=== PATIENT | female | born 1960 | race Caucasian/White ===

== ENCOUNTER 2017-01-31 23:20 | Emergency (ER) | payer MEDICAID ==
[~2017-01-31] VITALS: Ht 154.9 cm; Wt 84.0 kg
[~2017-01-31 23:20] MED LIST: ACYC800T57 PO; GLIM4TAB PO; HYDR-902 PO; LISI20TA11 PO
[2017-01-31 23:25] VITALS: Ht 154.9 cm; Wt 84.0 kg
[2017-01-31] MEDS ORDERED: ONDANSETRON (ODT) 4 MG TAB ODT STA (23:26)
[2017-02-01] MEDS ORDERED: morphine 4 MG/ML VIAL IV STA (00:10)
[2017-02-01] MEDS ORDERED: OMEG-135 PO (00:21)
[2017-02-01] MEDS ORDERED: CALC600T11 PO (00:21)
--- NOTE | 2017-02-01 00:23 | ERD ---
ER Documentation Chief Complaint Date/Time DATE: 02/01/17 TIME: 00:21 Chief Complaint PATIENT C/O TINGLING IN ARMS, NAUSEA/VOMITING AND WEAKNESS HPI This is a 56-year-old female who had a sudden tragic standing also had sudden onset of tingling in her arms and a headache. Denies any fevers or chills. Denies any chest pain. Denies any other current issues. Patient was a code green ROS All systems reviewed and are negative except as per history of present illness. Medications Home Meds Active Scripts Hydrocodone/Acetaminophen ([place] 10-325 Tablet) 1 Each Tablet, 1 TAB PO Q6H Y for PAIN, #12 TAB Prov:KANDY BENTLEY MD 06/24/16 Acyclovir* (Zovirax*) 800 Mg Tablet, 800 MG PO 5 TIMES DAILY for 10 Days, TAB Prov:KANDY BENTLEY MD 06/24/16 Reported Medications Lisinopril* (Lisinopril*) 20 Mg Tablet, 20 MG PO DAILY, #30 TAB 06/24/16 Glimepiride* (Glimepiride*) 4 Mg Tablet, 4 MG PO WITH BREAKFAST DINNE, TAB 06/24/16 Allergies Allergies: Coded Allergies: Penicillins (Unverified Allergy, Unknown, 02/01/17) PMhx/Soc History of Surgery: Yes (C SECTION ) Anesthesia Reaction: No Hx Neurological Disorder: No Hx Respiratory Disorders: No Hx Cardiac Disorders: Yes (HTN) Hx Psychiatric Problems: No Hx Miscellaneous Medical Probl: Yes (DIABETES ) Hx Alcohol Use: No Hx Substance Use: No Hx Tobacco Use: No Smoking Status: Never smoker Physical Exam Vitals Vital Signs Date Time Temp Pulse Resp B/P Pulse Ox O2 Delivery O2 Flow Rate FiO2 01/31/17 23:25 98.2 82 20 184/87 100 Physical Exam Const: [] Head: Atraumatic Eyes: Normal Conjunctiva ENT: Normal External Ears, Nose and Mouth. Neck: Full range of motion..~ No meningismus. Resp: Clear to auscultation bilaterally Cardio: Regular rate and rhythm, no murmurs Abd: Soft, non tender, non distended. Normal bowel sounds Skin: No petechiae or rashes Back: No midline or flank tenderness Ext: No cyanosis, or edema Neur: Awake and alert Psych: Normal Mood and Affect Results 24 hrs Laboratory Tests Test 6/27/17 23:23 Bedside Glucose 166mg/dL Current Medications Medications (Trade) Dose Ordered Sig/Idris Route PRN Reason Start Time Stop Time Status Last Admin Dose Admin Ondansetron HCl (Zofran Odt) 4 mg ONCE STAT ODT 01/31/17 23:26 01/31/17 23:27 DC 01/31/17 23:38 Clonidine (Catapres) 0.2 mg ONCE ONCE PO 01/31/17 23:30 01/31/17 23:31 DC 01/31/17 23:38 Morphine Sulfate (morphine) 4 mg ONCE STAT IV 02/01/17 00:10 02/01/17 00:11 DC Procedures/MDM EKG: Rate/Rhythm: [Normal Sinus Rhythm] QRS, ST, T-waves: [No changes consistent w/ acute ischemia] Impression: [No evidence of ischemia or arrhythmia] Medical decision-making: Patient with elevated blood pressure likely secondary to anxiety. At this point is clinically sober patient be discharged home. Patient's blood pressure was elevated (>120/80) but appears stable without evidence of hypertension emergency or urgency. The patient was counseled about the risks of hypertension and urged to pursue outpatient monitoring and therapy within a week with their primary care physician. Departure Diagnosis: Primary Impression: Anxiety Condition: Stable SHALOM KHAN Feb 01, 2017 00:23
[2017-02-01 00:52] VITALS: BP 159/78; PULSE 79; RESP 18
== END 2017-02-01 00:52 | disposition home or self-care (01) ==
LOC: E/R 23:20
DX: F41.9 Anxiety disorder, unspecified (principal); I10 Essential (primary) hypertension; E11.9 Type 2 diabetes mellitus without complications; Z79.84 Long term (current) use of oral hypoglycemic drugs
CPT/HCPCS: 82962; 93005; Z7502; Z7610

== ENCOUNTER 2017-05-16 06:01 | Inpatient (IN) | payer MEDICAID ==
[~2017-05-16] VITALS: Ht 160 cm; Wt 75.0 kg
[2017-05-16] VITALS (21 sets, daily range): BP systolic 106–124; BP diastolic 63–79; PULSE 60–75; RESP 13–28; TEMP 98.5; Ht 160 cm; Wt 75.0 kg
[~2017-05-16 06:01] MED LIST changes: -ACYC800T57 PO; +CALC600T24 PO; -HYDR-902 PO; +OMEG-135 PO
[2017-05-16] MEDS ORDERED: HYDROmorphONE 1 MG/ML SYG IV STA (07:00)
[2017-05-16] MEDS ORDERED: KETOROLAC 30 MG INJ IV STA (07:00)
[2017-05-16] MEDS ORDERED: ONDANSETRON 4 MG INJ IV STA ×3 (07:00→17:28)
--- NOTE | 2017-05-16 07:41 | RADRPT ---
PROCEDURE: XR Chest. CLINICAL INDICATION: chest pain TECHNIQUE: Single frontal view of the chest was obtained COMPARISON: None FINDINGS: The heart and mediastinum are within normal limits. The lungs are clear. There is no pleural effusion or pneumothorax. RPTAT: AA IMPRESSION: No acute disease. .Ryan Galvan MD, Date Time Electronically viewed and signed by .Ryan Galvan MD, on 05/16/2017 07:40 .S/
[2017-05-16] MEDS ORDERED: ENOXAPARIN 80 MG/0.8 ML SYG SC STA (09:15)
[2017-05-16] MEDS ORDERED: NITROGLYCERIN 2% 1 GM OINT PKT TD STA (09:15)
[2017-05-16] MEDS ORDERED: ASPIRIN 325 MG TAB PO STA (09:15)
[2017-05-16] MEDS ORDERED: CALC500T91 PO (10:02)
[2017-05-16 10:39] LABS: BASOPHILS % 0.2 % (0.0-2.0); EOSINOPHILS # 0.1 10^3/ul (0.0-0.5); EOSINOPHILS % 0.9 % (0.0-7.0); HEMATOCRIT 33.3 % (37.0-47.0); HEMOGLOBIN 10.7 g/dl (12.0-16.0); LYMPHOCYTES # 1.7 10^3/ul (0.8-2.9); LYMPHOCYTES % 13.5 % (15.0-51.0); MEAN CORPUSCULAR HEMOGLOBIN 29.1 pg (29.0-33.0); MEAN CORPUSCULAR HGB CONC 32.1 g/dl (32.0-37.0); MEAN CORPUSCULAR VOLUME 90.5 fl (82.0-101.0); MEAN PLATELET VOLUME 12.5 fl (7.4-10.4); MONOCYTE # 0.4 10^3/ul (0.3-0.9); MONOCYTES % 3.5 % (0.0-11.0); NEUTROPHIL # 10.4 10^3/ul (1.6-7.5); NEUTROPHILS % 81.6 % (39.0-77.0); PLATELET COUNT 191 10^3/UL (140-415); RED BLOOD COUNT 3.68 10^6/ul (4.20-5.40); RED CELL DISTRIBUTION WIDTH 13.6 % (11.5-14.5); WHITE BLOOD COUNT 12.7 10^3/ul (4.8-10.8)
[2017-05-16 10:43] LABS: INR 1.02; PROTIME 13.4 Sec (12.2-14.2)
[2017-05-16 10:44] LABS: PARTIAL THROMBOPLASTIN TIME 27.5 Sec (25.0-35.0)
[2017-05-16 10:46] LABS: ALBUMIN 3.7 g/dl (3.3-4.9); ALBUMIN/GLOBULIN RATIO 0.94; BILIRUBIN,INDIRECT 0.2 mg/dl (0-1.1); BILIRUBIN,TOTAL 0.2 mg/dl (0.2-1.3); CALCIUM 9.2 mg/dl (8.4-10.2); CREATININE 1.14 mg/dl (0.44-1.00); POTASSIUM 4.8 mmol/L (3.5-5.1); TOTAL PROTEIN 7.6 g/dl (6.1-8.1)
--- NOTE | 2017-05-16 12:31 | ERA ---
ER Documentation Chief Complaint Date/Time DATE: 05/16/17 TIME: 12:27 Chief Complaint upper back pain with vomiting started this 3am; denies injury/fall HPI This is a 57-year-old female who states that 3 AM this morning she developed some pain located in her right upper back area located around her right scapula and right upper chest underneath the clavicle. She said she vomited 6 or 7 times it is nonbilious and nonbloody. She said that she always vomits when she has pain. She says this is not unusual to vomit when she has any type of pain. She says the pain is worse when she moves her trunk or arms. She has no shortness of breath no pain in the right upper quadrant no known history of gallstones, no recent cough. Denies any pressure she describes the pain as a sharp sensation, no radiation of pain the pain is mild to moderate now ROS All systems reviewed and are negative except as per history of present illness. Medications Home Meds Reported Medications Calcium Carbonate ([id number]) 500 Mg Tablet, 500 MG PO BID, TAB 05/16/17 [place]-3 Fatty Acids/Fish Oil (Fish Oil 1,000 mg Capsule) 1 Each Capsule, 1 EACH PO DAILY, CAP 02/01/17 Lisinopril* (Lisinopril*) 20 Mg Tablet, 20 MG PO DAILY, #30 TAB 06/24/16 Glimepiride* (Glimepiride*) 4 Mg Tablet, 4 MG PO WITH BREAKFAST DINNE, TAB 06/24/16 Discontinued Reported Medications Calcium Carbonate* (Calcium Carbonate*) 600 MG Ca Tab, 600 MG PO, TAB 02/01/17 Allergies Allergies: Coded Allergies: Penicillins (Unverified Allergy, Unknown, 05/16/17) PMhx/Soc History of Surgery: Yes (C SECTION ) Anesthesia Reaction: No Hx Neurological Disorder: No Hx Respiratory Disorders: No Hx Cardiac Disorders: Yes (HTN, elevated cholesterol) Hx Psychiatric Problems: No Hx Miscellaneous Medical Probl: Yes (DIABETES ) Hx Alcohol Use: No Hx Substance Use: No Hx Tobacco Use: No Smoking Status: Never smoker FmHx Family History: No coronary disease Physical Exam Vitals Vital Signs Date Time Temp Pulse Resp B/P Pulse Ox O2 Delivery O2 Flow Rate FiO2 05/16/17 09:30 97.1 69 18 134/99 95 Room Air 05/16/17 06:05 96.6 60 20 142/76 98 Physical Exam Const: Well-developed, well-nourished Head: Atraumatic, normocephalic Eyes: Normal Conjunctiva, PERRLA, EOMI, normal sclera, no nystagmus ENT: Normal External Ears, Nose and Mouth, moist mucus membranes. Neck: Full range of motion. No meningismus, no lymphadenopathy. Resp: [Clear to auscultation bilaterally, no wheezing, rhonchi, rales, there is reproducible tenderness at the right upper chest wall, right trapezius right upper back. Pushing on the areas cause reproducible pain, pain is also reproducible with twisting of the trunk Cardio: Regular rate and rhythm, no murmurs, S1 S2 present Abd: Soft, non tender x 4, non distended. Normal bowel sounds, no guarding or rebound, no pulsitile abdominal masses or bruits Skin: No petechiae or rashes, no ecchymosis , no maculopapular rash Back: No midline or flank tenderness Ext: No cyanosis, or edema, FROM x 4, normal inspection, neurovascularly intact x 4 Neur: Awake and alert, STR 5/5 x 4, sensation intact x 4, no focal findings, cerebellum intact Psych: Normal Mood and Affect Result Diagram: 05/16/1771405/16/1715 Results 24 hrs Laboratory Tests Test 05/16/17 07:15 White Blood Count 12.710^3/ul Red Blood Count 3.6810^6/ul Hemoglobin 10.7g/dl Hematocrit 33.3% Mean Corpuscular Volume 90.5fl Mean Corpuscular Hemoglobin 29.1pg Mean Corpuscular Hemoglobin Concent 32.1g/dl Red Cell Distribution Width 13.6% Platelet Count 89578^3/UL Mean Platelet Volume 12.5fl Neutrophils % 81.6% Lymphocytes % 13.5% Monocytes % 3.5% Eosinophils % 0.9% Basophils % 0.2% Nucleated Red Blood Cells % 0.0/100WBC Neutrophils # 10.410^3/ul Lymphocytes # 1.710^3/ul Monocytes # 0.410^3/ul Eosinophils # 0.110^3/ul Basophils # 0.010^3/ul Nucleated Red Blood Cells # 0.010^3/ul Prothrombin Time 13.4Sec Prothrombin Time Ratio 1.0 INR International Normalized Ratio 1.02 Activated Partial Thromboplast Time 27.5Sec Sodium Level 141mmol/L Potassium Level 4.8mmol/L Chloride Level 109mmol/L Carbon Dioxide Level 25mmol/L Anion Gap 12 Blood Urea Nitrogen 33mg/dl Creatinine 1.14mg/dl Glucose Level 289mg/dl Calcium Level 9.2mg/dl Total Bilirubin 0.2mg/dl Direct Bilirubin 0.00mg/dl Indirect Bilirubin 0.2mg/dl Aspartate Amino Transf (AST/SGOT) 31IU/L Alanine Aminotransferase (ALT/SGPT) 27IU/L Alkaline Phosphatase 114IU/L Troponin I 0.128ng/ml Total Protein 7.6g/dl Albumin 3.7g/dl Globulin 3.90g/dl Albumin/Globulin Ratio 0.94 Current Medications Medications (Trade) Dose Ordered Sig/Idris Route PRN Reason Start Time Stop Time Status Last Admin Dose Admin Hydromorphone HCl (Dilaudid) 1 mg ONCE STAT IV 05/16/17 07:00 05/16/17 07:02 DC 05/16/17 07:11 Ondansetron HCl (Zofran Inj) 4 mg ONCE STAT IV 05/16/17 07:00 05/16/17 07:02 DC 05/16/17 07:12 Ketorolac Tromethamine (Toradol) 30 mg ONCE STAT IV 05/16/17 07:00 05/16/17 07:02 DC 05/16/17 07:11 Aspirin (Aspirin) 325 mg ONCE STAT PO 05/16/17 09:15 05/16/17 09:18 DC 05/16/17 09:26 Nitroglycerin (Nitroglycerin 2% Oint) 1 inch ONCE STAT TD 05/16/17 09:15 05/16/17 09:18 DC 05/16/17 09:28 Enoxaparin Sodium (Lovenox) 80 mg ONCE STAT SC 05/16/17 09:15 05/16/17 09:18 DC 05/16/17 09:27 Procedures/MDM PROCEDURE: XR Chest. CLINICAL INDICATION: chest pain TECHNIQUE: Single frontal view of the chest was obtained COMPARISON: None FINDINGS: The heart and mediastinum are within normal limits. The lungs are clear. There is no pleural effusion or pneumothorax. RPTAT: AA IMPRESSION: No acute disease. .Ryan Galvan MD, MD Date Time Electronically viewed and signed by .Ryan Galvan MD, on 05/16/2017 07: 40 .S/ CC: FEDE MOSS DO EKG: Rate/Rhythm: Normal Sinus Rhythm,NL intervals QRS, ST, QT: NORMAL IL, QRS, QT] Impression: NORMAL EKG Patient has an elevated troponin. She received an aspirin and Lovenox subcu. We will admit the patient to the hospital for cardiac workup. I page Dr. Dominguez of cardiology and waiting for callback. Patient is pain-free at this time does not show any evidence of EKG changes for acute coronary syndrome at this time. Critical Care Time: 30 minutes Treatments/Evaluations: Close monitoring and treatment of unstable vital signs, cardiorespiratory, and neurologic status, while maintaining tight balance of fluid, respiratory, and cardiac interventions. This time includes discussing the case with the patient and the patient's family. This time does not include all procedures stated elsewhere in this record. This time also includes reviewing old records, labs and radiological studies. This time includes examining and re-examining the patient. Additionally, this time also includes arranging care with admitting and consulting physicians. Departure Diagnosis: Primary Impression: Non-STEMI (non-ST elevated myocardial infarction) Condition: Stable FEDE MOSS DO May 16, 2017 12:31
[2017-05-16] MEDS ORDERED: SOD CHLORIDE 0.9% 1,000 ML IV SCH ×3 (12:38→16:30)
[2017-05-16] MEDS ORDERED: ONDANSETRON 4 MG INJ IV PRN ×2 (13:00→15:00)
[2017-05-16] MEDS ORDERED: ACETAMINOPHEN 325 MG TAB PO PRN ×2 (13:00→15:00)
[2017-05-16] MEDS ORDERED: NITROGLYCERIN (SL) 0.4 MG TAB SL PRN (15:00)
[2017-05-16] MEDS ORDERED: HEPARIN 25000 UNITS/250 ML 250 ML IV SCH ×2 (15:00→17:30)
[2017-05-16] MEDS ORDERED: HEPARIN 1000 UNITS/ML 10 ML INJ IV PRN ×3 (15:00→17:30)
[2017-05-16] MEDS ORDERED: DEXTROSE 50% 50 ML SYRINGE IV PRN ×2 (15:00)
[2017-05-16] MEDS ORDERED: DOCUSATE SODIUM 100 MG CAP PO PRN (15:00)
[2017-05-16] MEDS: FISH OIL 1,000 MG CAP PO SCH (15:00)
[2017-05-16] MEDS ORDERED: LORAZEPAM 2 MG INJ IV PRN (15:00)
[2017-05-16] MEDS ORDERED: GLUCOSE GEL 15 GRAM TUBE BUCCAL PRN (15:00)
[2017-05-16] MEDS ORDERED: HEPARIN 1000 UNITS/ML 10 ML INJ IV ONE ×2 (15:00→17:30)
[2017-05-16] MEDS ORDERED: ALBUTEROL/IPRATROPIUM (NEB) 3 ML AMP HHN PRN (15:00)
[2017-05-16] MEDS ORDERED: NACL 0.9% 3 ML SYG IV SCH (15:00)
[2017-05-16] MEDS ORDERED: GLUCAGON 1 MG INJ IM PRN (15:00)
[2017-05-16] MEDS ORDERED: HYDROCODONE/APAP (5/325) TAB PO PRN (15:00)
[2017-05-16] MEDS ORDERED: GLUCOSE GEL 15 GRAM TUBE PO PRN ×2 (15:00)
[2017-05-16] MEDS ORDERED: NA PHOSPHATE/BIPHOS 133 ML ENEMA PR PRN (15:00)
[2017-05-16] MEDS ORDERED: hydrALAzine 20 MG INJ IV PRN (15:00)
[2017-05-16] MEDS ORDERED: MAGNESIUM HYDROXIDE 30ML CUP PO PRN (15:00)
[2017-05-16 15:23] LABS: BASOPHILS % 0.3 % (0.0-2.0); EOSINOPHILS % 0.1 % (0.0-7.0); HEMATOCRIT 34.3 % (37.0-47.0); LYMPHOCYTES # 1.7 10^3/ul (0.8-2.9); LYMPHOCYTES % 15.6 % (15.0-51.0); MEAN CORPUSCULAR HEMOGLOBIN 28.6 pg (29.0-33.0); MEAN CORPUSCULAR HGB CONC 32.1 g/dl (32.0-37.0); MEAN CORPUSCULAR VOLUME 89.3 fl (82.0-101.0); MEAN PLATELET VOLUME 11.7 fl (7.4-10.4); MONOCYTE # 0.4 10^3/ul (0.3-0.9); MONOCYTES % 3.3 % (0.0-11.0); NEUTROPHIL # 8.8 10^3/ul (1.6-7.5); NEUTROPHILS % 80.3 % (39.0-77.0); PLATELET COUNT 193 10^3/UL (140-415); RED BLOOD COUNT 3.84 10^6/ul (4.20-5.40); RED CELL DISTRIBUTION WIDTH 13.7 % (11.5-14.5); WHITE BLOOD COUNT 10.9 10^3/ul (4.8-10.8)
[2017-05-16 15:36] LABS: CK-MB 49.7 ng/ml (0.0-2.4)
[2017-05-16 15:43] LABS: TROPONIN-I 11.8 ng/ml (0.00-0.12)
[2017-05-16 15:51] LABS: INR 1.07; PROTIME 13.9 Sec (12.2-14.2); PT RATIO 1.1
[2017-05-16 15:52] LABS: PARTIAL THROMBOPLASTIN TIME 37.3 Sec (25.0-35.0)
--- NOTE | 2017-05-16 16:11 | HP ---
DATE OF ADMISSION: 05/16/2017 CHIEF COMPLAINT: This is a 57-year-old female with chief complaint of shoulder, chest pain, and vomiting. HISTORY OF PRESENT ILLNESS: This is a 57-year-old female with past medical history of essential hypertension, type 2 diabetes, high cholesterol, who woke up around 3 a.m. this morning complaining of right upper back pain and some mild chest pain. She also had some nonbilious, nonbloody vomiting symptoms and vomited about six or seven times. Also, nausea symptoms as well. She has had vomiting before, but not with this kind of chest pain in the past. She denied any shortness of breath, dizziness or loss of consciousness. No diarrhea or constipation. No fevers or chills. She had some mild headache symptoms, however but no vision changes. When she came into the ER today, she had some blood tests performed and her white count was slightly elevated at 12.7, but more importantly, her first troponin was elevated at 0.128, signs of non ST elevation SC. Cardiology team was attempted to be consulted by the ER staff for this. Apparently no prior history of any strokes or heart attacks, per the patient. PAST MEDICAL HISTORY: As above. ALLERGIES: PENICILLIN. MEDICATIONS: Home medicines include: 1. Lisinopril 20 mg daily. 2. [place]-3 fatty acids. Fish oil 1000 mg daily. 3. Calcium carbonate 500 mg b.i.d. 4. Glimepiride 4 mg b.i.d. PAST SURGICAL HISTORY: She has had in the past. SOCIAL HISTORY: Negative for smoking, drinking, IV drug abuse. FAMILY HISTORY: Mother had hypertension. PHYSICAL EXAMINATION: VITAL SIGNS: Today vital signs: T-max 97.1, pulse 60-69, respirations 18-20, blood pressure 134/99, satting at 95-98 percent room air. GENERAL: The patient lying in bed, answers question appropriately. No acute distress. HEENT: Pupils equal, round, react to light. Extraocular muscles intact. NECK: Supple. No thyromegaly. LUNGS: Clear to auscultation bilaterally. No wheezes. CARDIAC: S1, S2 heard. No rubs, gallops. ABDOMEN: Soft, nontender, nondistended. Normal bowel sounds. No rebound or guarding. MUSCULOSKELETAL: No lower extremity edema bilaterally. NEUROLOGIC: No focal deficits. LABS: WBC 12.7, hemoglobin 10.7, hematocrit 33.3, platelets 191. Sodium 141, potassium 4.8, chloride 109, CO2 25, BUN 33, creatinine 1.14, glucose 289. Again first troponin is elevated at 0.128. Creatine kinase is 1,278. The patient had a chest x- ray that shows no acute disease. ASSESSMENT AND PLAN: 1. This is a 57-year-old female coming in with vomiting symptoms, right shoulder pain and chest pain, with signs of non- ST elevation myocardial infarction. 2. Chest pain and shoulder pain. Again, likely secondary to non-ST elevation myocardial infarction. Admit the patient to telemetry floor. Trend her troponins q.6 hours. Get a cardiology consult. Get 2D echocardiogram. Patient may benefit from left heart catheterization. We will discuss with the cardiology team. In any event, put her morphine, oxygen, nitrates as well. I will put her on high-dose Lipitor as well. Consider low-dose beta aury. Check TSH, A1c, lipid panel. Upon discussion with CV team, will also get CTA to r/o possible aortic dissection. If negative for this, will start heparin IV and ASA high dose. 3. Diabetes. Again, check A1c. Put on sliding scale insulin. 4. History of high cholesterol. Again, check lipid panel. She is on high-dose statins. 5. Gastrointestinal prophylaxis with H2 aury. 6. Deep vein thrombosis prophylaxis. She is on heparin drip for non ST elevation myocardial infarction. Dictated By: Elias Modi MD /jorge/rafa /Document#: [id number] JOAQUÍN
[2017-05-16] MEDS ORDERED: IOHEXOL 100 ML ONE (16:40)
[2017-05-16] MEDS ORDERED: SOD CHLORIDE 0.9% 100 ML ONE (16:40)
[2017-05-16] MEDS ORDERED: IOHEXOL 350MG/ML 50 ML BTL ONE (16:40)
--- NOTE | 2017-05-16 17:13 | RADRPT ---
PROCEDURE: CTA Chest with contrast and with 3-D reconstructions CLINICAL INDICATION: Aortic dissection TECHNIQUE: The study was performed utilizing multidetector CT scanner. Direct spiral axial section s were obtained from the thoracic inlet to the upper abdomen with the use of intravenous contrast ma terial (115 cc of Omnipaque-300). Sagittal, coronal and 3-D reformations were obtained. The images w ere reviewed on a PACS workstation. DLP 598.42 mGycm CTDIvol 30.98, 14.54 mGy One or more of the following dose reduction techniques were used: - Automated exposure control. - Adjustment of the mA and/or kV according to patient size. - Use of iterative reconstruction technique. COMPARISON: No prior studies are available for comparison. FINDINGS: There are no pulmonary emboli. There is no acute dissection or aneurysm of the thoracic aorta. The aortic root measures 2.3 cm in diameter. The ascending aorta measures 2.8 cm in diameter at the level of the right pulmonary artery. The mid aortic arch measures 2.1 cm in diameter. Great vessel origins off the aortic arch are widely patent. The descending thoracic aorta measures 2.0 cm in diameter proximally at the level of the left pulmon ligia artery and 1.9 cm in diameter distally just above the diaphragmatic hiatus. There is prominent interlobular septal thickening bilaterally, particularly in the upper lobes as we ll as numerous patchy and confluent ground-glass opacities bilaterally. There is a trace right pleu ral effusion. There is no pneumothorax. Heart size is within normal limits. There is no pericardial fluid. There are no enlarged axillary or mediastinal lymph nodes. The visualized portions of the upper abdomen are unremarkable. Osseous and soft tissue structures are within normal limits. IMPRESSION: No acute dissection or aneurysm of the thoracic aorta. No pulmonary emboli. Trace right pleural effusion and prominent interlobular septal thickening as well as patchy and conf luent ground-glass opacities bilaterally, as above. Findings suggest congestive changes although pne umonia and lymphangitic carcinomatosis are not entirely excluded. Clinical correlation is recommende d as well as follow-up to resolution. RPTAT: EE Ron Leon Physician Date Time Electronically viewed and signed by Physician Cece on 05/16/2017 17:13 RA/
[2017-05-16] MEDS ORDERED: NITROGLYCERIN 50 MG/D5W (PMX) 250 ML IV STA (17:20)
[2017-05-16] MEDS ORDERED: NITROGLYCERIN 50 MG/D5W (PMX) 250 ML ONE (17:21)
[2017-05-16] MEDS ORDERED: FUROSEMIDE 40 MG INJ ONE (17:21)
[2017-05-16] MEDS ORDERED: LORAZEPAM 2 MG INJ IV ONE (17:30)
[2017-05-16] MEDS ORDERED: FUROSEMIDE 40 MG INJ IV ONE (17:30)
[2017-05-16] MEDS ORDERED: morphine 4 MG/ML VIAL IV STA (17:36)
[2017-05-16] MEDS: morphine 2 MG INJ IV PRN (17:38)
[2017-05-16] MEDS ORDERED: LEVOFLOXACIN 750MG/D5W (PMX) 150 ML IVPB SCH (18:00)
[2017-05-16 18:02] LABS: AADO2 Arterial 214.1 mmHg (7.0-24.0); Allen Test ACCEPTAB; Arterial Base Excess -5.8 mmol/L (-3.0-3); Arterial COHb 0.3 % (0.0-3.0); Arterial HCO3 20.3 mmol/L (22.0-26.0); Arterial MetHb 0.2 % (0.0-1.5); Arterial Total Hemglobin 12.4 g/dl (12.0-18.0); Blood Gas IEPAP 15/5; Blood Gas PS 10; MODE MASK - BIPAP
--- NOTE | 2017-05-16 18:03 | RADRPT ---
PROCEDURE: Chest x-ray CLINICAL INDICATION: Chest pain TECHNIQUE: Chest single view COMPARISON: None FINDINGS: The heart is normal in size. There are new diffuse bilateral ground-glass parenchymal densities rig ht greater than left. This may represent pneumonia or asymmetrical edema. The costophrenic angles ar e sharp. Bony thorax is unremarkable. IMPRESSION: New bilateral ground-glass parenchymal densities right greater than left. This may represent pneumon ia or asymmetrical edema RPTAT: HH .Richie De Los Santos MD, MD Date Time Electronically viewed and signed by .Richie De Los Santos MD, on 05/16/2017 18:03 .W/
[2017-05-16] MEDS: INSULIN ASPART [NOVOLOG] 3 ML PEN SC SCH ×2 (18:18→21:09)
[2017-05-16 20:26] LABS: BASOPHILS % 0.2 % (0.0-2.0); EOSINOPHILS % 0.2 % (0.0-7.0); HEMATOCRIT 35.9 % (37.0-47.0); HEMOGLOBIN 11.3 g/dl (12.0-16.0); LYMPHOCYTES % 15.1 % (15.0-51.0); MEAN CORPUSCULAR HGB CONC 31.5 g/dl (32.0-37.0); MEAN CORPUSCULAR VOLUME 88.9 fl (82.0-101.0); MEAN PLATELET VOLUME 12.3 fl (7.4-10.4); MONOCYTE # 0.7 10^3/ul (0.3-0.9); MONOCYTES % 5.2 % (0.0-11.0); NEUTROPHIL # 10.4 10^3/ul (1.6-7.5); NEUTROPHILS % 78.9 % (39.0-77.0); PLATELET COUNT 215 10^3/UL (140-415); RED BLOOD COUNT 4.04 10^6/ul (4.20-5.40); WHITE BLOOD COUNT 13.2 10^3/ul (4.8-10.8)
[2017-05-16 20:48] LABS: INR 1.14; PROTIME 14.6 Sec (12.2-14.2); PT RATIO 1.1
[2017-05-16] MEDS: FAMOTIDINE 20 MG TAB PO SCH (20:55)
[2017-05-16] MEDS: ATORVASTATIN 80 MG TAB PO SCH (20:56)
[2017-05-16 21:16] LABS: TROPONIN-I 55.9 ng/ml (0.00-0.12)
[2017-05-16 21:41] LABS: PARTIAL THROMBOPLASTIN TIME > 180.0 Sec (25.0-35.0)
[2017-05-17] VITALS (75 sets, daily range): BP systolic 81–143; BP diastolic 31–96; PULSE 53–102; RESP 13–34
[2017-05-17] MEDS: INSULIN ASPART [NOVOLOG] 3 ML PEN SC SCH ×6 (00:32→21:15)
[2017-05-17] MEDS: ACCU-CHEK XX SCH (02:00)
--- NOTE | 2017-05-17 04:12 | CONS ---
DATE OF ADMISSION: 05/16/2017 DATE OF CONSULTATION: CARDIOLOGY CONSULTATION REFERRING PHYSICIAN: Dr. Gabriel REASON FOR EVALUATION: Elevated troponins. HISTORY OF PRESENT ILLNESS: Ms. Dial is a 57-year-old woman with history of hypertension, dyslipi demia, history of coronary artery disease, who comes to the hospital now for evaluation of chest dis comfort. The patient was seen in the emergency room and she was noted to be with reports of back pa in, back discomfort, as well as some nonspecific EKG changes. I reviewed her EKG on admission. She had some subendocardial ischemia in precordial lead, which appeared to be hemodynamically stable. Her further hospital course was complicated by episodes of nausea and vomiting, and then the patient had some chest discomfort. Her troponin came elevated at 11.8, and patient's presentation is consi stent with high-risk features of non-ST elevation myocardial infarction. The patient had a CT of th e chest which was reportedly negative to rule out dissection of the aorta or pulmonary embolism; how ever, the patient does have right pleural effusion, and she went into flash pulmonary edema after th e test requiring BiPAP. The patient is in intensive care unit now, she is hemodynamically stable. Her troponin is now at 11. Patient has been initiated on heparin drip and appears to be hemodynamic ally stable. I think the plan is for patient to have optimization now. She already received some c ontrast with a chest CT. I think for now, conservative therapy is expected and patient likely to re quire left heart catheterization. We will keep her n.p.o. after midnight and follow expectantly. PAST MEDICAL HISTORY: 1. Hypertension. 2. Dyslipidemia. 3. History of coronary artery disease. 4. History of chest pains. 5. History of diabetes. HOME MEDICATIONS: 1. Lisinopril 20 mg. 2. [place] fatty acids. 3. Fish oil. 4. Calcium carbonate. 5. Glimepiride 20 mg p.o. b.i.d. ALLERGIES: PENICILLIN. SOCIAL HISTORY: Patient does not smoke, does not drink, does not use any drugs. FAMILY HISTORY: Negative for sudden cardiac or premature coronary artery disease. REVIEW OF SYSTEMS: CONSTITUTIONAL: No fevers, no chills, no recent weight change. HEENT: No changes in vision or hearing. CARDIAC: No chest pain reported now. RESPIRATORY: No shortness of breath. GASTROINTESTINAL: No nausea, vomiting, diarrhea, constipation. GENITOURINARY: No dysuria, hematuria. NEUROLOGIC: No focal neurological deficits. HEMATOLOGIC: . PSYCHIATRIC: No known history of psychiatric illness. PHYSICAL EXAMINATION: VITAL SIGNS: Temperature is 97.1, heart rate 94, blood pressure 172/77. GENERAL: She is a well-nourished woman in no acute distress, alert and oriented x3, aware of her co ndition. HEAD: Normocephalic, atraumatic. Eyes anicteric. NECK: Supple. JVD is 6-7 cm. There is no lymphadenopathy, no thyromegaly. HEART: Regular with soft holosystolic murmur at the apex. PMI is minimally displaced. LUNGS: Coarse at bases. ABDOMEN: Distended, bowel sounds are present. There is no hepatosplenomegaly. GENITOURINARY: Grossly intact. EXTREMITIES: Show no clubbing, cyanosis or edema. IMAGING: ECG read by me shows sinus rhythm with a rate of 113. She has some subendocardial ischemi a in precordial leads, but no ST elevations. LABORATORY DATA: Sodium 141, potassium 4.4, BUN of 32, creatinine 1.14. Troponin is from 0.12 to 1 1.8. Creatinine is 1.14 ASSESSMENT AND PLAN: 1. Non-ST elevation myocardial infarction. The patient has high-risk features of non-ST elevation myocardial infarction. The plan is for her to be treated with heparin therapy now. We will continu e to treat the patient with heparin and optimize fluid status. We will continue to follow expectant ly. 2. Hypertension. Blood pressure modestly well controlled now. We will continue to follow. We danish l hold off on AMANDA inhibitor in the setting of acute renal failure. Creatinine is 1.14. Continue to avoid nephrotoxic medications. We will follow expectantly. 3. Diabetes. Continue diabetic optimization and care. Insulin per primary team. 4. Respiratory failure, status post contrast administration, mild reaction to contrast administrati on, now on BiPAP. We will continue to follow. I would like to thank Dr. Gabriel for referring this patient for my evaluation. Dictated By: VERIOT TODD MD ML/NTS Conf#: [id number] DID#: [id number] CC: CHINEDU GABRIEL; RUPERT CARMONA MD;*[facility]*
[2017-05-17 05:57] LABS: BASOPHILS % 0.2 % (0.0-2.0); EOSINOPHILS # 0.1 10^3/ul (0.0-0.5); EOSINOPHILS % 0.4 % (0.0-7.0); HEMATOCRIT 32.3 % (37.0-47.0); HEMOGLOBIN 10.1 g/dl (12.0-16.0); LYMPHOCYTES # 2.1 10^3/ul (0.8-2.9); LYMPHOCYTES % 18.6 % (15.0-51.0); MEAN CORPUSCULAR HEMOGLOBIN 28.1 pg (29.0-33.0); MEAN CORPUSCULAR HGB CONC 31.3 g/dl (32.0-37.0); MEAN PLATELET VOLUME 12.3 fl (7.4-10.4); MONOCYTE # 0.6 10^3/ul (0.3-0.9); MONOCYTES % 4.9 % (0.0-11.0); NEUTROPHIL # 8.5 10^3/ul (1.6-7.5); NEUTROPHILS % 75.5 % (39.0-77.0); PLATELET COUNT 185 10^3/UL (140-415); RED BLOOD COUNT 3.59 10^6/ul (4.20-5.40); RED CELL DISTRIBUTION WIDTH 14.3 % (11.5-14.5); WHITE BLOOD COUNT 11.2 10^3/ul (4.8-10.8)
[2017-05-17 06:37] LABS: CALCIUM 8.6 mg/dl (8.4-10.2); CREATININE 1.66 mg/dl (0.44-1.00); PHOSPHORUS 5.4 mg/dl (2.5-4.9); POTASSIUM 4.6 mmol/L (3.5-5.1)
[2017-05-17 06:54] LABS: THYROID STIMULATING HORMONE 0.97 MIU/L (0.465-4.680)
[2017-05-17] MEDS: FAMOTIDINE 20 MG TAB PO SCH ×2 (08:29→21:09)
[2017-05-17] MEDS: FISH OIL 1,000 MG CAP PO SCH (08:29)
[2017-05-17] MEDS ORDERED: ASPIRIN (EC) 325 MG TAB PO SCH (09:00)
[2017-05-17] MEDS ORDERED: VERAPAMIL 5 MG INJ ONE (09:13)
[2017-05-17] MEDS ORDERED: HEPARIN 1000 UNITS/ML 10 ML INJ ONE (09:13)
[2017-05-17] MEDS ORDERED: HEPARIN 1000 UNITS/NS (A-LINE) 1,000 ML ONE (09:13)
[2017-05-17] MEDS ORDERED: FENTAnyl 50 MCG/ML VIAL ONE (09:13)
[2017-05-17] MEDS ORDERED: IODIXANOL LOCM 100 ML BTL ONE (09:13)
[2017-05-17] MEDS ORDERED: NITROGLYCERIN (IC) 100 MCG/ML INJ ONE (09:13)
[2017-05-17] MEDS ORDERED: LIDOCAINE 1% (MDV) 20 ML INJ ONE (09:13)
[2017-05-17] MEDS ORDERED: MIDAZOLAM 1 MG/ML 2 ML INJ ONE (09:13)
--- NOTE | 2017-05-17 09:43 | PN ---
Date/Time of Note Date/Time of Note DATE: 05/17/17 TIME: 09:36 Assessment/Plan VTE Prophylaxis VTE Prophylaxis Intervention: heparin Lines/Catheters IV C[facility]ter Type (from [facility]): [facility] Urinary Cath still in place: No Assessment/Plan Chief Complaint/Hosp Course ASSESSMENT AND PLAN: 57-year-old female coming in with vomiting symptoms, right shoulder pain and chest pain, with signs of non- ST elevation myocardial infarction. 1. Chest pain and shoulder pain. Again, likely secondary to non-ST elevation myocardial infarction. -Follow-up cardiology consult recommendations and results of cardiac cath. - f/u 2D echocardiogram. -Continue Coreg, Lipitor, aspirin 2. Res distress: Again patient required BiPAP yesterday, chest x-ray shows: New bilateral ground-glass parenchymal densities right greater than left. This may represent pneumonia or asymmetrical edema. CTA chest was negative for dissection or PE. -Follow-up pulmonary rec's, , continue broad-spectrum antibiotics 3. Diabetes - A1c = 8.2 - continue sliding scale insulin. 4. History of high cholesterol - f/u lipid panel. She is on high-dose statin. 5. Gastrointestinal prophylaxis with H2 aury. 6. Deep vein thrombosis prophylaxis. She is on heparin drip for non ST elevation myocardial infarction. Critical care time spent on patient care today equals 40 minutes. Problems: Subjective 24 Hr Interval Summary Free Text/Dictation Patient seen by cardiology team. Had significant shortness of breath yesterday and required BiPAP briefly. Sent to ICU from the ER. Presently in cardiac label pinker. No acute events overnight. Exam/Review of Systems Vital Signs Vitals Vital Signs Date Time Temp Pulse Resp B/P Pulse Ox O2 Delivery O2 Flow Rate FiO2 05/17/17 08:00 60 05/17/17 05:54 3.0 05/17/17 03:30 15 101/59 99 05/17/17 00:00 98.6 Nasal Cannula 05/16/17 19:43 50 Intake and Output 05/16/17 05/16/17 05/17/17 14:59 22:59 06:59 Intake Total 80 ml Output Total 250 ml 300 ml Balance -250 ml -220 ml Exam PE: -Unable to be performed presently as the patient is off the floor at procedure Results Result Diagram: 05/17/17 0522 05/17/17 0522 Results 24 hrs Laboratory Tests Test 05/16/17 14:30 05/16/17 15:10 05/16/17 17:40 05/16/17 18:13 Creatine Kinase 1278 H Creatine Kinase Index 3.9 Creatinine Kinase MB (Mass) 49.70 H Troponin I 11.800 *H White Blood Count 10.9 H Red Blood Count 3.84 L Hemoglobin 11.0 L Hematocrit 34.3 L Mean Corpuscular Volume 89.3 Mean Corpuscular Hemoglobin 28.6 L Mean Corpuscular Hemoglobin Concent 32.1 Red Cell Distribution Width 13.7 Platelet Count 193 Mean Platelet Volume 11.7 H Neutrophils % 80.3 H Lymphocytes % 15.6 Monocytes % 3.3 Eosinophils % 0.1 Basophils % 0.3 Nucleated Red Blood Cells % 0.0 Neutrophils # 8.8 H Lymphocytes # 1.7 Monocytes # 0.4 Eosinophils # 0.0 Basophils # 0.0 Nucleated Red Blood Cells # 0.0 Prothrombin Time 13.9 Prothrombin Time Ratio 1.1 INR International Normalized Ratio 1.07 Activated Partial Thromboplast Time 37.3 H Free Thyroxine 1.29 Blood Gas Specimen Source Blood arterial Arterial Blood Date Drawn 05/16/2017 5:56:20 PM Arterial Blood pH (Temp corrected) 7.302 L Arterial Blood pCO2 (Temp correct) 42.0 Arterial Blood pO2 (Temp corrected) 95.2 Arterial Blood HCO3 20.3 L Arterial Blood Base Excess -5.8 L Arterial Blood Oxygen Saturation 96.5 Davin Test ACCEPTAB Arterial Blood Gas Puncture Site Right Radial Arterial Blood Carboxyhemoglobin 0.3 Arterial Blood Methemoglobin 0.2 Blood Gas A-a O2 Differential 214.1 H Oxyhemoglobin Percent 96.0 Total Hemoglobin 12.4 Blood Gas Temperature 37.0 Blood Gas Respiration Rate 14.0 Blood Gas Actual Respiration Rate 24 Blood Gas Modality MASK - BIPAP FiO2 50.0 Blood Gas Pressure Support 10 Blood Gas IPAP/EPAP Ratio 15/5 Blood Gas Notified Whom MDA Blood Gas Notified Time 05/16/2017 6:02:01 PM Bedside Glucose 182 Test 05/16/17 19:48 05/16/17 21:00 05/16/17 23:44 05/17/17 00:30 White Blood Count 13.2 #H Red Blood Count 4.04 L Hemoglobin 11.3 L Hematocrit 35.9 L Mean Corpuscular Volume 88.9 Mean Corpuscular Hemoglobin 28.0 L Mean Corpuscular Hemoglobin Concent 31.5 L Red Cell Distribution Width 14.0 Platelet Count 215 Mean Platelet Volume 12.3 H Neutrophils % 78.9 H Lymphocytes % 15.1 Monocytes % 5.2 Eosinophils % 0.2 Basophils % 0.2 Nucleated Red Blood Cells % 0.0 Neutrophils # 10.4 H Lymphocytes # 2.0 Monocytes # 0.7 Eosinophils # 0.0 Basophils # 0.0 Nucleated Red Blood Cells # 0.0 Prothrombin Time 14.6 H Prothrombin Time Ratio 1.1 INR International Normalized Ratio 1.14 Activated Partial Thromboplast Time > 180.0 *H 97.5 *H Creatine Kinase 5396 #H Creatine Kinase Index 2.5 Creatinine Kinase MB (Mass) 136.00 H Troponin I 55.900 *H B-Type Natriuretic Peptide 5770 H HIV (1&2) Antibody NEGATIVE Bedside Glucose 162 136 Test 05/17/17 02:00 05/17/17 05:22 Activated Partial Thromboplast Time 46.0 H White Blood Count 11.2 H Red Blood Count 3.59 L Hemoglobin 10.1 L Hematocrit 32.3 L Mean Corpuscular Volume 90.0 Mean Corpuscular Hemoglobin 28.1 L Mean Corpuscular Hemoglobin Concent 31.3 L Red Cell Distribution Width 14.3 Platelet Count 185 Mean Platelet Volume 12.3 H Neutrophils % 75.5 Lymphocytes % 18.6 Monocytes % 4.9 Eosinophils % 0.4 Basophils % 0.2 Nucleated Red Blood Cells % 0.0 Neutrophils # 8.5 H Lymphocytes # 2.1 Monocytes # 0.6 Eosinophils # 0.1 Basophils # 0.0 Nucleated Red Blood Cells # 0.0 Sodium Level 141 Potassium Level 4.6 Chloride Level 111 H Carbon Dioxide Level 27 Anion Gap 8 Blood Urea Nitrogen 39 H Creatinine 1.66 H Glucose Level 164 # Hemoglobin A1c 8.2 H Calcium Level 8.6 Phosphorus Level 5.4 H Magnesium Level 2.0 Troponin I 106.000 *H Triglycerides Level 153 H Cholesterol Level 195 LDL Cholesterol, Calculated 125 HDL Cholesterol 39 Cholesterol/HDL Ratio 5.0 Thyroid Stimulating Hormone (TSH) 0.970 Medications Medications Current Medications Ondansetron HCl (Zofran Inj) 4 mg Q6H PRN IV NAUSEA AND/OR VOMITING Last administered on 05/16/17t 17:24; Admin Dose 4 MG; Start 05/16/17 at 15:00 Acetaminophen (Tylenol Tab) 650 mg Q6H PRN PO PAIN LEVEL 1-3 OR FEVER; Start 05/16/17 at 15:00 Acetaminophen/ Hydrocodone Bitart ([place] (5/325)) 1 tab Q6H PRN PO MODERATE PAIN LEVEL 4-6; Start 05/16/17 at 15:00 Morphine Sulfate (morphine) 2 mg Q4H PRN IV SEVERE PAIN LEVEL 7-10 Last administered on 05/16/17 17:38; Admin Dose 2 MG; Start 05/16/17 at 15:00 Docusate Sodium (Colace) 100 mg Q12H PRN PO CONSTIPATION; Start 05/16/17 at 15 :00 Magnesium Hydroxide (Milk Of Mag) 30 ml DAILY PRN PO CONSTIPATION; Start 05/16 at 15:00 Sodium Biphosphate/ Sodium Phosphate (Fleet Enema) 133 ml DAILY PRN [place] CONSTIPATION; Start 05/16/17 at 15:00 Famotidine (Pepcid) 20 mg Q12 PO Last administered on 05/17/17 08:29; Admin Dose 20 MG; Start 05/16/17 at 21:00 Lorazepam (Ativan) 0.5 mg Q6H PRN IV ANXIETY; Start 05/16/17 at 15:00 Hydralazine HCl (Apresoline) 10 mg Q6H PRN IV ELEVATED BLOOD PRESSURE; Start 05/16/17 at 15:00 Clonidine (Catapres) 0.1 mg Q6H PRN PO ELEVATED BLOOD PRESSURE; Start at 15:00 Nitroglycerin (Nitroglycerin (Sl Tab) 0.4 Mg) 1 tab Q5M PRN SL ANGINA; Start 05/16/17 at 15:00 Aspirin (Ecotrin) 325 mg DAILY PO Last administered on 05/17/17 08:29; Admin Dose 325 MG; Start 05/17/17 at 09:00; Status Future Hold Fish Oil (Fish Oil) 1,000 mg DAILY PO Last administered on 05/17/17 08:29; Admin Dose 1,000 MG; Start 05/16/17 at 15:00 Atorvastatin Calcium (Lipitor) 80 mg HS PO Last administered on 05/16/17 20: 56; Admin Dose 80 MG; Start 05/16/17 at 21:00 Diagnostic Test (Pha) (Accu-Chek) 1 ea 02 XX ; Start 05/17/17 at 02:00 Insulin Aspart (Novolog Insulin Pen) NOVOLOG *MILD* ALGORI... Q4 SC Last administered on 05/17/17 08:33; Admin Dose 1 UNIT; Start 05/16/17 at 17:00 Miscellaneous Information 1 ea NOTE XX ; Start 05/16/17 at 15:00 Glucose (Glutose) 15 gm Q15M PRN PO DECREASED GLUCOSE; Start 05/16/17 at 15:00 Glucose (Glutose) 22.5 gm Q15M PRN PO DECREASED GLUCOSE; Start 05/16/17 at 15: 00 Dextrose (D50w Syringe) 25 ml Q15M PRN IV DECREASED GLUCOSE; Start 05/16/17 at 15:00 Dextrose (D50w Syringe) 50 ml Q15M PRN IV DECREASED GLUCOSE; Start 05/16/17 at 15:00 Glucagon (Glucagen) 1 mg Q15M PRN IM DECREASED GLUCOSE; Start 05/16/17 at 15: 00 Glucose 15 gm 15 gm Q15M PRN BUCCAL DECREASED GLUCOSE; Start 05/16/17 at 15:00 Levofloxacin/ Dextrose (Levaquin 750 Mg/ D5W 150 ml (Pmx)) 150 ml @ 100 mls/hr Q24H IVPB ; Start 05/16/17 at 18:00 Carvedilol (Coreg) 6.25 mg BID PO Last administered on 05/16/17 20:56; Admin Dose 6.25 MG; Start 05/16/17 at 21:00 CHINEDU GABRIEL May 17, 2017 09:43
[2017-05-17] MEDS ORDERED: niCARdipine 25 MG INJ ONE (10:27)
--- NOTE | 2017-05-17 10:40 | CONS ---
Date/Time of Note Date/Time of Note DATE: 05/17/17 TIME: 10:36 Assessment/Plan Assessment/Plan Additional Assessment/Plan Chest x-ray was reviewed from yesterday which is showing mild pulmonary edema. Assessment and recommendations; 1. Patient admitted with acute SD scheduled for coronary angiographically. 2. Mild increase in serum creatinine from baseline. 3. History of diabetes and hypertension. 4. Difficult to rule out some element of pneumonia. Next Change Levaquin dosing to 250 mg IV daily. Further recommendations per [facility] once the patient undergoes coronary angiography. Consultation Date/Type/Reason Admit Date/Time May 16, 2017 at 12:38 Date of Consultation: May 17, 2017 Type of Consultation: Pulmonary/critical care Reason for Consultation Pulmonary consultation requested for evaluation of shortness of breath. History of presenting illness; patient is a pleasant 57-year-old lady who came into the emergency room with shortness of breath with on for the last few hours prior to presentation to the ER. Patient also had several episodes of emesis. Upon further evaluation patient has been diagnosed with acute SD. Chest x-ray was done which is showing mild pulmonary edema. Patient has been started on IV heparin via protocol and is scheduled for coronary angiography shortly. Patient is feeling much better since admission. Denies any fever or chills. Denies any further chest pain. Also denies any further nausea or vomiting. Past medical history; 1. Patient with a history of diabetes. 2. Hyperlipidemia and hypertension. 3. No known coronary artery disease. 4. History of . Medications; reviewed. Allergies; penicillin. Social history; no show any smoking alcohol or drug abuse. Family history; patient's mother has hypertension. 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 Review systems; denies any headache, visual changes. Any sinus symptoms. Denies any further chest pain. Shortness of breath has improved. Denies any cough, sputum production. Denies any abdominal pain, any further nausea or vomiting. Denies any diarrhea, melena, complains of mild orthopnea. Denies any weight change. Any skin changes. Also denies any urinary symptoms. General exam; middle-aged woman, awake and alert. Currently in no distress. Social History Smoking Status: Never smoker Exam/Review of Systems Vital Signs Vitals Vital Signs Date Time Temp Pulse Resp B/P Pulse Ox O2 Delivery O2 Flow Rate FiO2 05/17/17 08:00 60 05/17/17 05:54 3.0 05/17/17 03:30 15 101/59 99 05/17/17 00:00 98.6 Nasal Cannula 05/16/17 19:43 50 Intake and Output 05/16/17 05/16/17 05/17/17 15:00 23:00 07:00 Intake Total 80 ml Output Total 250 ml 300 ml Balance -250 ml -220 ml Exam HEENT exam; supple neck, no JVD. No lymphadenopathy. Midline trachea. No thyromegaly. Pharynx is clear. Patient has good dentition. Pupils are midsize and reactive to light. Chest exam; clear to auscultation. S1-S2 audible, no murmurs. Regular rhythm. Abdomen exam; soft, nontender. No organomegaly. Bowel sounds audible. Extremity exam; no edema. Pulses 1+ bilaterally. ACETYLENE BURNER exam; no focal deficit. Results Result Diagram: 05/17/17 0522 05/17/17521 Results 24 hrs Laboratory Tests Test 05/16/17 14:30 05/16/17 15:10 05/16/17 17:40 05/16/17 18:13 Creatine Kinase 1278 H Creatine Kinase Index 3.9 Creatinine Kinase MB (Mass) 49.70 H Troponin I 11.800 *H White Blood Count 10.9 H Red Blood Count 3.84 L Hemoglobin 11.0 L Hematocrit 34.3 L Mean Corpuscular Volume 89.3 Mean Corpuscular Hemoglobin 28.6 L Mean Corpuscular Hemoglobin Concent 32.1 Red Cell Distribution Width 13.7 Platelet Count 193 Mean Platelet Volume 11.7 H Neutrophils % 80.3 H Lymphocytes % 15.6 Monocytes % 3.3 Eosinophils % 0.1 Basophils % 0.3 Nucleated Red Blood Cells % 0.0 Neutrophils # 8.8 H Lymphocytes # 1.7 Monocytes # 0.4 Eosinophils # 0.0 Basophils # 0.0 Nucleated Red Blood Cells # 0.0 Prothrombin Time 13.9 Prothrombin Time Ratio 1.1 INR International Normalized Ratio 1.07 Activated Partial Thromboplast Time 37.3 H Free Thyroxine 1.29 Blood Gas Specimen Source Blood arterial Arterial Blood Date Drawn 05/16/2017 5:56:20 PM Arterial Blood pH (Temp corrected) 7.302 L Arterial Blood pCO2 (Temp correct) 42.0 Arterial Blood pO2 (Temp corrected) 95.2 Arterial Blood HCO3 20.3 L Arterial Blood Base Excess -5.8 L Arterial Blood Oxygen Saturation 96.5 Davin Test ACCEPTAB Arterial Blood Gas Puncture Site Right Radial Arterial Blood Carboxyhemoglobin 0.3 Arterial Blood Methemoglobin 0.2 Blood Gas A-a O2 Differential 214.1 H Oxyhemoglobin Percent 96.0 Total Hemoglobin 12.4 Blood Gas Temperature 37.0 Blood Gas Respiration Rate 14.0 Blood Gas Actual Respiration Rate 24 Blood Gas Modality MASK - BIPAP FiO2 50.0 Blood Gas Pressure Support 10 Blood Gas IPAP/EPAP Ratio 15/5 Blood Gas Notified Whom MDA Blood Gas Notified Time 05/16/2017 6:02:01 PM Bedside Glucose 182 Test 05/16/17 19:48 05/16/17 21:00 05/16/17 23:44 05/17/17 00:30 White Blood Count 13.2 #H Red Blood Count 4.04 L Hemoglobin 11.3 L Hematocrit 35.9 L Mean Corpuscular Volume 88.9 Mean Corpuscular Hemoglobin 28.0 L Mean Corpuscular Hemoglobin Concent 31.5 L Red Cell Distribution Width 14.0 Platelet Count 215 Mean Platelet Volume 12.3 H Neutrophils % 78.9 H Lymphocytes % 15.1 Monocytes % 5.2 Eosinophils % 0.2 Basophils % 0.2 Nucleated Red Blood Cells % 0.0 Neutrophils # 10.4 H Lymphocytes # 2.0 Monocytes # 0.7 Eosinophils # 0.0 Basophils # 0.0 Nucleated Red Blood Cells # 0.0 Prothrombin Time 14.6 H Prothrombin Time Ratio 1.1 INR International Normalized Ratio 1.14 Activated Partial Thromboplast Time > 180.0 *H 97.5 *H Creatine Kinase 5396 #H Creatine Kinase Index 2.5 Creatinine Kinase MB (Mass) 136.00 H Troponin I 55.900 *H B-Type Natriuretic Peptide 5770 H HIV (1&2) Antibody NEGATIVE Bedside Glucose 162 136 Test 05/17/17 02:00 05/17/17 05:22 Activated Partial Thromboplast Time 46.0 H White Blood Count 11.2 H Red Blood Count 3.59 L Hemoglobin 10.1 L Hematocrit 32.3 L Mean Corpuscular Volume 90.0 Mean Corpuscular Hemoglobin 28.1 L Mean Corpuscular Hemoglobin Concent 31.3 L Red Cell Distribution Width 14.3 Platelet Count 185 Mean Platelet Volume 12.3 H Neutrophils % 75.5 Lymphocytes % 18.6 Monocytes % 4.9 Eosinophils % 0.4 Basophils % 0.2 Nucleated Red Blood Cells % 0.0 Neutrophils # 8.5 H Lymphocytes # 2.1 Monocytes # 0.6 Eosinophils # 0.1 Basophils # 0.0 Nucleated Red Blood Cells # 0.0 Sodium Level 141 Potassium Level 4.6 Chloride Level 111 H Carbon Dioxide Level 27 Anion Gap 8 Blood Urea Nitrogen 39 H Creatinine 1.66 H Glucose Level 164 # Hemoglobin A1c 8.2 H Calcium Level 8.6 Phosphorus Level 5.4 H Magnesium Level 2.0 Troponin I 106.000 *H Triglycerides Level 153 H Cholesterol Level 195 LDL Cholesterol, Calculated 125 HDL Cholesterol 39 Cholesterol/HDL Ratio 5.0 Thyroid Stimulating Hormone (TSH) 0.970 Medications Medications Current Medications Ondansetron HCl (Zofran Inj) 4 mg Q6H PRN IV NAUSEA AND/OR VOMITING Last administered on 05/16/17 17:24; Admin Dose 4 MG; Start 05/16/17 at 15:00 Acetaminophen (Tylenol Tab) 650 mg Q6H PRN PO PAIN LEVEL 1-3 OR FEVER; Start 05/16/17 at 15:00 Acetaminophen/ Hydrocodone Bitart ([place] (5/325)) 1 tab Q6H PRN PO MODERATE PAIN LEVEL 4-6; Start 05/16/17 at 15:00 Morphine Sulfate (morphine) 2 mg Q4H PRN IV SEVERE PAIN LEVEL 7-10 Last administered on 05/16/17 17:38; Admin Dose 2 MG; Start 05/16/17 at 15:00 Docusate Sodium (Colace) 100 mg Q12H PRN PO CONSTIPATION; Start 05/16/17 at 15 :00 Magnesium Hydroxide (Milk Of Mag) 30 ml DAILY PRN PO CONSTIPATION; Start 05/16 at 15:00 Sodium Biphosphate/ Sodium Phosphate (Fleet Enema) 133 ml DAILY PRN [place] CONSTIPATION; Start 05/16/17 at 15:00 Famotidine (Pepcid) 20 mg Q12 PO Last administered on 05/17/17 08:29; Admin Dose 20 MG; Start 05/16/17 at 21:00 Lorazepam (Ativan) 0.5 mg Q6H PRN IV ANXIETY; Start 05/16/17 at 15:00 Hydralazine HCl (Apresoline) 10 mg Q6H PRN IV ELEVATED BLOOD PRESSURE; Start 05/16/17 at 15:00 Clonidine (Catapres) 0.1 mg Q6H PRN PO ELEVATED BLOOD PRESSURE; Start at 15:00 Nitroglycerin (Nitroglycerin (Sl Tab) 0.4 Mg) 1 tab Q5M PRN SL ANGINA; Start 05/16/17 at 15:00 Aspirin (Ecotrin) 325 mg DAILY PO Last administered on 05/17/17 08:29; Admin Dose 325 MG; Start 05/17/17 at 09:00; Status Future Hold Fish Oil (Fish Oil) 1,000 mg DAILY PO Last administered on 05/17/17 08:29; Admin Dose 1,000 MG; Start 05/16/17 at 15:00 Atorvastatin Calcium (Lipitor) 80 mg HS PO Last administered on 05/16/17 20: 56; Admin Dose 80 MG; Start 05/16/17 at 21:00 Diagnostic Test (Pha) (Accu-Chek) 1 ea 02 XX ; Start 05/17/17 at 02:00 Insulin Aspart (Novolog Insulin Pen) NOVOLOG *MILD* ALGORI... Q4 SC Last administered on 05/17/17 08:33; Admin Dose 1 UNIT; Start 05/16/17 at 17:00 Miscellaneous Information 1 ea NOTE XX ; Start 05/16/17 at 15:00 Glucose (Glutose) 15 gm Q15M PRN PO DECREASED GLUCOSE; Start 05/16/17 at 15:00 Glucose (Glutose) 22.5 gm Q15M PRN PO DECREASED GLUCOSE; Start 05/16/17 at 15: 00 Dextrose (D50w Syringe) 25 ml Q15M PRN IV DECREASED GLUCOSE; Start 05/16/17 at 15:00 Dextrose (D50w Syringe) 50 ml Q15M PRN IV DECREASED GLUCOSE; Start 05/16/17 at 15:00 Glucagon (Glucagen) 1 mg Q15M PRN IM DECREASED GLUCOSE; Start 05/16/17 at 15: 00 Glucose (Glutose) 15 gm Q15M PRN BUCCAL DECREASED GLUCOSE; Start 05/16/17 at 15:00 Carvedilol (Coreg) 6.25 mg BID PO Last administered on 05/16/17 20:56; Admin Dose 6.25 MG; Start 05/16/17 at 21:00 CHANDRIKA ZHANG May 17, 2017 10:40
[2017-05-17] MEDS ORDERED: DOPamine-D5W 1.6 MG/ML 250 ML ONE (11:07)
[2017-05-17] MEDS ORDERED: ONDANSETRON 4 MG INJ ONE (11:11)
[2017-05-17] MEDS ORDERED: CLOPIDOGREL 300 MG TAB ONE (11:31)
[2017-05-17] MEDS ORDERED: ASPIRIN 325 MG TAB ONE (11:31)
[2017-05-17] MEDS ORDERED: IOHEXOL 350MG/ML 50 ML BTL ONE (11:31)
--- NOTE | 2017-05-17 11:48 | CONS ---
Date/Time of Note Date/Time of Note DATE: 05/17/17 TIME: 11:38 Assessment/Plan Assessment/Plan Chief Complaint/Hosp Course IMP: 1.Acute DC-trop>100 now POD#0 s/p ptca/stent x 2 to 100% occluded LCX and x 2 to high grade LAD stenosis and placement of IABP 2.CHF-likely systolic acute 3.Renal failure 4.DM 5.Chest pain secondary to number 1 6. Anemia 7.Dyslipidemia Recc: -Tele -serial ecg's -Continue asa 325 and plavix 75 mg daily -IABP@1:1 -Wean dopamine as tolerated -Follow volume status closely -statin therapy -Continue abx's and f/u cx data -Echo Problems: Consultation Date/Type/Reason Admit Date/Time May 16, 2017 at 12:38 Initial Consult Date 05/17/17 Type of Consultation: cardiology Reason for Consultation Acute DC Referring Provider: RUPERT CARMONA Exam/Review of Systems Vital Signs Vitals Vital Signs Date Time Temp Pulse Resp B/P Pulse Ox O2 Delivery O2 Flow Rate FiO2 05/17/17 08:00 Nasal Cannula 3.0 05/17/17 08:00 60 05/17/17 03:30 15 101/59 99 05/17/17 00:00 98.6 05/16/17 19:43 50 Intake and Output 05/16/17 05/16/17 05/17/17 15:00 23:00 07:00 Intake Total 80 ml Output Total 250 ml 300 ml Balance -250 ml -220 ml Exam Review of Systems: CONSTITUTIONAL: No fevers, chills. PULMONARY: ongoing sob CARDIOVASCULAR: ongoing chest pain GASTROINTESTINAL: No nausea/vomiting. GENITOURINARY: No hematuria/dysuria. MUSCULOSKELETAL: No myagias/arthalgias. PSYCHIATRIC: The patient denies depression. NEUROLOGIC: No weakness Constitutional: alert Psych: no complaints Head: normocephalic ENMT: mucosa pink and moist Neck: jvd (10 cm water), supple Respiratory: diminished breath sounds Cardiovascular: regular rate and rhythm Gastrointestinal: non-tender, soft Musculoskeletal: muscle tone Extremities: normal pulses Neurological: lethargic Results Result Diagram: 05/17/17 0522 05/17/17 0522 Results 24 hrs Laboratory Tests Test 05/16/17 14:30 05/16/17 15:10 05/16/17 17:40 05/16/17 18:13 Creatine Kinase 1278 H Creatine Kinase Index 3.9 Creatinine Kinase MB (Mass) 49.70 H Troponin I 11.800 *H White Blood Count 10.9 H Red Blood Count 3.84 L Hemoglobin 11.0 L Hematocrit 34.3 L Mean Corpuscular Volume 89.3 Mean Corpuscular Hemoglobin 28.6 L Mean Corpuscular Hemoglobin Concent 32.1 Red Cell Distribution Width 13.7 Platelet Count 193 Mean Platelet Volume 11.7 H Neutrophils % 80.3 H Lymphocytes % 15.6 Monocytes % 3.3 Eosinophils % 0.1 Basophils % 0.3 Nucleated Red Blood Cells % 0.0 Neutrophils # 8.8 H Lymphocytes # 1.7 Monocytes # 0.4 Eosinophils # 0.0 Basophils # 0.0 Nucleated Red Blood Cells # 0.0 Prothrombin Time 13.9 Prothrombin Time Ratio 1.1 INR International Normalized Ratio 1.07 Activated Partial Thromboplast Time 37.3 H Free Thyroxine 1.29 Blood Gas Specimen Source Blood arterial Arterial Blood Date Drawn 05/16/2017 5:56:20 PM Arterial Blood pH (Temp corrected) 7.302 L Arterial Blood pCO2 (Temp correct) 42.0 Arterial Blood pO2 (Temp corrected) 95.2 Arterial Blood HCO3 20.3 L Arterial Blood Base Excess -5.8 L Arterial Blood Oxygen Saturation 96.5 Davin Test ACCEPTAB Arterial Blood Gas Puncture Site Right Radial Arterial Blood Carboxyhemoglobin 0.3 Arterial Blood Methemoglobin 0.2 Blood Gas A-a O2 Differential 214.1 H Oxyhemoglobin Percent 96.0 Total Hemoglobin 12.4 Blood Gas Temperature 37.0 Blood Gas Respiration Rate 14.0 Blood Gas Actual Respiration Rate 24 Blood Gas Modality MASK - BIPAP FiO2 50.0 Blood Gas Pressure Support 10 Blood Gas IPAP/EPAP Ratio 15/ Blood Gas Notified Whom MDA Blood Gas Notified Time 05/16/2017 6:02:01 PM Bedside Glucose 182 Test 05/16/17 19:48 05/16/17 21:00 05/16/17 23:44 05/17/17 00:30 White Blood Count 13.2 #H Red Blood Count 4.04 L Hemoglobin 11.3 L Hematocrit 35.9 L Mean Corpuscular Volume 88.9 Mean Corpuscular Hemoglobin 28.0 L Mean Corpuscular Hemoglobin Concent 31.5 L Red Cell Distribution Width 14.0 Platelet Count 215 Mean Platelet Volume 12.3 H Neutrophils % 78.9 H Lymphocytes % 15.1 Monocytes % 5.2 Eosinophils % 0.2 Basophils % 0.2 Nucleated Red Blood Cells % 0.0 Neutrophils # 10.4 H Lymphocytes # 2.0 Monocytes # 0.7 Eosinophils # 0.0 Basophils # 0.0 Nucleated Red Blood Cells # 0.0 Prothrombin Time 14.6 H Prothrombin Time Ratio 1.1 INR International Normalized Ratio 1.14 Activated Partial Thromboplast Time > 180.0 *H 97.5 *H Creatine Kinase 5396 #H Creatine Kinase Index 2.5 Creatinine Kinase MB (Mass) 136.00 H Troponin I 55.900 *H B-Type Natriuretic Peptide 5770 H HIV (1&2) Antibody NEGATIVE Bedside Glucose 162 136 Test 05/17/17 02:00 05/17/17 05:22 Activated Partial Thromboplast Time 46.0 H White Blood Count 11.2 H Red Blood Count 3.59 L Hemoglobin 10.1 L Hematocrit 32.3 L Mean Corpuscular Volume 90.0 Mean Corpuscular Hemoglobin 28.1 L Mean Corpuscular Hemoglobin Concent 31.3 L Red Cell Distribution Width 14.3 Platelet Count 185 Mean Platelet Volume 12.3 H Neutrophils % 75.5 Lymphocytes % 18.6 Monocytes % 4.9 Eosinophils % 0.4 Basophils % 0.2 Nucleated Red Blood Cells % 0.0 Neutrophils # 8.5 H Lymphocytes # 2.1 Monocytes # 0.6 Eosinophils # 0.1 Basophils # 0.0 Nucleated Red Blood Cells # 0.0 Sodium Level 141 Potassium Level 4.6 Chloride Level 111 H Carbon Dioxide Level 27 Anion Gap 8 Blood Urea Nitrogen 39 H Creatinine 1.66 H Glucose Level 164 # Hemoglobin A1c 8.2 H Calcium Level 8.6 Phosphorus Level 5.4 H Magnesium Level 2.0 Troponin I 106.000 *H Triglycerides Level 153 H Cholesterol Level 195 LDL Cholesterol, Calculated 125 HDL Cholesterol 39 Cholesterol/HDL Ratio 5.0 Thyroid Stimulating Hormone (TSH) 0.970 Medications Medications Current Medications Ondansetron HCl (Zofran Inj) 4 mg Q6H PRN IV NAUSEA AND/OR VOMITING Last administered on 05/16/17t 17:24; Admin Dose 4 MG; Start 05/16/17 at 15:00 Acetaminophen (Tylenol Tab) 650 mg Q6H PRN PO PAIN LEVEL 1-3 OR FEVER; Start 05/16/17 at 15:00 Acetaminophen/ Hydrocodone Bitart ([place] (5/325)) 1 tab Q6H PRN PO MODERATE PAIN LEVEL 4-6; Start 05/16/17 at 15:00 Morphine Sulfate (morphine) 2 mg Q4H PRN IV SEVERE PAIN LEVEL 7-10 Last administered on 05/16/17 17:38; Admin Dose 2 MG; Start 05/16/17 at 15:00 Docusate Sodium (Colace) 100 mg Q12H PRN PO CONSTIPATION; Start 05/16/17 at 15 :00 Magnesium Hydroxide (Milk Of Mag) 30 ml DAILY PRN PO CONSTIPATION; Start 05/16 at 15:00 Sodium Biphosphate/ Sodium Phosphate (Fleet Enema) 133 ml DAILY PRN [place] CONSTIPATION; Start 05/16/17 at 15:00 Famotidine (Pepcid) 20 mg Q12 PO Last administered on 05/17/17 08:29; Admin Dose 20 MG; Start 05/16/17 at 21:00 Lorazepam (Ativan) 0.5 mg Q6H PRN IV ANXIETY; Start 05/16/17 at 15:00 Hydralazine HCl (Apresoline) 10 mg Q6H PRN IV ELEVATED BLOOD PRESSURE; Start 05/16/17 at 15:00 Clonidine (Catapres) 0.1 mg Q6H PRN PO ELEVATED BLOOD PRESSURE; Start at 15:00 Nitroglycerin (Nitroglycerin (Sl Tab) 0.4 Mg) 1 tab Q5M PRN SL ANGINA; Start 05/16/17 at 15:00 Aspirin (Ecotrin) 325 mg DAILY PO Last administered on 05/17/17 08:29; Admin Dose 325 MG; Start 05/17/17 at 09:00; Status Future Hold Fish Oil (Fish Oil) 1,000 mg DAILY PO Last administered on 05/17/17 08:29; Admin Dose 1,000 MG; Start 05/16/17 at 15:00 Atorvastatin Calcium (Lipitor) 80 mg HS PO Last administered on 05/16/17 20: 56; Admin Dose 80 MG; Start 05/16/17 at 21:00 Diagnostic Test (Pha) (Accu-Chek) 1 ea 02 XX ; Start 05/17/17 at 02:00 Insulin Aspart (Novolog Insulin Pen) NOVOLOG *MILD* ALGORI... Q4 SC Last administered on 05/17/17 08:33; Admin Dose 1 UNIT; Start 05/16/17 at 17:00 Miscellaneous Information 1 ea NOTE XX ; Start 05/16/17 at 15:00 Glucose (Glutose) 15 gm Q15M PRN PO DECREASED GLUCOSE; Start 05/16/17 at 15:00 Glucose (Glutose) 22.5 gm Q15M PRN PO DECREASED GLUCOSE; Start 05/16/17 at 15: 00 Dextrose (D50w Syringe) 25 ml Q15M PRN IV DECREASED GLUCOSE; Start 05/16/17 at 15:00 Dextrose (D50w Syringe) 50 ml Q15M PRN IV DECREASED GLUCOSE; Start 05/16/17 at 15:00 Glucagon (Glucagen) 1 mg Q15M PRN IM DECREASED GLUCOSE; Start 05/16/17 at 15: 00 Glucose (Glutose) 15 gm Q15M PRN BUCCAL DECREASED GLUCOSE; Start 05/16/17 at 15:00 Carvedilol 6.25 mg 6.25 mg BID PO Last administered on 05/16/17 20:56; Admin Dose 6.25 MG; Start 05/16/17 at 21:00 Levofloxacin/ Dextrose (Levaquin 250 Mg/ D5W 50 ml (Pmx)) 50 ml @ 50 mls/hr Q24H IVPB ; Start 05/17/17 at 11:00 RANDEE GAMBLE May 17, 2017 11:48
[2017-05-17] MEDS ORDERED: CANGRELOR TETRASODIUM/ NS 250 50 MG IV ONE (11:50)
--- NOTE | 2017-05-17 11:54 | SIPON ---
Date/Time of Note Date/Time of Note DATE: 05/17/17 TIME: 11:52 Operative Report Preoperative Diagnosis 1.Acute MS 2.CHF 3.CP Postoperative Diagnosis 1.Obstructive cad s/p ptca/stent with UMU x 2 to LCX 2.Obstructive cad s/p PTCA/stent x 2 to LAD 3.IABP placement Operation/Procedure Performed 1.Obstructive cad s/p ptca/stent with UMU x 2 to LCX 2.Obstructive cad s/p PTCA/stent x 2 to LAD 3.IABP placement Surgeon see signature line electrician's assistant Angine Anesthesia: moderate sedation Estimated blood loss: 0 - 10 ml's Transfusion Required none Specimen NA Grafts/Implants none Complications none RANDEE GAMBLE May 17, 2017 11:54
[2017-05-17] MEDS ORDERED: ACETAMINOPHEN 325 MG TAB PO PRN (12:00)
[2017-05-17] MEDS ORDERED: SOD CHLORIDE 0.9% 1,000 ML IV SCH (12:00)
[2017-05-17] MEDS ORDERED: AL HYDROX/MG HYDROX/SIMETH 30 ML CUP PO PRN (12:00)
[2017-05-17] MEDS ORDERED: OXYCODONE/ACETAMINOPHEN (5/325) TAB PO PRN (12:00)
[2017-05-17] MEDS ORDERED: FUROSEMIDE 20 MG INJ ONE (12:07)
[2017-05-17 12:25] LABS: AADO2 Arterial 453.4 mmHg (7.0-24.0); Arterial Base Excess -5.6 mmol/L (-3.0-3); Arterial COHb 0.3 % (0.0-3.0); Arterial Fraction of Oxyhgb 98.5 % (93.0-99.0); Arterial HCO3 20.6 mmol/L (22.0-26.0); Arterial MetHb 0.2 % (0.0-1.5); Arterial Total Hemglobin 11.5 g/dl (12.0-18.0); Blood Gas IEPAP 15/5; MODE MASK - BIPAP
[2017-05-17] MEDS ORDERED: FUROSEMIDE 20 MG INJ IV ONE (12:30)
[2017-05-17] MEDS: LEVOFLOXACIN 250MG/D5W (PMX) 50 ML IVPB SCH (12:55)
--- NOTE | 2017-05-17 13:23 | RADRPT ---
PROCEDURE: XR Chest. CLINICAL INDICATION: Short of breath TECHNIQUE: Single portable view of the chest was obtained COMPARISON: May 16, 2017 FINDINGS: The trachea is midline. The cardiac silhouette and bone vascularity are prominent. There are bilater al perihilar and interstitial infiltrates/edema. The costophrenic angles are sharp. IMPRESSION: 1. Cardiomegaly and pulmonary vascular congestion. Bilateral perihilar and interstitial infiltrates/ edema, worsened since prior exam. RPTAT: AAPP Shantelle Santos Physician Date Time Electronically viewed and signed by Shantelle Santos Physician on 05/17/2017 13:23 BRAD/
[2017-05-17] MEDS ORDERED: CANGRELOR TETRASODIUM/ NS 250 50 MG IVPB PRN (14:00)
[2017-05-17] MEDS ORDERED: ASPIRIN 325 MG TAB PO PRN (14:00)
[2017-05-17] MEDS ORDERED: CLOPIDOGREL 300 MG TAB PO PRN (14:00)
[2017-05-17] MEDS ORDERED: ASPIRIN (EC) 325 MG TAB PO ONE (14:11)
[2017-05-17 14:14] LABS: ADD UMIC YES; UR ASCORBIC ACID NEGATIVE (NEGATIVE); UR BACTERIA FEW /HPF (NONE SEEN); UR BILIRUBIN (Dip) NEGATIVE (NEGATIVE); UR BLOOD (Dip) 1+ mg/dL (NEGATIVE); UR CLARITY CLEAR (CLEAR); UR COLOR YELLOW (YELLOW); UR GLUCOSE (Dip) 1+ mg/dL (NEGATIVE); UR KETONES (Dip) NEGATIVE (NEGATIVE); UR LEUKOCYTE ESTERASE (Dip) NEGATIVE Leu/ul (NEGATIVE); UR MUCUS FEW /HPF (NONE SEEN); UR NITRITE (Dip) NEGATIVE (NEGATIVE); UR RBC 7 /HPF (0-5); UR SPECIFIC GRAVITY (Dip) > 1.060 (1.003-1.030); UR TOTAL PROTEIN (Dip) 2+ mg/dl (NEGATIVE); UR UROBILINOGEN (Dip) NEGATIVE (NEGATIVE)
[2017-05-17 15:46] LABS: PROTEIN/CREAT RATIO 0.77 RATIO
[2017-05-17] MEDS ORDERED: HEPARIN 1000 UNITS/ML 10 ML INJ IV PRN (18:30)
[2017-05-17] MEDS: HEPARIN 25000 UNITS/250 ML 250 ML IV SCH (19:03)
--- NOTE | 2017-05-17 19:48 | CARRPT ---
DATE OF PROCEDURE: TYPE OF PROCEDURE: 1. Left heart catheterization. 2. Coronary angiography. 3. Measurement of left ventricular end diastolic pressure. 4. Percutaneous transluminal coronary angioplasty with placement of Synergy 2.5 x 20 mm drug-elutin g stent and a 2.5 x 12 into the mid and proximal circ for 100% occlusion. 5. Percutaneous transluminal coronary angioplasty with placement of Resolute drug-eluting stents x2 to mid and distal LAD, 2.5 x 18 mm and 2.5 x 22 mm respectively. 6. Placement of intra-aortic balloon pump. 7. Moderate conscious sedation. ATTENDING PHYSICIAN: Randee Guardado MD. REFERRING PHYSICIAN: Dr. Rupert Leyva. INDICATION: Acute myocardial infarction with rising troponins, hemodynamic instability. TYPE OF ANESTHESIA: Local. BRIEF HISTORY: Ms. Dial is a 57-year-old female with history of hypertension, dyslipidemia, and d iabetes mellitus who initially presented with complaints of substernal chest pain. The patient subs equently suffered respiratory distress with flash pulmonary edema and then had a positive troponin, which was placed on medical therapy including heparin. Overnight the patient's troponin has increas ed to 100, patient with ongoing chest pain, shortness of breath, and has now been brought to the [facility] laborer adjustable steel joist in order to assess for the possibility of significant obstructive coronary artery dise ase lending to his symptoms of chest pain and acute myocardial infarction and flash pulmonary edema. PROCEDURE: After informed consent was obtained, the patient brought to [facility] cardiac laborer adjustable steel joist where her right radial area was prepped and draped in usual sterile fashion. [place] 2% for right radial area in order to achieve adequate anesthesia. With modified Seldinger zoe hnique, the radial artery was cannulated and a 6-Colombian arterial sheath was placed. A 6-Colombian JL3. 5 catheter was used to cannulate the left main coronary ostium. With contrast injection, multiple v iews of the left coronary system were obtained. JL3.5 was removed over a guidewire and a JR4 was us ed to cannulate the right coronary arterial ostium. With contrast injection, multiple views of the right coronary arterial system were obtained. JR4 was removed over a guidewire and after this had b een used to measure left ventricular end diastolic pressure and pull back across the aortic valve to assess for significant gradient, which there was not. Subsequently, at this time, given the findin gs of 100% occlusion in the patient's circumflex and high-grade stenosis in the LAD, we moved direct ly into an interventional procedure. The patient received Angiomax bolus continuous infusion, had a lready received a radial cocktail including 2.5 verapamil and 200 of nitroglycerin and subsequently at this time, a CLS guide was used to cannulate the left main coronary ostium. A 0.014 balanced alverto ght guidewire was passed distal to the 100% obstruction in the circumflex. Using a 2.0 x 12 balloon several inflations were made throughout the length of the circumflex restoring blood flow. Subsequ ently, balloon was removed and the lesions were stented initially with a 2.5 x 20 mm drug-eluting st ent deployed at 14 atmospheres, post-dilated with the stent up to 16 atmospheres. Stent delivery sy stem was removed and a second stent was added proximally 2.5 x 12 mm deployed at 14 atmospheres, pos t-dilated with a stent to 16 atmospheres. Stent delivery system was then pulled to overlap area and inflation was made at 18 atmospheres and subsequently removed. Subsequently, at this time, t he patient was given and up to approximately 800 mcg in order to restore IVANA 3 flow to this v essel to see probable distal embolization of thrombus. It is noted that there was obtuse marginal t hat suffered embolization and had a cut off that had come completely back after stenting midway thro ugh the stent. Subsequently at this time a noncompliant balloon was used to further post-dilate the midportion of the stent to 2.75 up to 16 atmospheres x2 and subsequently removed. Subsequently, at this time, the wire was pulled back and redirected to the LAD and passed distal into the LAD. Subs equently, at this time a 2.0 x 12 mm balloon was used to make pre-inflations in the distal portion o f the LAD and the LAD up to 14 to 16 atmospheres, restoring excellent blood flow to this vessel whic h had been IVANA 2 with high-grade stenosis of 95%. Between the inflations, patient became very hypo tensive requiring initiation of dopamine and with improvement of pressure. Additionally with time a fter each inflation, the patient's blood pressure improved. Subsequently, at this time, after the b alloon was removed, the initial distal portion of the vessel was stented with a 2.5 x 18 mm drug-elu ting stent deployed at 14 atmospheres x2. Stent system was removed and after allowing the patient t o once again have improved blood flow and increased blood pressure, a second stent was crossed in th e proximal and mid portion and then deployed a 2.5 x 22 mm at 14 atmospheres, post-dilated with sten t delivery system up to 16 atmospheres. Followup stent was removed. Followup angiogram was o btained revealing excellent result with deployment of both stents, IVANA 3 flow throughout, initially IVANA. 2 The patient was given a total of mcg of nicardipine and restored IVANA 2 flow to this vessel. Subsequently, at this time as patient's pressures had fallen and were taking a long time t o return, we then turned our attention to gaining femoral access and using the modified Seldinger te chnique, the right coronary was cannulated and a 6-Colombian arterial sheath was placed. Through this a 30 mL intraaortic balloon pump was placed into the aorta placed just 2 cm above the bifurcation of the bronchus and placed at 1:1 augmentation and subsequently sutured in place and at this time we w ent back and did a followup angiograms of the patient's stent, which revealed excellent result. All stents, IVANA 3 flow throughout the vessel, no signs of complication including perforation or dissec tion and subsequently the patient developed tachycardia on dopamine and subsequently dopamine dose h as been reduced with decreased tachycardia and improved blood pressure for stability of patient. Th is completed the procedure. There were no noted complications. FINDINGS: Coronary angiography: Left main 4 mm, no significant stenoses. Circumflex proximally is a 3 mm ves charito and becomes 100% occluded in its mid portion. The LAD proximally is a 3 mm vessel and its mid p ortion just after the bifurcation of the first septal branch, there is a focal 90% stenosis and then in the mid distal portion, there is a focal 95% stenosis. There are 3 branching diagonals, all sub 2 mm vessels with no significant focal stenoses. LAD goes around the apex. The right coronary art janell proximally is a 2.5 mm vessel and in its midportion has a focal 30% stenosis. The remainder of the right coronary artery is free of significant focal stenoses, dominant vessel, gives off a 2 mm P DA and a 2 mm posterolateral branch each with no significant focal stenoses. PTCA and stent placement: Prior to PTCA and stent placement within the patient's circumflex she had 100% occlusion. Post-PTCA and stent placement, the patient had no residual stenosis, IVANA 3 flow t hroughout the vessel and no signs of complication including perforation or dissection. PTCA and stent placement in the LAD: Prior to PTCA and stent placement of LAD, the patient had a mi d-distal 95% stenosis and a proximal 90% stenosis. Post-PTCA and stent placement, the patient had n o residual stenosis, IVANA 3 flow throughout the vessel and no signs of complication including perfor ation or dissection. Flow was excellent, it was really fast. Placement of IABP: Placed at 1:1 augmentation 2 cm above the bronchial bifurcation of the renals. MEASUREMENTS: Left ventricular end diastolic pressure of 22. TOTAL FLUOROSCOPY TIME: 24 minutes. TOTAL CONTRAST: 210 mL. IMPRESSION: 1. Two-vessel obstructive coronary artery disease involving 100% occlusion of the patient's circumf deanne, the culprit vessel for this acute myocardial infarction, likely truly is cause of ST-elevation myocardial infarction and a high-grade stenosis throughout the mid to distal left anterior descendin g, status post successful percutaneous transluminal coronary angioplasty and stent placement x2 to 1 00% occluded circumflex with drug-eluting stents x2 and drug-eluting stents x2 to mid and mid-distal left anterior descending with drug-eluting stents x2. 2. Successful placement of intraaortic balloon pump at 1:1 augmentation. 3. Elevated left heart filling pressures. 4. No significant aortic stenosis by gradient. RECOMMENDATIONS: In light of procedure and findings at this time would: 1. Maintain the patient on aspirin 320 mg and Plavix 75 mg 1 tab p.o. daily for at least 1 year. A spirin indefinitely. 2. We will resume heparin without bolus after allowing for adequate time for radial site to have go od hemostasis. 3. Wean dopamine as possible. 4. Maintain the patient's balloon pump at 1:1 augmentation. 5. Obtain 2D echo to further assess the patient's ejection fraction. Dictated By: RANDEE SNYDER/ALYCE Conf#: [id number] DID#: [id number] CC: RUPERT LEYVA MD;*EndCC*
--- NOTE | 2017-05-17 19:49 | QN ---
Documentation Comment [id number] A/P JOSE ALBERTO S/P CATH AND PCI DM HTN ANEMIA ACUTE RES FAILURE PLAN PER ORDER OREN ARTHUR MD May 17, 2017 19:49
--- NOTE | 2017-05-17 20:10 | RADRPT ---
Echocardiogram Report Patient Name: PARVIN ROMANO Gender: Female Date: 1960 Study Date: 16-May-2017 Cafeteria Operator: ALISA Guidry.[facility] Location: ER 7 Ref. Physician: CHINEDU GABRIEL Quality: Technically Difficult Study Procedures: Transthoracic echocardiogram with complete 2D, M-Mode, and doppler examination. Indications: NSTEMI. 2D/M Mode Doppler Measurement Value Normal Ranges Measurement Value Normal Ranges LVIDd 2D 4.3 3.5 - 5.6 cm ARY Vmax 1.6 cm2 LVIDs 2D 2.6 2.1 - 4.1 cm AV Peak Zach 1.4 m/sec FS 2D 38.8 % AV Peak PG 8.0 mmHg LVPWd 2D 1.1 0.6 - 1.1 cm LVOT Peak Zach 0.9 m/sec IVSd 2D 1.0 0.6 - 1.1 cm LVOT Peak PG 3.0 mmHg IVS/LVPW 2D 1.0 MV E Peak Zach 0.9 m/sec AoR Diam 2D 2.1 2.0 - 3.7 cm MV A Peak Zach 0.6 m/sec LA/Ao 2D 2 0 - 1 MV E/A 1.4 EDV 2D 78.4 cm3 MV Decel Time 250 msec ESV 2D 18.0 cm3 MV E/A 1.4 LA Dimen 2D 3.2 2.3 - 4.0 cm TR Peak Zach 3.3 m/sec LVOT Diam 1.8 cm TR Peak PG 43.0 mmHg LVOT Area 2.5 cm2 RVSP 46.0 mmHg Findings Left Ventricle: Normal left ventricular cavity size. Left ventricular wall thickness upper limits of normal. Mild concentric left ventricular hypertrophy. Moderate left ventricular systolic dysfunction. Ejection fraction is visually estimated at 3035 %. Tissue Doppler/Mitral Doppler indices are consistent with impaired relaxation (Stage I diastolic dysfunction). These segments of the LV are hypokinetic apical lateral segment, anterolateral base, anterolateral mid segment, inferolateral mid segment and inferolateral base. Right Ventricle: Normal right ventricular size. Normal right ventricular systolic function. Left Atrium: The left atrium is normal in size. Right Atrium: The right atrium is normal in size. Mitral Valve: Mitral valve leaflets appear mildly thickened. Mild mitral annular calcification. Moderate to severe mitral valve regurgitation. Aortic Valve: Normal appearance of the aortic valve. No significant aortic stenosis or insufficiency. Tricuspid Valve: Tricuspid valve not well visualized. Estimated peak PA systolic pressure 46 mmHg. There is mild to moderate tricuspid regurgitation. Pulmonic Valve: Pulmonic valve not well visualized. Pericardium: Normal pericardium with no significant pericardial effusion. Aorta: Normal aortic root. IVC: Normal size and normal respiratory collapse consistent with normal right atrial pressure. Conclusions 1.Normal left ventricular cavity size. Left ventricular wall thickness upper limits of normal. Mild concentric left ventricular hypertrophy. Moderate left ventricular systolic dysfunction. Ejection fraction is visually estimated at 30-35 %. Tissue Doppler/Mitral Doppler indices are consistent with impaired relaxation (Stage I diastolic dysfunction). These segments of the LV are hypokinetic apical lateral segment. , anterolateral base. , anterolateral mid segment. , inferolateral mid segment. and inferolateral base. 2.Mitral valve leaflets appear mildly thickened. Mild mitral annular calcification. Moderate to severe mitral valve regurgitation. 3.Tricuspid valve not well visualized. Estimated peak PA systolic pressure 46 mmHg. There is mild to moderate tricuspid regurgitation. Electronically Signed By: Jason Guardado 17-May-2017 20:09:07 -0700 Patient Name: PARVIN ROMANO Study Date: 16-May-[id number]
[2017-05-17 20:29] LABS: OPIATES Positive (NEGATIVE)
[2017-05-17 20:52] LABS: BARBITURATES Negative (NEGATIVE); BENZODIAZEPINES Positive (NEGATIVE); CANNABINOIDS Negative (NEGATIVE); COCAINE Negative (NEGATIVE)
[2017-05-17] MEDS: morphine 2 MG INJ IV PRN (20:57)
[2017-05-17] MEDS: ATORVASTATIN 80 MG TAB PO SCH (21:09)
[2017-05-18] VITALS (96 sets, daily range): BP systolic 76–151; BP diastolic 28–108; PULSE 67–98; RESP 16–30
[2017-05-18] MEDS ORDERED: FUROSEMIDE 20 MG INJ IV ONE ×2 (01:00→09:00)
[2017-05-18] MEDS: INSULIN ASPART [NOVOLOG] 3 ML PEN SC SCH ×6 (01:24→21:00)
[2017-05-18] MEDS: ACCU-CHEK XX SCH (01:33)
[2017-05-18] MEDS: morphine 2 MG INJ IV PRN ×2 (04:53→11:51)
[2017-05-18 05:15] LABS: AADO2 Arterial 78.1 mmHg (7.0-24.0); Arterial Base Excess -6.6 mmol/L (-3.0-3); Arterial COHb 0.3 % (0.0-3.0); Arterial Fraction of Oxyhgb 97.4 % (93.0-99.0); Arterial HCO3 19.1 mmol/L (22.0-26.0); Arterial MetHb 0.2 % (0.0-1.5); Arterial Total Hemglobin 11.6 g/dl (12.0-18.0); MODE NASAL CANNULA
[2017-05-18 05:43] LABS: CALCIUM 7.6 mg/dl (8.4-10.2); CREATININE 2.8 mg/dl (0.44-1.00); POTASSIUM 4.6 mmol/L (3.5-5.1)
[2017-05-18] MEDS ORDERED: BUMETANIDE 6 MG in DEXTROSE 5% 36 ML IV ONE (07:00)
[2017-05-18] MEDS: CLOPIDOGREL 75 MG TAB PO SCH (08:29)
[2017-05-18] MEDS: FISH OIL 1,000 MG CAP PO SCH (08:29)
[2017-05-18] MEDS: ASPIRIN (EC) 325 MG TAB PO SCH (08:29)
[2017-05-18] MEDS: FAMOTIDINE 20 MG TAB PO SCH (08:29)
--- NOTE | 2017-05-18 08:39 | RADRPT ---
PROCEDURE: XR Chest. CLINICAL INDICATION: Shortness of breath. TECHNIQUE: Single frontal view. COMPARISON: 05/17/2017. FINDINGS: There is bilateral pulmonary airspace and interstitial disease consistent with pulmonary edema, slig htly improved. The lungs are otherwise clear. The heart is enlarged. There is an intra-aortic balloon pump. There is no pleural effusion. There is no pneumothorax. IMPRESSION: 1. Slightly improved pulmonary edema. 2. Cardiomegaly. 3. Intra-aortic balloon pump. RPTAT: QQ .Hilario Jacome MD, MD Date Time Electronically viewed and signed by .Hilario Jacome MD, MD on 05/18/2017 08:39 .R/
--- NOTE | 2017-05-18 10:15 | CONS ---
DATE OF ADMISSION: 05/16/2017 DATE OF CONSULTATION: TYPE OF CONSULTATION: Nephrology. HISTORY OF PRESENT ILLNESS: Thank you, Dr. Modi, for kindly asking me to see this patient in nephro logy consultation. The patient is a 57-year-old female with history of hypertension, diabetes mellit us, dyslipidemia, presented with acute coronary syndrome. The patient underwent coronary angiogram and is on intraaortic balloon pump per Dr. Guardado. Noted to have electrolyte imbalance and is bein g monitored for further management. The patient is currently on BiPAP, so unable to give detailed h istory. PAST MEDICAL HISTORY: Positive for hypertension, dyslipidemia, history of CAD, history of diabetes. ALLERGY HISTORY: PENICILLIN. SOCIAL HISTORY: Cannot be obtained. FAMILY HISTORY: Cannot be obtained. MEDICATION HISTORY: The patient is currently on heparin, levofloxacin. The patient is on nitroglyce rin. The patient is on Tylenol, aspirin. The patient is on Lipitor, Coreg, clonidine. The patient i s on Plavix. The patient is also on Pepcid, Lasix p.r.n., morphine, normal saline 50 ml/hr. PHYSICAL EXAMINATION: GENERAL: The patient is on BiPAP. VITAL SIGNS: Pulse 72, blood pressure 101/56. HEENT: Head is atraumatic, normocephalic. Pupils are equal, reactive. NECK: Supple. LUNGS: Clear anteriorly with a few rhonchi at bases. CARDIOVASCULAR: S1, S2 normal. ABDOMEN: Obese, bowel sounds present. No palpable mass. EXTREMITIES: No cyanosis, clubbing, or edema. CENTRAL NERVOUS SYSTEM: The patient is awake and alert, moving both upper and lower extremities wit h no deficit. LABORATORY DATA: pH 7.29, pCO2 of 43, pO2 of 216. WBC 11.2, hematocrit 32.2, platelet count of 185 . Sodium 141, potassium 4.6, BUN 39, creatinine 1.66. BUN 30, creatinine 1.14 on 05/16. Troponin 11.[address] angio done. The patient had a CT chest with contrast done and with 3D recon stitution shows no acute dissection or aneurysm of the thoracic aorta. Chest x-ray reported as no a cute disease. IMPRESSION: 1. Acute kidney injury due to acute myocardial infarction and hemodynamic instability. 2. Other diagnoses include the patient has anemia. 3. Other diagnoses include the patient is status post coronary angiogram with percutaneous coronary intervention and now on intraaortic balloon pump. 4. The patient has diabetes mellitus, hypertension. 5. Rule out underlying diabetic nephropathy. 6. Leukocytosis, anemia. PLAN: At this point is to obtain urine sodium and creatinine, UA. The patient will benefit from po st-angiogram gentle IV fluids. The patient is at risk of developing contrast nephropathy post coron ligia angiogram. Electrolytes will be monitored. Thank you, Dr. Modi, for kindly asking me to see this patient in nephrology consultation. Dictated By: OREN ARTHUR MD BS/NTS Conf#: [id number] DID#: [id number]
--- NOTE | 2017-05-18 10:17 | PN ---
Date/Time of Note Date/Time of Note DATE: 05/18/17 TIME: 10:12 Assessment/Plan VTE Prophylaxis VTE Prophylaxis Intervention: heparin Lines/Catheters IV Catheter Type (from [facility]): A-Line/Balloon pump Urinary Cath still in place: Yes Reason Cath still needed: urinary retention Assessment/Plan Chief Complaint/Hosp Course ASSESSMENT AND PLAN: 57-year-old female coming in with vomiting symptoms, right shoulder pain and chest pain, with signs of non- ST elevation myocardial infarction. 1. Chest pain and shoulder pain. Again, likely secondary to non-ST elevation myocardial infarction. Status post stent to LAD 2 as well as circumflex 2 -Follow-up cardiology consult recommendations, balloon pump, continue current meds -Continue Coreg, Lipitor, aspirin 2. Res distress: chest x-ray shows: New bilateral ground-glass parenchymal densities right greater than left. This may represent pneumonia or asymmetrical edema. CTA chest was negative for dissection or PE. -Follow-up pulmonary rec's, continue broad-spectrum antibiotics 3. Diabetes - A1c = 8.2 - continue sliding scale insulin. 4. History of high cholesterol -noted lipid panel. She is on high-dose statin. 5. Gastrointestinal prophylaxis with H2 aury. 6. Deep vein thrombosis prophylaxis. She is on heparin drip for non ST elevation myocardial infarction. Critical care time spent on patient care today equals 40 minutes. Problems: Subjective 24 Hr Interval Summary Free Text/Dictation Patient somewhat lethargic still on heparin drip, but otherwise no acute events overnight still on intra-aortic balloon pump. Exam/Review of Systems Vital Signs Vitals Vital Signs Date Time Temp Pulse Resp B/P Pulse Ox O2 Delivery O2 Flow Rate FiO2 05/18/17 09:45 79 21 103/65 100 05/18/17 09:00 Nasal Cannula 2.0 05/18/17 08:00 98.0 05/18/17 06:03 33 Intake and Output 05/17/17 05/17/17 05/18/17 15:00 23:00 07:00 Intake Total 230 ml 617.0 ml 580.0 ml Output Total 335 ml 117 ml 37 ml Balance -105 ml 500.0 ml 543.0 ml Exam GENERAL: The patient lying in bed, answers question appropriately. No acute distress. HEENT: Pupils equal, round, react to light. Extraocular muscles intact. NECK: Supple. No thyromegaly. LUNGS: Clear to auscultation bilaterally. No wheezes. CARDIAC: S1, S2 heard. No rubs, gallops. ABDOMEN: Soft, nontender, nondistended. Normal bowel sounds. No rebound or guarding. MUSCULOSKELETAL: No lower extremity edema bilaterally. NEUROLOGIC: No focal deficits. Results Result Diagram: 05/17/17 0522 05/18/17 0400 Results 24 hrs Laboratory Tests Test 05/17/17 11:57 05/17/17 12:00 05/17/17 12:51 05/17/17 16:37 Blood Gas Specimen Source Blood arterial Arterial Blood Date Drawn 05/17/2017 12:10:00 PM Arterial Blood pH (Temp corrected) 7.294 *L Arterial Blood pCO2 (Temp correct) 43.5 Arterial Blood pO2 (Temp corrected) 216.1 H Arterial Blood HCO3 20.6 L Arterial Blood Base Excess -5.6 L Arterial Blood Oxygen Saturation 99.0 H Davin Test N/A Arterial Blood Gas Puncture Site A-Line Arterial Blood Carboxyhemoglobin 0.3 Arterial Blood Methemoglobin 0.2 Blood Gas A-a O2 Differential 453.4 H Oxyhemoglobin Percent 98.5 Total Hemoglobin 11.5 L Blood Gas Temperature 37.0 Blood Gas Respiration Rate 14.0 Blood Gas Actual Respiration Rate 31 Blood Gas Modality MASK - BIPAP FiO2 100.0 Blood Gas IPAP/EPAP Ratio 15/5 Blood Gas Critical Value Read Back Y AMANDA RN Blood Gas Notified Whom JLD Blood Gas Notified Time 05/17/2017 12:24:00 PM Urine Color YELLOW Urine Clarity CLEAR Urine pH 5.0 Urine Specific [place] > 1.060 H Urine Ketones NEGATIVE Urine Nitrite NEGATIVE Urine Bilirubin NEGATIVE Urine Urobilinogen NEGATIVE Urine Leukocyte Esterase NEGATIVE Urine Microscopic RBC 7 H Urine Microscopic WBC 0 Urine Bacteria FEW A Urine Mucus FEW A Urine Hemoglobin 1+ H Urine Random Creatinine 98.89 Urine Random Sodium 18 L Urine Protein/Creatinine Ratio 0.77 Urine Glucose 1+ H Urine Total Protein 78.0 H Urine Opiates Screen Positive Urine Barbiturates Negative Urine Amphetamines Screen Negative Urine Benzodiazepines Screen Positive Urine Cocaine Screen Negative Urine Cannabinoids Negative Bedside Glucose 219 159 Test 05/17/17 18:20 05/17/17 21:00 05/17/17 21:12 05/17/17 23:24 Activated Partial Thromboplast Time 42.8 H 51.1 H 59.2 H Bedside Glucose 144 Test 05/18/17 01:21 05/18/17 04:00 05/18/17 04:50 05/18/17 05:00 Bedside Glucose 159 162 Activated Partial Thromboplast Time 62.3 H Sodium Level 136 Potassium Level 4.6 Chloride Level 110 Carbon Dioxide Level 21 Anion Gap 10 Blood Urea Nitrogen 46 H Creatinine 2.80 #H Glucose Level 137 Calcium Level 7.6 L Blood Gas Specimen Source Blood arterial Arterial Blood Date Drawn 05/18/2017 5:00:25 AM Arterial Blood pH (Temp corrected) 7.311 L Arterial Blood pCO2 (Temp correct) 38.7 Arterial Blood pO2 (Temp corrected) 112.0 H Arterial Blood HCO3 19.1 L Arterial Blood Base Excess -6.6 L Arterial Blood Oxygen Saturation 97.9 Davin Test N/A Arterial Blood Gas Puncture Site A-Line Arterial Blood Carboxyhemoglobin 0.3 Arterial Blood Methemoglobin 0.2 Blood Gas A-a O2 Differential 78.1 H Oxyhemoglobin Percent 97.4 Total Hemoglobin 11.6 L Blood Gas Temperature 37.0 Blood Gas Modality NASAL CANNULA FiO2 33.0 Blood Gas Notified Whom MA Blood Gas Notified Time 05/18/2017 5:15:06 AM Test 05/18/17 06:22 05/18/17 08:27 White Blood Count Pending Red Blood Count Pending Hemoglobin Pending Hematocrit Pending Mean Corpuscular Volume Pending Mean Corpuscular Hemoglobin Pending Mean Corpuscular Hemoglobin Concent Pending Red Cell Distribution Width Pending Platelet Count Pending Mean Platelet Volume Pending Bedside Glucose 148 Medications Medications Current Medications Ondansetron HCl (Zofran Inj) 4 mg Q6H PRN IV NAUSEA AND/OR VOMITING Last administered on 05/16/17 17:24; Admin Dose 4 MG; Start 05/16/17 at 15:00 Acetaminophen (Tylenol Tab) 650 mg Q6H PRN PO PAIN LEVEL 1-3 OR FEVER; Start 05/16/17 at 15:00 Acetaminophen/ Hydrocodone Bitart ([place] (5/325)) 1 tab Q6H PRN PO MODERATE PAIN LEVEL 4-6; Start 05/16/17 at 15:00 Morphine Sulfate (morphine) 2 mg Q4H PRN IV SEVERE PAIN LEVEL 7-10 Last administered on 05/17/17 20:57; Admin Dose 2 MG; Start 05/16/17 at 15:00 Docusate Sodium (Colace) 100 mg Q12H PRN PO CONSTIPATION; Start 05/16/17 at 15 :00 Magnesium Hydroxide (Milk Of Mag) 30 ml DAILY PRN PO CONSTIPATION; Start 05/16 at 15:00 Sodium Biphosphate/ Sodium Phosphate (Fleet Enema) 133 ml DAILY PRN [place] CONSTIPATION; Start 05/16/17 at 15:00 Famotidine (Pepcid) 20 mg Q12 PO Last administered on 05/18/17 08:29; Admin Dose 20 MG; Start 05/16/17 at 21:00 Lorazepam (Ativan) 0.5 mg Q6H PRN IV ANXIETY; Start 05/16/17 at 15:00 Hydralazine HCl (Apresoline) 10 mg Q6H PRN IV ELEVATED BLOOD PRESSURE; Start 05/16/17 at 15:00 Clonidine (Catapres) 0.1 mg Q6H PRN PO ELEVATED BLOOD PRESSURE; Start at 15:00 Nitroglycerin (Nitroglycerin (Sl Tab) 0.4 Mg) 1 tab Q5M PRN SL ANGINA; Start 05/16/17 at 15:00 Fish Oil (Fish Oil) 1,000 mg DAILY PO Last administered on 05/18/17 08:29; Admin Dose 1,000 MG; Start 05/16/17 at 15:00 Atorvastatin Calcium (Lipitor) 80 mg HS PO Last administered on 05/17/17 21: 09; Admin Dose 80 MG; Start 05/16/17 at 21:00 Diagnostic Test (Pha) (Accu-Chek) 1 ea 02 XX ; Start 05/17/17 at 02:00 Insulin Aspart (Novolog Insulin Pen) NOVOLOG *MILD* ALGORI... Q4 SC Last administered on 05/18/17 08:31; Admin Dose 1 UNIT; Start 05/16/17 at 17:00 Miscellaneous Information 1 ea NOTE XX ; Start 05/16/17 at 15:00 Glucose (Glutose) 15 gm Q15M PRN PO DECREASED GLUCOSE; Start 05/16/17 at 15:00 Glucose (Glutose) 22.5 gm Q15M PRN PO DECREASED GLUCOSE; Start 05/16/17 at 15: 00 Dextrose (D50w Syringe) 25 ml Q15M PRN IV DECREASED GLUCOSE; Start 05/16/17 at 15:00 Dextrose (D50w Syringe) 50 ml Q15M PRN IV DECREASED GLUCOSE; Start 05/16/17 at 15:00 Glucagon (Glucagen) 1 mg Q15M PRN IM DECREASED GLUCOSE; Start 05/16/17 at 15: 00 Glucose (Glutose) 15 gm Q15M PRN BUCCAL DECREASED GLUCOSE; Start 05/16/17 at 15:00 Carvedilol 6.25 mg 6.25 mg BID PO Last administered on 05/16/17 20:56; Admin Dose 6.25 MG; Start 05/16/17 at 21:00 Levofloxacin/ Dextrose (Levaquin 250 Mg/ D5W 50 ml (Pmx)) 50 ml @ 50 mls/hr Q24H IVPB Last administered on 05/17/17 12:55; Admin Dose 50 MLS/HR; Start 05/17/17 at 11:00 Aspirin (Ecotrin) 325 mg DAILY PO Last administered on 05/18/17 08:29; Admin Dose 325 MG; Start 05/18/17 at 09:00 Clopidogrel Bisulfate (plaVIX) 75 mg DAILY PO Last administered on 05/18/17 08:29; Admin Dose 75 MG; Start 05/18/17 at 09:00 Acetaminophen (Tylenol Tab) 650 mg Q4H PRN PO NON-CARDIAC PAIN LEVEL 1-3; Start 05/17/17 at 12:00 Oxycodone/ Acetaminophen (Percocet (5/ 325)) 1 tab Q4H PRN PO REPORTED NON- CARDIAC PAIN 4-7; Start 05/17/17 at 12:00 Morphine Sulfate (morphine) 1 mg Q1H PRN IV PAIN NOT RELIEVED BY OTHERS Last administered on 05/18/17 04:53; Admin Dose 1 MG; Start 05/17/17 at 12:00 Al Hydrox/Mg Hydrox/Simethicone (Mag-Al Plus) 30 ml Q4H PRN PO GASTROINTESTINAL UPSET; Start 05/17/17 at 12:00 Ondansetron HCl 4 mg 4 mg Q4H PRN IV NAUSEA AND/OR VOMITING; Start 05/17/17 at 12:00 Bumetanide/ Dextrose (Bumex/D5W) 60 ml @ 10 mls/hr Q6H ONCE IV Last administered on 05/18/17t 08:12; Admin Dose 10 MLS/HR; Start 05/18/17 at 07:00 ; Stop 05/18/17 at 12:59 CHINEDU GABRIEL May 18, 2017 10:17
[2017-05-18 10:26] LABS: BASOPHILS % 0.2 % (0.0-2.0); EOSINOPHILS % 0.1 % (0.0-7.0); HEMATOCRIT 28.5 % (37.0-47.0); HEMOGLOBIN 8.8 g/dl (12.0-16.0); LYMPHOCYTES # 1.8 10^3/ul (0.8-2.9); LYMPHOCYTES % 13.6 % (15.0-51.0); MEAN CORPUSCULAR HEMOGLOBIN 28.9 pg (29.0-33.0); MEAN CORPUSCULAR HGB CONC 30.9 g/dl (32.0-37.0); MEAN CORPUSCULAR VOLUME 93.4 fl (82.0-101.0); MEAN PLATELET VOLUME 12.8 fl (7.4-10.4); MONOCYTE # 1.1 10^3/ul (0.3-0.9); MONOCYTES % 8.1 % (0.0-11.0); NEUTROPHIL # 10.5 10^3/ul (1.6-7.5); NEUTROPHILS % 77.6 % (39.0-77.0); PLATELET COUNT 143 10^3/UL (140-415); RED BLOOD COUNT 3.05 10^6/ul (4.20-5.40); RED CELL DISTRIBUTION WIDTH 14.7 % (11.5-14.5); WHITE BLOOD COUNT 13.5 10^3/ul (4.8-10.8)
--- NOTE | 2017-05-18 10:58 | CONS ---
Date/Time of Note Date/Time of Note DATE: 05/18/17 TIME: 10:55 Assessment/Plan Assessment/Plan Chief Complaint/Hosp Course IMP: 1.Acute ND-trop>100 now POD#1 s/p ptca/stent x 2 to 100% occluded LCX and x 2 to high grade LAD stenosis and placement of IABP 2.CHF-likely systolic acute. EF 30-35% by echo yesterday 3.Renal failure 4.DM 5.Chest pain secondary to number 1. Now improved 6. Anemia 7.Dyslipidemia Recc: -Tele -serial ecg's -Continue asa 325 and plavix 75 mg daily -IABP@1:1-weaning parameters in early am topmorrow for probabale IABP d/c tomorrow -Follow volume status closely on bumex drip with renal following -statin therapy -Continue abx's and f/u cx data Problems: Consultation Date/Type/Reason Admit Date/Time May 16, 2017 at 12:38 Initial Consult Date 05/17/17 Type of Consultation: cardiology Reason for Consultation Acute ND Referring Provider: RUPERT CARMONA Exam/Review of Systems Vital Signs Vitals Vital Signs Date Time Temp Pulse Resp B/P Pulse Ox O2 Delivery O2 Flow Rate FiO2 05/18/17 10:45 81 21 97/51 100 05/18/17 10:00 Nasal Cannula 2.0 05/18/17 08:00 98.0 05/18/17 06:03 33 Intake and Output 05/17/17 05/17/17 05/18/17 15:00 23:00 07:00 Intake Total 230 ml 617.0 ml 580.0 ml Output Total 335 ml 117 ml 37 ml Balance -105 ml 500.0 ml 543.0 ml Exam Review of Systems: CONSTITUTIONAL: No fevers, chills. PULMONARY: No sob CARDIOVASCULAR: No chest pain/palpitations GASTROINTESTINAL: No nausea/vomiting. GENITOURINARY: No hematuria/dysuria. MUSCULOSKELETAL: No myagias/arthalgias. PSYCHIATRIC: The patient denies depression. NEUROLOGIC: No weakness Constitutional: alert Psych: no complaints ENMT: mucosa pink and moist Neck: supple Respiratory: diminished breath sounds (at bases/B) Cardiovascular: regular rate and rhythm Gastrointestinal: non-tender, soft Musculoskeletal: muscle tone (normal) Extremities: edema (trace/B) Neurological: other (No focal deficits) Results Result Diagram: 05/18/17 0622 05/18/17 0400 Results 24 hrs Laboratory Tests Test 05/17/17 11:57 05/17/17 12:00 05/17/17 12:51 05/17/17 16:37 Blood Gas Specimen Source Blood arterial Arterial Blood Date Drawn 05/17/2017 12:10:00 PM Arterial Blood pH (Temp corrected) 7.294 *L Arterial Blood pCO2 (Temp correct) 43.5 Arterial Blood pO2 (Temp corrected) 216.1 H Arterial Blood HCO3 20.6 L Arterial Blood Base Excess -5.6 L Arterial Blood Oxygen Saturation 99.0 H Davin Test N/A Arterial Blood Gas Puncture Site A-Line Arterial Blood Carboxyhemoglobin 0.3 Arterial Blood Methemoglobin 0.2 Blood Gas A-a O2 Differential 453.4 H Oxyhemoglobin Percent 98.5 Total Hemoglobin 11.5 L Blood Gas Temperature 37.0 Blood Gas Respiration Rate 14.0 Blood Gas Actual Respiration Rate 31 Blood Gas Modality MASK - BIPAP FiO2 100.0 Blood Gas IPAP/EPAP Ratio 15/5 Blood Gas Critical Value Read Back Y PATEL RN Blood Gas Notified Whom JLD Blood Gas Notified Time 05/17/2017 12:24:00 PM Urine Color YELLOW Urine Clarity CLEAR Urine pH 5.0 Urine Specific [place] > 1.060 H Urine Ketones NEGATIVE Urine Nitrite NEGATIVE Urine Bilirubin NEGATIVE Urine Urobilinogen NEGATIVE Urine Leukocyte Esterase NEGATIVE Urine Microscopic RBC 7 H Urine Microscopic WBC 0 Urine Bacteria FEW A Urine Mucus FEW A Urine Hemoglobin 1+ H Urine Random Creatinine 98.89 Urine Random Sodium 18 L Urine Protein/Creatinine Ratio 0.77 Urine Glucose 1+ H Urine Total Protein 78.0 H Urine Opiates Screen Positive Urine Barbiturates Negative Urine Amphetamines Screen Negative Urine Benzodiazepines Screen Positive Urine Cocaine Screen Negative Urine Cannabinoids Negative Bedside Glucose 219 159 Test 05/17/17 18:20 05/17/17 21:00 05/17/17 21:12 05/17/17 23:24 Activated Partial Thromboplast Time 42.8 H 51.1 H 59.2 H Bedside Glucose 144 Test 05/18/17 01:21 05/18/17 04:00 05/18/17 04:50 05/18/17 05:00 Bedside Glucose 159 162 Activated Partial Thromboplast Time 62.3 H Sodium Level 136 Potassium Level 4.6 Chloride Level 110 Carbon Dioxide Level 21 Anion Gap 10 Blood Urea Nitrogen 46 H Creatinine 2.80 #H Glucose Level 137 Calcium Level 7.6 L Blood Gas Specimen Source Blood arterial Arterial Blood Date Drawn 05/18/2017 5:00:25 AM Arterial Blood pH (Temp corrected) 7.311 L Arterial Blood pCO2 (Temp correct) 38.7 Arterial Blood pO2 (Temp corrected) 112.0 H Arterial Blood HCO3 19.1 L Arterial Blood Base Excess -6.6 L Arterial Blood Oxygen Saturation 97.9 Davin Test N/A Arterial Blood Gas Puncture Site A-Line Arterial Blood Carboxyhemoglobin 0.3 Arterial Blood Methemoglobin 0.2 Blood Gas A-a O2 Differential 78.1 H Oxyhemoglobin Percent 97.4 Total Hemoglobin 11.6 L Blood Gas Temperature 37.0 Blood Gas Modality NASAL CANNULA FiO2 33.0 Blood Gas Notified Whom MA Blood Gas Notified Time 05/18/2017 5:15:06 AM Test 05/18/17 06:22 05/18/17 08:27 White Blood Count 13.5 #H Red Blood Count 3.05 L Hemoglobin 8.8 L Hematocrit 28.5 L Mean Corpuscular Volume 93.4 Mean Corpuscular Hemoglobin 28.9 L Mean Corpuscular Hemoglobin Concent 30.9 L Red Cell Distribution Width 14.7 H Platelet Count 143 # Mean Platelet Volume 12.8 H Neutrophils % 77.6 H Lymphocytes % 13.6 L Monocytes % 8.1 Eosinophils % 0.1 Basophils % 0.2 Nucleated Red Blood Cells % 0.0 Neutrophils # 10.5 H Lymphocytes # 1.8 Monocytes # 1.1 H Eosinophils # 0.0 Basophils # 0.0 Nucleated Red Blood Cells # 0.0 Bedside Glucose 148 Medications Medications Current Medications Ondansetron HCl (Zofran Inj) 4 mg Q6H PRN IV NAUSEA AND/OR VOMITING Last administered on 05/16/17t 17:24; Admin Dose 4 MG; Start 05/16/17 at 15:00 Acetaminophen (Tylenol Tab) 650 mg Q6H PRN PO PAIN LEVEL 1-3 OR FEVER; Start 05/16/17 at 15:00 Acetaminophen/ Hydrocodone Bitart ([place] (5/325)) 1 tab Q6H PRN PO MODERATE PAIN LEVEL 4-6; Start 05/16/17 at 15:00 Morphine Sulfate (morphine) 2 mg Q4H PRN IV SEVERE PAIN LEVEL 7-10 Last administered on 05/17/17 20:57; Admin Dose 2 MG; Start 05/16/17 at 15:00 Docusate Sodium (Colace) 100 mg Q12H PRN PO CONSTIPATION; Start 05/16/17 at 15 :00 Magnesium Hydroxide (Milk Of Mag) 30 ml DAILY PRN PO CONSTIPATION; Start 05/16 at 15:00 Sodium Biphosphate/ Sodium Phosphate (Fleet Enema) 133 ml DAILY PRN [place] CONSTIPATION; Start 05/16/17 at 15:00 Famotidine (Pepcid) 20 mg Q12 PO Last administered on 05/18/17 08:29; Admin Dose 20 MG; Start 05/16/17 at 21:00 Lorazepam (Ativan) 0.5 mg Q6H PRN IV ANXIETY; Start 05/16/17 at 15:00 Hydralazine HCl (Apresoline) 10 mg Q6H PRN IV ELEVATED BLOOD PRESSURE; Start 05/16/17 at 15:00 Clonidine (Catapres) 0.1 mg Q6H PRN PO ELEVATED BLOOD PRESSURE; Start at 15:00 Nitroglycerin (Nitroglycerin (Sl Tab) 0.4 Mg) 1 tab Q5M PRN SL ANGINA; Start 05/16/17 at 15:00 Fish Oil (Fish Oil) 1,000 mg DAILY PO Last administered on 05/18/17 08:29; Admin Dose 1,000 MG; Start 05/16/17 at 15:00 Atorvastatin Calcium (Lipitor) 80 mg HS PO Last administered on 05/17/17 21: 09; Admin Dose 80 MG; Start 05/16/17 at 21:00 Diagnostic Test (Pha) (Accu-Chek) 1 ea 02 XX ; Start 05/17/17 at 02:00 Insulin Aspart (Novolog Insulin Pen) NOVOLOG *MILD* ALGORI... Q4 SC Last administered on 05/18/17 08:31; Admin Dose 1 UNIT; Start 05/16/17 at 17:00 Miscellaneous Information 1 ea NOTE XX ; Start 05/16/17 at 15:00 Glucose (Glutose) 15 gm Q15M PRN PO DECREASED GLUCOSE; Start 05/16/17 at 15:00 Glucose (Glutose) 22.5 gm Q15M PRN PO DECREASED GLUCOSE; Start 05/16/17 at 15: 00 Dextrose (D50w Syringe) 25 ml Q15M PRN IV DECREASED GLUCOSE; Start 05/16/17 at 15:00 Dextrose (D50w Syringe) 50 ml Q15M PRN IV DECREASED GLUCOSE; Start 05/16/17 at 15:00 Glucagon (Glucagen) 1 mg Q15M PRN IM DECREASED GLUCOSE; Start 05/16/17 at 15: 00 Glucose (Glutose) 15 gm Q15M PRN BUCCAL DECREASED GLUCOSE; Start 05/16/17 at 15:00 Carvedilol 6.25 mg 6.25 mg BID PO Last administered on 05/16/17 20:56; Admin Dose 6.25 MG; Start 05/16/17 at 21:00 Levofloxacin/ Dextrose (Levaquin 250 Mg/ D5W 50 ml (Pmx)) 50 ml @ 50 mls/hr Q24H IVPB Last administered on 05/17/17 12:55; Admin Dose 50 MLS/HR; Start 05/17/17 at 11:00 Aspirin (Ecotrin) 325 mg DAILY PO Last administered on 05/18/17 08:29; Admin Dose 325 MG; Start 05/18/17 at 09:00 Clopidogrel Bisulfate (plaVIX) 75 mg DAILY PO Last administered on 05/18/17 08:29; Admin Dose 75 MG; Start 05/18/17 at 09:00 Acetaminophen (Tylenol Tab) 650 mg Q4H PRN PO NON-CARDIAC PAIN LEVEL 1-3; Start 05/17/17 at 12:00 Oxycodone/ Acetaminophen (Percocet (5/ 325)) 1 tab Q4H PRN PO REPORTED NON- CARDIAC PAIN 4-7; Start 05/17/17 at 12:00 Morphine Sulfate (morphine) 1 mg Q1H PRN IV PAIN NOT RELIEVED BY OTHERS Last administered on 05/18/17 04:53; Admin Dose 1 MG; Start 05/17/17 at 12:00 Al Hydrox/Mg Hydrox/Simethicone (Mag-Al Plus) 30 ml Q4H PRN PO GASTROINTESTINAL UPSET; Start 05/17/17 at 12:00 Ondansetron HCl 4 mg 4 mg Q4H PRN IV NAUSEA AND/OR VOMITING; Start 05/17/17 at 12:00 Bumetanide/ Dextrose (Bumex/D5W) 60 ml @ 10 mls/hr Q6H ONCE IV Last administered on 05/18/17t 08:12; Admin Dose 10 MLS/HR; Start 05/18/17 at 07:00 ; Stop 05/18/17 at 12:59 RANDEE GAMBLE May 18, 2017 10:58
[2017-05-18] MEDS: LEVOFLOXACIN 250MG/D5W (PMX) 50 ML IVPB SCH (11:32)
--- NOTE | 2017-05-18 12:23 | CONS ---
Date/Time of Note Date/Time of Note DATE: 05/18/17 TIME: 12:23 Consultation Date/Type/Reason Admit Date/Time May 16, 2017 at 12:38 Initial Consult Date 05/17/17 Type of Consultation: pulm/cc Referring Provider: RUPERT CARMONA 24 HR Interval Summary Free Text/Dictation dictated [id number] Exam/Review of Systems Vital Signs Vitals Vital Signs Date Time Temp Pulse Resp B/P Pulse Ox O2 Delivery O2 Flow Rate FiO2 05/18/17 10:45 81 21 97/51 100 05/18/17 10:00 Nasal Cannula 2.0 05/18/17 08:00 98.0 05/18/17 06:03 33 Intake and Output 05/17/17 05/17/17 05/18/17 15:00 23:00 07:00 Intake Total 230 ml 617.0 ml 580.0 ml Output Total 335 ml 117 ml 37 ml Balance -105 ml 500.0 ml 543.0 ml Results Result Diagram: 05/18/17 0622 05/18/17 0400 Results 24 hrs Laboratory Tests Test 05/17/17 12:51 05/17/17 16:37 05/17/17 18:20 05/17/17 21:00 Bedside Glucose 219 159 Activated Partial Thromboplast Time 42.8 H 51.1 H Test 05/17/17 21:12 05/17/17 23:24 05/18/17 01:21 05/18/17 04:00 Bedside Glucose 144 159 Activated Partial Thromboplast Time 59.2 H 62.3 H Sodium Level 136 Potassium Level 4.6 Chloride Level 110 Carbon Dioxide Level 21 Anion Gap 10 Blood Urea Nitrogen 46 H Creatinine 2.80 #H Glucose Level 137 Calcium Level 7.6 L Test 05/18/17 04:50 05/18/17 05:00 05/18/17 06:22 05/18/17 08:27 Bedside Glucose 162 148 Blood Gas Specimen Source Blood arterial Arterial Blood Date Drawn 05/18/2017 5:00:25 AM Arterial Blood pH (Temp corrected) 7.311 L Arterial Blood pCO2 (Temp correct) 38.7 Arterial Blood pO2 (Temp corrected) 112.0 H Arterial Blood HCO3 19.1 L Arterial Blood Base Excess -6.6 L Arterial Blood Oxygen Saturation 97.9 Davin Test N/A Arterial Blood Gas Puncture Site A-Line Arterial Blood Carboxyhemoglobin 0.3 Arterial Blood Methemoglobin 0.2 Blood Gas A-a O2 Differential 78.1 H Oxyhemoglobin Percent 97.4 Total Hemoglobin 11.6 L Blood Gas Temperature 37.0 Blood Gas Modality NASAL CANNULA FiO2 33.0 Blood Gas Notified Whom MA Blood Gas Notified Time 05/18/2017 5:15:06 AM White Blood Count 13.5 #H Red Blood Count 3.05 L Hemoglobin 8.8 L Hematocrit 28.5 L Mean Corpuscular Volume 93.4 Mean Corpuscular Hemoglobin 28.9 L Mean Corpuscular Hemoglobin Concent 30.9 L Red Cell Distribution Width 14.7 H Platelet Count 143 # Mean Platelet Volume 12.8 H Neutrophils % 77.6 H Lymphocytes % 13.6 L Monocytes % 8.1 Eosinophils % 0.1 Basophils % 0.2 Nucleated Red Blood Cells % 0.0 Neutrophils # 10.5 H Lymphocytes # 1.8 Monocytes # 1.1 H Eosinophils # 0.0 Basophils # 0.0 Nucleated Red Blood Cells # 0.0 Medications Medications Current Medications Ondansetron HCl (Zofran Inj) 4 mg Q6H PRN IV NAUSEA AND/OR VOMITING Last administered on 05/16/17 17:24; Admin Dose 4 MG; Start 05/16/17 at 15:00 Acetaminophen (Tylenol Tab) 650 mg Q6H PRN PO PAIN LEVEL 1-3 OR FEVER; Start 05/16/17 at 15:00 Acetaminophen/ Hydrocodone Bitart ([place] (5/325)) 1 tab Q6H PRN PO MODERATE PAIN LEVEL 4-6; Start 05/16/17 at 15:00 Morphine Sulfate (morphine) 2 mg Q4H PRN IV SEVERE PAIN LEVEL 7-10 Last administered on 05/17/17 20:57; Admin Dose 2 MG; Start 05/16/17 at 15:00 Docusate Sodium (Colace) 100 mg Q12H PRN PO CONSTIPATION; Start 05/16/17 at 15 :00 Magnesium Hydroxide (Milk Of Mag) 30 ml DAILY PRN PO CONSTIPATION; Start 05/16 at 15:00 Sodium Biphosphate/ Sodium Phosphate (Fleet Enema) 133 ml DAILY PRN [place] CONSTIPATION; Start 05/16/17 at 15:00 Famotidine (Pepcid) 20 mg Q12 PO Last administered on 05/18/17 08:29; Admin Dose 20 MG; Start 05/16/17 at 21:00 Lorazepam (Ativan) 0.5 mg Q6H PRN IV ANXIETY; Start 05/16/17 at 15:00 Hydralazine HCl (Apresoline) 10 mg Q6H PRN IV ELEVATED BLOOD PRESSURE; Start 05/16/17 at 15:00 Clonidine (Catapres) 0.1 mg Q6H PRN PO ELEVATED BLOOD PRESSURE; Start at 15:00 Nitroglycerin (Nitroglycerin (Sl Tab) 0.4 Mg) 1 tab Q5M PRN SL ANGINA; Start 05/16/17 at 15:00 Fish Oil (Fish Oil) 1,000 mg DAILY PO Last administered on 05/18/17 08:29; Admin Dose 1,000 MG; Start 05/16/17 at 15:00 Atorvastatin Calcium (Lipitor) 80 mg HS PO Last administered on 05/17/17 21: 09; Admin Dose 80 MG; Start 05/16/17 at 21:00 Diagnostic Test (Pha) (Accu-Chek) 1 ea 02 XX ; Start 05/17/17 at 02:00 Insulin Aspart (Novolog Insulin Pen) NOVOLOG *MILD* ALGORI... Q4 SC Last administered on 05/18/17 08:31; Admin Dose 1 UNIT; Start 05/16/17 at 17:00 Miscellaneous Information 1 ea NOTE XX ; Start 05/16/17 at 15:00 Glucose (Glutose) 15 gm Q15M PRN PO DECREASED GLUCOSE; Start 05/16/17 at 15:00 Glucose (Glutose) 22.5 gm Q15M PRN PO DECREASED GLUCOSE; Start 05/16/17 at 15: 00 Dextrose (D50w Syringe) 25 ml Q15M PRN IV DECREASED GLUCOSE; Start 05/16/17 at 15:00 Dextrose (D50w Syringe) 50 ml Q15M PRN IV DECREASED GLUCOSE; Start 05/16/17 at 15:00 Glucagon (Glucagen) 1 mg Q15M PRN IM DECREASED GLUCOSE; Start 05/16/17 at 15: 00 Glucose (Glutose) 15 gm Q15M PRN BUCCAL DECREASED GLUCOSE; Start 05/16/17 at 15:00 Carvedilol 6.25 mg 6.25 mg BID PO Last administered on 05/16/17 20:56; Admin Dose 6.25 MG; Start 05/16/17 at 21:00 Levofloxacin/ Dextrose (Levaquin 250 Mg/ D5W 50 ml (Pmx)) 50 ml @ 50 mls/hr Q24H IVPB Last administered on 05/18/17 11:32; Admin Dose 50 MLS/HR; Start 05/17/17 at 11:00 Aspirin (Ecotrin) 325 mg DAILY PO Last administered on 05/18/17 08:29; Admin Dose 325 MG; Start 05/18/17 at 09:00 Clopidogrel Bisulfate (plaVIX) 75 mg DAILY PO Last administered on 05/18/17 08:29; Admin Dose 75 MG; Start 05/18/17 at 09:00 Acetaminophen (Tylenol Tab) 650 mg Q4H PRN PO NON-CARDIAC PAIN LEVEL 1-3; Start 05/17/17 at 12:00 Oxycodone/ Acetaminophen (Percocet (5/ 325)) 1 tab Q4H PRN PO REPORTED NON- CARDIAC PAIN 4-7; Start 05/17/17 at 12:00 Morphine Sulfate (morphine) 1 mg Q1H PRN IV PAIN NOT RELIEVED BY OTHERS Last administered on 05/18/17 11:51; Admin Dose 1 MG; Start 05/17/17 at 12:00 Al Hydrox/Mg Hydrox/Simethicone (Mag-Al Plus) 30 ml Q4H PRN PO GASTROINTESTINAL UPSET; Start 05/17/17 at 12:00 Ondansetron HCl 4 mg 4 mg Q4H PRN IV NAUSEA AND/OR VOMITING; Start 05/17/17 at 12:00 Bumetanide/ Dextrose (Bumex/D5W) 60 ml @ 10 mls/hr Q6H ONCE IV Last administered on 05/18/17 08:12; Admin Dose 10 MLS/HR; Start 05/18/17 at 07:00 ; Stop 05/18/17 at 12:59 CHANDRIKA ZHANG May 18, 2017 12:23
--- NOTE | 2017-05-18 14:27 | CONS ---
DATE OF ADMISSION: 05/16/2017 DATE OF CONSULTATION: 05/18/2017 PULMONARY CRITICAL CARE PROGRESS NOTE The patient's condition is stable. The patient underwent coronary angiography yesterday with serafin stewart. The patient currently on intraaortic balloon pump. Patient did not require intubation. PHYSICAL EXAMINATION: GENERAL: Middle-aged woman, awake, currently in no distress. VITAL SIGNS: Temperature is 98 degrees Fahrenheit, heart rate of 81 per minute, respiratory rate is 18 to 20 per minute, blood pressure 98/54, O2 saturation 100% on 2 liter nasal cannula. HEENT: Supple neck, positive JVD, no lymphadenopathy, midline trachea, no thyromegaly. Patient has fair dentition. Pupils are mid size and reactive to light bilaterally. CHEST: Diminished but clear breath sounds. HEART: S1, S2 audible. No murmurs, regular rhythm. ABDOMEN: Soft, nontender, nondistended. Bowel sounds audible, no organomegaly. EXTREMITIES: No peripheral edema. Pulses 1+ bilaterally. NEUROLOGIC: No focal deficit. LABORATORY DATA: Chest x-ray was reviewed from today which is showing improvement in pulmonary osiel a. Yesterday, white count is 13.5, hemoglobin 8.8, platelet count of 143. Sodium 136, potassium 4. 6, chloride 110. BUN 46, creatinine 2.8. MEDICATIONS 1. IV heparin via protocol. 2. Levaquin 250 mg IV daily. 3. Normal saline at KVO. 4. Acetaminophen on a p.r.n. basis. 5. Albuterol q.4h. p.r.n. 6. Coreg 6.25 mg b.i.d. 7. Lipitor 80 mg a day. 8. Aspirin 325 mg a day. 9. Plavix 75 mg daily. 10. Pepcid 20 mg q.12h. 11. Lasix 20 mg was given x1 yesterday as well as today. 12. Morphine on a p.r.n. basis. ASSESSMENT AND PLAN: 1. Patient admitted with acute myocardial infarction underwent coronary angiography with stenting o f 4 vessels yesterday, currently maintained on intraaortic balloon pump at 1:1 augmentation. 2. Improving pulmonary edema. 3. Renal insufficiency. 4. History of hypertension. RECOMMENDATIONS: Continue current supportive care. Monitor renal function. Dictated By: CHANDRIKA ZHANG MD AQ/NTS Conf#: [id number] [facility]#: [id number]
--- NOTE | 2017-05-18 16:53 | CONS ---
Date/Time of Note Date/Time of Note DATE: 05/18/17 TIME: 16:50 Assessment/Plan Assessment/Plan Chief Complaint/Hosp Course IMPRESSION: 1. Acute kidney injury due to acute myocardial infarction and hemodynamic instability. and pul edema s/p cth 2. anemia. 3. status post coronary angiogram with percutaneous coronary intervention and now on intraaortic balloon pump. 4. The patient has diabetes mellitus, hypertension. 5. Rule out underlying diabetic nephropathy. 6. Leukocytosis, plan bumebx ck labs Problems: Consultation Date/Type/Reason Admit Date/Time May 16, 2017 at 12:38 Initial Consult Date 05/17/17 Type of Consultation: renal Referring Provider: RUPERT CARMONA 24 HR Interval Summary Constitutional: other (sob better) Exam/Review of Systems Vital Signs Vitals Vital Signs Date Time Temp Pulse Resp B/P Pulse Ox O2 Delivery O2 Flow Rate FiO2 05/18/17 16:15 93 25 118/50 97 05/18/17 16:00 98.4 Nasal Cannula 2.0 05/18/17 06:03 33 Intake and Output 05/17/17 05/17/17 05/18/17 15:00 23:00 07:00 Intake Total 230 ml 617.0 ml 580.0 ml Output Total 335 ml 117 ml 37 ml Balance -105 ml 500.0 ml 543.0 ml Exam Neck: supple Respiratory: clear to auscultation Cardiovascular: regular rate and rhythm Gastrointestinal: bowel sounds (+), soft Extremities: edema (+) Results Result Diagram: 05/18/17 0622 05/18/17 0400 Results 24 hrs Laboratory Tests Test 05/17/17 18:20 05/17/17 21:00 05/17/17 21:12 05/17/17 23:24 Activated Partial Thromboplast Time 42.8 H 51.1 H 59.2 H Bedside Glucose 144 Test 05/18/17 01:21 05/18/17 04:00 05/18/17 04:50 05/18/17 05:00 Bedside Glucose 159 162 Activated Partial Thromboplast Time 62.3 H Sodium Level 136 Potassium Level 4.6 Chloride Level 110 Carbon Dioxide Level 21 Anion Gap 10 Blood Urea Nitrogen 46 H Creatinine 2.80 #H Glucose Level 137 Calcium Level 7.6 L Blood Gas Specimen Source Blood arterial Arterial Blood Date Drawn 05/18/2017 5:00:25 AM Arterial Blood pH (Temp corrected) 7.311 L Arterial Blood pCO2 (Temp correct) 38.7 Arterial Blood pO2 (Temp corrected) 112.0 H Arterial Blood HCO3 19.1 L Arterial Blood Base Excess -6.6 L Arterial Blood Oxygen Saturation 97.9 Davin Test N/A Arterial Blood Gas Puncture Site A-Line Arterial Blood Carboxyhemoglobin 0.3 Arterial Blood Methemoglobin 0.2 Blood Gas A-a O2 Differential 78.1 H Oxyhemoglobin Percent 97.4 Total Hemoglobin 11.6 L Blood Gas Temperature 37.0 Blood Gas Modality NASAL CANNULA FiO2 33.0 Blood Gas Notified Whom MA Blood Gas Notified Time 05/18/2017 5:15:06 AM Test 05/18/17 06:22 05/18/17 08:27 05/18/17 12:38 White Blood Count 13.5 #H Red Blood Count 3.05 L Hemoglobin 8.8 L Hematocrit 28.5 L Mean Corpuscular Volume 93.4 Mean Corpuscular Hemoglobin 28.9 L Mean Corpuscular Hemoglobin Concent 30.9 L Red Cell Distribution Width 14.7 H Platelet Count 143 # Mean Platelet Volume 12.8 H Neutrophils % 77.6 H Lymphocytes % 13.6 L Monocytes % 8.1 Eosinophils % 0.1 Basophils % 0.2 Nucleated Red Blood Cells % 0.0 Neutrophils # 10.5 H Lymphocytes # 1.8 Monocytes # 1.1 H Eosinophils # 0.0 Basophils # 0.0 Nucleated Red Blood Cells # 0.0 Bedside Glucose 148 129 Medications Medications Current Medications Ondansetron HCl (Zofran Inj) 4 mg Q6H PRN IV NAUSEA AND/OR VOMITING Last administered on 05/16/17 17:24; Admin Dose 4 MG; Start 05/16/17 at 15:00 Acetaminophen (Tylenol Tab) 650 mg Q6H PRN PO PAIN LEVEL 1-3 OR FEVER; Start 05/16/17 at 15:00 Acetaminophen/ Hydrocodone Bitart ([place] (5/325)) 1 tab Q6H PRN PO MODERATE PAIN LEVEL 4-6; Start 05/16/17 at 15:00 Morphine Sulfate (morphine) 2 mg Q4H PRN IV SEVERE PAIN LEVEL 7-10 Last administered on 05/17/17 20:57; Admin Dose 2 MG; Start 05/16/17 at 15:00 Docusate Sodium (Colace) 100 mg Q12H PRN PO CONSTIPATION; Start 05/16/17 at 15 :00 Magnesium Hydroxide (Milk Of Mag) 30 ml DAILY PRN PO CONSTIPATION; Start 05/16 at 15:00 Sodium Biphosphate/ Sodium Phosphate (Fleet Enema) 133 ml DAILY PRN [place] CONSTIPATION; Start 05/16/17 at 15:00 Lorazepam (Ativan) 0.5 mg Q6H PRN IV ANXIETY; Start 05/16/17 at 15:00 Hydralazine HCl (Apresoline) 10 mg Q6H PRN IV ELEVATED BLOOD PRESSURE; Start 05/16/17 at 15:00 Clonidine (Catapres) 0.1 mg Q6H PRN PO ELEVATED BLOOD PRESSURE; Start at 15:00 Nitroglycerin (Nitroglycerin (Sl Tab) 0.4 Mg) 1 tab Q5M PRN SL ANGINA; Start 05/16/17 at 15:00 Fish Oil (Fish Oil) 1,000 mg DAILY PO Last administered on 05/18/17 08:29; Admin Dose 1,000 MG; Start 05/16/17 at 15:00 Atorvastatin Calcium (Lipitor) 80 mg HS PO Last administered on 05/17/17 21: 09; Admin Dose 80 MG; Start 05/16/17 at 21:00 Diagnostic Test (Pha) (Accu-Chek) 1 ea 02 XX ; Start 05/17/17 at 02:00 Insulin Aspart (Novolog Insulin Pen) NOVOLOG *MILD* ALGORI... Q4 SC Last administered on 05/18/17 08:31; Admin Dose 1 UNIT; Start 05/16/17 at 17:00 Miscellaneous Information 1 ea NOTE XX ; Start 05/16/17 at 15:00 Glucose (Glutose) 15 gm Q15M PRN PO DECREASED GLUCOSE; Start 05/16/17 at 15:00 Glucose (Glutose) 22.5 gm Q15M PRN PO DECREASED GLUCOSE; Start 05/16/17 at 15: 00 Dextrose (D50w Syringe) 25 ml Q15M PRN IV DECREASED GLUCOSE; Start 05/16/17 at 15:00 Dextrose (D50w Syringe) 50 ml Q15M PRN IV DECREASED GLUCOSE; Start 05/16/17 at 15:00 Glucagon (Glucagen) 1 mg Q15M PRN IM DECREASED GLUCOSE; Start 05/16/17 at 15: 00 Glucose (Glutose) 15 gm Q15M PRN BUCCAL DECREASED GLUCOSE; Start 05/16/17 at 15:00 Carvedilol (Coreg) 6.25 mg BID PO Last administered on 05/16/17 20:56; Admin Dose 6.25 MG; Start 05/16/17 at 21:00 Aspirin (Ecotrin) 325 mg DAILY PO Last administered on 05/18/17 08:29; Admin Dose 325 MG; Start 05/18/17 at 09:00 Clopidogrel Bisulfate (plaVIX) 75 mg DAILY PO Last administered on 05/18/17 08:29; Admin Dose 75 MG; Start 05/18/17 at 09:00 Acetaminophen (Tylenol Tab) 650 mg Q4H PRN PO NON-CARDIAC PAIN LEVEL 1-3; Start 05/17/17 at 12:00 Oxycodone/ Acetaminophen (Percocet (5/ 325)) 1 tab Q4H PRN PO REPORTED NON- CARDIAC PAIN 4-7; Start 05/17/17 at 12:00 Morphine Sulfate (morphine) 1 mg Q1H PRN IV PAIN NOT RELIEVED BY OTHERS Last administered on 05/18/17 11:51; Admin Dose 1 MG; Start 05/17/17 at 12:00 Al Hydrox/Mg Hydrox/Simethicone (Mag-Al Plus) 30 ml Q4H PRN PO GASTROINTESTINAL UPSET; Start 05/17/17 at 12:00 Ondansetron HCl 4 mg 4 mg Q4H PRN IV NAUSEA AND/OR VOMITING; Start 05/17/17 at 12:00 Levofloxacin/ Dextrose (Levaquin 250 Mg/ D5W 50 ml (Pmx)) 50 ml @ 50 mls/hr Q48H IVPB ; Start 05/20/17 at 11:00 Famotidine (Pepcid) 20 mg DAILY PO ; Start 05/19/17 at 09:00 OREN ARTHUR MD May 18, 2017 16:53
[2017-05-18] MEDS: HEPARIN 25000 UNITS/250 ML 250 ML IV SCH (20:13)
[2017-05-18] MEDS ORDERED: SOD CHLORIDE 0.9% 500 ML IV ONE (21:00)
[2017-05-18] MEDS: ATORVASTATIN 80 MG TAB PO SCH (21:08)
[2017-05-18] MEDS ORDERED: SOD CHLORIDE 0.9% 1,000 ML IV SCH (22:00)
[2017-05-19] VITALS (78 sets, daily range): BP systolic 78–116; BP diastolic 35–92; PULSE 88–101; RESP 18–29
[2017-05-19] MEDS: INSULIN ASPART [NOVOLOG] 3 ML PEN SC SCH ×6 (00:38→20:58)
[2017-05-19] MEDS: ACCU-CHEK XX SCH (02:01)
[2017-05-19 07:12] LABS: BASOPHILS % 0.2 % (0.0-2.0); HEMATOCRIT 24.4 % (37.0-47.0); HEMOGLOBIN 7.3 g/dl (12.0-16.0); LYMPHOCYTES # 1.6 10^3/ul (0.8-2.9); LYMPHOCYTES % 12.4 % (15.0-51.0); MEAN CORPUSCULAR HEMOGLOBIN 27.9 pg (29.0-33.0); MEAN CORPUSCULAR HGB CONC 29.9 g/dl (32.0-37.0); MEAN CORPUSCULAR VOLUME 93.1 fl (82.0-101.0); MONOCYTE # 0.8 10^3/ul (0.3-0.9); MONOCYTES % 6.4 % (0.0-11.0); NEUTROPHIL # 10.3 10^3/ul (1.6-7.5); NEUTROPHILS % 80.3 % (39.0-77.0); PLATELET COUNT 142 10^3/UL (140-415); RED BLOOD COUNT 2.62 10^6/ul (4.20-5.40); WHITE BLOOD COUNT 12.8 10^3/ul (4.8-10.8)
[2017-05-19 07:45] LABS: CALCIUM 7.4 mg/dl (8.4-10.2); CREATININE 4.84 mg/dl (0.44-1.00); POTASSIUM 5.6 mmol/L (3.5-5.1)
[2017-05-19] MEDS ORDERED: SOD CHLORIDE 0.9% 500 ML IV ONE (09:00)
[2017-05-19] MEDS: FISH OIL 1,000 MG CAP PO SCH (09:20)
[2017-05-19] MEDS: ASPIRIN (EC) 325 MG TAB PO SCH (09:20)
[2017-05-19] MEDS: FAMOTIDINE 20 MG TAB PO SCH (09:20)
[2017-05-19] MEDS: CLOPIDOGREL 75 MG TAB PO SCH (09:20)
--- NOTE | 2017-05-19 09:29 | PN ---
Date/Time of Note Date/Time of Note DATE: 05/19/17 TIME: 09:23 Assessment/Plan VTE Prophylaxis VTE Prophylaxis Intervention: heparin Lines/Catheters IV C[facility] Type [facility]from [facility] [place] PUMP Urinary Cath still in place: Yes Reason Cath still needed: urinary retention Assessment/Plan Chief Complaint/Hosp Course ASSESSMENT AND PLAN: 57-year-old female coming in with vomiting symptoms, right shoulder pain and chest pain, with signs of non- ST elevation myocardial infarction. 1. Chest pain and shoulder pain. Again, likely secondary to non-ST elevation myocardial infarction. Status post stent to LAD 2 as well as circumflex 2. -Follow-up cardiology consult recommendations, continue balloon pump for now per cardiology recommendations, continue current meds -Continue Coreg, Lipitor, aspirin 2. Res distress: Initial chest x-ray showed: New bilateral ground-glass parenchymal densities right greater than left. Repeat chest x-ray shows less pulmonary edema now. CTA chest was negative for dissection or PE. -Follow-up pulmonary rec's, continue broad-spectrum antibiotics 3. Diabetes - A1c = 8.2 - continue sliding scale insulin. 4. History of high cholesterol -noted lipid panel. She is on high-dose statin. 5. Gastrointestinal prophylaxis with H2 aury. 6. renal insufficiency - s/p bumex drip yesterday. Creatinine higher today, urine output is minimal. -IV fluid bolus, monitor urine output, low rate IV fluids, renal rec's Critical care time spent on patient care today equals 40 minutes. Problems: Subjective 24 Hr Interval Summary Free Text/Dictation Patient still on intra-aortic balloon pump, heparin drip stopped this morning. No acute events overnight. Exam/Review of Systems Vital Signs Vitals Vital Signs Date Time Temp Pulse Resp B/P Pulse Ox O2 Delivery O2 Flow Rate FiO2 05/19/17 07:00 97 26 110/92 98 05/19/17 07:00 Nasal Cannula 05/19/17 06:30 98.4 05/19/17 04:00 2.0 05/19/17 01:59 27 Intake and Output 05/18/17 05/18/17 05/19/17 15:00 23:00 07:00 Intake Total 170.0 ml 710.0 ml 460.0 ml Output Total 205 ml 200 ml 140 ml Balance -35.0 ml 510.0 ml 320.0 ml Exam GENERAL: The patient lying in bed, slightly lethargic, but alert HEENT: Pupils equal, round, react to light. Extraocular muscles intact. NECK: Supple. No thyromegaly. LUNGS: Clear to auscultation bilaterally. No wheezes. CARDIAC: S1, S2 heard. No rubs, gallops. ABDOMEN: Soft, nontender, nondistended. Normal bowel sounds. No rebound or guarding. MUSCULOSKELETAL: No lower extremity edema bilaterally. NEUROLOGIC: No focal deficits. Results Result Diagram: 05/19/17 0445 05/19/17 0445 Results 24 hrs Laboratory Tests Test 05/18/17 12:38 05/18/17 17:15 05/18/17 21:01 05/19/17 00:27 Bedside Glucose 129 125 121 129 Test 05/19/17 02:00 05/19/17 04:44 05/19/17 04:45 05/19/17 08:28 Bedside Glucose 141 146 170 White Blood Count 12.8 H Red Blood Count 2.62 L Hemoglobin 7.3 L Hematocrit 24.4 L Mean Corpuscular Volume 93.1 Mean Corpuscular Hemoglobin 27.9 L Mean Corpuscular Hemoglobin Concent 29.9 L Red Cell Distribution Width 15.0 H Platelet Count 142 Mean Platelet Volume 13.0 H Neutrophils % 80.3 H Lymphocytes % 12.4 L Monocytes % 6.4 Eosinophils % 0.0 Basophils % 0.2 Nucleated Red Blood Cells % 0.0 Neutrophils # 10.3 H Lymphocytes # 1.6 Monocytes # 0.8 Eosinophils # 0.0 Basophils # 0.0 Nucleated Red Blood Cells # 0.0 Activated Partial Thromboplast Time 47.9 H Sodium Level 136 Potassium Level 5.6 H Chloride Level 107 Carbon Dioxide Level 15 L Anion Gap 20 #H Blood Urea Nitrogen 58 H Creatinine 4.84 #H Glucose Level 112 Calcium Level 7.4 L Medications Medications Current Medications Ondansetron HCl (Zofran Inj) 4 mg Q6H PRN IV NAUSEA AND/OR VOMITING Last administered on 05/16/17t 17:24; Admin Dose 4 MG; Start 05/16/17 at 15:00 Acetaminophen (Tylenol Tab) 650 mg Q6H PRN PO PAIN LEVEL 1-3 OR FEVER; Start 05/16/17 at 15:00 Acetaminophen/ Hydrocodone Bitart ([place] (5/325)) 1 tab Q6H PRN PO MODERATE PAIN LEVEL 4-6; Start 05/16/17 at 15:00 Morphine Sulfate (morphine) 2 mg Q4H PRN IV SEVERE PAIN LEVEL 7-10 Last administered on 05/17/17 20:57; Admin Dose 2 MG; Start 05/16/17 at 15:00 Docusate Sodium (Colace) 100 mg Q12H PRN PO CONSTIPATION; Start 05/16/17 at 15 :00 Magnesium Hydroxide (Milk Of Mag) 30 ml DAILY PRN PO CONSTIPATION; Start 05/16 at 15:00 Sodium Biphosphate/ Sodium Phosphate (Fleet Enema) 133 ml DAILY PRN [place] CONSTIPATION; Start 05/16/17 at 15:00 Lorazepam (Ativan) 0.5 mg Q6H PRN IV ANXIETY; Start 05/16/17 at 15:00 Hydralazine HCl (Apresoline) 10 mg Q6H PRN IV ELEVATED BLOOD PRESSURE; Start 05/16/17 at 15:00 Clonidine (Catapres) 0.1 mg Q6H PRN PO ELEVATED BLOOD PRESSURE; Start at 15:00 Nitroglycerin (Nitroglycerin (Sl Tab) 0.4 Mg) 1 tab Q5M PRN SL ANGINA; Start 05/16/17 at 15:00 Fish Oil (Fish Oil) 1,000 mg DAILY PO Last administered on 05/19/17 09:20; Admin Dose 1,000 MG; Start 05/16/17 at 15:00 Atorvastatin Calcium (Lipitor) 80 mg HS PO Last administered on 05/18/17 21: 08; Admin Dose 80 MG; Start 05/16/17 at 21:00 Diagnostic Test (Pha) (Accu-Chek) 1 ea 02 XX Last administered on 05/19/17 02 :01; Admin Dose 1 EA; Start 05/17/17 at 02:00 Insulin Aspart (Novolog Insulin Pen) NOVOLOG *MILD* ALGORI... Q4 SC Last administered on 05/19/17 08:37; Admin Dose 2 UNIT; Start 05/16/17 at 17:00 Miscellaneous Information 1 ea NOTE XX ; Start 05/16/17 at 15:00 Glucose (Glutose) 15 gm Q15M PRN PO DECREASED GLUCOSE; Start 05/16/17 at 15:00 Glucose (Glutose) 22.5 gm Q15M PRN PO DECREASED GLUCOSE; Start 05/16/17 at 15: 00 Dextrose (D50w Syringe) 25 ml Q15M PRN IV DECREASED GLUCOSE; Start 05/16/17 at 15:00 Dextrose (D50w Syringe) 50 ml Q15M PRN IV DECREASED GLUCOSE; Start 05/16/17 at 15:00 Glucagon (Glucagen) 1 mg Q15M PRN IM DECREASED GLUCOSE; Start 05/16/17 at 15: 00 Glucose (Glutose) 15 gm Q15M PRN BUCCAL DECREASED GLUCOSE; Start 05/16/17 at 15:00 Carvedilol (Coreg) 6.25 mg BID PO Last administered on 05/16/17 20:56; Admin Dose 6.25 MG; Start 05/16/17 at 21:00 Aspirin (Ecotrin) 325 mg DAILY PO Last administered on 05/19/17 09:20; Admin Dose 325 MG; Start 05/18/17 at 09:00 Clopidogrel Bisulfate (plaVIX) 75 mg DAILY PO Last administered on 05/19/17 09:20; Admin Dose 75 MG; Start 05/18/17 at 09:00 Acetaminophen (Tylenol Tab) 650 mg Q4H PRN PO NON-CARDIAC PAIN LEVEL 1-3; Start 05/17/17 at 12:00 Oxycodone/ Acetaminophen (Percocet (5/ 325)) 1 tab Q4H PRN PO REPORTED NON- CARDIAC PAIN 4-7; Start 05/17/17 at 12:00 Morphine Sulfate (morphine) 1 mg Q1H PRN IV PAIN NOT RELIEVED BY OTHERS Last administered on 05/18/17 11:51; Admin Dose 1 MG; Start 05/17/17 at 12:00 Al Hydrox/Mg Hydrox/Simethicone (Mag-Al Plus) 30 ml Q4H PRN PO GASTROINTESTINAL UPSET; Start 05/17/17 at 12:00 Ondansetron HCl 4 mg 4 mg Q4H PRN IV NAUSEA AND/OR VOMITING; Start 05/17/17 at 12:00 Levofloxacin/ Dextrose (Levaquin 250 Mg/ D5W 50 ml (Pmx)) 50 ml @ 50 mls/hr Q48H IVPB ; Start 05/20/17 at 11:00 Famotidine 20 mg 20 mg DAILY PO Last administered on 05/19/17 09:20; Admin Dose 20 MG; Start 05/19/17 at 09:00 Sodium Chloride 1,000 ml @ 70 mls/hr [id number] IV Last administered on 21:51; Admin Dose 50 MLS/HR; Start 05/18/17 at 22:00 Sodium Chloride (NS) 500 ml @ 500 mls/hr Q1H ONCE IV Last administered on 09:20; Admin Dose 500 MLS/HR; Start 05/19/17 at 09:00; Stop 05/19/17 at 09:59 Lidocaine (Xylocaine 2% (Mdv) 20 ml) 20 ml ONCE INJ ; Start 05/19/17 at 09:30; Stop 05/19/17 at 12:00 CHINEDU GABRIEL May 19, 2017 09:29
[2017-05-19] MEDS ORDERED: LIDOCAINE 2% (MDV) 20 ML INJ INJ SCH (09:30)
[2017-05-19] MEDS ORDERED: LIDOCAINE 1% (MDV) 20 ML INJ SC ONE (09:30)
--- NOTE | 2017-05-19 09:54 | CONS ---
Date/Time of Note Date/Time of Note DATE: 05/19/17 TIME: 09:51 Assessment/Plan Assessment/Plan Additional Assessment/Plan Assessment and recommendations; 1. Patient admitted with acute VT status post coronary angiography with 4 vessel PTCA and stenting.. 2. Improving pulmonary edema. Maintained on intraocular pump. 3. History of attention or diabetes. 4. Anemia. 5. Worsening renal function. 6. Possibly superimposed mild pneumonia. Continue current supportive care. Monitor renal function. Patient may need to be dialyzed if needed. Intra-aortic balloon pump likely to be removed today. Consultation Date/Type/Reason Admit Date/Time May 16, 2017 at 12:38 Initial Consult Date 05/17/17 Type of Consultation: Pulmonary/critical care Referring Provider: RUPERT CARMONA 24 HR Interval Summary Free Text/Dictation Patient's condition is stable. Still on intra-aortic balloon pump at one 1: 1 augmentation. Patient denies any chest pain, shortness of breath. General exam; middle-aged woman, awake alert, currently in no distress. Exam/Review of Systems Vital Signs Vitals Vital Signs Date Time Temp Pulse Resp B/P Pulse Ox O2 Delivery O2 Flow Rate FiO2 05/19/17 07:00 97 26 110/92 98 05/19/17 07:00 Nasal Cannula 05/19/17 06:30 98.4 05/19/17 04:00 2.0 05/19/17 01:59 27 Intake and Output 05/18/17 05/18/17 05/19/17 15:00 23:00 07:00 Intake Total 170.0 ml 710.0 ml 460.0 ml Output Total 205 ml 200 ml 140 ml Balance -35.0 ml 510.0 ml 320.0 ml Exam HEENT exam; supple neck, no JVD. No lymphadenopathy. Midline trachea. No thyromegaly. Pharynx is clear. Patient has good dentition. Pupils are midsize and reactive to light. Chest exam; clear to auscultation. S1-S2 audible, no murmurs. Regular rhythm. Abdomen exam; soft, nontender. No organomegaly. Bowel sounds audible. Extremity exam; no peripheral edema. Pulses 1+ bilaterally. HIDE INSPECTOR exam; no focal deficit. Results Result Diagram: 05/19/17 0445 05/19/17 0445 Results 24 hrs Laboratory Tests Test 05/18/17 12:38 05/18/17 17:15 05/18/17 21:01 05/19/17 00:27 Bedside Glucose 129 125 121 129 Test 05/19/17 02:00 05/19/17 04:44 05/19/17 04:45 05/19/17 08:28 Bedside Glucose 141 146 170 White Blood Count 12.8 H Red Blood Count 2.62 L Hemoglobin 7.3 L Hematocrit 24.4 L Mean Corpuscular Volume 93.1 Mean Corpuscular Hemoglobin 27.9 L Mean Corpuscular Hemoglobin Concent 29.9 L Red Cell Distribution Width 15.0 H Platelet Count 142 Mean Platelet Volume 13.0 H Neutrophils % 80.3 H Lymphocytes % 12.4 L Monocytes % 6.4 Eosinophils % 0.0 Basophils % 0.2 Nucleated Red Blood Cells % 0.0 Neutrophils # 10.3 H Lymphocytes # 1.6 Monocytes # 0.8 Eosinophils # 0.0 Basophils # 0.0 Nucleated Red Blood Cells # 0.0 Activated Partial Thromboplast Time 47.9 H Sodium Level 136 Potassium Level 5.6 H Chloride Level 107 Carbon Dioxide Level 15 L Anion Gap 20 #H Blood Urea Nitrogen 58 H Creatinine 4.84 #H Glucose Level 112 Calcium Level 7.4 L Medications Medications Current Medications Ondansetron HCl (Zofran Inj) 4 mg Q6H PRN IV NAUSEA AND/OR VOMITING Last administered on 05/16/17 17:24; Admin Dose 4 MG; Start 05/16/17 at 15:00 Acetaminophen (Tylenol Tab) 650 mg Q6H PRN PO PAIN LEVEL 1-3 OR FEVER Last administered on 05/19/17 09:35; Admin Dose 650 MG; Start 05/16/17 at 15:00 Acetaminophen/ Hydrocodone Bitart ([place] (5/325)) 1 tab Q6H PRN PO MODERATE PAIN LEVEL 4-6; Start 05/16/17 at 15:00 Morphine Sulfate (morphine) 2 mg Q4H PRN IV SEVERE PAIN LEVEL 7-10 Last administered on 05/17/17 20:57; Admin Dose 2 MG; Start 05/16/17 at 15:00 Docusate Sodium (Colace) 100 mg Q12H PRN PO CONSTIPATION; Start 05/16/17 at 15 :00 Magnesium Hydroxide (Milk Of Mag) 30 ml DAILY PRN PO CONSTIPATION; Start 05/16 at 15:00 Sodium Biphosphate/ Sodium Phosphate (Fleet Enema) 133 ml DAILY PRN [place] CONSTIPATION; Start 05/16/17 at 15:00 Lorazepam (Ativan) 0.5 mg Q6H PRN IV ANXIETY; Start 05/16/17 at 15:00 Hydralazine HCl (Apresoline) 10 mg Q6H PRN IV ELEVATED BLOOD PRESSURE; Start 05/16/17 at 15:00 Clonidine (Catapres) 0.1 mg Q6H PRN PO ELEVATED BLOOD PRESSURE; Start at 15:00 Nitroglycerin (Nitroglycerin (Sl Tab) 0.4 Mg) 1 tab Q5M PRN SL ANGINA; Start 05/16/17 at 15:00 Fish Oil (Fish Oil) 1,000 mg DAILY PO Last administered on 05/19/17 09:20; Admin Dose 1,000 MG; Start 05/16/17 at 15:00 Atorvastatin Calcium (Lipitor) 80 mg HS PO Last administered on 05/18/17 21: 08; Admin Dose 80 MG; Start 05/16/17 at 21:00 Diagnostic Test (Pha) (Accu-Chek) 1 ea 02 XX Last administered on 05/19/17 02 :01; Admin Dose 1 EA; Start 05/17/17 at 02:00 Insulin Aspart (Novolog Insulin Pen) NOVOLOG *MILD* ALGORI... Q4 SC Last administered on 05/19/17 08:37; Admin Dose 2 UNIT; Start 05/16/17 at 17:00 Miscellaneous Information 1 ea NOTE XX ; Start 05/16/17 at 15:00 Glucose (Glutose) 15 gm Q15M PRN PO DECREASED GLUCOSE; Start 05/16/17 at 15:00 Glucose (Glutose) 22.5 gm Q15M PRN PO DECREASED GLUCOSE; Start 05/16/17 at 15: 00 Dextrose (D50w Syringe) 25 ml Q15M PRN IV DECREASED GLUCOSE; Start 05/16/17 at 15:00 Dextrose (D50w Syringe) 50 ml Q15M PRN IV DECREASED GLUCOSE; Start 05/16/17 at 15:00 Glucagon (Glucagen) 1 mg Q15M PRN IM DECREASED GLUCOSE; Start 05/16/17 at 15: 00 Glucose (Glutose) 15 gm Q15M PRN BUCCAL DECREASED GLUCOSE; Start 05/16/17 at 15:00 Carvedilol (Coreg) 6.25 mg BID PO Last administered on 05/16/17 20:56; Admin Dose 6.25 MG; Start 05/16/17 at 21:00 Aspirin (Ecotrin) 325 mg DAILY PO Last administered on 05/19/17 09:20; Admin Dose 325 MG; Start 05/18/17 at 09:00 Clopidogrel Bisulfate (plaVIX) 75 mg DAILY PO Last administered on 05/19/17 09:20; Admin Dose 75 MG; Start 05/18/17 at 09:00 Acetaminophen (Tylenol Tab) 650 mg Q4H PRN PO NON-CARDIAC PAIN LEVEL 1-3; Start 05/17/17 at 12:00 Oxycodone/ Acetaminophen (Percocet (5/ 325)) 1 tab Q4H PRN PO REPORTED NON- CARDIAC PAIN 4-7; Start 05/17/17 at 12:00 Morphine Sulfate (morphine) 1 mg Q1H PRN IV PAIN NOT RELIEVED BY OTHERS Last administered on 05/18/17 11:51; Admin Dose 1 MG; Start 05/17/17 at 12:00 Al Hydrox/Mg Hydrox/Simethicone (Mag-Al Plus) 30 ml Q4H PRN PO GASTROINTESTINAL UPSET; Start 05/17/17 at 12:00 Ondansetron HCl 4 mg 4 mg Q4H PRN IV NAUSEA AND/OR VOMITING; Start 05/17/17 at 12:00 Levofloxacin/ Dextrose (Levaquin 250 Mg/ D5W 50 ml (Pmx)) 50 ml @ 50 mls/hr Q48H IVPB ; Start 05/20/17 at 11:00 Famotidine 20 mg 20 mg DAILY PO Last administered on 05/19/17 09:20; Admin Dose 20 MG; Start 05/19/17 at 09:00 Sodium Chloride 1,000 ml @ 70 mls/hr [id number] IV Last administered on 21:51; Admin Dose 50 MLS/HR; Start 05/18/17 at 22:00 Sodium Chloride (NS) 500 ml @ 500 mls/hr Q1H ONCE IV Last administered on 09:20; Admin Dose 500 MLS/HR; Start 05/19/17 at 09:00; Stop 05/19/17 at 09:59 CHANDRIKA ZHANG May 19, 2017 09:54
[2017-05-19] MEDS ORDERED: NA POLYST SULFON 15 GM/60 ML BTL PO ONE (12:00)
--- NOTE | 2017-05-19 13:02 | CONS ---
Date/Time of Note Date/Time of Note DATE: 05/19/17 TIME: 12:58 Assessment/Plan Assessment/Plan Chief Complaint/Hosp Course IMP: 1.Acute IA-trop>100 now POD#1 s/p ptca/stent x 2 to 100% occluded LCX and x 2 to high grade LAD stenosis and placement of IABP 2.CHF-likely systolic acute. EF 30-35% by echo yesterday 3.Renal failure 4.DM 5.Chest pain secondary to number 1. Now improved 6. Anemia 7.Dyslipidemia 8.Hyperkalemia Recc: -Tele -serial ecg's -Continue asa 325 and plavix 75 mg daily -Will d/c IABP today as passed weaning parameters -Follow volume status closely on bumex drip with renal following -statin therapy -Continue abx's and f/u cx data -Rx elevated K with kayexalate as you are doing -Add low dose hydralazine aftrerload reduction in lieu of ACEI at this time given renal failure and there after BB as tolerated Problems: Consultation Date/Type/Reason Admit Date/Time May 16, 2017 at 12:38 Initial Consult Date 05/17/17 Type of Consultation: Cardiology Reason for Consultation Acute IA Referring Provider: RUPERT CARMONA Exam/Review of Systems Vital Signs Vitals Vital Signs Date Time Temp Pulse Resp B/P Pulse Ox O2 Delivery O2 Flow Rate FiO2 05/19/17 10:15 90 22 88/35 100 05/19/17 10:00 Nasal Cannula 2.0 05/19/17 08:00 98.1 05/19/17 01:59 27 Intake and Output 05/18/17 05/18/17 05/19/17 15:00 23:00 07:00 Intake Total 170.0 ml 710.0 ml 460.0 ml Output Total 205 ml 200 ml 140 ml Balance -35.0 ml 510.0 ml 320.0 ml Exam Review of Systems: CONSTITUTIONAL: No fevers, chills. PULMONARY: mild sob CARDIOVASCULAR: No chest pain/palpitations GASTROINTESTINAL: No nausea/vomiting. GENITOURINARY: No hematuria/dysuria. MUSCULOSKELETAL: No myagias/arthalgias. PSYCHIATRIC: The patient denies depression. NEUROLOGIC: No weakness Constitutional: alert Psych: no complaints Head: normocephalic ENMT: mucosa pink and moist Neck: jvd (9 cm water), supple Respiratory: diminished breath sounds (at bases/B) Cardiovascular: regular rate and rhythm Gastrointestinal: non-tender, soft Musculoskeletal: muscle tone (normal) Extremities: pitting pedal edema (BIlateral) Neurological: other (No focal deficits) Results Result Diagram: 05/19/17 0445 05/19/17 0445 Results 24 hrs Laboratory Tests Test 05/18/17 17:15 05/18/17 21:01 05/19/17 00:27 05/19/17 02:00 Bedside Glucose 125 121 129 141 Test 05/19/17 04:44 05/19/17 04:45 05/19/17 08:28 05/19/17 12:40 Bedside Glucose 146 170 157 White Blood Count 12.8 H Red Blood Count 2.62 L Hemoglobin 7.3 L Hematocrit 24.4 L Mean Corpuscular Volume 93.1 Mean Corpuscular Hemoglobin 27.9 L Mean Corpuscular Hemoglobin Concent 29.9 L Red Cell Distribution Width 15.0 H Platelet Count 142 Mean Platelet Volume 13.0 H Neutrophils % 80.3 H Lymphocytes % 12.4 L Monocytes % 6.4 Eosinophils % 0.0 Basophils % 0.2 Nucleated Red Blood Cells % 0.0 Neutrophils # 10.3 H Lymphocytes # 1.6 Monocytes # 0.8 Eosinophils # 0.0 Basophils # 0.0 Nucleated Red Blood Cells # 0.0 Activated Partial Thromboplast Time 47.9 H Sodium Level 136 Potassium Level 5.6 H Chloride Level 107 Carbon Dioxide Level 15 L Anion Gap 20 #H Blood Urea Nitrogen 58 H Creatinine 4.84 #H Glucose Level 112 Calcium Level 7.4 L Medications Medications Current Medications Ondansetron HCl (Zofran Inj) 4 mg Q6H PRN IV NAUSEA AND/OR VOMITING Last administered on 05/16/17 17:24; Admin Dose 4 MG; Start 05/16/17 at 15:00 Acetaminophen (Tylenol Tab) 650 mg Q6H PRN PO PAIN LEVEL 1-3 OR FEVER Last administered on 05/19/17 09:35; Admin Dose 650 MG; Start 05/16/17 at 15:00 Acetaminophen/ Hydrocodone Bitart ([place] (5/325)) 1 tab Q6H PRN PO MODERATE PAIN LEVEL 4-6; Start 05/16/17 at 15:00 Morphine Sulfate (morphine) 2 mg Q4H PRN IV SEVERE PAIN LEVEL 7-10 Last administered on 05/17/17 20:57; Admin Dose 2 MG; Start 05/16/17 at 15:00 Docusate Sodium (Colace) 100 mg Q12H PRN PO CONSTIPATION; Start 05/16/17 at 15 :00 Magnesium Hydroxide (Milk Of Mag) 30 ml DAILY PRN PO CONSTIPATION; Start 05/16 at 15:00 Sodium Biphosphate/ Sodium Phosphate (Fleet Enema) 133 ml DAILY PRN [place] CONSTIPATION; Start 05/16/17 at 15:00 Lorazepam (Ativan) 0.5 mg Q6H PRN IV ANXIETY; Start 05/16/17 at 15:00 Hydralazine HCl (Apresoline) 10 mg Q6H PRN IV ELEVATED BLOOD PRESSURE; Start 05/16/17 at 15:00 Clonidine (Catapres) 0.1 mg Q6H PRN PO ELEVATED BLOOD PRESSURE; Start at 15:00 Nitroglycerin (Nitroglycerin (Sl Tab) 0.4 Mg) 1 tab Q5M PRN SL ANGINA; Start 05/16/17 at 15:00 Fish Oil (Fish Oil) 1,000 mg DAILY PO Last administered on 05/19/17 09:20; Admin Dose 1,000 MG; Start 05/16/17 at 15:00 Atorvastatin Calcium (Lipitor) 80 mg HS PO Last administered on 05/18/17 21: 08; Admin Dose 80 MG; Start 05/16/17 at 21:00 Diagnostic Test (Pha) (Accu-Chek) 1 ea 02 XX Last administered on 05/19/17 02 :01; Admin Dose 1 EA; Start 05/17/17 at 02:00 Insulin Aspart (Novolog Insulin Pen) NOVOLOG *MILD* ALGORI... Q4 SC Last administered on 05/19/17 12:44; Admin Dose 1 UNIT; Start 05/16/17 at 17:00 Miscellaneous Information 1 ea NOTE XX ; Start 05/16/17 at 15:00 Glucose (Glutose) 15 gm Q15M PRN PO DECREASED GLUCOSE; Start 05/16/17 at 15:00 Glucose (Glutose) 22.5 gm Q15M PRN PO DECREASED GLUCOSE; Start 05/16/17 at 15: 00 Dextrose (D50w Syringe) 25 ml Q15M PRN IV DECREASED GLUCOSE; Start 05/16/17 at 15:00 Dextrose (D50w Syringe) 50 ml Q15M PRN IV DECREASED GLUCOSE; Start 05/16/17 at 15:00 Glucagon (Glucagen) 1 mg Q15M PRN IM DECREASED GLUCOSE; Start 05/16/17 at 15: 00 Glucose (Glutose) 15 gm Q15M PRN BUCCAL DECREASED GLUCOSE; Start 05/16/17 at 15:00 Carvedilol (Coreg) 6.25 mg BID PO Last administered on 05/16/17 20:56; Admin Dose 6.25 MG; Start 05/16/17 at 21:00 Aspirin (Ecotrin) 325 mg DAILY PO Last administered on 05/19/17 09:20; Admin Dose 325 MG; Start 05/18/17 at 09:00 Clopidogrel Bisulfate (plaVIX) 75 mg DAILY PO Last administered on 05/19/17 09:20; Admin Dose 75 MG; Start 05/18/17 at 09:00 Acetaminophen (Tylenol Tab) 650 mg Q4H PRN PO NON-CARDIAC PAIN LEVEL 1-3; Start 05/17/17 at 12:00 Oxycodone/ Acetaminophen (Percocet (5/ 325)) 1 tab Q4H PRN PO REPORTED NON- CARDIAC PAIN 4-7; Start 05/17/17 at 12:00 Morphine Sulfate (morphine) 1 mg Q1H PRN IV PAIN NOT RELIEVED BY OTHERS Last administered on 05/18/17 11:51; Admin Dose 1 MG; Start 05/17/17 at 12:00 Al Hydrox/Mg Hydrox/Simethicone (Mag-Al Plus) 30 ml Q4H PRN PO GASTROINTESTINAL UPSET; Start 05/17/17 at 12:00 Ondansetron HCl 4 mg 4 mg Q4H PRN IV NAUSEA AND/OR VOMITING; Start 05/17/17 at 12:00 Levofloxacin/ Dextrose (Levaquin 250 Mg/ D5W 50 ml (Pmx)) 50 ml @ 50 mls/hr Q48H IVPB ; Start 05/20/17 at 11:00 Famotidine 20 mg 20 mg DAILY PO Last administered on 05/19/17 09:20; Admin Dose 20 MG; Start 05/19/17 at 09:00 Sodium Chloride (NS) 1,000 ml @ 70 mls/hr [id number] IV Last administered on t 21:51; Admin Dose 50 MLS/HR; Start 05/18/17 at 22:00 Furosemide (Lasix) 40 mg ONCE ONCE IV ; Start 05/19/17 at 16:00; Stop at 16:01 RANDEE GAMBLE May 19, 2017 13:02
--- NOTE | 2017-05-19 14:22 | CARRPT ---
DATE OF PROCEDURE: 05/19/2017 TYPE OF PROCEDURE: 1: Intraaortic balloon pump removal. INDICATION: Resolved cardiogenic shock. BRIEF HISTORY: Ms. Dial is a 57-year-old female with history of hypertension , dyslipidemia and diabetes who initially presented with acute myocardial infarction. The patient underwent coronary intervention with stenting to high grade LAD stenoses and 100% circumflex stenosis. During the procedure, the patient had hypotension and cardiac shock requiring placement of intraaortic balloon pump. The patient has now made improvement in blood pressure and is an acceptable candidate for removal of intraaortic balloon pump. DESCRIPTION OF PROCEDURE: The patient remained in the recumbent position with intraaortic balloon pump at 1:1 augmentation. The patient's dressing was taken off of balloon pump, the sutures were removed. The patient received lidocaine into the area around the balloon pump removal and subsequently alcohol stability was done. Checks were placed in the distal portion of the bed. Patient's balloon pump was turned on standby, decompressed. At this time, the intraaortic balloon pump was removed with the sheath and allowing a couple of milliliters of blood to exit the body so as not to travel any embolization. Subsequently manual pressure was held for approximately 10 to 15 minutes until initial hemostasis was achieved and the patient has had a Fem-stop placed to remain in place until optimal hemostasis was achieved. This completed the procedure. There were no noted complications. IMPRESSION: Successful removal of intraaortic balloon pump. Dictated By: RANDEE SNYDER/ALYCE Conf#: [id number] DID#: [id number] JOAQUÍN
[2017-05-19 14:53] LABS: CK-MB 12.9 ng/ml (0.0-2.4)
[2017-05-19] MEDS ORDERED: FUROSEMIDE 40 MG INJ IV ONE (16:00)
--- NOTE | 2017-05-19 16:01 | RADRPT ---
Vent Rate: 81 bpm RR Interval: 0 msec HI Interval: 148 msec QRS Duration: 66 msec QT Interval: 416 msec QTC Interval: 483 msec P-R-T [place]: 74 - 131 - 67 degrees Normal sinus rhythm Right ventricular hypertrophy Can not rule out Lateral infarct , age undetermined Abnormal ECG Electronically Signed By: Augusto Lombardo [id number]
--- NOTE | 2017-05-19 16:04 | RADRPT ---
Vent Rate: 80 bpm RR Interval: 0 msec NV Interval: 144 msec QRS Duration: 66 msec QT Interval: 424 msec QTC Interval: 489 msec P-R-T [place]: 62 - 136 - 50 degrees Normal sinus rhythm Right ventricular hypertrophy with repolarization abnormality Lateral infarct , age undetermined Abnormal ECG Electronically Signed By: Augusto Lombardo [id number]
[2017-05-19] MEDS: ONDANSETRON 4 MG INJ IV PRN (16:37)
--- NOTE | 2017-05-19 17:03 | CONS ---
Date/Time of Note Date/Time of Note DATE: 05/19/17 TIME: 17:00 Assessment/Plan Assessment/Plan Chief Complaint/Hosp Course IMPRESSION: 1. Acute kidney injury due to acute myocardial infarction and hemodynamic instability. and pul edema s/p CATH AND PCI 2. ATN OLIGURIC CONTRAST NEPHROPATHY 3. status post coronary angiogram with percutaneous coronary intervention and now on intraaortic balloon pump. 4. The patient has diabetes mellitus, hypertension. 5. Rule out underlying diabetic nephropathy. 6. Leukocytosis, 7 METABOKIC ACIDOSIS plan IV NAHCO3 ck labs LASIX Problems: Consultation Date/Type/Reason Admit Date/Time May 16, 2017 at 12:38 Initial Consult Date 05/17/17 Type of Consultation: RENAL Referring Provider: RUPERT CARMONA 24 HR Interval Summary Constitutional: no complaints, other (NO SOB,NO CP) Exam/Review of Systems Vital Signs Vitals Vital Signs Date Time Temp Pulse Resp B/P Pulse Ox O2 Delivery O2 Flow Rate FiO2 05/19/17 16:00 98.2 93 26 100/59 94 Nasal Cannula 05/19/17 13:30 2.0 05/19/17 01:59 27 Intake and Output 05/18/17 05/18/17 05/19/17 15:00 23:00 07:00 Intake Total 170.0 ml 710.0 ml 460.0 ml Output Total 205 ml 200 ml 140 ml Balance -35.0 ml 510.0 ml 320.0 ml Exam Neck: supple Respiratory: diminished breath sounds Cardiovascular: regular rate and rhythm Gastrointestinal: bowel sounds (+), soft Extremities: edema (+) Results Result Diagram: 05/19/17 0445 05/19/17 0445 Results 24 hrs Laboratory Tests Test 05/18/17 17:15 05/18/17 21:01 05/19/17 00:27 05/19/17 02:00 Bedside Glucose 125 121 129 141 Test 05/19/17 04:44 05/19/17 04:45 05/19/17 08:28 05/19/17 12:40 Bedside Glucose 146 170 157 White Blood Count 12.8 H Red Blood Count 2.62 L Hemoglobin 7.3 L Hematocrit 24.4 L Mean Corpuscular Volume 93.1 Mean Corpuscular Hemoglobin 27.9 L Mean Corpuscular Hemoglobin Concent 29.9 L Red Cell Distribution Width 15.0 H Platelet Count 142 Mean Platelet Volume 13.0 H Neutrophils % 80.3 H Lymphocytes % 12.4 L Monocytes % 6.4 Eosinophils % 0.0 Basophils % 0.2 Nucleated Red Blood Cells % 0.0 Neutrophils # 10.3 H Lymphocytes # 1.6 Monocytes # 0.8 Eosinophils # 0.0 Basophils # 0.0 Nucleated Red Blood Cells # 0.0 Activated Partial Thromboplast Time 47.9 H Sodium Level 136 Potassium Level 5.6 H Chloride Level 107 Carbon Dioxide Level 15 L Anion Gap 20 #H Blood Urea Nitrogen 58 H Creatinine 4.84 #H Glucose Level 112 Calcium Level 7.4 L Test 05/19/17 14:00 Creatine Kinase 1025 H Creatine Kinase Index 1.3 Creatinine Kinase MB (Mass) 12.90 H Troponin I 104.000 *H Medications Medications Current Medications Ondansetron HCl (Zofran Inj) 4 mg Q6H PRN IV NAUSEA AND/OR VOMITING Last administered on 05/16/17 17:24; Admin Dose 4 MG; Start 05/16/17 at 15:00 Acetaminophen (Tylenol Tab) 650 mg Q6H PRN PO PAIN LEVEL 1-3 OR FEVER Last administered on 05/19/17 09:35; Admin Dose 650 MG; Start 05/16/17 at 15:00 Acetaminophen/ Hydrocodone Bitart ([place] (5/325)) 1 tab Q6H PRN PO MODERATE PAIN LEVEL 4-6; Start 05/16/17 at 15:00 Morphine Sulfate (morphine) 2 mg Q4H PRN IV SEVERE PAIN LEVEL 7-10 Last administered on 05/17/17 20:57; Admin Dose 2 MG; Start 05/16/17 at 15:00 Docusate Sodium (Colace) 100 mg Q12H PRN PO CONSTIPATION; Start 05/16/17 at 15 :00 Magnesium Hydroxide (Milk Of Mag) 30 ml DAILY PRN PO CONSTIPATION; Start 05/16 at 15:00 Sodium Biphosphate/ Sodium Phosphate (Fleet Enema) 133 ml DAILY PRN [place] CONSTIPATION; Start 05/16/17 at 15:00 Lorazepam (Ativan) 0.5 mg Q6H PRN IV ANXIETY; Start 05/16/17 at 15:00 Hydralazine HCl (Apresoline) 10 mg Q6H PRN IV ELEVATED BLOOD PRESSURE; Start 05/16/17 at 15:00 Clonidine (Catapres) 0.1 mg Q6H PRN PO ELEVATED BLOOD PRESSURE; Start at 15:00 Nitroglycerin (Nitroglycerin (Sl Tab) 0.4 Mg) 1 tab Q5M PRN SL ANGINA; Start 05/16/17 at 15:00 Fish Oil (Fish Oil) 1,000 mg DAILY PO Last administered on 05/19/17 09:20; Admin Dose 1,000 MG; Start 05/16/17 at 15:00 Atorvastatin Calcium (Lipitor) 80 mg HS PO Last administered on 05/18/17 21: 08; Admin Dose 80 MG; Start 05/16/17 at 21:00 Diagnostic Test (Pha) (Accu-Chek) 1 ea 02 XX Last administered on 05/19/17 02 :01; Admin Dose 1 EA; Start 05/17/17 at 02:00 Insulin Aspart (Novolog Insulin Pen) NOVOLOG *MILD* ALGORI... Q4 SC Last administered on 05/19/17 12:44; Admin Dose 1 UNIT; Start 05/16/17 at 17:00 Miscellaneous Information 1 ea NOTE XX ; Start 05/16/17 at 15:00 Glucose (Glutose) 15 gm Q15M PRN PO DECREASED GLUCOSE; Start 05/16/17 at 15:00 Glucose (Glutose) 22.5 gm Q15M PRN PO DECREASED GLUCOSE; Start 05/16/17 at 15: 00 Dextrose (D50w Syringe) 25 ml Q15M PRN IV DECREASED GLUCOSE; Start 05/16/17 at 15:00 Dextrose (D50w Syringe) 50 ml Q15M PRN IV DECREASED GLUCOSE; Start 05/16/17 at 15:00 Glucagon (Glucagen) 1 mg Q15M PRN IM DECREASED GLUCOSE; Start 05/16/17 at 15: 00 Glucose (Glutose) 15 gm Q15M PRN BUCCAL DECREASED GLUCOSE; Start 05/16/17 at 15:00 Carvedilol (Coreg) 6.25 mg BID PO Last administered on 05/16/17 20:56; Admin Dose 6.25 MG; Start 05/16/17 at 21:00 Aspirin (Ecotrin) 325 mg DAILY PO Last administered on 05/19/17 09:20; Admin Dose 325 MG; Start 05/18/17 at 09:00 Clopidogrel Bisulfate (plaVIX) 75 mg DAILY PO Last administered on 05/19/17 09:20; Admin Dose 75 MG; Start 05/18/17 at 09:00 Acetaminophen (Tylenol Tab) 650 mg Q4H PRN PO NON-CARDIAC PAIN LEVEL 1-3; Start 05/17/17 at 12:00 Oxycodone/ Acetaminophen (Percocet (5/ 325)) 1 tab Q4H PRN PO REPORTED NON- CARDIAC PAIN 4-7; Start 05/17/17 at 12:00 Morphine Sulfate (morphine) 1 mg Q1H PRN IV PAIN NOT RELIEVED BY OTHERS Last administered on 05/18/17 11:51; Admin Dose 1 MG; Start 05/17/17 at 12:00 Al Hydrox/Mg Hydrox/Simethicone (Mag-Al Plus) 30 ml Q4H PRN PO GASTROINTESTINAL UPSET; Start 05/17/17 at 12:00 Ondansetron HCl 4 mg 4 mg Q4H PRN IV NAUSEA AND/OR VOMITING Last administered on 05/19/17 16:37; Admin Dose 4 MG; Start 05/17/17 at 12:00 Levofloxacin/ Dextrose (Levaquin 250 Mg/ D5W 50 ml (Pmx)) 50 ml @ 50 mls/hr Q48H IVPB ; Start 05/20/17 at 11:00 Famotidine 20 mg 20 mg DAILY PO Last administered on 05/19/17 09:20; Admin Dose 20 MG; Start 05/19/17 at 09:00 Sodium Chloride (NS) 1,000 ml @ 70 mls/hr [id number] IV Last administered on 21:51; Admin Dose 50 MLS/HR; Start 05/18/17 at 22:00 Hydralazine HCl (Apresoline) 10 mg Q8 PO ; Start 05/19/17 at 14:00 OREN ARTHUR MD May 19, 2017 17:03
[2017-05-19] MEDS ORDERED: SODIUM BICARBONATE (IV ADD) 50 MEQ in SOD CHLORIDE 0.45% 1,000 ML IV SCH (18:30)
[2017-05-19] MEDS: SODIUM BICARBONATE (IV ADD) 50 MEQ in SOD CHLORIDE 0.45% 1,000 ML IV SCH (18:47)
[2017-05-19] MEDS: FUROSEMIDE 40 MG INJ IV ONE ×2 (20:47→22:30)
[2017-05-19] MEDS: ATORVASTATIN 80 MG TAB PO SCH (20:50)
[2017-05-19] MEDS ORDERED: NORepinephrine 8MG/250 ML (PMX 250 ML ONE (21:39)
[2017-05-19] MEDS ORDERED: NORepinephrine 8MG/250 ML (PMX 250 ML IV SCH (22:00)
[2017-05-20] VITALS (92 sets, daily range): BP systolic 42–141; BP diastolic 26–100; PULSE 80–100; RESP 15–31
[2017-05-20] MEDS: INSULIN ASPART [NOVOLOG] 3 ML PEN SC SCH ×8 (00:41→21:03)
[2017-05-20] MEDS: ACCU-CHEK XX SCH (02:25)
[2017-05-20] MEDS: ONDANSETRON 4 MG INJ IV PRN (03:00)
[2017-05-20 05:35] LABS: ABNORMAL IP MESSAGE 1; BASOPHILS % 0.1 % (0.0-2.0); EOSINOPHILS % 0.1 % (0.0-7.0); HEMATOCRIT 22.1 % (37.0-47.0); LYMPHOCYTES # 1.8 10^3/ul (0.8-2.9); LYMPHOCYTES % 13.1 % (15.0-51.0); MEAN CORPUSCULAR HEMOGLOBIN 28.5 pg (29.0-33.0); MEAN CORPUSCULAR HGB CONC 31.2 g/dl (32.0-37.0); MEAN CORPUSCULAR VOLUME 91.3 fl (82.0-101.0); MEAN PLATELET VOLUME 12.7 fl (7.4-10.4); MONOCYTE # 1.1 10^3/ul (0.3-0.9); MONOCYTES % 7.8 % (0.0-11.0); NEUTROPHILS % 78.1 % (39.0-77.0); PLATELET COUNT 200 10^3/UL (140-415); RED BLOOD COUNT 2.42 10^6/ul (4.20-5.40); WHITE BLOOD COUNT 14.1 10^3/ul (4.8-10.8)
[2017-05-20 06:12] LABS: CK-MB 8.82 ng/ml (0.0-2.4)
[2017-05-20 06:19] LABS: HEMOGLOBIN 6.9 g/dl (12.0-16.0); POSITIVE DIFF @See below
[2017-05-20 06:21] LABS: TROPONIN-I 75.1 ng/ml (0.00-0.12)
[2017-05-20 06:22] LABS: MAGNESIUM 1.9 mg/dl (1.7-2.5); PHOSPHORUS 9.6 mg/dl (2.5-4.9)
[2017-05-20] MEDS ORDERED: SOD CHLORIDE 0.9% 250 ML IV* ONE (06:23)
[2017-05-20 06:31] LABS: CREATININE 6.06 mg/dl (0.44-1.00); POTASSIUM 4.7 mmol/L (3.5-5.1)
[2017-05-20] MEDS: CLOPIDOGREL 75 MG TAB PO SCH (08:11)
[2017-05-20] MEDS: FISH OIL 1,000 MG CAP PO SCH (08:11)
[2017-05-20] MEDS: FAMOTIDINE 20 MG TAB PO SCH (08:11)
[2017-05-20] MEDS: ASPIRIN (EC) 325 MG TAB PO SCH (08:11)
--- NOTE | 2017-05-20 09:40 | CONS ---
Date/Time of Note Date/Time of Note DATE: 05/20/17 TIME: 09:39 Consultation Date/Type/Reason Admit Date/Time May 16, 2017 at 12:38 Initial Consult Date 05/17/17 Type of Consultation: pulmonary/cc Referring Provider: RUPERT CARMONA 24 HR Interval Summary Free Text/Dictation dictated. add NaHco3. cxr. Exam/Review of Systems Vital Signs Vitals Vital Signs Date Time Temp Pulse Resp B/P Pulse Ox O2 Delivery O2 Flow Rate FiO2 05/20/17 09:15 92 23 95/60 96 Nasal Cannula 05/20/17 08:00 2.0 05/20/17 07:15 97.7 05/19/17 01:59 27 Intake and Output 05/19/17 05/19/17 05/20/17 15:00 23:00 07:00 Intake Total 1262.0 ml 397.50 ml 426.50 ml Output Total 25 ml 75 ml 145 ml Balance 1237.0 ml 322.50 ml 281.50 ml Results Result Diagram: 05/20/17 0459 05/20/17 0459 Results 24 hrs Laboratory Tests Test 05/19/17 12:40 05/19/17 14:00 05/19/17 18:20 05/19/17 20:54 Bedside Glucose 157 238 H 269 H Creatine Kinase 1025 H Creatine Kinase Index 1.3 Creatinine Kinase MB (Mass) 12.90 H Troponin I 104.000 *H Test 05/20/17 00:36 05/20/17 02:27 05/20/17 04:44 05/20/17 04:59 Bedside Glucose 209 221 H 188 White Blood Count 14.1 H Red Blood Count 2.42 L Hemoglobin 6.9 *L Hematocrit 22.1 L Mean Corpuscular Volume 91.3 Mean Corpuscular Hemoglobin 28.5 L Mean Corpuscular Hemoglobin Concent 31.2 L Red Cell Distribution Width 15.0 H Platelet Count 200 # Mean Platelet Volume 12.7 H Neutrophils % 78.1 H Lymphocytes % 13.1 L Monocytes % 7.8 Eosinophils % 0.1 Basophils % 0.1 Nucleated Red Blood Cells % 0.0 Neutrophils # 11.0 H Lymphocytes # 1.8 Monocytes # 1.1 H Eosinophils # 0.0 Basophils # 0.0 Nucleated Red Blood Cells # 0.0 Sodium Level 138 Potassium Level 4.7 Chloride Level 105 Carbon Dioxide Level 17 L Anion Gap 21 H Blood Urea Nitrogen 75 H Creatinine 6.06 H Glucose Level 156 Calcium Level 7.0 L Phosphorus Level 9.6 H Magnesium Level 1.9 Creatine Kinase 791 H Creatine Kinase Index 1.1 Creatinine Kinase MB (Mass) 8.82 H Troponin I 75.100 *H Test 05/20/17 07:50 Bedside Glucose 175 Medications Medications Current Medications Ondansetron HCl (Zofran Inj) 4 mg Q6H PRN IV NAUSEA AND/OR VOMITING Last administered on 05/16/17 17:24; Admin Dose 4 MG; Start 05/16/17 at 15:00 Acetaminophen (Tylenol Tab) 650 mg Q6H PRN PO PAIN LEVEL 1-3 OR FEVER Last administered on 05/19/17 09:35; Admin Dose 650 MG; Start 05/16/17 at 15:00 Acetaminophen/ Hydrocodone Bitart ([place] (5/325)) 1 tab Q6H PRN PO MODERATE PAIN LEVEL 4-6; Start 05/16/17 at 15:00 Morphine Sulfate (morphine) 2 mg Q4H PRN IV SEVERE PAIN LEVEL 7-10 Last administered on 05/17/17 20:57; Admin Dose 2 MG; Start 05/16/17 at 15:00 Docusate Sodium (Colace) 100 mg Q12H PRN PO CONSTIPATION; Start 05/16/17 at 15 :00 Magnesium Hydroxide (Milk Of Mag) 30 ml DAILY PRN PO CONSTIPATION; Start 05/16 at 15:00 Sodium Biphosphate/ Sodium Phosphate (Fleet Enema) 133 ml DAILY PRN [place] CONSTIPATION; Start 05/16/17 at 15:00 Lorazepam (Ativan) 0.5 mg Q6H PRN IV ANXIETY; Start 05/16/17 at 15:00 Hydralazine HCl (Apresoline) 10 mg Q6H PRN IV ELEVATED BLOOD PRESSURE; Start 05/16/17 at 15:00 Clonidine (Catapres) 0.1 mg Q6H PRN PO ELEVATED BLOOD PRESSURE; Start at 15:00 Nitroglycerin (Nitroglycerin (Sl Tab) 0.4 Mg) 1 tab Q5M PRN SL ANGINA; Start 05/16/17 at 15:00 Fish Oil (Fish Oil) 1,000 mg DAILY PO Last administered on 05/20/17 08:11; Admin Dose 1,000 MG; Start 05/16/17 at 15:00 Atorvastatin Calcium (Lipitor) 80 mg HS PO Last administered on 05/19/17 20: 50; Admin Dose 80 MG; Start 05/16/17 at 21:00 Diagnostic Test (Pha) (Accu-Chek) 1 ea 02 XX Last administered on 05/20/17 02 :25; Admin Dose 1 EA; Start 05/17/17 at 02:00 Insulin Aspart (Novolog Insulin Pen) NOVOLOG *MILD* ALGORI... Q4 SC Last administered on 05/20/17 07:58; Admin Dose 1 UNIT; Start 05/16/17 at 17:00 Miscellaneous Information 1 ea NOTE XX ; Start 05/16/17 at 15:00 Glucose (Glutose) 15 gm Q15M PRN PO DECREASED GLUCOSE; Start 05/16/17 at 15:00 Glucose (Glutose) 22.5 gm Q15M PRN PO DECREASED GLUCOSE; Start 05/16/17 at 15: 00 Dextrose (D50w Syringe) 25 ml Q15M PRN IV DECREASED GLUCOSE; Start 05/16/17 at 15:00 Dextrose (D50w Syringe) 50 ml Q15M PRN IV DECREASED GLUCOSE; Start 05/16/17 at 15:00 Glucagon (Glucagen) 1 mg Q15M PRN IM DECREASED GLUCOSE; Start 05/16/17 at 15: 00 Glucose (Glutose) 15 gm Q15M PRN BUCCAL DECREASED GLUCOSE; Start 05/16/17 at 15:00 Carvedilol (Coreg) 6.25 mg BID PO Last administered on 05/16/17 20:56; Admin Dose 6.25 MG; Start 05/16/17 at 21:00 Aspirin (Ecotrin) 325 mg DAILY PO Last administered on 05/20/17 08:11; Admin Dose 325 MG; Start 05/18/17 at 09:00 Clopidogrel Bisulfate (plaVIX) 75 mg DAILY PO Last administered on 05/20/17 08:11; Admin Dose 75 MG; Start 05/18/17 at 09:00 Acetaminophen (Tylenol Tab) 650 mg Q4H PRN PO NON-CARDIAC PAIN LEVEL 1-3; Start 05/17/17 at 12:00 Oxycodone/ Acetaminophen (Percocet (5/ 325)) 1 tab Q4H PRN PO REPORTED NON- CARDIAC PAIN 4-7; Start 05/17/17 at 12:00 Morphine Sulfate (morphine) 1 mg Q1H PRN IV PAIN NOT RELIEVED BY OTHERS Last administered on 05/18/17 11:51; Admin Dose 1 MG; Start 05/17/17 at 12:00 Al Hydrox/Mg Hydrox/Simethicone (Mag-Al Plus) 30 ml Q4H PRN PO GASTROINTESTINAL UPSET; Start 05/17/17 at 12:00 Ondansetron HCl 4 mg 4 mg Q4H PRN IV NAUSEA AND/OR VOMITING Last administered on 05/20/17 03:00; Admin Dose 4 MG; Start 05/17/17 at 12:00 Levofloxacin/ Dextrose (Levaquin 250 Mg/ D5W 50 ml (Pmx)) 50 ml @ 50 mls/hr Q48H IVPB ; Start 05/20/17 at 11:00 Famotidine (Pepcid) 20 mg DAILY PO Last administered on 05/20/17 08:11; Admin Dose 20 MG; Start 05/19/17 at 09:00 Hydralazine HCl 10 mg 10 mg Q8 PO ; Start 05/19/17 at 14:00 Sodium Bicarbonate 50 meq/Sodium Chloride 1,050 ml @ 50 mls/hr Q21H IV Last administered on 05/19/17 18:47; Admin Dose 50 MLS/HR; Start 05/19/17 at 18:30 Norepinephrine (Levophed) 250 ml @ 1.875 mls/ hr TITRATE IV Last administered on 05/19/17 21:50; Admin Dose 3.75 MLS/HR; Start 05/19/17 at 22:00 CHANDRIKA ZHANG May 20, 2017 09:40
[2017-05-20] MEDS ORDERED: LIDOCAINE 1% (MPF) 5 ML VIAL SC ONE (10:30)
[2017-05-20] MEDS: NA BICARBONATE 650 MG TAB PO SCH ×3 (10:32→20:52)
[2017-05-20] MEDS ORDERED: LEVOFLOXACIN 250MG/D5W (PMX) 50 ML IVPB SCH (11:00)
--- NOTE | 2017-05-20 11:03 | PN ---
Date/Time of Note Date/Time of Note DATE: 05/20/17 TIME: 10:59 Assessment/Plan VTE Prophylaxis VTE Prophylaxis Intervention: SCD's Lines/Catheters IV Catheter Type (from Nrs): Peripheral IV Urinary Cath still in place: Yes Reason Cath still needed: urinary retention Assessment/Plan Chief Complaint/Hosp Course ASSESSMENT AND PLAN: 57-year-old female coming in with vomiting symptoms, right shoulder pain and chest pain, with signs of non- ST elevation myocardial infarction. 1. Chest pain and shoulder pain. Again, likely secondary to non-ST elevation myocardial infarction. Status post stent to LAD 2 as well as circumflex 2. -Follow-up cardiology consult recommendations, continue current meds Coreg, Lipitor, aspirin, plavix, and hydralazine PO 2. Res distress: Initial chest x-ray showed: New bilateral ground-glass parenchymal densities right greater than left. Overall there is less pulmonary edema now. CTA chest was negative for dissection or PE on admission. -Follow-up pulmonary rec's, continue broad-spectrum antibiotics 3. Diabetes - A1c = 8.2 - continue sliding scale insulin. 4. History of high cholesterol -noted lipid panel. She is on high-dose statin. 5. Gastrointestinal prophylaxis with H2 aury. 6. renal insufficiency - s/p bumex drip earlier this admission, again creatinine higher today, urine output is minimal. -IV fluid bolus, monitor urine output, low rate IV fluids, renal rec's, patient may need to be started on dialysis. Critical care time spent on patient care today equals 45 minutes. Problems: Subjective 24 Hr Interval Summary Free Text/Dictation Patient off of intra-aortic balloon pump since yesterday, off of heparin drip as well. Still quite lethargic with tolerating diet although minimal. Awaiting blood transfusion for later today. Exam/Review of Systems Vital Signs Vitals Vital Signs Date Time Temp Pulse Resp B/P Pulse Ox O2 Delivery O2 Flow Rate FiO2 05/20/17 10:30 89 16 53/32 95 Nasal Cannula 2.0 05/20/17 07:15 97.7 05/19/17 01:59 27 Intake and Output 05/19/17 05/19/17 05/20/17 15:00 23:00 07:00 Intake Total 1262.0 ml 397.50 ml 426.50 ml Output Total 25 ml 75 ml 145 ml Balance 1237.0 ml 322.50 ml 281.50 ml Exam GENERAL: The patient lying in bed, slightly lethargic, but alert HEENT: Pupils equal, round, react to light. Extraocular muscles intact. NECK: Supple. No thyromegaly. LUNGS: Clear to auscultation bilaterally. No wheezes. CARDIAC: S1, S2 heard. No rubs, gallops. ABDOMEN: Soft, nontender, nondistended. Normal bowel sounds. No rebound or guarding. MUSCULOSKELETAL: No lower extremity edema bilaterally. NEUROLOGIC: No focal deficits. Results Result Diagram: 05/20/17 0459 05/20/17 0459 Results 24 hrs Laboratory Tests Test 05/19/17 12:40 05/19/17 14:00 05/19/17 18:20 05/19/17 20:54 Bedside Glucose 157 238 H 269 H Creatine Kinase 1025 H Creatine Kinase Index 1.3 Creatinine Kinase MB (Mass) 12.90 H Troponin I 104.000 *H Test 05/20/17 00:36 05/20/17 02:27 05/20/17 04:44 05/20/17 04:59 Bedside Glucose 209 221 H 188 White Blood Count 14.1 H Red Blood Count 2.42 L Hemoglobin 6.9 *L Hematocrit 22.1 L Mean Corpuscular Volume 91.3 Mean Corpuscular Hemoglobin 28.5 L Mean Corpuscular Hemoglobin Concent 31.2 L Red Cell Distribution Width 15.0 H Platelet Count 200 # Mean Platelet Volume 12.7 H Neutrophils % 78.1 H Lymphocytes % 13.1 L Monocytes % 7.8 Eosinophils % 0.1 Basophils % 0.1 Nucleated Red Blood Cells % 0.0 Neutrophils # 11.0 H Lymphocytes # 1.8 Monocytes # 1.1 H Eosinophils # 0.0 Basophils # 0.0 Nucleated Red Blood Cells # 0.0 Sodium Level 138 Potassium Level 4.7 Chloride Level 105 Carbon Dioxide Level 17 L Anion Gap 21 H Blood Urea Nitrogen 75 H Creatinine 6.06 H Glucose Level 156 Calcium Level 7.0 L Phosphorus Level 9.6 H Magnesium Level 1.9 Creatine Kinase 791 H Creatine Kinase Index 1.1 Creatinine Kinase MB (Mass) 8.82 H Troponin I 75.100 *H Test 05/20/17 07:10 05/20/17 07:50 Urine Random Creatinine 122.33 Urine Random Sodium 31 Bedside Glucose 175 Medications Medications Current Medications Ondansetron HCl (Zofran Inj) 4 mg Q6H PRN IV NAUSEA AND/OR VOMITING Last administered on 05/16/17 17:24; Admin Dose 4 MG; Start 05/16/17 at 15:00 Acetaminophen (Tylenol Tab) 650 mg Q6H PRN PO PAIN LEVEL 1-3 OR FEVER Last administered on 05/19/17 09:35; Admin Dose 650 MG; Start 05/16/17 at 15:00 Acetaminophen/ Hydrocodone Bitart ([place] (5/325)) 1 tab Q6H PRN PO MODERATE PAIN LEVEL 4-6; Start 05/16/17 at 15:00 Morphine Sulfate (morphine) 2 mg Q4H PRN IV SEVERE PAIN LEVEL 7-10 Last administered on 05/17/17 20:57; Admin Dose 2 MG; Start 05/16/17 at 15:00 Docusate Sodium (Colace) 100 mg Q12H PRN PO CONSTIPATION; Start 05/16/17 at 15 :00 Magnesium Hydroxide (Milk Of Mag) 30 ml DAILY PRN PO CONSTIPATION; Start 05/16 at 15:00 Sodium Biphosphate/ Sodium Phosphate (Fleet Enema) 133 ml DAILY PRN [place] CONSTIPATION; Start 05/16/17 at 15:00 Lorazepam (Ativan) 0.5 mg Q6H PRN IV ANXIETY; Start 05/16/17 at 15:00 Hydralazine HCl (Apresoline) 10 mg Q6H PRN IV ELEVATED BLOOD PRESSURE; Start 05/16/17 at 15:00 Clonidine (Catapres) 0.1 mg Q6H PRN PO ELEVATED BLOOD PRESSURE; Start at 15:00 Nitroglycerin (Nitroglycerin (Sl Tab) 0.4 Mg) 1 tab Q5M PRN SL ANGINA; Start 05/16/17 at 15:00 Fish Oil (Fish Oil) 1,000 mg DAILY PO Last administered on 05/20/17 08:11; Admin Dose 1,000 MG; Start 05/16/17 at 15:00 Atorvastatin Calcium (Lipitor) 80 mg HS PO Last administered on 05/19/17 20: 50; Admin Dose 80 MG; Start 05/16/17 at 21:00 Diagnostic Test (Pha) (Accu-Chek) 1 ea 02 XX Last administered on 05/20/17 02 :25; Admin Dose 1 EA; Start 05/17/17 at 02:00 Insulin Aspart (Novolog Insulin Pen) NOVOLOG *MILD* ALGORI... Q4 SC Last administered on 05/20/17 07:58; Admin Dose 1 UNIT; Start 05/16/17 at 17:00 Miscellaneous Information 1 ea NOTE XX ; Start 05/16/17 at 15:00 Glucose (Glutose) 15 gm Q15M PRN PO DECREASED GLUCOSE; Start 05/16/17 at 15:00 Glucose (Glutose) 22.5 gm Q15M PRN PO DECREASED GLUCOSE; Start 05/16/17 at 15: 00 Dextrose (D50w Syringe) 25 ml Q15M PRN IV DECREASED GLUCOSE; Start 05/16/17 at 15:00 Dextrose (D50w Syringe) 50 ml Q15M PRN IV DECREASED GLUCOSE; Start 05/16/17 at 15:00 Glucagon (Glucagen) 1 mg Q15M PRN IM DECREASED GLUCOSE; Start 05/16/17 at 15: 00 Glucose (Glutose) 15 gm Q15M PRN BUCCAL DECREASED GLUCOSE; Start 05/16/17 at 15:00 Carvedilol (Coreg) 6.25 mg BID PO Last administered on 05/16/17 20:56; Admin Dose 6.25 MG; Start 05/16/17 at 21:00 Aspirin (Ecotrin) 325 mg DAILY PO Last administered on 05/20/17 08:11; Admin Dose 325 MG; Start 05/18/17 at 09:00 Clopidogrel Bisulfate (plaVIX) 75 mg DAILY PO Last administered on 05/20/17 08:11; Admin Dose 75 MG; Start 05/18/17 at 09:00 Acetaminophen (Tylenol Tab) 650 mg Q4H PRN PO NON-CARDIAC PAIN LEVEL 1-3; Start 05/17/17 at 12:00 Oxycodone/ Acetaminophen (Percocet (5/ 325)) 1 tab Q4H PRN PO REPORTED NON- CARDIAC PAIN 4-7; Start 05/17/17 at 12:00 Morphine Sulfate (morphine) 1 mg Q1H PRN IV PAIN NOT RELIEVED BY OTHERS Last administered on 05/18/17 11:51; Admin Dose 1 MG; Start 05/17/17 at 12:00 Al Hydrox/Mg Hydrox/Simethicone (Mag-Al Plus) 30 ml Q4H PRN PO GASTROINTESTINAL UPSET; Start 05/17/17 at 12:00 Ondansetron HCl 4 mg 4 mg Q4H PRN IV NAUSEA AND/OR VOMITING Last administered on 05/20/17 03:00; Admin Dose 4 MG; Start 05/17/17 at 12:00 Levofloxacin/ Dextrose (Levaquin 250 Mg/ D5W 50 ml (Pmx)) 50 ml @ 50 mls/hr Q48H IVPB Last administered on 05/20/17 10:33; Admin Dose 50 MLS/HR; Start 05/20/17 at 11:00 Famotidine (Pepcid) 20 mg DAILY PO Last administered on 05/20/17 08:11; Admin Dose 20 MG; Start 05/19/17 at 09:00 Hydralazine HCl 10 mg 10 mg Q8 PO ; Start 05/19/17 at 14:00 Sodium Bicarbonate 50 meq/Sodium Chloride 1,050 ml @ 50 mls/hr Q21H IV Last administered on 05/19/17 18:47; Admin Dose 50 MLS/HR; Start 05/19/17 at 18:30 Norepinephrine (Levophed) 250 ml @ 1.875 mls/ hr TITRATE IV Last administered on 05/19/17 21:50; Admin Dose 3.75 MLS/HR; Start 05/19/17 at 22:00 Sodium Bicarbonate (Sodium Bicarbonate Tab) 650 mg Q8 PO Last administered on 05/20/17 10:32; Admin Dose 650 MG; Start 05/20/17 at 10:00 CHINEDU GABRIEL May 20, 2017 11:03
--- NOTE | 2017-05-20 12:10 | CONS ---
Date/Time of Note Date/Time of Note DATE: 05/20/17 TIME: 12:08 Assessment/Plan Assessment/Plan Additional Assessment/Plan 1.Acute NH-trop>100 s/p ptca/stent x 2 to 100% occluded LCX and x 2 to high grade LAD stenosis - s/p IABP removed - BP stable with low doser levo gtt 2.CHF-likely systolic acute. EF 30-35% by echo yesterday- con't to remove fluid as tolerated. 3.Renal failure - stable urine output. 4.DM - on meds, keep euglycemic. 5.Chest pain secondary to number 1. Now improved 6. Anemia - no bleeding - d/c heparin gtt now. 7.Dyslipidemia 8.Hyperkalemia Consultation Date/Type/Reason Admit Date/Time May 16, 2017 at 12:38 Initial Consult Date 05/17/17 Type of Consultation: pulmonary/cc Referring Provider: RUPERT CARMONA 24 HR Interval Summary Free Text/Dictation NO acute change - IABP out - will monitor clinically. ROS: No fever, no chills, no nausea, no vomiting, no diarrhea/constipation No recent weight changes No chest pain, no PND, no orthopnea, better SOB No dizziness, blurred vision No thirst, no heat or cold intolerance Exam/Review of Systems Vital Signs Vitals Vital Signs Date Time Temp Pulse Resp B/P Pulse Ox O2 Delivery O2 Flow Rate FiO2 05/20/17 11:15 93 17 83/62 92 Nasal Cannula 2.0 05/20/17 07:15 97.7 05/19/17 01:59 27 Intake and Output 05/19/17 05/19/17 05/20/17 15:00 23:00 07:00 Intake Total 1262.0 ml 397.50 ml 426.50 ml Output Total 25 ml 75 ml 145 ml Balance 1237.0 ml 322.50 ml 281.50 ml Exam General: WN/WD/NAD, AOx 2-3 HEENT: Unicetric/atraumatic/EOMI (follows commands) NECK: JVD elevated, no thyromegaly Lymph: no lymphadenopathy HEART: regular with no S3, II/ systolic murmur at apex, PMI L LUNGS: Coarse sounds ABD: soft, NT, ND, +BS : Intact Neuro: non focal SKIN: chronic changes EXT: trace edema Results Result Diagram: 05/20/17 0459 05/20/17 0459 Results 24 hrs Laboratory Tests Test 05/19/17 12:40 05/19/17 14:00 05/19/17 18:20 05/19/17 20:54 Bedside Glucose 157 238 H 269 H Creatine Kinase 1025 H Creatine Kinase Index 1.3 Creatinine Kinase MB (Mass) 12.90 H Troponin I 104.000 *H Test 05/20/17 00:36 05/20/17 02:27 05/20/17 04:44 05/20/17 04:59 Bedside Glucose 209 221 H 188 White Blood Count 14.1 H Red Blood Count 2.42 L Hemoglobin 6.9 *L Hematocrit 22.1 L Mean Corpuscular Volume 91.3 Mean Corpuscular Hemoglobin 28.5 L Mean Corpuscular Hemoglobin Concent 31.2 L Red Cell Distribution Width 15.0 H Platelet Count 200 # Mean Platelet Volume 12.7 H Neutrophils % 78.1 H Lymphocytes % 13.1 L Monocytes % 7.8 Eosinophils % 0.1 Basophils % 0.1 Nucleated Red Blood Cells % 0.0 Neutrophils # 11.0 H Lymphocytes # 1.8 Monocytes # 1.1 H Eosinophils # 0.0 Basophils # 0.0 Nucleated Red Blood Cells # 0.0 Sodium Level 138 Potassium Level 4.7 Chloride Level 105 Carbon Dioxide Level 17 L Anion Gap 21 H Blood Urea Nitrogen 75 H Creatinine 6.06 H Glucose Level 156 Calcium Level 7.0 L Phosphorus Level 9.6 H Magnesium Level 1.9 Creatine Kinase 791 H Creatine Kinase Index 1.1 Creatinine Kinase MB (Mass) 8.82 H Troponin I 75.100 *H Test 05/20/17 07:10 05/20/17 07:50 05/20/17 11:29 Urine Random Creatinine 122.33 Urine Random Sodium 31 Bedside Glucose 175 229 H Medications Medications Current Medications Ondansetron HCl (Zofran Inj) 4 mg Q6H PRN IV NAUSEA AND/OR VOMITING Last administered on 05/16/17 17:24; Admin Dose 4 MG; Start 05/16/17 at 15:00 Acetaminophen (Tylenol Tab) 650 mg Q6H PRN PO PAIN LEVEL 1-3 OR FEVER Last administered on 05/19/17 09:35; Admin Dose 650 MG; Start 05/16/17 at 15:00 Acetaminophen/ Hydrocodone Bitart ([place] (5/325)) 1 tab Q6H PRN PO MODERATE PAIN LEVEL 4-6; Start 05/16/17 at 15:00 Morphine Sulfate (morphine) 2 mg Q4H PRN IV SEVERE PAIN LEVEL 7-10 Last administered on 05/17/17 20:57; Admin Dose 2 MG; Start 05/16/17 at 15:00 Docusate Sodium (Colace) 100 mg Q12H PRN PO CONSTIPATION; Start 05/16/17 at 15 :00 Magnesium Hydroxide (Milk Of Mag) 30 ml DAILY PRN PO CONSTIPATION; Start 05/16 at 15:00 Sodium Biphosphate/ Sodium Phosphate (Fleet Enema) 133 ml DAILY PRN [place] CONSTIPATION; Start 05/16/17 at 15:00 Lorazepam (Ativan) 0.5 mg Q6H PRN IV ANXIETY; Start 05/16/17 at 15:00 Hydralazine HCl (Apresoline) 10 mg Q6H PRN IV ELEVATED BLOOD PRESSURE; Start 05/16/17 at 15:00 Clonidine (Catapres) 0.1 mg Q6H PRN PO ELEVATED BLOOD PRESSURE; Start at 15:00 Nitroglycerin (Nitroglycerin (Sl Tab) 0.4 Mg) 1 tab Q5M PRN SL ANGINA; Start 05/16/17 at 15:00 Fish Oil (Fish Oil) 1,000 mg DAILY PO Last administered on 05/20/17 08:11; Admin Dose 1,000 MG; Start 05/16/17 at 15:00 Atorvastatin Calcium (Lipitor) 80 mg HS PO Last administered on 05/19/17 20: 50; Admin Dose 80 MG; Start 05/16/17 at 21:00 Diagnostic Test (Pha) (Accu-Chek) 1 ea 02 XX Last administered on 05/20/17 02 :25; Admin Dose 1 EA; Start 05/17/17 at 02:00 Insulin Aspart (Novolog Insulin Pen) NOVOLOG *MILD* ALGORI... Q4 SC Last administered on 05/20/17 07:58; Admin Dose 1 UNIT; Start 05/16/17 at 17:00 Miscellaneous Information 1 ea NOTE XX ; Start 05/16/17 at 15:00 Glucose (Glutose) 15 gm Q15M PRN PO DECREASED GLUCOSE; Start 05/16/17 at 15:00 Glucose (Glutose) 22.5 gm Q15M PRN PO DECREASED GLUCOSE; Start 05/16/17 at 15: 00 Dextrose (D50w Syringe) 25 ml Q15M PRN IV DECREASED GLUCOSE; Start 05/16/17 at 15:00 Dextrose (D50w Syringe) 50 ml Q15M PRN IV DECREASED GLUCOSE; Start 05/16/17 at 15:00 Glucagon (Glucagen) 1 mg Q15M PRN IM DECREASED GLUCOSE; Start 05/16/17 at 15: 00 Glucose (Glutose) 15 gm Q15M PRN BUCCAL DECREASED GLUCOSE; Start 05/16/17 at 15:00 Carvedilol (Coreg) 6.25 mg BID PO Last administered on 05/16/17 20:56; Admin Dose 6.25 MG; Start 05/16/17 at 21:00 Aspirin (Ecotrin) 325 mg DAILY PO Last administered on 05/20/17 08:11; Admin Dose 325 MG; Start 05/18/17 at 09:00 Clopidogrel Bisulfate (plaVIX) 75 mg DAILY PO Last administered on 05/20/17 08:11; Admin Dose 75 MG; Start 05/18/17 at 09:00 Acetaminophen (Tylenol Tab) 650 mg Q4H PRN PO NON-CARDIAC PAIN LEVEL 1-3; Start 05/17/17 at 12:00 Oxycodone/ Acetaminophen (Percocet (5/ 325)) 1 tab Q4H PRN PO REPORTED NON- CARDIAC PAIN 4-7; Start 05/17/17 at 12:00 Morphine Sulfate (morphine) 1 mg Q1H PRN IV PAIN NOT RELIEVED BY OTHERS Last administered on 05/18/17 11:51; Admin Dose 1 MG; Start 05/17/17 at 12:00 Al Hydrox/Mg Hydrox/Simethicone (Mag-Al Plus) 30 ml Q4H PRN PO GASTROINTESTINAL UPSET; Start 05/17/17 at 12:00 Ondansetron HCl 4 mg 4 mg Q4H PRN IV NAUSEA AND/OR VOMITING Last administered on 05/20/17 03:00; Admin Dose 4 MG; Start 05/17/17 at 12:00 Levofloxacin/ Dextrose (Levaquin 250 Mg/ D5W 50 ml (Pmx)) 50 ml @ 50 mls/hr Q48H IVPB Last administered on 05/20/17 10:33; Admin Dose 50 MLS/HR; Start 05/20/17 at 11:00 Famotidine (Pepcid) 20 mg DAILY PO Last administered on 05/20/17 08:11; Admin Dose 20 MG; Start 05/19/17 at 09:00 Hydralazine HCl 10 mg 10 mg Q8 PO ; Start 05/19/17 at 14:00 Sodium Bicarbonate 50 meq/Sodium Chloride 1,050 ml @ 50 mls/hr Q21H IV Last administered on 05/19/17 18:47; Admin Dose 50 MLS/HR; Start 05/19/17 at 18:30 Norepinephrine (Levophed) 250 ml @ 1.875 mls/ hr TITRATE IV Last administered on 05/19/17 21:50; Admin Dose 3.75 MLS/HR; Start 05/19/17 at 22:00 Sodium Bicarbonate (Sodium Bicarbonate Tab) 650 mg Q8 PO Last administered on 05/20/17 10:32; Admin Dose 650 MG; Start 05/20/17 at 10:00 Insulin Glargine (Lantus) 11 unit DAILY@08 SC ; Start 05/21/17 at 08:00 VERITO TODD MD May 20, 2017 12:10
[2017-05-20] MEDS ORDERED: LIDOCAINE 1% (MDV) 20 ML INJ SC ONE (13:00)
--- NOTE | 2017-05-20 13:33 | CONS ---
DATE OF ADMISSION: 05/16/2017 DATE OF CONSULTATION: 05/20/2017 HISTORY OF PRESENT ILLNESS: Ms. Dial's condition is stable. The patient currently sitting in a c hair at bedside, denies any shortness of breath, chest pain. The patient is still requiring low dos e Levophed for hypotension. PHYSICAL EXAMINATION: GENERAL: A middle-aged woman, awake, alert, currently in no distress. VITAL SIGNS: Temperature is 98 degree Fahrenheit, respiratory rate is 18 per minute, heart rate 80 per minute, blood pressure is 90/60, O2 sat 95% on 2 liter nasal cannula. Urine output is poor. HEENT: Supple neck, positive JVD, no lymphadenopathy, midline trachea, no thyromegaly. NECK: Supp le neck. Patient has fair dentition. Pupils are mid-size and reactive to light. CHEST: Diminished but clear breath sounds. HEART: S1, S2 audible. No murmurs, regular rhythm. ABDOMEN: Soft, nontender, nondistended. Bowel sounds audible. EXTREMITIES: No peripheral edema. NEUROLOGIC: No focal deficit. LABORATORY DATA: Today, hemoglobin is 6.9. White count 14.1, platelet count of 200,000. Creatinin e 6.0, bicarbonate 17. Sodium 138, potassium 4.7. MEDICATIONS: Reviewed. ASSESSMENT: 1. Patient admitted for acute myocardial infarction status post coronary angiography with stenting of 4 vessels. 2. Acute renal failure. 3. Pulmonary edema with clinical improvement. 4. Hypertension. 5. History of diabetes. 6. Severe anemia. 7. Possibly superimposed mild pneumonia. RECOMMENDATIONS: Continue current treatment, transfuse 1 unit packed RBC. Patient likely will need to be dialyzed, obtain followup chest x-ray. Dictated By: CHANDRIKA LANDEROS/ALYCE Conf#: [id number] DID#: [id number]
--- NOTE | 2017-05-20 14:56 | CONS ---
Date/Time of Note Date/Time of Note DATE: 05/20/17 TIME: 14:54 Assessment/Plan Assessment/Plan Chief Complaint/Hosp Course IMPRESSION: 1. Acute kidney injury due to acute myocardial infarction and hemodynamic instability. and pul edema s/p CATH AND PCI AND S/P CT CHEST ANGIO 2. ATN ,OLIGURIC ,CONTRAST NEPHROPATHY 3. status post coronary angiogram with percutaneous coronary intervention S/P intraaortic balloon pump. 4. The patient has diabetes mellitus, hypertension. 5. Rule out underlying diabetic nephropathy. 6. Leukocytosis, 7 METABOKIC ACIDOSIS plan IV NAHCO3 ck labs LASIX Problems: Consultation Date/Type/Reason Admit Date/Time May 16, 2017 at 12:38 Initial Consult Date 05/17/17 Type of Consultation: RENAL Referring Provider: RUPERT CARMONA 24 HR Interval Summary Constitutional: other (NO URINE OUTPUT) Exam/Review of Systems Vital Signs Vitals Vital Signs Date Time Temp Pulse Resp B/P Pulse Ox O2 Delivery O2 Flow Rate FiO2 05/20/17 14:30 97 17 91/78 100 Nasal Cannula 2.0 05/20/17 07:15 97.7 05/19/17 01:59 27 Intake and Output 05/19/17 05/19/17 05/20/17 15:00 23:00 07:00 Intake Total 1262.0 ml 397.50 ml 426.50 ml Output Total 25 ml 75 ml 145 ml Balance 1237.0 ml 322.50 ml 281.50 ml Exam Respiratory: diminished breath sounds Cardiovascular: regular rate and rhythm Gastrointestinal: bowel sounds (+), soft Extremities: edema (+) Results Result Diagram: 05/20/17 0459 05/20/17 0459 Results 24 hrs Laboratory Tests Test 05/19/17 18:20 05/19/17 20:54 05/20/17 00:36 05/20/17 02:27 Bedside Glucose 238 H 269 H 209 221 H Test 05/20/17 04:44 05/20/17 04:59 05/20/17 07:10 05/20/17 07:50 Bedside Glucose 188 175 White Blood Count 14.1 H Red Blood Count 2.42 L Hemoglobin 6.9 *L Hematocrit 22.1 L Mean Corpuscular Volume 91.3 Mean Corpuscular Hemoglobin 28.5 L Mean Corpuscular Hemoglobin Concent 31.2 L Red Cell Distribution Width 15.0 H Platelet Count 200 # Mean Platelet Volume 12.7 H Neutrophils % 78.1 H Lymphocytes % 13.1 L Monocytes % 7.8 Eosinophils % 0.1 Basophils % 0.1 Nucleated Red Blood Cells % 0.0 Neutrophils # 11.0 H Lymphocytes # 1.8 Monocytes # 1.1 H Eosinophils # 0.0 Basophils # 0.0 Nucleated Red Blood Cells # 0.0 Sodium Level 138 Potassium Level 4.7 Chloride Level 105 Carbon Dioxide Level 17 L Anion Gap 21 H Blood Urea Nitrogen 75 H Creatinine 6.06 H Glucose Level 156 Calcium Level 7.0 L Phosphorus Level 9.6 H Magnesium Level 1.9 Creatine Kinase 791 H Creatine Kinase Index 1.1 Creatinine Kinase MB (Mass) 8.82 H Troponin I 75.100 *H Urine Random Creatinine 122.33 Urine Random Sodium 31 Test 05/20/17 11:29 Bedside Glucose 229 H Medications Medications Current Medications Ondansetron HCl (Zofran Inj) 4 mg Q6H PRN IV NAUSEA AND/OR VOMITING Last administered on 05/16/17 17:24; Admin Dose 4 MG; Start 05/16/17 at 15:00 Acetaminophen (Tylenol Tab) 650 mg Q6H PRN PO PAIN LEVEL 1-3 OR FEVER Last administered on 05/19/17 09:35; Admin Dose 650 MG; Start 05/16/17 at 15:00 Acetaminophen/ Hydrocodone Bitart ([place] (5/325)) 1 tab Q6H PRN PO MODERATE PAIN LEVEL 4-6; Start 05/16/17 at 15:00 Morphine Sulfate (morphine) 2 mg Q4H PRN IV SEVERE PAIN LEVEL 7-10 Last administered on 05/17/17 20:57; Admin Dose 2 MG; Start 05/16/17 at 15:00 Docusate Sodium (Colace) 100 mg Q12H PRN PO CONSTIPATION; Start 05/16/17 at 15 :00 Magnesium Hydroxide (Milk Of Mag) 30 ml DAILY PRN PO CONSTIPATION; Start 05/16 at 15:00 Sodium Biphosphate/ Sodium Phosphate (Fleet Enema) 133 ml DAILY PRN [place] CONSTIPATION; Start 05/16/17 at 15:00 Lorazepam (Ativan) 0.5 mg Q6H PRN IV ANXIETY; Start 05/16/17 at 15:00 Hydralazine HCl (Apresoline) 10 mg Q6H PRN IV ELEVATED BLOOD PRESSURE; Start 05/16/17 at 15:00 Clonidine (Catapres) 0.1 mg Q6H PRN PO ELEVATED BLOOD PRESSURE; Start at 15:00 Nitroglycerin (Nitroglycerin (Sl Tab) 0.4 Mg) 1 tab Q5M PRN SL ANGINA; Start 05/16/17 at 15:00 Fish Oil (Fish Oil) 1,000 mg DAILY PO Last administered on 05/20/17 08:11; Admin Dose 1,000 MG; Start 05/16/17 at 15:00 Atorvastatin Calcium (Lipitor) 80 mg HS PO Last administered on 05/19/17 20: 50; Admin Dose 80 MG; Start 05/16/17 at 21:00 Diagnostic Test (Pha) (Accu-Chek) 1 ea 02 XX Last administered on 05/20/17 02 :25; Admin Dose 1 EA; Start 05/17/17 at 02:00 Insulin Aspart (Novolog Insulin Pen) NOVOLOG *MILD* ALGORI... Q4 SC Last administered on 05/20/17 12:07; Admin Dose 3 UNIT; Start 05/16/17 at 17:00 Miscellaneous Information 1 ea NOTE XX ; Start 05/16/17 at 15:00 Glucose (Glutose) 15 gm Q15M PRN PO DECREASED GLUCOSE; Start 05/16/17 at 15:00 Glucose (Glutose) 22.5 gm Q15M PRN PO DECREASED GLUCOSE; Start 05/16/17 at 15: 00 Dextrose (D50w Syringe) 25 ml Q15M PRN IV DECREASED GLUCOSE; Start 05/16/17 at 15:00 Dextrose (D50w Syringe) 50 ml Q15M PRN IV DECREASED GLUCOSE; Start 05/16/17 at 15:00 Glucagon (Glucagen) 1 mg Q15M PRN IM DECREASED GLUCOSE; Start 05/16/17 at 15: 00 Glucose (Glutose) 15 gm Q15M PRN BUCCAL DECREASED GLUCOSE; Start 05/16/17 at 15:00 Carvedilol (Coreg) 6.25 mg BID PO Last administered on 05/16/17 20:56; Admin Dose 6.25 MG; Start 05/16/17 at 21:00 Aspirin (Ecotrin) 325 mg DAILY PO Last administered on 05/20/17 08:11; Admin Dose 325 MG; Start 05/18/17 at 09:00 Clopidogrel Bisulfate (plaVIX) 75 mg DAILY PO Last administered on 05/20/17 08:11; Admin Dose 75 MG; Start 05/18/17 at 09:00 Acetaminophen (Tylenol Tab) 650 mg Q4H PRN PO NON-CARDIAC PAIN LEVEL 1-3; Start 05/17/17 at 12:00 Oxycodone/ Acetaminophen (Percocet (5/ 325)) 1 tab Q4H PRN PO REPORTED NON- CARDIAC PAIN 4-7; Start 05/17/17 at 12:00 Morphine Sulfate (morphine) 1 mg Q1H PRN IV PAIN NOT RELIEVED BY OTHERS Last administered on 05/18/17 11:51; Admin Dose 1 MG; Start 05/17/17 at 12:00 Al Hydrox/Mg Hydrox/Simethicone (Mag-Al Plus) 30 ml Q4H PRN PO GASTROINTESTINAL UPSET; Start 05/17/17 at 12:00 Ondansetron HCl 4 mg 4 mg Q4H PRN IV NAUSEA AND/OR VOMITING Last administered on 05/20/17 03:00; Admin Dose 4 MG; Start 05/17/17 at 12:00 Levofloxacin/ Dextrose (Levaquin 250 Mg/ D5W 50 ml (Pmx)) 50 ml @ 50 mls/hr Q48H IVPB Last administered on 05/20/17 10:33; Admin Dose 50 MLS/HR; Start 05/20/17 at 11:00 Famotidine (Pepcid) 20 mg DAILY PO Last administered on 05/20/17 08:11; Admin Dose 20 MG; Start 05/19/17 at 09:00 Hydralazine HCl 10 mg 10 mg Q8 PO ; Start 05/19/17 at 14:00 Sodium Bicarbonate 50 meq/Sodium Chloride 1,050 ml @ 40 mls/hr Q24H IV Last administered on 05/19/17 18:47; Admin Dose 50 MLS/HR; Start 05/19/17 at 18:30 Norepinephrine (Levophed) 250 ml @ 1.875 mls/ hr TITRATE IV Last administered on 05/19/17 21:50; Admin Dose 3.75 MLS/HR; Start 10/13/17 at 22:00 Sodium Bicarbonate (Sodium Bicarbonate Tab) 650 mg Q8 PO Last administered on 05/20/17t 10:32; Admin Dose 650 MG; Start 05/20/17 at 10:00 Insulin Glargine (Lantus) 11 unit DAILY@08 SC ; Start 05/21/17 at 08:00 OREN ARTHUR MD May 20, 2017 14:56
[2017-05-20] MEDS: SODIUM BICARBONATE (IV ADD) 50 MEQ in SOD CHLORIDE 0.45% 1,000 ML IV SCH (15:26)
[2017-05-20] MEDS: ATORVASTATIN 80 MG TAB PO SCH (20:52)
[2017-05-20 21:35] LABS: HEPATITIS B CORE ANTIBODY NEGATIVE (NEGATIVE)
[2017-05-21] VITALS (33 sets, daily range): BP systolic 86–117; BP diastolic 47–78; PULSE 70–102; RESP 15–27
[2017-05-21] MEDS: INSULIN ASPART [NOVOLOG] 3 ML PEN SC SCH ×9 (01:00→20:32)
[2017-05-21] MEDS: ACCU-CHEK XX SCH ×2 (01:27→23:44)
[2017-05-21] MEDS ORDERED: ACCU-CHEK XX SCH (02:00)
[2017-05-21 04:45] LABS: BASOPHILS % 0.2 % (0.0-2.0); EOSINOPHILS % 0.3 % (0.0-7.0); HEMATOCRIT 27.6 % (37.0-47.0); HEMOGLOBIN 9.2 g/dl (12.0-16.0); LYMPHOCYTES # 1.3 10^3/ul (0.8-2.9); LYMPHOCYTES % 10.3 % (15.0-51.0); MEAN CORPUSCULAR HEMOGLOBIN 28.8 pg (29.0-33.0); MEAN CORPUSCULAR HGB CONC 33.3 g/dl (32.0-37.0); MEAN CORPUSCULAR VOLUME 86.3 fl (82.0-101.0); MEAN PLATELET VOLUME 12.4 fl (7.4-10.4); MONOCYTE # 0.8 10^3/ul (0.3-0.9); NEUTROPHIL # 10.6 10^3/ul (1.6-7.5); NEUTROPHILS % 82.7 % (39.0-77.0); NUCLEATED RED BLOOD CELLS% 0.3 /100WBC (0.0-0.0); PLATELET COUNT 188 10^3/UL (140-415); WHITE BLOOD COUNT 12.8 10^3/ul (4.8-10.8)
[2017-05-21 05:14] LABS: CALCIUM 7.1 mg/dl (8.4-10.2); CREATININE 4.62 mg/dl (0.44-1.00); POTASSIUM 3.9 mmol/L (3.5-5.1)
[2017-05-21] MEDS: NA BICARBONATE 650 MG TAB PO SCH (05:35)
--- NOTE | 2017-05-21 07:49 | RADRPT ---
PROCEDURE: XR 1 view Chest. CLINICAL INDICATION: PICC line placement. TECHNIQUE: Portable Single frontal view of the chest was obtained. COMPARISON: May 18, 2017. FINDINGS: There is a new PICC line which is extending into the left neck. There is mild cardiomegaly. There are mild aortic calcifications. The lungs are hypoaerated. There is no focal consolidation. There is minimal left base atelectasis. There is no pleural effusion. No pneumothorax is identified. The osseous structures are intact. IMPRESSION: New PICC line which is extending into the left neck. Repositioning is recommended. Otherwise no significant change. Minimal left base atelectasis. Mild cardiomegaly. Further findings as detailed above. RPTAT: PP .Sony Wynne MD, Date Time Electronically viewed and signed by .Sony Wynne MD, on 05/21/2017 07:49 .F/
--- NOTE | 2017-05-21 07:50 | RADRPT ---
PROCEDURE: XR 1 view Chest. CLINICAL INDICATION: PICC line placement. TECHNIQUE: Portable Single frontal view of the chest was obtained. COMPARISON: May 18, 2017 at 01:26 p.m. FINDINGS: There is a table PICC line which is extending into the left neck. There is mild cardiomegaly. There are mild aortic calcifications. The lungs are hypoaerated. There is no focal consolidation. There is minimal left base atelectasis. There is no pleural effusion. No pneumothorax is identified. The osseous structures are intact. IMPRESSION: Stable PICC line which is extending into the left neck. Repositioning is recommended. Minimal left base atelectasis. Mild cardiomegaly. Further findings as detailed above. RPTAT: PP .Sony Wynne MD, Date Time Electronically viewed and signed by .Sony Wynne MD, on 05/21/2017 07:49 .F/
--- NOTE | 2017-05-21 07:51 | RADRPT ---
PROCEDURE: XR 1 view Chest. CLINICAL INDICATION: PICC line placement. TECHNIQUE: Portable Single frontal view of the chest was obtained. COMPARISON: May 18, 2017 at 01:31 p.m. FINDINGS: The PICC line now extends into the SVC in adequate position. There is mild cardiomegaly. There are mild aortic calcifications. The lungs are hypoaerated. There is no focal consolidation. There is minimal left base atelectasis. There is no pleural effusion. No pneumothorax is identified. The osseous structures are intact. IMPRESSION: The PICC line now extends into the SVC in adequate position. Otherwise no significant change. Minimal left base atelectasis. Mild cardiomegaly. Further findings as detailed above. RPTAT: PP .Sony Wynne MD, Date Time Electronically viewed and signed by .Sony Wynne MD, on 05/21/2017 07:50 .F/
[2017-05-21] MEDS: CLOPIDOGREL 75 MG TAB PO SCH (08:01)
[2017-05-21] MEDS: FAMOTIDINE 20 MG TAB PO SCH (08:01)
[2017-05-21] MEDS: FISH OIL 1,000 MG CAP PO SCH (08:01)
[2017-05-21] MEDS: INSULIN GLARGINE [LANtus] 3 ML PEN SC SCH (08:01)
[2017-05-21] MEDS: ASPIRIN (EC) 325 MG TAB PO SCH (08:02)
--- NOTE | 2017-05-21 08:38 | PN ---
Date/Time of Note Date/Time of Note DATE: 05/21/17 TIME: 08:35 Assessment/Plan VTE Prophylaxis VTE Prophylaxis Intervention: SCD's Lines/Catheters IV Catheter Type (from Nrs): JAMES Urinary Cath still in place: Yes Reason Cath still needed: urinary retention Assessment/Plan Chief Complaint/Hosp Course ASSESSMENT AND PLAN: 57-year-old female coming in with vomiting symptoms, right shoulder pain and chest pain, with signs of non- ST elevation myocardial infarction. 1. Chest pain and shoulder pain- secondary to non-ST elevation myocardial infarction. Status post stent to LAD 2 as well as circumflex 2. Off intra- aortic balloon pump over 24 hours ago and off pressors since last night. -Follow-up cardiology consult recommendations, continue current meds Coreg, Lipitor, aspirin, plavix, and hydralazine PO -Awaiting physical therapy consult as well 2. Res distress: Initial chest x-ray showed: New bilateral ground-glass parenchymal densities right greater than left. Overall there is less pulmonary edema now. CTA chest was negative for dissection or PE on admission. -Follow-up pulmonary rec's, continue broad-spectrum antibiotics 3. Diabetes - A1c = 8.2 -fingersticks stable - continue sliding scale insulin. 4. History of high cholesterol -noted lipid panel. She is on high-dose statin. 5. Gastrointestinal prophylaxis with H2 aury. 6. renal insufficiency - s/p bumex drip earlier this admission, started on dialysis yesterday, creatinine slightly improved -I monitor renal function, follow renal recommendations regarding dialysis Critical care time spent on patient care today equals 45 minutes. Problems: Subjective 24 Hr Interval Summary Free Text/Dictation Patient received blood transfusion yesterday as well as dialysis. Levophed has been off since late last night. No acute events overnight. Exam/Review of Systems Vital Signs Vitals Vital Signs Date Time Temp Pulse Resp B/P Pulse Ox O2 Delivery O2 Flow Rate FiO2 05/21/17 08:04 98.4 92 19 117/74 94 Nasal Cannula 2.0 05/19/17 01:59 27 Intake and Output 05/20/17 05/20/17 05/21/17 15:00 23:00 07:00 Intake Total 675.00 ml 888.75 ml 150 ml Output Total 10 ml 2060 ml 105 ml Balance 665.00 ml -1171.25 ml 45 ml Exam GENERAL: The patient is sitting in chair, eating food, a bit more alert HEENT: Pupils equal, round, react to light. Extraocular muscles intact. NECK: Supple. No thyromegaly. LUNGS: Clear to auscultation bilaterally. No wheezes. CARDIAC: S1, S2 heard. No rubs, gallops. ABDOMEN: Soft, nontender, nondistended. Normal bowel sounds. No rebound or guarding. MUSCULOSKELETAL: No lower extremity edema bilaterally. NEUROLOGIC: No focal deficits. Results Result Diagram: 05/21/170 05/21/170 Results 24 hrs Laboratory Tests Test 05/20/17 11:29 05/20/17 16:56 05/20/17 19:37 05/20/17 20:55 Bedside Glucose 229 H 183 164 Hepatitis B Surface Antigen NEGATIVE Hepatitis B Surface Antibody NEGATIVE Hepatitis B Core Total Antibody NEGATIVE Test 05/21/17 01:25 05/21/17 04:00 05/21/17 05:33 05/21/17 07:52 Bedside Glucose 97 81 124 White Blood Count 12.8 H Red Blood Count 3.20 #L Hemoglobin 9.2 #L Hematocrit 27.6 #L Mean Corpuscular Volume 86.3 Mean Corpuscular Hemoglobin 28.8 L Mean Corpuscular Hemoglobin Concent 33.3 Red Cell Distribution Width 15.0 H Platelet Count 188 Mean Platelet Volume 12.4 H Neutrophils % 82.7 H Lymphocytes % 10.3 L Monocytes % 6.0 Eosinophils % 0.3 Basophils % 0.2 Nucleated Red Blood Cells % 0.3 H Neutrophils # 10.6 H Lymphocytes # 1.3 Monocytes # 0.8 Eosinophils # 0.0 Basophils # 0.0 Nucleated Red Blood Cells # 0.0 Sodium Level 138 Potassium Level 3.9 Chloride Level 105 Carbon Dioxide Level 22 Anion Gap 15 Blood Urea Nitrogen 59 H Creatinine 4.62 #H Glucose Level 62 #L Calcium Level 7.1 L Phosphorus Level 7.0 #H Test 05/21/17 08:09 Lab Scanned Report BLOOD TRANSFUSION Medications Medications Current Medications Ondansetron HCl (Zofran Inj) 4 mg Q6H PRN IV NAUSEA AND/OR VOMITING Last administered on 05/16/17t 17:24; Admin Dose 4 MG; Start 05/16/17 at 15:00 Acetaminophen (Tylenol Tab) 650 mg Q6H PRN PO PAIN LEVEL 1-3 OR FEVER Last administered on 05/19/17 09:35; Admin Dose 650 MG; Start 05/16/17 at 15:00 Acetaminophen/ Hydrocodone Bitart ([place] (5/325)) 1 tab Q6H PRN PO MODERATE PAIN LEVEL 4-6; Start 05/16/17 at 15:00 Morphine Sulfate (morphine) 2 mg Q4H PRN IV SEVERE PAIN LEVEL 7-10 Last administered on 05/17/17 20:57; Admin Dose 2 MG; Start 05/16/17 at 15:00 Docusate Sodium (Colace) 100 mg Q12H PRN PO CONSTIPATION; Start 05/16/17 at 15 :00 Magnesium Hydroxide (Milk Of Mag) 30 ml DAILY PRN PO CONSTIPATION; Start 05/16 at 15:00 Sodium Biphosphate/ Sodium Phosphate (Fleet Enema) 133 ml DAILY PRN [place] CONSTIPATION; Start 05/16/17 at 15:00 Lorazepam (Ativan) 0.5 mg Q6H PRN IV ANXIETY; Start 05/16/17 at 15:00 Hydralazine HCl (Apresoline) 10 mg Q6H PRN IV ELEVATED BLOOD PRESSURE; Start 05/16/17 at 15:00 Clonidine (Catapres) 0.1 mg Q6H PRN PO ELEVATED BLOOD PRESSURE; Start at 15:00 Nitroglycerin (Nitroglycerin (Sl Tab) 0.4 Mg) 1 tab Q5M PRN SL ANGINA; Start 05/16/17 at 15:00 Fish Oil (Fish Oil) 1,000 mg DAILY PO Last administered on 05/21/17 08:01; Admin Dose 1,000 MG; Start 05/16/17 at 15:00 Atorvastatin Calcium (Lipitor) 80 mg HS PO Last administered on 05/20/17 20: 52; Admin Dose 80 MG; Start 05/16/17 at 21:00 Diagnostic Test (Pha) (Accu-Chek) 1 ea 02 XX Last administered on 05/20/17 02 :25; Admin Dose 1 EA; Start 05/17/17 at 02:00 Miscellaneous Information 1 ea NOTE XX ; Start 05/16/17 at 15:00 Glucose (Glutose) 15 gm Q15M PRN PO DECREASED GLUCOSE; Start 05/16/17 at 15:00 Glucose (Glutose) 22.5 gm Q15M PRN PO DECREASED GLUCOSE; Start 05/16/17 at 15: 00 Dextrose (D50w Syringe) 25 ml Q15M PRN IV DECREASED GLUCOSE; Start 05/16/17 at 15:00 Dextrose (D50w Syringe) 50 ml Q15M PRN IV DECREASED GLUCOSE; Start 05/16/17 at 15:00 Glucagon (Glucagen) 1 mg Q15M PRN IM DECREASED GLUCOSE; Start 05/16/17 at 15: 00 Glucose (Glutose) 15 gm Q15M PRN BUCCAL DECREASED GLUCOSE; Start 05/16/17 at 15:00 Carvedilol (Coreg) 6.25 mg BID PO Last administered on 05/21/17 08:07; Admin Dose 6.25 MG; Start 05/16/17 at 21:00 Aspirin (Ecotrin) 325 mg DAILY PO Last administered on 05/21/17 08:02; Admin Dose 325 MG; Start 05/18/17 at 09:00 Clopidogrel Bisulfate (plaVIX) 75 mg DAILY PO Last administered on 05/21/17 08:01; Admin Dose 75 MG; Start 05/18/17 at 09:00 Acetaminophen (Tylenol Tab) 650 mg Q4H PRN PO NON-CARDIAC PAIN LEVEL 1-3; Start 05/17/17 at 12:00 Oxycodone/ Acetaminophen (Percocet (5/ 325)) 1 tab Q4H PRN PO REPORTED NON- CARDIAC PAIN 4-7; Start 05/17/17 at 12:00 Morphine Sulfate (morphine) 1 mg Q1H PRN IV PAIN NOT RELIEVED BY OTHERS Last administered on 05/18/17 11:51; Admin Dose 1 MG; Start 05/17/17 at 12:00 Al Hydrox/Mg Hydrox/Simethicone (Mag-Al Plus) 30 ml Q4H PRN PO GASTROINTESTINAL UPSET; Start 05/17/17 at 12:00 Ondansetron HCl 4 mg 4 mg Q4H PRN IV NAUSEA AND/OR VOMITING Last administered on 05/20/17 03:00; Admin Dose 4 MG; Start 05/17/17 at 12:00 Levofloxacin/ Dextrose (Levaquin 250 Mg/ D5W 50 ml (Pmx)) 50 ml @ 50 mls/hr Q48H IVPB Last administered on 05/20/17 10:33; Admin Dose 50 MLS/HR; Start 05/20/17 at 11:00 Famotidine (Pepcid) 20 mg DAILY PO Last administered on 05/21/17 08:01; Admin Dose 20 MG; Start 05/19/17 at 09:00 Hydralazine HCl 10 mg 10 mg Q8 PO ; Start 05/19/17 at 14:00 Sodium Bicarbonate 50 meq/Sodium Chloride 1,050 ml @ 40 mls/hr Q24H IV Last administered on 05/20/17 15:26; Admin Dose 40 MLS/HR; Start 05/19/17 at 18:30 Norepinephrine (Levophed) 250 ml @ 1.875 mls/ hr TITRATE IV Last administered on 05/19/17 21:50; Admin Dose 3.75 MLS/HR; Start 05/19/17 at 22:00 Sodium Bicarbonate (Sodium Bicarbonate Tab) 650 mg Q8 PO Last administered on 05/21/17 05:35; Admin Dose 650 MG; Start 05/20/17 at 10:00 Insulin Glargine (Lantus) 11 unit DAILY@08 SC Last administered on 05/21/17 08:01; Admin Dose 11 UNIT; Start 05/21/17 at 08:00 IV Flush (NS 10 ml) 10 ml PRN PRN IV IV PROTOCOL; Start 05/20/17 at 17:00 CHINEDU GABRIEL May 21, 2017 08:38
--- NOTE | 2017-05-21 10:07 | CONS ---
Date/Time of Note Date/Time of Note DATE: 05/21/17 TIME: 10:05 Assessment/Plan Assessment/Plan Additional Assessment/Plan Assessment recommendations; 1. Patient admitted with acute HI status post PTCA 4. 2. Pulmonary edema with interval improvement. 3. Hypotension with interval resolution as well. 4. Possibly some element of aspiration pneumonia. 5. Improving renal function. 6. History of diabetes and hypertension. 7. Anemia, status post blood transfusion. Continue current treatment. Obtain follow-up chest x-ray. Consultation Date/Type/Reason Admit Date/Time May 16, 2017 at 12:38 Initial Consult Date 05/17/17 Type of Consultation: Pulmonary/critical care Referring Provider: RUPERT CARMONA 24 HR Interval Summary Free Text/Dictation Patient's condition is stable. She has been off pressor support. Denies any shortness of breath, chest pain. General exam; middle-aged woman, awake alert, currently in no distress. Exam/Review of Systems Vital Signs Vitals Vital Signs Date Time Temp Pulse Resp B/P Pulse Ox O2 Delivery O2 Flow Rate FiO2 05/21/17 09:00 101 27 116/62 97 Nasal Cannula 2.0 05/21/17 08:04 98.4 05/19/17 01:59 27 Intake and Output 05/20/17 05/20/17 05/21/17 15:00 23:00 07:00 Intake Total 675.00 ml 888.75 ml 150 ml Output Total 10 ml 2060 ml 105 ml Balance 665.00 ml -1171.25 ml 45 ml Exam HEENT exam; supple neck, no JVD. No lymphadenopathy. Midline trachea. No thyromegaly. Patient has fair dentition. Pupils are midsize bilaterally. Pharynx is clear. Chest exam; minimal crackles left lung. Right lung is clear to auscultation. S1-S2 audible, no murmurs. Regular rhythm. Abdomen exam; soft, nontender. Nondistended. No organomegaly. Bowel sounds audible. Extremity exam; no peripheral edema. No clubbing. Pulses 1+ bilaterally. 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 Results Result Diagram: 05/21/17 0400 05/21/17 0400 Results 24 hrs Laboratory Tests Test 05/20/17 11:29 05/20/17 16:56 05/20/17 19:37 05/20/17 20:55 Bedside Glucose 229 H 183 164 Hepatitis B Surface Antigen NEGATIVE Hepatitis B Surface Antibody NEGATIVE Hepatitis B Core Total Antibody NEGATIVE Test 05/21/17 01:25 05/21/17 04:00 05/21/17 05:33 05/21/17 07:52 Bedside Glucose 97 81 124 White Blood Count 12.8 H Red Blood Count 3.20 #L Hemoglobin 9.2 #L Hematocrit 27.6 #L Mean Corpuscular Volume 86.3 Mean Corpuscular Hemoglobin 28.8 L Mean Corpuscular Hemoglobin Concent 33.3 Red Cell Distribution Width 15.0 H Platelet Count 188 Mean Platelet Volume 12.4 H Neutrophils % 82.7 H Lymphocytes % 10.3 L Monocytes % 6.0 Eosinophils % 0.3 Basophils % 0.2 Nucleated Red Blood Cells % 0.3 H Neutrophils # 10.6 H Lymphocytes # 1.3 Monocytes # 0.8 Eosinophils # 0.0 Basophils # 0.0 Nucleated Red Blood Cells # 0.0 Sodium Level 138 Potassium Level 3.9 Chloride Level 105 Carbon Dioxide Level 22 Anion Gap 15 Blood Urea Nitrogen 59 H Creatinine 4.62 #H Glucose Level 62 #L Calcium Level 7.1 L Phosphorus Level 7.0 #H Test 05/21/17 08:09 Lab Scanned Report BLOOD TRANSFUSION Medications Medications Current Medications Ondansetron HCl (Zofran Inj) 4 mg Q6H PRN IV NAUSEA AND/OR VOMITING Last administered on 05/16/17 17:24; Admin Dose 4 MG; Start 05/16/17 at 15:00 Acetaminophen (Tylenol Tab) 650 mg Q6H PRN PO PAIN LEVEL 1-3 OR FEVER Last administered on 05/19/17 09:35; Admin Dose 650 MG; Start 05/16/17 at 15:00 Acetaminophen/ Hydrocodone Bitart ([place] (5/325)) 1 tab Q6H PRN PO MODERATE PAIN LEVEL 4-6; Start 05/16/17 at 15:00 Morphine Sulfate (morphine) 2 mg Q4H PRN IV SEVERE PAIN LEVEL 7-10 Last administered on 05/17/17 20:57; Admin Dose 2 MG; Start 05/16/17 at 15:00 Docusate Sodium (Colace) 100 mg Q12H PRN PO CONSTIPATION; Start 05/16/17 at 15 :00 Magnesium Hydroxide (Milk Of Mag) 30 ml DAILY PRN PO CONSTIPATION; Start 05/16 at 15:00 Sodium Biphosphate/ Sodium Phosphate (Fleet Enema) 133 ml DAILY PRN [place] CONSTIPATION; Start 05/16/17 at 15:00 Lorazepam (Ativan) 0.5 mg Q6H PRN IV ANXIETY; Start 05/16/17 at 15:00 Hydralazine HCl (Apresoline) 10 mg Q6H PRN IV ELEVATED BLOOD PRESSURE; Start 05/16/17 at 15:00 Clonidine (Catapres) 0.1 mg Q6H PRN PO ELEVATED BLOOD PRESSURE; Start at 15:00 Nitroglycerin (Nitroglycerin (Sl Tab) 0.4 Mg) 1 tab Q5M PRN SL ANGINA; Start 05/16/17 at 15:00 Fish Oil (Fish Oil) 1,000 mg DAILY PO Last administered on 05/21/17 08:01; Admin Dose 1,000 MG; Start 05/16/17 at 15:00 Atorvastatin Calcium (Lipitor) 80 mg HS PO Last administered on 05/20/17 20: 52; Admin Dose 80 MG; Start 05/16/17 at 21:00 Diagnostic Test (Pha) (Accu-Chek) 1 ea 02 XX Last administered on 05/20/17 02 :25; Admin Dose 1 EA; Start 05/17/17 at 02:00 Miscellaneous Information 1 ea NOTE XX ; Start 05/16/17 at 15:00 Glucose (Glutose) 15 gm Q15M PRN PO DECREASED GLUCOSE; Start 05/16/17 at 15:00 Glucose (Glutose) 22.5 gm Q15M PRN PO DECREASED GLUCOSE; Start 05/16/17 at 15: 00 Dextrose (D50w Syringe) 25 ml Q15M PRN IV DECREASED GLUCOSE; Start 05/16/17 at 15:00 Dextrose (D50w Syringe) 50 ml Q15M PRN IV DECREASED GLUCOSE; Start 05/16/17 at 15:00 Glucagon (Glucagen) 1 mg Q15M PRN IM DECREASED GLUCOSE; Start 05/16/17 at 15: 00 Glucose (Glutose) 15 gm Q15M PRN BUCCAL DECREASED GLUCOSE; Start 05/16/17 at 15:00 Carvedilol (Coreg) 6.25 mg BID PO Last administered on 05/21/17 08:07; Admin Dose 6.25 MG; Start 05/16/17 at 21:00 Aspirin (Ecotrin) 325 mg DAILY PO Last administered on 05/21/17 08:02; Admin Dose 325 MG; Start 05/18/17 at 09:00 Clopidogrel Bisulfate (plaVIX) 75 mg DAILY PO Last administered on 05/21/17 08:01; Admin Dose 75 MG; Start 05/18/17 at 09:00 Acetaminophen (Tylenol Tab) 650 mg Q4H PRN PO NON-CARDIAC PAIN LEVEL 1-3; Start 05/17/17 at 12:00 Oxycodone/ Acetaminophen (Percocet (5/ 325)) 1 tab Q4H PRN PO REPORTED NON- CARDIAC PAIN 4-7; Start 05/17/17 at 12:00 Morphine Sulfate (morphine) 1 mg Q1H PRN IV PAIN NOT RELIEVED BY OTHERS Last administered on 05/18/17 11:51; Admin Dose 1 MG; Start 05/17/17 at 12:00 Al Hydrox/Mg Hydrox/Simethicone (Mag-Al Plus) 30 ml Q4H PRN PO GASTROINTESTINAL UPSET; Start 05/17/17 at 12:00 Ondansetron HCl 4 mg 4 mg Q4H PRN IV NAUSEA AND/OR VOMITING Last administered on 05/20/17 03:00; Admin Dose 4 MG; Start 05/17/17 at 12:00 Levofloxacin/ Dextrose (Levaquin 250 Mg/ D5W 50 ml (Pmx)) 50 ml @ 50 mls/hr Q48H IVPB Last administered on 05/20/17 10:33; Admin Dose 50 MLS/HR; Start 05/20/17 at 11:00 Famotidine (Pepcid) 20 mg DAILY PO Last administered on 05/21/17 08:01; Admin Dose 20 MG; Start 05/19/17 at 09:00 Hydralazine HCl 10 mg 10 mg Q8 PO ; Start 05/19/17 at 14:00 Sodium Bicarbonate 50 meq/Sodium Chloride 1,050 ml @ 40 mls/hr Q24H IV Last administered on 05/20/17 15:26; Admin Dose 40 MLS/HR; Start 05/19/17 at 18:30 Norepinephrine (Levophed) 250 ml @ 1.875 mls/ hr TITRATE IV Last administered on 05/19/17 21:50; Admin Dose 3.75 MLS/HR; Start 05/19/17 at 22:00 Sodium Bicarbonate (Sodium Bicarbonate Tab) 650 mg Q8 PO Last administered on 05/21/17 05:35; Admin Dose 650 MG; Start 05/20/17 at 10:00 Insulin Glargine (Lantus) 11 unit DAILY@08 SC Last administered on 05/21/17 08:01; Admin Dose 11 UNIT; Start 05/21/17 at 08:00 IV Flush (NS 10 ml) 10 ml PRN PRN IV IV PROTOCOL; Start 05/20/17 at 17:00 CHANDRIKA ZHANG May 21, 2017 10:07
--- NOTE | 2017-05-21 11:04 | OPR ---
DATE OF OPERATION: PREOPERATIVE DIAGNOSIS: Renal failure. POSTOPERATIVE DIAGNOSIS: Renal failure. OPERATION PERFORMED: Left femoral hemodialysis catheter placement. SURGEON: Matias May MD ANESTHESIA: Local. CONSENT: Risks, benefits, complications, alternative therapies explained to the patient and the [facility], consent obtained. OPERATIVE TECHNIQUE: The patient was placed in supine position, prepped and draped in usual sterile fashion, 1% lidocaine was used throughout the operation for local anesthesia. Access was gained to the left femoral vein. Guidewire was advanced through without any difficulty. Subcutaneous tissue s dilated. A 20 cm dialysis catheter advanced over guidewire, secured to skin using silk sutures. Both ports of the catheter were aspirated and injected using saline solution. Patient tolerated pro cedure well. Dictated By: MATIAS FRAUSTO/ALYCE Conf#: [id number] DID#: [id number]
--- NOTE | 2017-05-21 12:09 | RADRPT ---
PROCEDURE: XR Chest. CLINICAL INDICATION: Congestive heart failure TECHNIQUE: Single frontal view of the chest was obtained COMPARISON: 05/20/2017 FINDINGS: Left PICC has been mildly retracted with tip projecting over the proximal superior vena cava. No pneumothorax. Probable small bilateral pleural effusions. Decreased lung volumes with decreased aeration of the left lung base. Retrocardiac opacity. Stable enlarged cardiomediastinal silhouette. No acute osseous abnormality. IMPRESSION: Decreased lung volumes with decreased aeration of the left lung base and more conspicuous retrocardi ac opacity, which may reflect atelectasis. However, superimposed infection to be determined clinical ly. Otherwise, no convincing interval change compared to chest radiograph from prior day. RPTAT: EE Physician Benny Date Time Electronically viewed and signed by Physician Benny on 05/21/2017 12:09 /
--- NOTE | 2017-05-21 12:31 | CONS ---
Date/Time of Note Date/Time of Note DATE: 05/21/17 TIME: 12:29 Assessment/Plan Assessment/Plan Additional Assessment/Plan 1.Acute NM-trop>100 s/p ptca/stent x 2 to 100% occluded LCX and x 2 to high grade LAD stenosis - s/p IABP removed - BP stable - much better s/p HD. 2.CHF-likely systolic acute. EF 30-35% by echo yesterday- con't to remove fluid as tolerated. 3.Renal failure - HD now. 4.DM - on meds, keep euglycemic. 5.Chest pain secondary to number 1. Now improved 6. Anemia - no bleeding - d/c heparin gtt now. 7.Dyslipidemia 8.Hyperkalemia Consultation Date/Type/Reason Admit Date/Time May 16, 2017 at 12:38 Initial Consult Date 05/17/17 Type of Consultation: Pulmonary/critical care Referring Provider: RUPERT CARMONA 24 HR Interval Summary Free Text/Dictation Out ti chair - much better s/p HD. ROS: No fever, no chills, no nausea, no vomiting, no diarrhea/constipation No recent weight changes No chest pain, no PND, no orthopnea SOB better No dizziness, blurred vision No thirst, no heat or cold intolerance Exam/Review of Systems Vital Signs Vitals Vital Signs Date Time Temp Pulse Resp B/P Pulse Ox O2 Delivery O2 Flow Rate FiO2 05/21/17 12:00 98.0 71 21 100/61 99 Nasal Cannula 2.0 05/19/17 01:59 27 Intake and Output 05/20/17 05/20/17 05/21/17 15:00 23:00 07:00 Intake Total 675.00 ml 888.75 ml 150 ml Output Total 10 ml 2060 ml 105 ml Balance 665.00 ml -1171.25 ml 45 ml Exam General: WN/WD/NAD, AOx 3 HEENT: Unicetric/atraumatic/EOMI (follow commands) NECK: JVD elevated, no thyromegaly Lymph: no lymphadenopathy HEART: regular with no S3, II/ systolic murmur at apex, PMI L LUNGS: Coarse sounds ABD: soft, NT, ND, +BS : Intact Neuro: non focal SKIN: chronic changes EXT: trace edema Results Result Diagram: 10/15/17 0400 10/15/17 0400 Results 24 hrs Laboratory Tests Test 05/20/17 16:56 05/20/17 19:37 05/20/17 20:55 05/21/17 01:25 Bedside Glucose 183 164 97 Hepatitis B Surface Antigen NEGATIVE Hepatitis B Surface Antibody NEGATIVE Hepatitis B Core Total Antibody NEGATIVE Test 05/21/17 04:00 05/21/17 05:33 05/21/17 07:52 05/21/17 08:09 White Blood Count 12.8 H Red Blood Count 3.20 #L Hemoglobin 9.2 #L Hematocrit 27.6 #L Mean Corpuscular Volume 86.3 Mean Corpuscular Hemoglobin 28.8 L Mean Corpuscular Hemoglobin Concent 33.3 Red Cell Distribution Width 15.0 H Platelet Count 188 Mean Platelet Volume 12.4 H Neutrophils % 82.7 H Lymphocytes % 10.3 L Monocytes % 6.0 Eosinophils % 0.3 Basophils % 0.2 Nucleated Red Blood Cells % 0.3 H Neutrophils # 10.6 H Lymphocytes # 1.3 Monocytes # 0.8 Eosinophils # 0.0 Basophils # 0.0 Nucleated Red Blood Cells # 0.0 Sodium Level 138 Potassium Level 3.9 Chloride Level 105 Carbon Dioxide Level 22 Anion Gap 15 Blood Urea Nitrogen 59 H Creatinine 4.62 #H Glucose Level 62 #L Calcium Level 7.1 L Phosphorus Level 7.0 #H Bedside Glucose 81 124 Lab Scanned Report BLOOD TRANSFUSION Test 05/21/17 08:58 05/21/17 11:09 Stool Occult Blood NEGATIVE Bedside Glucose 183 Medications Medications Current Medications Ondansetron HCl (Zofran Inj) 4 mg Q6H PRN IV NAUSEA AND/OR VOMITING Last administered on 05/16/17 17:24; Admin Dose 4 MG; Start 05/16/17 at 15:00 Acetaminophen (Tylenol Tab) 650 mg Q6H PRN PO PAIN LEVEL 1-3 OR FEVER Last administered on 05/19/17 09:35; Admin Dose 650 MG; Start 05/16/17 at 15:00 Acetaminophen/ Hydrocodone Bitart ([place] (5/325)) 1 tab Q6H PRN PO MODERATE PAIN LEVEL 4-6; Start 05/16/17 at 15:00 Morphine Sulfate (morphine) 2 mg Q4H PRN IV SEVERE PAIN LEVEL 7-10 Last administered on 05/17/17 20:57; Admin Dose 2 MG; Start 05/16/17 at 15:00 Docusate Sodium (Colace) 100 mg Q12H PRN PO CONSTIPATION; Start 05/16/17 at 15 :00 Magnesium Hydroxide (Milk Of Mag) 30 ml DAILY PRN PO CONSTIPATION; Start 05/16 at 15:00 Sodium Biphosphate/ Sodium Phosphate (Fleet Enema) 133 ml DAILY PRN [place] CONSTIPATION; Start 05/16/17 at 15:00 Lorazepam (Ativan) 0.5 mg Q6H PRN IV ANXIETY; Start 05/16/17 at 15:00 Hydralazine HCl (Apresoline) 10 mg Q6H PRN IV ELEVATED BLOOD PRESSURE; Start 05/16/17 at 15:00 Clonidine (Catapres) 0.1 mg Q6H PRN PO ELEVATED BLOOD PRESSURE; Start at 15:00 Nitroglycerin (Nitroglycerin (Sl Tab) 0.4 Mg) 1 tab Q5M PRN SL ANGINA; Start 05/16/17 at 15:00 Fish Oil (Fish Oil) 1,000 mg DAILY PO Last administered on 05/21/17 08:01; Admin Dose 1,000 MG; Start 05/16/17 at 15:00 Atorvastatin Calcium (Lipitor) 80 mg HS PO Last administered on 05/20/17 20: 52; Admin Dose 80 MG; Start 05/16/17 at 21:00 Diagnostic Test (Pha) (Accu-Chek) 1 ea 02 XX Last administered on 05/20/17 02 :25; Admin Dose 1 EA; Start 05/17/17 at 02:00 Miscellaneous Information 1 ea NOTE XX ; Start 05/16/17 at 15:00 Glucose (Glutose) 15 gm Q15M PRN PO DECREASED GLUCOSE; Start 05/16/17 at 15:00 Glucose (Glutose) 22.5 gm Q15M PRN PO DECREASED GLUCOSE; Start 05/16/17 at 15: 00 Dextrose (D50w Syringe) 25 ml Q15M PRN IV DECREASED GLUCOSE; Start 05/16/17 at 15:00 Dextrose (D50w Syringe) 50 ml Q15M PRN IV DECREASED GLUCOSE; Start 05/16/17 at 15:00 Glucagon (Glucagen) 1 mg Q15M PRN IM DECREASED GLUCOSE; Start 05/16/17 at 15: 00 Glucose (Glutose) 15 gm Q15M PRN BUCCAL DECREASED GLUCOSE; Start 05/16/17 at 15:00 Carvedilol (Coreg) 6.25 mg BID PO Last administered on 05/21/17 08:07; Admin Dose 6.25 MG; Start 05/16/17 at 21:00 Aspirin (Ecotrin) 325 mg DAILY PO Last administered on 05/21/17 08:02; Admin Dose 325 MG; Start 05/18/17 at 09:00 Clopidogrel Bisulfate (plaVIX) 75 mg DAILY PO Last administered on 05/21/17 08:01; Admin Dose 75 MG; Start 05/18/17 at 09:00 Acetaminophen (Tylenol Tab) 650 mg Q4H PRN PO NON-CARDIAC PAIN LEVEL 1-3; Start 05/17/17 at 12:00 Oxycodone/ Acetaminophen (Percocet (5/ 325)) 1 tab Q4H PRN PO REPORTED NON- CARDIAC PAIN 4-7; Start 05/17/17 at 12:00 Morphine Sulfate (morphine) 1 mg Q1H PRN IV PAIN NOT RELIEVED BY OTHERS Last administered on 05/18/17 11:51; Admin Dose 1 MG; Start 05/17/17 at 12:00 Al Hydrox/Mg Hydrox/Simethicone (Mag-Al Plus) 30 ml Q4H PRN PO GASTROINTESTINAL UPSET; Start 05/17/17 at 12:00 Ondansetron HCl 4 mg 4 mg Q4H PRN IV NAUSEA AND/OR VOMITING Last administered on 05/20/17 03:00; Admin Dose 4 MG; Start 05/17/17 at 12:00 Levofloxacin/ Dextrose (Levaquin 250 Mg/ D5W 50 ml (Pmx)) 50 ml @ 50 mls/hr Q48H IVPB Last administered on 05/20/17 10:33; Admin Dose 50 MLS/HR; Start 05/20/17 at 11:00 Famotidine (Pepcid) 20 mg DAILY PO Last administered on 05/21/17 08:01; Admin Dose 20 MG; Start 05/19/17 at 09:00 Hydralazine HCl 10 mg 10 mg Q8 PO ; Start 05/19/17 at 14:00 Sodium Bicarbonate 50 meq/Sodium Chloride 1,050 ml @ 40 mls/hr Q24H IV Last administered on 05/20/17 15:26; Admin Dose 40 MLS/HR; Start 05/19/17 at 18:30 Norepinephrine (Levophed) 250 ml @ 1.875 mls/ hr TITRATE IV Last administered on 05/19/17 21:50; Admin Dose 3.75 MLS/HR; Start 05/19/17 at 22:00 Insulin Glargine (Lantus) 11 unit DAILY@08 SC Last administered on 05/21/17 08:01; Admin Dose 11 UNIT; Start 05/21/17 at 08:00 IV Flush (NS 10 ml) 10 ml PRN PRN IV IV PROTOCOL; Start 05/20/17 at 17:00 VERITO TODD MD May 21, 2017 12:31
--- NOTE | 2017-05-21 19:23 | CONS ---
Date/Time of Note Date/Time of Note DATE: 05/21/17 TIME: 19:22 Assessment/Plan Assessment/Plan Chief Complaint/Hosp Course IMPRESSION: 1. Acute kidney injury due to acute myocardial infarction and hemodynamic instability. and pul edema s/p CATH AND PCI AND S/P CT CHEST ANGIO 2. ATN ,OLIGURIC ,CONTRAST NEPHROPATHY 3. status post coronary angiogram with percutaneous coronary intervention S/P intraaortic balloon pump. 4. The patient has diabetes mellitus, hypertension. 5. Rule out underlying diabetic nephropathy. 6. Leukocytosis, 7 METABOKIC ACIDOSIS plan HD Problems: Consultation Date/Type/Reason Admit Date/Time May 16, 2017 at 12:38 Initial Consult Date 05/17/17 Type of Consultation: RENAL Referring Provider: RUPERT CARMONA 24 HR Interval Summary Constitutional: other (SOB BETTER) Exam/Review of Systems Vital Signs Vitals Vital Signs Date Time Temp Pulse Resp B/P Pulse Ox O2 Delivery O2 Flow Rate FiO2 05/21/17 19:00 79 22 103/63 100 Nasal Cannula 2.0 05/21/17 16:00 98.4 05/19/17 01:59 27 Intake and Output 05/20/17 05/20/17 05/21/17 15:00 23:00 07:00 Intake Total 675.00 ml 888.75 ml 150 ml Output Total 10 ml 2060 ml 105 ml Balance 665.00 ml -1171.25 ml 45 ml Exam Neck: supple Respiratory: clear to auscultation Cardiovascular: regular rate and rhythm Gastrointestinal: bowel sounds (+), soft Extremities: edema (+) Results Result Diagram: 05/21/1739905/21/17 0400 Results 24 hrs Laboratory Tests Test 05/20/17 19:37 05/20/17 20:55 05/21/17 01:25 05/21/17 04:00 Hepatitis B Surface Antigen NEGATIVE Hepatitis B Surface Antibody NEGATIVE Hepatitis B Core Total Antibody NEGATIVE Bedside Glucose 164 97 White Blood Count 12.8 H Red Blood Count 3.20 #L Hemoglobin 9.2 #L Hematocrit 27.6 #L Mean Corpuscular Volume 86.3 Mean Corpuscular Hemoglobin 28.8 L Mean Corpuscular Hemoglobin Concent 33.3 Red Cell Distribution Width 15.0 H Platelet Count 188 Mean Platelet Volume 12.4 H Neutrophils % 82.7 H Lymphocytes % 10.3 L Monocytes % 6.0 Eosinophils % 0.3 Basophils % 0.2 Nucleated Red Blood Cells % 0.3 H Neutrophils # 10.6 H Lymphocytes # 1.3 Monocytes # 0.8 Eosinophils # 0.0 Basophils # 0.0 Nucleated Red Blood Cells # 0.0 Sodium Level 138 Potassium Level 3.9 Chloride Level 105 Carbon Dioxide Level 22 Anion Gap 15 Blood Urea Nitrogen 59 H Creatinine 4.62 #H Glucose Level 62 #L Calcium Level 7.1 L Phosphorus Level 7.0 #H Test 05/21/17 05:33 05/21/17 07:52 05/21/17 08:09 05/21/17 08:58 Bedside Glucose 81 124 Lab Scanned Report BLOOD TRANSFUSION Stool Occult Blood NEGATIVE Test 05/21/17 11:09 05/21/17 17:07 Bedside Glucose 183 151 Medications Medications Current Medications Ondansetron HCl (Zofran Inj) 4 mg Q6H PRN IV NAUSEA AND/OR VOMITING Last administered on 05/16/17 17:24; Admin Dose 4 MG; Start 05/16/17 at 15:00 Acetaminophen (Tylenol Tab) 650 mg Q6H PRN PO PAIN LEVEL 1-3 OR FEVER Last administered on 05/19/17 09:35; Admin Dose 650 MG; Start 05/16/17 at 15:00 Acetaminophen/ Hydrocodone Bitart ([place] (5/325)) 1 tab Q6H PRN PO MODERATE PAIN LEVEL 4-6; Start 05/16/17 at 15:00 Morphine Sulfate (morphine) 2 mg Q4H PRN IV SEVERE PAIN LEVEL 7-10 Last administered on 05/17/17 20:57; Admin Dose 2 MG; Start 05/16/17 at 15:00 Docusate Sodium (Colace) 100 mg Q12H PRN PO CONSTIPATION; Start 05/16/17 at 15 :00 Magnesium Hydroxide (Milk Of Mag) 30 ml DAILY PRN PO CONSTIPATION; Start 05/16 at 15:00 Lorazepam (Ativan) 0.5 mg Q6H PRN IV ANXIETY; Start 05/16/17 at 15:00 Hydralazine HCl (Apresoline) 10 mg Q6H PRN IV ELEVATED BLOOD PRESSURE; Start 05/16/17 at 15:00 Clonidine (Catapres) 0.1 mg Q6H PRN PO ELEVATED BLOOD PRESSURE; Start at 15:00 Nitroglycerin (Nitroglycerin (Sl Tab) 0.4 Mg) 1 tab Q5M PRN SL ANGINA; Start 05/16/17 at 15:00 Fish Oil (Fish Oil) 1,000 mg DAILY PO Last administered on 05/21/17 08:01; Admin Dose 1,000 MG; Start 05/16/17 at 15:00 Atorvastatin Calcium (Lipitor) 80 mg HS PO Last administered on 05/20/17 20: 52; Admin Dose 80 MG; Start 05/16/17 at 21:00 Diagnostic Test (Pha) (Accu-Chek) 1 ea 02 XX Last administered on 05/20/17 02 :25; Admin Dose 1 EA; Start 05/17/17 at 02:00 Miscellaneous Information 1 ea NOTE XX ; Start 05/16/17 at 15:00 Glucose (Glutose) 15 gm Q15M PRN PO DECREASED GLUCOSE; Start 05/16/17 at 15:00 Glucose (Glutose) 22.5 gm Q15M PRN PO DECREASED GLUCOSE; Start 05/16/17 at 15: 00 Dextrose (D50w Syringe) 25 ml Q15M PRN IV DECREASED GLUCOSE; Start 05/16/17 at 15:00 Dextrose (D50w Syringe) 50 ml Q15M PRN IV DECREASED GLUCOSE; Start 05/16/17 at 15:00 Glucagon (Glucagen) 1 mg Q15M PRN IM DECREASED GLUCOSE; Start 05/16/17 at 15: 00 Glucose (Glutose) 15 gm Q15M PRN BUCCAL DECREASED GLUCOSE; Start 05/16/17 at 15:00 Carvedilol (Coreg) 6.25 mg BID PO Last administered on 05/21/17 08:07; Admin Dose 6.25 MG; Start 05/16/17 at 21:00 Aspirin (Ecotrin) 325 mg DAILY PO Last administered on 05/21/17 08:02; Admin Dose 325 MG; Start 05/18/17 at 09:00 Clopidogrel Bisulfate (plaVIX) 75 mg DAILY PO Last administered on 05/21/17 08:01; Admin Dose 75 MG; Start 05/18/17 at 09:00 Acetaminophen (Tylenol Tab) 650 mg Q4H PRN PO NON-CARDIAC PAIN LEVEL 1-3; Start 05/17/17 at 12:00 Oxycodone/ Acetaminophen (Percocet (5/ 325)) 1 tab Q4H PRN PO REPORTED NON- CARDIAC PAIN 4-7; Start 05/17/17 at 12:00 Morphine Sulfate (morphine) 1 mg Q1H PRN IV PAIN NOT RELIEVED BY OTHERS Last administered on 05/18/17 11:51; Admin Dose 1 MG; Start 05/17/17 at 12:00 Al Hydrox/Mg Hydrox/Simethicone (Mag-Al Plus) 30 ml Q4H PRN PO GASTROINTESTINAL UPSET; Start 05/17/17 at 12:00 Ondansetron HCl 4 mg 4 mg Q4H PRN IV NAUSEA AND/OR VOMITING Last administered on 05/20/17 03:00; Admin Dose 4 MG; Start 05/17/17 at 12:00 Levofloxacin/ Dextrose (Levaquin 250 Mg/ D5W 50 ml (Pmx)) 50 ml @ 50 mls/hr Q48H IVPB Last administered on 05/20/17 10:33; Admin Dose 50 MLS/HR; Start 05/20/17 at 11:00 Famotidine (Pepcid) 20 mg DAILY PO Last administered on 05/21/17 08:01; Admin Dose 20 MG; Start 05/19/17 at 09:00 Hydralazine HCl 10 mg 10 mg Q8 PO ; Start 05/19/17 at 14:00 Norepinephrine (Levophed) 250 ml @ 1.875 mls/ hr TITRATE IV Last administered on 05/19/17 21:50; Admin Dose 3.75 MLS/HR; Start 05/19/17 at 22:00 Insulin Glargine (Lantus) 11 unit DAILY@08 SC Last administered on 05/21/17 08:01; Admin Dose 11 UNIT; Start 05/21/17 at 08:00 IV Flush (NS 10 ml) 10 ml PRN PRN IV IV PROTOCOL; Start 05/20/17 at 17:00 OREN ARTHUR MD May 21, 2017 19:23
[2017-05-21] MEDS: ATORVASTATIN 80 MG TAB PO SCH (20:30)
[2017-05-22] VITALS (35 sets, daily range): BP systolic 87–141; BP diastolic 50–112; PULSE 71–95; RESP 13–25
[2017-05-22 05:43] LABS: BASOPHILS % 0.2 % (0.0-2.0); EOSINOPHILS # 0.1 10^3/ul (0.0-0.5); EOSINOPHILS % 1.1 % (0.0-7.0); HEMATOCRIT 27.1 % (37.0-47.0); HEMOGLOBIN 8.7 g/dl (12.0-16.0); LYMPHOCYTES # 1.2 10^3/ul (0.8-2.9); LYMPHOCYTES % 11.9 % (15.0-51.0); MEAN CORPUSCULAR HEMOGLOBIN 28.2 pg (29.0-33.0); MEAN CORPUSCULAR HGB CONC 32.1 g/dl (32.0-37.0); MEAN CORPUSCULAR VOLUME 87.7 fl (82.0-101.0); MEAN PLATELET VOLUME 12.2 fl (7.4-10.4); MONOCYTE # 0.6 10^3/ul (0.3-0.9); MONOCYTES % 6.1 % (0.0-11.0); NEUTROPHIL # 8.4 10^3/ul (1.6-7.5); NEUTROPHILS % 80.2 % (39.0-77.0); PLATELET COUNT 173 10^3/UL (140-415); RED BLOOD COUNT 3.09 10^6/ul (4.20-5.40); RED CELL DISTRIBUTION WIDTH 15.5 % (11.5-14.5); WHITE BLOOD COUNT 10.4 10^3/ul (4.8-10.8)
[2017-05-22 06:22] LABS: CALCIUM 7.4 mg/dl (8.4-10.2); CREATININE 4.29 mg/dl (0.44-1.00); POTASSIUM 3.3 mmol/L (3.5-5.1)
[2017-05-22] MEDS: INSULIN ASPART [NOVOLOG] 3 ML PEN SC SCH ×7 (08:11→21:00)
[2017-05-22] MEDS: INSULIN GLARGINE [LANtus] 3 ML PEN SC SCH (08:17)
--- NOTE | 2017-05-22 09:02 | CONS ---
Date/Time of Note Date/Time of Note DATE: 05/22/17 TIME: 08:51 Assessment/Plan Assessment/Plan Chief Complaint/Hosp Course A/P 1. Acute kidney injury likely due to combination of acute myocardial infarction trop>100 s/p ptca/stent x 2 to 100% occluded LCX and x 2 to high grade LAD stenosis +contrast nephropathy with Angiogram with CT contrast chest and hemodynamic instability.Pt was s/p balloon pump 2. Oliguric ATN 3. CHF-likely systolic acute. EF 30-35% 4. diabetes mellitus 5 hypertension. 6 Metabolic acidosis due to renal failure 7 Likely diabetic nephropathy on admission Cr was 1.14 8 Leukocytosis 9 Anemia Plan - UOP improved 125ml last night , but 0 since am, will give short session of HD today with little UF( just intake) with higher K bath k 3.3 - Will start Bumex to augment diuresis - Recommend checking bmp 3 hrs after HD today - c/w ASA/Plavix/Coreg/statin per cards - c/w hold AMANDA due to renal failure - monitor uop closely - Labs am Problems: Consultation Date/Type/Reason Admit Date/Time May 16, 2017 at 12:38 Initial Consult Date 05/17/17 Type of Consultation: RENAL Referring Provider: RUPERT CARMONA 24 HR Interval Summary Free Text/Dictation Pt sitting up, no chest pain UOP was 125 ml overnight, as compared to before was 0 ml Exam/Review of Systems Vital Signs Vitals Vital Signs Date Time Temp Pulse Resp B/P Pulse Ox O2 Delivery O2 Flow Rate FiO2 05/22/17 08:00 98.3 85 21 111/77 91 Room Air 05/22/17 01:51 2.0 05/19/17 01:59 27 Intake and Output 05/21/17 05/21/17 05/22/17 15:00 23:00 07:00 Intake Total 1360 ml 240 ml 240 ml Output Total 2015 ml 0 ml 125 ml Balance -655 ml 240 ml 115 ml Exam Gen: awake and alert 'Neck: supple Respiratory: clear to auscultation Cardiovascular: regular rate and rhythm Gastrointestinal: bowel sounds (+), soft Extremities: edema (+) Access: Left bi Results Result Diagram: 05/22/17 0448 05/22/17 0448 Results 24 hrs Laboratory Tests Test 05/21/17 08:58 05/21/17 11:09 05/21/17 17:07 05/21/17 20:26 Stool Occult Blood NEGATIVE Bedside Glucose 183 151 119 Test 05/22/17 04:48 05/22/17 08:04 White Blood Count 10.4 Red Blood Count 3.09 L Hemoglobin 8.7 L Hematocrit 27.1 L Mean Corpuscular Volume 87.7 Mean Corpuscular Hemoglobin 28.2 L Mean Corpuscular Hemoglobin Concent 32.1 Red Cell Distribution Width 15.5 H Platelet Count 173 Mean Platelet Volume 12.2 H Neutrophils % 80.2 H Lymphocytes % 11.9 L Monocytes % 6.1 Eosinophils % 1.1 Basophils % 0.2 Nucleated Red Blood Cells % 0.0 Neutrophils # 8.4 H Lymphocytes # 1.2 Monocytes # 0.6 Eosinophils # 0.1 Basophils # 0.0 Nucleated Red Blood Cells # 0.0 Sodium Level 138 Potassium Level 3.3 L Chloride Level 103 Carbon Dioxide Level 28 Anion Gap 10 # Blood Urea Nitrogen 50 H Creatinine 4.29 H Glucose Level 84 Calcium Level 7.4 L Bedside Glucose 159 Medications Medications Current Medications Ondansetron HCl (Zofran Inj) 4 mg Q6H PRN IV NAUSEA AND/OR VOMITING Last administered on 05/16/17 17:24; Admin Dose 4 MG; Start 05/16/17 at 15:00 Acetaminophen (Tylenol Tab) 650 mg Q6H PRN PO PAIN LEVEL 1-3 OR FEVER Last administered on 05/19/17 09:35; Admin Dose 650 MG; Start 05/16/17 at 15:00 Acetaminophen/ Hydrocodone Bitart ([place] (5/325)) 1 tab Q6H PRN PO MODERATE PAIN LEVEL 4-6; Start 05/16/17 at 15:00 Morphine Sulfate (morphine) 2 mg Q4H PRN IV SEVERE PAIN LEVEL 7-10 Last administered on 05/17/17 20:57; Admin Dose 2 MG; Start 05/16/17 at 15:00 Docusate Sodium (Colace) 100 mg Q12H PRN PO CONSTIPATION; Start 05/16/17 at 15 :00 Magnesium Hydroxide (Milk Of Mag) 30 ml DAILY PRN PO CONSTIPATION; Start 05/16 at 15:00 Hydralazine HCl (Apresoline) 10 mg Q6H PRN IV ELEVATED BLOOD PRESSURE; Start 05/16/17 at 15:00 Clonidine (Catapres) 0.1 mg Q6H PRN PO ELEVATED BLOOD PRESSURE; Start at 15:00 Nitroglycerin (Nitroglycerin (Sl Tab) 0.4 Mg) 1 tab Q5M PRN SL ANGINA; Start 05/16/17 at 15:00 Fish Oil (Fish Oil) 1,000 mg DAILY PO Last administered on 05/21/17 08:01; Admin Dose 1,000 MG; Start 05/16/17 at 15:00 Atorvastatin Calcium (Lipitor) 80 mg HS PO Last administered on 05/21/17 20: 30; Admin Dose 80 MG; Start 05/16/17 at 21:00 Diagnostic Test (Pha) (Accu-Chek) 1 ea 02 XX Last administered on 05/20/17 02 :25; Admin Dose 1 EA; Start 05/17/17 at 02:00 Miscellaneous Information 1 ea NOTE XX ; Start 05/16/17 at 15:00 Glucose (Glutose) 15 gm Q15M PRN PO DECREASED GLUCOSE; Start 05/16/17 at 15:00 Glucose (Glutose) 22.5 gm Q15M PRN PO DECREASED GLUCOSE; Start 05/16/17 at 15: 00 Dextrose (D50w Syringe) 25 ml Q15M PRN IV DECREASED GLUCOSE; Start 05/16/17 at 15:00 Dextrose (D50w Syringe) 50 ml Q15M PRN IV DECREASED GLUCOSE; Start 05/16/17 at 15:00 Glucagon (Glucagen) 1 mg Q15M PRN IM DECREASED GLUCOSE; Start 05/16/17 at 15: 00 Glucose (Glutose) 15 gm Q15M PRN BUCCAL DECREASED GLUCOSE; Start 05/16/17 at 15:00 Carvedilol (Coreg) 6.25 mg BID PO Last administered on 05/21/17 20:30; Admin Dose 6.25 MG; Start 05/16/17 at 21:00 Aspirin (Ecotrin) 325 mg DAILY PO Last administered on 05/21/17 08:02; Admin Dose 325 MG; Start 05/18/17 at 09:00 Clopidogrel Bisulfate (plaVIX) 75 mg DAILY PO Last administered on 05/21/17 08:01; Admin Dose 75 MG; Start 05/18/17 at 09:00 Acetaminophen (Tylenol Tab) 650 mg Q4H PRN PO NON-CARDIAC PAIN LEVEL 1-3; Start 05/17/17 at 12:00 Oxycodone/ Acetaminophen (Percocet (5/ 325)) 1 tab Q4H PRN PO REPORTED NON- CARDIAC PAIN 4-7; Start 05/17/17 at 12:00 Morphine Sulfate (morphine) 1 mg Q1H PRN IV PAIN NOT RELIEVED BY OTHERS Last administered on 05/18/17 11:51; Admin Dose 1 MG; Start 05/17/17 at 12:00 Al Hydrox/Mg Hydrox/Simethicone (Mag-Al Plus) 30 ml Q4H PRN PO GASTROINTESTINAL UPSET; Start 05/17/17 at 12:00 Ondansetron HCl 4 mg 4 mg Q4H PRN IV NAUSEA AND/OR VOMITING Last administered on 05/20/17 03:00; Admin Dose 4 MG; Start 05/17/17 at 12:00 Levofloxacin/ Dextrose (Levaquin 250 Mg/ D5W 50 ml (Pmx)) 50 ml @ 50 mls/hr Q48H IVPB Last administered on 05/20/17 10:33; Admin Dose 50 MLS/HR; Start 05/20/17 at 11:00 Hydralazine HCl (Apresoline) 10 mg Q8 PO ; Start 05/19/17 at 14:00 Insulin Glargine (Lantus) 11 unit DAILY@08 SC Last administered on 05/22/17 08:17; Admin Dose 11 UNIT; Start 05/21/17 at 08:00 IV Flush (NS 10 ml) 10 ml PRN PRN IV IV PROTOCOL; Start 05/20/17 at 17:00 TONI MEIER MD May 22, 2017 09:02
[2017-05-22] MEDS: CLOPIDOGREL 75 MG TAB PO SCH ×2 (09:25→11:42)
[2017-05-22] MEDS: FISH OIL 1,000 MG CAP PO SCH (09:25)
[2017-05-22] MEDS: ASPIRIN (EC) 325 MG TAB PO SCH (09:25)
--- NOTE | 2017-05-22 10:12 | CONS ---
Date/Time of Note Date/Time of Note DATE: 05/22/17 TIME: 10:09 Assessment/Plan Assessment/Plan Chief Complaint/Hosp Course IMP: 1.Acute DE-trop>100 now POD#1 s/p ptca/stent x 2 to 100% occluded LCX and x 2 to high grade LAD stenosis and placement of IABP 2.CHF-likely systolic acute. EF 30-35% by echo yesterday 3.Renal failure 4.DM 5.Chest pain secondary to number 1. Now improved 6. Anemia 7.Dyslipidemia 8.Hyperkalemia Recc: -Tele -serial ecg's -Continue asa 325 and plavix 75 mg daily -Follow volume status closely on bumex with HD for volume removal -statin therapy -Continue abx's and f/u cx data -Continue low dose hydralazine aftrerload reduction in lieu of ACEI at this time given renal failure and BB as tolerated -Ok to transfer to tele Problems: Consultation Date/Type/Reason Admit Date/Time May 16, 2017 at 12:38 Initial Consult Date 05/17/17 Type of Consultation: cardiology Reason for Consultation Acute DE Referring Provider: RUPERT CARMONA Exam/Review of Systems Vital Signs Vitals Vital Signs Date Time Temp Pulse Resp B/P Pulse Ox O2 Delivery O2 Flow Rate FiO2 05/22/17 08:00 98.3 85 21 111/77 91 Room Air 05/22/17 01:51 2.0 05/19/17 01:59 27 Intake and Output 05/21/17 05/21/17 05/22/17 15:00 23:00 07:00 Intake Total 1360 ml 240 ml 240 ml Output Total 2015 ml 0 ml 125 ml Balance -655 ml 240 ml 115 ml Exam Review of Systems: CONSTITUTIONAL: No fevers, chills. PULMONARY: No sob CARDIOVASCULAR: No chest pain/palpitations GASTROINTESTINAL: No nausea/vomiting. GENITOURINARY: No hematuria/dysuria. MUSCULOSKELETAL: No myagias/arthalgias. PSYCHIATRIC: The patient denies depression. NEUROLOGIC: No weakness Constitutional: alert Psych: no complaints Head: normocephalic ENMT: mucosa pink and moist Neck: jvd (9 cm water), supple Respiratory: diminished breath sounds Cardiovascular: regular rate and rhythm Gastrointestinal: soft Musculoskeletal: muscle tone (normal) Extremities: edema (none) Neurological: other (No focal deficits) Results Result Diagram: 05/22/17 0448 05/22/17 0448 Results 24 hrs Laboratory Tests Test 05/21/17 11:09 05/21/17 17:07 05/21/17 20:26 05/22/17 04:48 Bedside Glucose 183 151 119 White Blood Count 10.4 Red Blood Count 3.09 L Hemoglobin 8.7 L Hematocrit 27.1 L Mean Corpuscular Volume 87.7 Mean Corpuscular Hemoglobin 28.2 L Mean Corpuscular Hemoglobin Concent 32.1 Red Cell Distribution Width 15.5 H Platelet Count 173 Mean Platelet Volume 12.2 H Neutrophils % 80.2 H Lymphocytes % 11.9 L Monocytes % 6.1 Eosinophils % 1.1 Basophils % 0.2 Nucleated Red Blood Cells % 0.0 Neutrophils # 8.4 H Lymphocytes # 1.2 Monocytes # 0.6 Eosinophils # 0.1 Basophils # 0.0 Nucleated Red Blood Cells # 0.0 Sodium Level 138 Potassium Level 3.3 L Chloride Level 103 Carbon Dioxide Level 28 Anion Gap 10 # Blood Urea Nitrogen 50 H Creatinine 4.29 H Glucose Level 84 Calcium Level 7.4 L Test 05/22/17 08:04 Bedside Glucose 159 Medications Medications Current Medications Ondansetron HCl (Zofran Inj) 4 mg Q6H PRN IV NAUSEA AND/OR VOMITING Last administered on 05/16/17 17:24; Admin Dose 4 MG; Start 05/16/17 at 15:00 Acetaminophen (Tylenol Tab) 650 mg Q6H PRN PO PAIN LEVEL 1-3 OR FEVER Last administered on 05/19/17 09:35; Admin Dose 650 MG; Start 05/16/17 at 15:00 Acetaminophen/ Hydrocodone Bitart ([place] (5/325)) 1 tab Q6H PRN PO MODERATE PAIN LEVEL 4-6; Start 05/16/17 at 15:00 Morphine Sulfate (morphine) 2 mg Q4H PRN IV SEVERE PAIN LEVEL 7-10 Last administered on 05/17/17 20:57; Admin Dose 2 MG; Start 05/16/17 at 15:00 Docusate Sodium (Colace) 100 mg Q12H PRN PO CONSTIPATION; Start 05/16/17 at 15 :00 Magnesium Hydroxide (Milk Of Mag) 30 ml DAILY PRN PO CONSTIPATION; Start 05/16 at 15:00 Hydralazine HCl (Apresoline) 10 mg Q6H PRN IV ELEVATED BLOOD PRESSURE; Start 05/16/17 at 15:00 Clonidine (Catapres) 0.1 mg Q6H PRN PO ELEVATED BLOOD PRESSURE; Start at 15:00 Nitroglycerin (Nitroglycerin (Sl Tab) 0.4 Mg) 1 tab Q5M PRN SL ANGINA; Start 05/16/17 at 15:00 Fish Oil (Fish Oil) 1,000 mg DAILY PO Last administered on 05/22/17 09:25; Admin Dose 1,000 MG; Start 05/16/17 at 15:00 Atorvastatin Calcium (Lipitor) 80 mg HS PO Last administered on 05/21/17 20: 30; Admin Dose 80 MG; Start 05/16/17 at 21:00 Diagnostic Test (Pha) (Accu-Chek) 1 ea 02 XX Last administered on 05/20/17 02 :25; Admin Dose 1 EA; Start 05/17/17 at 02:00 Miscellaneous Information 1 ea NOTE XX ; Start 05/16/17 at 15:00 Glucose (Glutose) 15 gm Q15M PRN PO DECREASED GLUCOSE; Start 05/16/17 at 15:00 Glucose (Glutose) 22.5 gm Q15M PRN PO DECREASED GLUCOSE; Start 05/16/17 at 15: 00 Dextrose (D50w Syringe) 25 ml Q15M PRN IV DECREASED GLUCOSE; Start 05/16/17 at 15:00 Dextrose (D50w Syringe) 50 ml Q15M PRN IV DECREASED GLUCOSE; Start 05/16/17 at 15:00 Glucagon (Glucagen) 1 mg Q15M PRN IM DECREASED GLUCOSE; Start 05/16/17 at 15: 00 Glucose (Glutose) 15 gm Q15M PRN BUCCAL DECREASED GLUCOSE; Start 05/16/17 at 15:00 Carvedilol (Coreg) 6.25 mg BID PO Last administered on 05/21/17 20:30; Admin Dose 6.25 MG; Start 05/16/17 at 21:00 Aspirin (Ecotrin) 325 mg DAILY PO Last administered on 05/22/17 09:25; Admin Dose 325 MG; Start 05/18/17 at 09:00 Clopidogrel Bisulfate (plaVIX) 75 mg DAILY PO Last administered on 05/22/17 09:25; Admin Dose 75 MG; Start 05/18/17 at 09:00 Acetaminophen (Tylenol Tab) 650 mg Q4H PRN PO NON-CARDIAC PAIN LEVEL 1-3; Start 05/17/17 at 12:00 Oxycodone/ Acetaminophen (Percocet (5/ 325)) 1 tab Q4H PRN PO REPORTED NON- CARDIAC PAIN 4-7; Start 05/17/17 at 12:00 Morphine Sulfate (morphine) 1 mg Q1H PRN IV PAIN NOT RELIEVED BY OTHERS Last administered on 05/18/17 11:51; Admin Dose 1 MG; Start 05/17/17 at 12:00 Al Hydrox/Mg Hydrox/Simethicone (Mag-Al Plus) 30 ml Q4H PRN PO GASTROINTESTINAL UPSET; Start 05/17/17 at 12:00 Ondansetron HCl 4 mg 4 mg Q4H PRN IV NAUSEA AND/OR VOMITING Last administered on 05/20/17 03:00; Admin Dose 4 MG; Start 05/17/17 at 12:00 Levofloxacin/ Dextrose (Levaquin 250 Mg/ D5W 50 ml (Pmx)) 50 ml @ 50 mls/hr Q48H IVPB Last administered on 05/20/17 10:33; Admin Dose 50 MLS/HR; Start 05/20/17 at 11:00 Hydralazine HCl (Apresoline) 10 mg Q8 PO ; Start 05/19/17 at 14:00 Insulin Glargine (Lantus) 11 unit DAILY@08 SC Last administered on 05/22/17 08:17; Admin Dose 11 UNIT; Start 05/21/17 at 08:00 IV Flush (NS 10 ml) 10 ml PRN PRN IV IV PROTOCOL; Start 05/20/17 at 17:00 RANDEE GAMBLE May 22, 2017 10:12
--- NOTE | 2017-05-22 10:35 | CONS ---
Date/Time of Note Date/Time of Note DATE: 05/22/17 TIME: 10:33 Assessment/Plan Assessment/Plan Additional Assessment/Plan Chest x-ray was reviewed from yesterday afternoon which is showing cardiomegaly with very minimal left lower lobe subsegmental atelectasis. Assessment and recommendations; 1. Patient admitted with acute ME and pulmonary edema status post coronary intervention with stenting of her vessels. 2. Renal failure now requiring hemodialysis. 3. Diabetes and hypertension. 4. Interval resolution of hypotension. 5. Mild anemia. 6. Possibly some element of minimal aspiration pneumonia with interval resolution. Continue current treatment. Discontinue Levaquin. Patient to be transferred to the medical floor. Consultation Date/Type/Reason Admit Date/Time May 16, 2017 at 12:38 Initial Consult Date 05/17/17 Type of Consultation: Pulmonary/critical care Referring Provider: RUPERT CARMONA 24 HR Interval Summary Free Text/Dictation Patient's condition is stable. Denies any shortness of breath, chest pain. General exam; middle-aged woman, awake alert, currently in no distress. Exam/Review of Systems Vital Signs Vitals Vital Signs Date Time Temp Pulse Resp B/P Pulse Ox O2 Delivery O2 Flow Rate FiO2 05/22/17 08:00 98.3 85 21 111/77 91 Room Air 05/22/17 01:51 2.0 05/19/17 01:59 27 Intake and Output 05/21/17 05/21/17 05/22/17 15:00 23:00 07:00 Intake Total 1360 ml 240 ml 240 ml Output Total 2015 ml 0 ml 125 ml Balance -655 ml 240 ml 115 ml Exam HEENT exam; supple neck, positive JVD. No lymphadenopathy. Midline trachea. No thyromegaly. Patient has fair dentition. Chest exam; diminished but clear breath sounds. S1-S2 audible, no murmurs. Regular rhythm. Abdomen exam; soft, nontender. No organomegaly. Bowel sounds audible. Extremity exam; no peripheral edema. Pulses 1+ bilaterally. CREDIT ASSISTANT exam; no focal deficit. Results Result Diagram: 05/22/17 0448 05/22/17 0448 Results 24 hrs Laboratory Tests Test 05/21/17 11:09 05/21/17 17:07 05/21/17 20:26 05/22/17 04:48 Bedside Glucose 183 151 119 White Blood Count 10.4 Red Blood Count 3.09 L Hemoglobin 8.7 L Hematocrit 27.1 L Mean Corpuscular Volume 87.7 Mean Corpuscular Hemoglobin 28.2 L Mean Corpuscular Hemoglobin Concent 32.1 Red Cell Distribution Width 15.5 H Platelet Count 173 Mean Platelet Volume 12.2 H Neutrophils % 80.2 H Lymphocytes % 11.9 L Monocytes % 6.1 Eosinophils % 1.1 Basophils % 0.2 Nucleated Red Blood Cells % 0.0 Neutrophils # 8.4 H Lymphocytes # 1.2 Monocytes # 0.6 Eosinophils # 0.1 Basophils # 0.0 Nucleated Red Blood Cells # 0.0 Sodium Level 138 Potassium Level 3.3 L Chloride Level 103 Carbon Dioxide Level 28 Anion Gap 10 # Blood Urea Nitrogen 50 H Creatinine 4.29 H Glucose Level 84 Calcium Level 7.4 L Test 05/22/17 08:04 Bedside Glucose 159 Medications Medications Current Medications Ondansetron HCl (Zofran Inj) 4 mg Q6H PRN IV NAUSEA AND/OR VOMITING Last administered on 05/16/17 17:24; Admin Dose 4 MG; Start 05/16/17 at 15:00 Acetaminophen (Tylenol Tab) 650 mg Q6H PRN PO PAIN LEVEL 1-3 OR FEVER Last administered on 05/19/17 09:35; Admin Dose 650 MG; Start 05/16/17 at 15:00 Acetaminophen/ Hydrocodone Bitart ([place] (5/325)) 1 tab Q6H PRN PO MODERATE PAIN LEVEL 4-6; Start 05/16/17 at 15:00 Morphine Sulfate (morphine) 2 mg Q4H PRN IV SEVERE PAIN LEVEL 7-10 Last administered on 05/17/17 20:57; Admin Dose 2 MG; Start 05/16/17 at 15:00 Docusate Sodium (Colace) 100 mg Q12H PRN PO CONSTIPATION; Start 05/16/17 at 15 :00 Magnesium Hydroxide (Milk Of Mag) 30 ml DAILY PRN PO CONSTIPATION; Start 05/16 at 15:00 Hydralazine HCl (Apresoline) 10 mg Q6H PRN IV ELEVATED BLOOD PRESSURE; Start 05/16/17 at 15:00 Clonidine (Catapres) 0.1 mg Q6H PRN PO ELEVATED BLOOD PRESSURE; Start at 15:00 Nitroglycerin (Nitroglycerin (Sl Tab) 0.4 Mg) 1 tab Q5M PRN SL ANGINA; Start 05/16/17 at 15:00 Fish Oil (Fish Oil) 1,000 mg DAILY PO Last administered on 05/22/17 09:25; Admin Dose 1,000 MG; Start 05/16/17 at 15:00 Atorvastatin Calcium (Lipitor) 80 mg HS PO Last administered on 05/21/17 20: 30; Admin Dose 80 MG; Start 05/16/17 at 21:00 Diagnostic Test (Pha) (Accu-Chek) 1 ea 02 XX Last administered on 05/20/17 02 :25; Admin Dose 1 EA; Start 05/17/17 at 02:00 Miscellaneous Information 1 ea NOTE XX ; Start 05/16/17 at 15:00 Glucose (Glutose) 15 gm Q15M PRN PO DECREASED GLUCOSE; Start 05/16/17 at 15:00 Glucose (Glutose) 22.5 gm Q15M PRN PO DECREASED GLUCOSE; Start 05/16/17 at 15: 00 Dextrose (D50w Syringe) 25 ml Q15M PRN IV DECREASED GLUCOSE; Start 05/16/17 at 15:00 Dextrose (D50w Syringe) 50 ml Q15M PRN IV DECREASED GLUCOSE; Start 05/16/17 at 15:00 Glucagon (Glucagen) 1 mg Q15M PRN IM DECREASED GLUCOSE; Start 05/16/17 at 15: 00 Glucose (Glutose) 15 gm Q15M PRN BUCCAL DECREASED GLUCOSE; Start 05/16/17 at 15:00 Carvedilol (Coreg) 6.25 mg BID PO Last administered on 05/21/17 20:30; Admin Dose 6.25 MG; Start 05/16/17 at 21:00 Aspirin (Ecotrin) 325 mg DAILY PO Last administered on 05/22/17 09:25; Admin Dose 325 MG; Start 05/18/17 at 09:00 Clopidogrel Bisulfate (plaVIX) 75 mg DAILY PO Last administered on 05/22/17 09:25; Admin Dose 75 MG; Start 05/18/17 at 09:00 Acetaminophen (Tylenol Tab) 650 mg Q4H PRN PO NON-CARDIAC PAIN LEVEL 1-3; Start 05/17/17 at 12:00 Oxycodone/ Acetaminophen (Percocet (5/ 325)) 1 tab Q4H PRN PO REPORTED NON- CARDIAC PAIN 4-7; Start 05/17/17 at 12:00 Morphine Sulfate (morphine) 1 mg Q1H PRN IV PAIN NOT RELIEVED BY OTHERS Last administered on 05/18/17 11:51; Admin Dose 1 MG; Start 05/17/17 at 12:00 Al Hydrox/Mg Hydrox/Simethicone (Mag-Al Plus) 30 ml Q4H PRN PO GASTROINTESTINAL UPSET; Start 05/17/17 at 12:00 Ondansetron HCl 4 mg 4 mg Q4H PRN IV NAUSEA AND/OR VOMITING Last administered on 05/20/17 03:00; Admin Dose 4 MG; Start 05/17/17 at 12:00 Levofloxacin/ Dextrose (Levaquin 250 Mg/ D5W 50 ml (Pmx)) 50 ml @ 50 mls/hr Q48H IVPB Last administered on 05/20/17 10:33; Admin Dose 50 MLS/HR; Start 05/20/17 at 11:00 Hydralazine HCl (Apresoline) 10 mg Q8 PO ; Start 05/19/17 at 14:00 Insulin Glargine (Lantus) 11 unit DAILY@08 SC Last administered on 05/22/17 08:17; Admin Dose 11 UNIT; Start 05/21/17 at 08:00 IV Flush (NS 10 ml) 10 ml PRN PRN IV IV PROTOCOL; Start 05/20/17 at 17:00 CHANDRIKA ZHANG May 22, 2017 10:35
[2017-05-22] MEDS: BUMETANIDE 1 MG INJ IV SCH ×2 (11:42→17:29)
--- NOTE | 2017-05-22 16:31 | PN ---
Date/Time of Note Date/Time of Note DATE: 05/22/17 TIME: 16:29 Assessment/Plan VTE Prophylaxis VTE Prophylaxis Intervention: SCD's Lines/Catheters IV Catheter Type (from Nrsg): bi cath Central line still needed: Yes Urinary Cath still in place: Yes Reason Cath still needed: other (indicate) (will dc) Assessment/Plan Assessment/Plan 57 yo F presented with chest pain found to have NSTEMI. sp LHC 10.11 with multiple PCIs, IABP placement-->IABP removed 10.. Hospitalization also notable for JOSE ALBERTO on CKD. plan cont CAD meds with DAPT, cholesterol meds, BP meds cont DM control for JOSE ALBERTO on CKD, PRN HD as per renal. UOP good abx stopped as no clear evidence of pna Subjective 24 Hr Interval Summary Free Text/Dictation Comfortable, no complaints Exam/Review of Systems Vital Signs Vitals Vital Signs Date Time Temp Pulse Resp B/P Pulse Ox O2 Delivery O2 Flow Rate FiO2 05/22/17 15:04 82 05/22/17 15:00 22 116/74 97 Room Air 05/22/17 13:27 2.0 05/22/17 12:00 98.2 05/19/17 01:59 27 Intake and Output 05/21/17 05/21/17 05/22/17 15:00 23:00 07:00 Intake Total 1360 ml 240 ml 240 ml Output Total 2015 ml 0 ml 125 ml Balance -655 ml 240 ml 115 ml Exam nad no mrg lungs clear abd soft no rashes Results Result Diagram: 05/22/17 0448 05/22/17 0448 Results 24 hrs Laboratory Tests Test 05/21/17 17:07 05/21/17 20:26 05/22/17 04:48 05/22/17 08:04 Bedside Glucose 151 119 159 White Blood Count 10.4 Red Blood Count 3.09 L Hemoglobin 8.7 L Hematocrit 27.1 L Mean Corpuscular Volume 87.7 Mean Corpuscular Hemoglobin 28.2 L Mean Corpuscular Hemoglobin Concent 32.1 Red Cell Distribution Width 15.5 H Platelet Count 173 Mean Platelet Volume 12.2 H Neutrophils % 80.2 H Lymphocytes % 11.9 L Monocytes % 6.1 Eosinophils % 1.1 Basophils % 0.2 Nucleated Red Blood Cells % 0.0 Neutrophils # 8.4 H Lymphocytes # 1.2 Monocytes # 0.6 Eosinophils # 0.1 Basophils # 0.0 Nucleated Red Blood Cells # 0.0 Sodium Level 138 Potassium Level 3.3 L Chloride Level 103 Carbon Dioxide Level 28 Anion Gap 10 # Blood Urea Nitrogen 50 H Creatinine 4.29 H Glucose Level 84 Calcium Level 7.4 L Test 05/22/17 11:48 Bedside Glucose 163 Medications Medications Current Medications Ondansetron HCl (Zofran Inj) 4 mg Q6H PRN IV NAUSEA AND/OR VOMITING Last administered on 05/16/17 17:24; Admin Dose 4 MG; Start 05/16/17 at 15:00 Acetaminophen (Tylenol Tab) 650 mg Q6H PRN PO PAIN LEVEL 1-3 OR FEVER Last administered on 05/19/17 09:35; Admin Dose 650 MG; Start 05/16/17 at 15:00 Acetaminophen/ Hydrocodone Bitart ([place] (5/325)) 1 tab Q6H PRN PO MODERATE PAIN LEVEL 4-6; Start 05/16/17 at 15:00 Morphine Sulfate (morphine) 2 mg Q4H PRN IV SEVERE PAIN LEVEL 7-10 Last administered on 05/17/17 20:57; Admin Dose 2 MG; Start 05/16/17 at 15:00 Docusate Sodium (Colace) 100 mg Q12H PRN PO CONSTIPATION; Start 05/16/17 at 15 :00 Magnesium Hydroxide (Milk Of Mag) 30 ml DAILY PRN PO CONSTIPATION; Start 05/16 at 15:00 Hydralazine HCl (Apresoline) 10 mg Q6H PRN IV ELEVATED BLOOD PRESSURE; Start 05/16/17 at 15:00 Clonidine (Catapres) 0.1 mg Q6H PRN PO ELEVATED BLOOD PRESSURE; Start at 15:00 Nitroglycerin (Nitroglycerin (Sl Tab) 0.4 Mg) 1 tab Q5M PRN SL ANGINA; Start 05/16/17 at 15:00 Fish Oil (Fish Oil) 1,000 mg DAILY PO Last administered on 05/22/17 09:25; Admin Dose 1,000 MG; Start 05/16/17 at 15:00 Atorvastatin Calcium (Lipitor) 80 mg HS PO Last administered on 05/21/17 20: 30; Admin Dose 80 MG; Start 05/16/17 at 21:00 Diagnostic Test (Pha) (Accu-Chek) 1 ea 02 XX Last administered on 05/20/17 02 :25; Admin Dose 1 EA; Start 05/17/17 at 02:00 Miscellaneous Information 1 ea NOTE XX ; Start 05/16/17 at 15:00 Glucose (Glutose) 15 gm Q15M PRN PO DECREASED GLUCOSE; Start 05/16/17 at 15:00 Glucose (Glutose) 22.5 gm Q15M PRN PO DECREASED GLUCOSE; Start 05/16/17 at 15: 00 Dextrose (D50w Syringe) 25 ml Q15M PRN IV DECREASED GLUCOSE; Start 05/16/17 at 15:00 Dextrose (D50w Syringe) 50 ml Q15M PRN IV DECREASED GLUCOSE; Start 05/16/17 at 15:00 Glucagon (Glucagen) 1 mg Q15M PRN IM DECREASED GLUCOSE; Start 05/16/17 at 15: 00 Glucose (Glutose) 15 gm Q15M PRN BUCCAL DECREASED GLUCOSE; Start 05/16/17 at 15:00 Carvedilol (Coreg) 6.25 mg BID PO Last administered on 05/22/17 11:43; Admin Dose 6.25 MG; Start 05/16/17 at 21:00 Aspirin (Ecotrin) 325 mg DAILY PO Last administered on 05/22/17 09:25; Admin Dose 325 MG; Start 05/18/17 at 09:00 Clopidogrel Bisulfate (plaVIX) 75 mg DAILY PO Last administered on 05/22/17 11:42; Admin Dose 75 MG; Start 05/18/17 at 09:00 Acetaminophen (Tylenol Tab) 650 mg Q4H PRN PO NON-CARDIAC PAIN LEVEL 1-3; Start 05/17/17 at 12:00 Oxycodone/ Acetaminophen (Percocet (5/ 325)) 1 tab Q4H PRN PO REPORTED NON- CARDIAC PAIN 4-7; Start 05/17/17 at 12:00 Morphine Sulfate (morphine) 1 mg Q1H PRN IV PAIN NOT RELIEVED BY OTHERS Last administered on 05/18/17 11:51; Admin Dose 1 MG; Start 05/17/17 at 12:00 Al Hydrox/Mg Hydrox/Simethicone (Mag-Al Plus) 30 ml Q4H PRN PO GASTROINTESTINAL UPSET; Start 05/17/17 at 12:00 Ondansetron HCl (Zofran Inj) 4 mg Q4H PRN IV NAUSEA AND/OR VOMITING Last administered on 05/20/17 03:00; Admin Dose 4 MG; Start 05/17/17 at 12:00 Hydralazine HCl (Apresoline) 10 mg Q8 PO Last administered on 05/22/17 14:51 ; Admin Dose 10 MG; Start 05/19/17 at 14:00 Insulin Glargine (Lantus) 11 unit DAILY@08 SC Last administered on 05/22/17 08:17; Admin Dose 11 UNIT; Start 05/21/17 at 08:00 IV Flush (NS 10 ml) 10 ml PRN PRN IV IV PROTOCOL; Start 05/20/17 at 17:00 LINH FREEMAN MD May 22, 2017 16:31
[2017-05-22] MEDS: ATORVASTATIN 80 MG TAB PO SCH (21:26)
[2017-05-23] VITALS (17 sets, daily range): BP systolic 100–128; BP diastolic 61–85; PULSE 69–76; RESP 13–26
[2017-05-23] MEDS: ACCU-CHEK XX SCH (02:00)
[2017-05-23] MEDS: BUMETANIDE 1 MG INJ IV SCH ×2 (05:41→18:01)
[2017-05-23 05:57] LABS: BASOPHILS % 0.2 % (0.0-2.0); EOSINOPHILS # 0.2 10^3/ul (0.0-0.5); EOSINOPHILS % 1.9 % (0.0-7.0); HEMATOCRIT 29.1 % (37.0-47.0); HEMOGLOBIN 9.5 g/dl (12.0-16.0); LYMPHOCYTES # 1.5 10^3/ul (0.8-2.9); LYMPHOCYTES % 14.2 % (15.0-51.0); MEAN CORPUSCULAR HEMOGLOBIN 28.6 pg (29.0-33.0); MEAN CORPUSCULAR HGB CONC 32.6 g/dl (32.0-37.0); MEAN CORPUSCULAR VOLUME 87.7 fl (82.0-101.0); MEAN PLATELET VOLUME 11.6 fl (7.4-10.4); MONOCYTE # 0.9 10^3/ul (0.3-0.9); MONOCYTES % 8.4 % (0.0-11.0); NEUTROPHIL # 7.7 10^3/ul (1.6-7.5); NEUTROPHILS % 74.6 % (39.0-77.0); PLATELET COUNT 202 10^3/UL (140-415); RED BLOOD COUNT 3.32 10^6/ul (4.20-5.40); RED CELL DISTRIBUTION WIDTH 15.1 % (11.5-14.5); WHITE BLOOD COUNT 10.2 10^3/ul (4.8-10.8)
[2017-05-23 06:43] LABS: CALCIUM 7.9 mg/dl (8.4-10.2); CREATININE 3.65 mg/dl (0.44-1.00); POTASSIUM 3.4 mmol/L (3.5-5.1)
[2017-05-23] MEDS: INSULIN ASPART [NOVOLOG] 3 ML PEN SC SCH ×7 (08:08→21:56)
[2017-05-23] MEDS: ASPIRIN (EC) 325 MG TAB PO SCH (08:09)
[2017-05-23] MEDS: FISH OIL 1,000 MG CAP PO SCH (08:09)
[2017-05-23] MEDS: INSULIN GLARGINE [LANtus] 3 ML PEN SC SCH (08:17)
[2017-05-23] MEDS ORDERED: POTASSIUM CHLORIDE (SR) 20 MEQ TAB PO STA (08:25)
--- NOTE | 2017-05-23 08:54 | CONS ---
Date/Time of Note Date/Time of Note DATE: 05/23/17 TIME: 08:50 Assessment/Plan Assessment/Plan Chief Complaint/Hosp Course A/P 1. Acute kidney injury likely due to combination of acute myocardial infarction trop>100 s/p ptca/stent x 2 to 100% occluded LCX and x 2 to high grade LAD stenosis +contrast nephropathy with Angiogram with CT contrast chest and hemodynamic instability.Pt was s/p balloon pump 2. Oliguric ATN 3. CHF-likely systolic acute. EF 30-35% 4. diabetes mellitus 5 hypertension. 6 Metabolic acidosis due to renal failure 7 Likely diabetic nephropathy on admission Cr was 1.14 8 Leukocytosis 9 Anemia Plan - UOP documented 20-25 cc per 2 hrs, Rubalcava was removed yesterday - c/w Bumex 1 mg bid - Hold of for HD today and monitor for renal recovery - Will assess daily for HD needs - gentle K repletion today - Strict I and O - c/w ASA/Plavix/Coreg/statin per cards - c/w hold AMANDA due to renal failure - monitor uop closely - Labs am Problems: Consultation Date/Type/Reason Admit Date/Time May 16, 2017 at 12:38 Initial Consult Date 05/17/17 Type of Consultation: Pulmonary/critical care Referring Provider: RUPERT CARMONA 24 HR Interval Summary Free Text/Dictation S/P HD yesterday with removal of 500 ml Started on Bumex 1 mg bid UOP documented 20-25 cc every 2 hrs Exam/Review of Systems Vital Signs Vitals Vital Signs Date Time Temp Pulse Resp B/P Pulse Ox O2 Delivery O2 Flow Rate FiO2 05/23/17 08:00 98.0 74 20 125/77 96 Nasal Cannula 2.0 Intake and Output 05/22/17 05/22/17 05/23/17 15:00 23:00 07:00 Intake Total 880 ml 390 ml 60 ml Output Total 1335 ml 65 ml 80 ml Balance -455 ml 325 ml -20 ml Exam Gen: awake and alert 'Neck: supple Respiratory: decreased breath sounds b/l Cardiovascular: regular rate and rhythm Gastrointestinal: bowel sounds (+), soft Extremities: edema (+) Access: Left bi Results Result Diagram: 05/23/17 0435 05/23/17 0435 Results 24 hrs Laboratory Tests Test 05/22/17 11:48 05/22/17 16:49 05/22/17 21:35 05/23/17 04:35 Bedside Glucose 163 106 84 White Blood Count 10.2 Red Blood Count 3.32 L Hemoglobin 9.5 L Hematocrit 29.1 L Mean Corpuscular Volume 87.7 Mean Corpuscular Hemoglobin 28.6 L Mean Corpuscular Hemoglobin Concent 32.6 Red Cell Distribution Width 15.1 H Platelet Count 202 Mean Platelet Volume 11.6 H Neutrophils % 74.6 Lymphocytes % 14.2 L Monocytes % 8.4 Eosinophils % 1.9 Basophils % 0.2 Nucleated Red Blood Cells % 0.0 Neutrophils # 7.7 H Lymphocytes # 1.5 Monocytes # 0.9 Eosinophils # 0.2 Basophils # 0.0 Nucleated Red Blood Cells # 0.0 Sodium Level 134 L Potassium Level 3.4 L Chloride Level 100 Carbon Dioxide Level 28 Anion Gap 9 Blood Urea Nitrogen 42 H Creatinine 3.65 H Glucose Level 76 Calcium Level 7.9 L Test 05/23/17 08:02 Bedside Glucose 93 Medications Medications Current Medications Ondansetron HCl (Zofran Inj) 4 mg Q6H PRN IV NAUSEA AND/OR VOMITING Last administered on 05/16/17 17:24; Admin Dose 4 MG; Start 05/16/17 at 15:00 Acetaminophen (Tylenol Tab) 650 mg Q6H PRN PO PAIN LEVEL 1-3 OR FEVER Last administered on 05/19/17 09:35; Admin Dose 650 MG; Start 05/16/17 at 15:00 Acetaminophen/ Hydrocodone Bitart ([place] (5/325)) 1 tab Q6H PRN PO MODERATE PAIN LEVEL 4-6; Start 05/16/17 at 15:00 Morphine Sulfate (morphine) 2 mg Q4H PRN IV SEVERE PAIN LEVEL 7-10 Last administered on 05/17/17 20:57; Admin Dose 2 MG; Start 05/16/17 at 15:00 Docusate Sodium (Colace) 100 mg Q12H PRN PO CONSTIPATION; Start 05/16/17 at 15 :00 Magnesium Hydroxide (Milk Of Mag) 30 ml DAILY PRN PO CONSTIPATION; Start 05/16 at 15:00 Hydralazine HCl (Apresoline) 10 mg Q6H PRN IV ELEVATED BLOOD PRESSURE; Start 05/16/17 at 15:00 Clonidine (Catapres) 0.1 mg Q6H PRN PO ELEVATED BLOOD PRESSURE; Start at 15:00 Nitroglycerin (Nitroglycerin (Sl Tab) 0.4 Mg) 1 tab Q5M PRN SL ANGINA; Start 05/16/17 at 15:00 Fish Oil (Fish Oil) 1,000 mg DAILY PO Last administered on 05/23/17 08:09; Admin Dose 1,000 MG; Start 05/16/17 at 15:00 Atorvastatin Calcium (Lipitor) 80 mg HS PO Last administered on 05/22/17 21: 26; Admin Dose 80 MG; Start 05/16/17 at 21:00 Diagnostic Test (Pha) (Accu-Chek) 1 ea 02 XX Last administered on 05/20/17 02 :25; Admin Dose 1 EA; Start 05/17/17 at 02:00 Miscellaneous Information 1 ea NOTE XX ; Start 05/16/17 at 15:00 Glucose (Glutose) 15 gm Q15M PRN PO DECREASED GLUCOSE; Start 05/16/17 at 15:00 Glucose (Glutose) 22.5 gm Q15M PRN PO DECREASED GLUCOSE; Start 05/16/17 at 15: 00 Dextrose (D50w Syringe) 25 ml Q15M PRN IV DECREASED GLUCOSE; Start 05/16/17 at 15:00 Dextrose (D50w Syringe) 50 ml Q15M PRN IV DECREASED GLUCOSE; Start 05/16/17 at 15:00 Glucagon (Glucagen) 1 mg Q15M PRN IM DECREASED GLUCOSE; Start 05/16/17 at 15: 00 Glucose (Glutose) 15 gm Q15M PRN BUCCAL DECREASED GLUCOSE; Start 05/16/17 at 15:00 Carvedilol (Coreg) 6.25 mg BID PO Last administered on 05/23/17 08:09; Admin Dose 6.25 MG; Start 05/16/17 at 21:00 Aspirin (Ecotrin) 325 mg DAILY PO Last administered on 05/23/17 08:09; Admin Dose 325 MG; Start 05/18/17 at 09:00 Clopidogrel Bisulfate (plaVIX) 75 mg DAILY PO Last administered on 05/22/17 11:42; Admin Dose 75 MG; Start 05/18/17 at 09:00 Acetaminophen (Tylenol Tab) 650 mg Q4H PRN PO NON-CARDIAC PAIN LEVEL 1-3; Start 05/17/17 at 12:00 Oxycodone/ Acetaminophen (Percocet (5/ 325)) 1 tab Q4H PRN PO REPORTED NON- CARDIAC PAIN 4-7; Start 05/17/17 at 12:00 Morphine Sulfate (morphine) 1 mg Q1H PRN IV PAIN NOT RELIEVED BY OTHERS Last administered on 05/18/17 11:51; Admin Dose 1 MG; Start 05/17/17 at 12:00 Al Hydrox/Mg Hydrox/Simethicone (Mag-Al Plus) 30 ml Q4H PRN PO GASTROINTESTINAL UPSET; Start 05/17/17 at 12:00 Ondansetron HCl (Zofran Inj) 4 mg Q4H PRN IV NAUSEA AND/OR VOMITING Last administered on 05/20/17 03:00; Admin Dose 4 MG; Start 05/17/17 at 12:00 Hydralazine HCl (Apresoline) 10 mg Q8 PO Last administered on 05/23/17 05:41 ; Admin Dose 10 MG; Start 05/19/17 at 14:00 Insulin Glargine (Lantus) 11 unit DAILY@08 SC Last administered on 05/23/17 08:17; Admin Dose 11 UNIT; Start 05/21/17 at 08:00 IV Flush (NS 10 ml) 10 ml PRN PRN IV IV PROTOCOL; Start 05/20/17 at 17:00 TONI MEIER MD May 23, 2017 08:54
--- NOTE | 2017-05-23 08:58 | PN ---
Date/Time of Note Date/Time of Note DATE: 05/23/17 TIME: 08:57 Assessment/Plan VTE Prophylaxis VTE Prophylaxis Intervention: SCD's Lines/Catheters IV Catheter Type (from Nrs): Sam cath Urinary Cath still in place: No Assessment/Plan Assessment/Plan 57 yo F presented with chest pain found to have NSTEMI. sp C 10.11 with multiple PCIs, IABP placement-->IABP removed 10.. Hospitalization also notable for JOSE ALBERTO on CKD. plan cont CAD meds with DAPT, cholesterol meds, BP meds cont DM control for JOSE ALBERTO on CKD, PRN HD as per renal. UOP good Subjective 24 Hr Interval Summary Free Text/Dictation no complaints, denies SOB Exam/Review of Systems Vital Signs Vitals Vital Signs Date Time Temp Pulse Resp B/P Pulse Ox O2 Delivery O2 Flow Rate FiO2 05/23/17 08:00 98.0 74 20 125/77 96 Nasal Cannula 2.0 Intake and Output 05/22/17 05/22/17 05/23/17 15:00 23:00 07:00 Intake Total 880 ml 390 ml 60 ml Output Total 1335 ml 65 ml 80 ml Balance -455 ml 325 ml -20 ml Exam nad no mrg lungs with improved aeration of bases compared to yesterday abd soft no rashes Results Result Diagram: 05/23/17 0435 05/23/17 0435 Results 24 hrs Laboratory Tests Test 05/22/17 11:48 05/22/17 16:49 05/22/17 21:35 05/23/17 04:35 Bedside Glucose 163 106 84 White Blood Count 10.2 Red Blood Count 3.32 L Hemoglobin 9.5 L Hematocrit 29.1 L Mean Corpuscular Volume 87.7 Mean Corpuscular Hemoglobin 28.6 L Mean Corpuscular Hemoglobin Concent 32.6 Red Cell Distribution Width 15.1 H Platelet Count 202 Mean Platelet Volume 11.6 H Neutrophils % 74.6 Lymphocytes % 14.2 L Monocytes % 8.4 Eosinophils % 1.9 Basophils % 0.2 Nucleated Red Blood Cells % 0.0 Neutrophils # 7.7 H Lymphocytes # 1.5 Monocytes # 0.9 Eosinophils # 0.2 Basophils # 0.0 Nucleated Red Blood Cells # 0.0 Sodium Level 134 L Potassium Level 3.4 L Chloride Level 100 Carbon Dioxide Level 28 Anion Gap 9 Blood Urea Nitrogen 42 H Creatinine 3.65 H Glucose Level 76 Calcium Level 7.9 L Test 05/23/17 08:02 Bedside Glucose 93 Medications Medications Current Medications Ondansetron HCl (Zofran Inj) 4 mg Q6H PRN IV NAUSEA AND/OR VOMITING Last administered on 05/16/17 17:24; Admin Dose 4 MG; Start 05/16/17 at 15:00 Acetaminophen (Tylenol Tab) 650 mg Q6H PRN PO PAIN LEVEL 1-3 OR FEVER Last administered on 05/19/17 09:35; Admin Dose 650 MG; Start 05/16/17 at 15:00 Acetaminophen/ Hydrocodone Bitart ([place] (5/325)) 1 tab Q6H PRN PO MODERATE PAIN LEVEL 4-6; Start 05/16/17 at 15:00 Morphine Sulfate (morphine) 2 mg Q4H PRN IV SEVERE PAIN LEVEL 7-10 Last administered on 05/17/17 20:57; Admin Dose 2 MG; Start 05/16/17 at 15:00 Docusate Sodium (Colace) 100 mg Q12H PRN PO CONSTIPATION; Start 05/16/17 at 15 :00 Magnesium Hydroxide (Milk Of Mag) 30 ml DAILY PRN PO CONSTIPATION; Start 05/16 at 15:00 Hydralazine HCl (Apresoline) 10 mg Q6H PRN IV ELEVATED BLOOD PRESSURE; Start 05/16/17 at 15:00 Clonidine (Catapres) 0.1 mg Q6H PRN PO ELEVATED BLOOD PRESSURE; Start at 15:00 Nitroglycerin (Nitroglycerin (Sl Tab) 0.4 Mg) 1 tab Q5M PRN SL ANGINA; Start 05/16/17 at 15:00 Fish Oil (Fish Oil) 1,000 mg DAILY PO Last administered on 05/23/17 08:09; Admin Dose 1,000 MG; Start 05/16/17 at 15:00 Atorvastatin Calcium (Lipitor) 80 mg HS PO Last administered on 05/22/17 21: 26; Admin Dose 80 MG; Start 05/16/17 at 21:00 Diagnostic Test (Pha) (Accu-Chek) 1 ea 02 XX Last administered on 05/20/17 02 :25; Admin Dose 1 EA; Start 05/17/17 at 02:00 Miscellaneous Information 1 ea NOTE XX ; Start 05/16/17 at 15:00 Glucose (Glutose) 15 gm Q15M PRN PO DECREASED GLUCOSE; Start 05/16/17 at 15:00 Glucose (Glutose) 22.5 gm Q15M PRN PO DECREASED GLUCOSE; Start 05/16/17 at 15: 00 Dextrose (D50w Syringe) 25 ml Q15M PRN IV DECREASED GLUCOSE; Start 05/16/17 at 15:00 Dextrose (D50w Syringe) 50 ml Q15M PRN IV DECREASED GLUCOSE; Start 05/16/17 at 15:00 Glucagon (Glucagen) 1 mg Q15M PRN IM DECREASED GLUCOSE; Start 05/16/17 at 15: 00 Glucose (Glutose) 15 gm Q15M PRN BUCCAL DECREASED GLUCOSE; Start 05/16/17 at 15:00 Carvedilol (Coreg) 6.25 mg BID PO Last administered on 05/23/17 08:09; Admin Dose 6.25 MG; Start 05/16/17 at 21:00 Aspirin (Ecotrin) 325 mg DAILY PO Last administered on 05/23/17 08:09; Admin Dose 325 MG; Start 05/18/17 at 09:00 Clopidogrel Bisulfate (plaVIX) 75 mg DAILY PO Last administered on 05/22/17 11:42; Admin Dose 75 MG; Start 05/18/17 at 09:00 Acetaminophen (Tylenol Tab) 650 mg Q4H PRN PO NON-CARDIAC PAIN LEVEL 1-3; Start 05/17/17 at 12:00 Oxycodone/ Acetaminophen (Percocet (5/ 325)) 1 tab Q4H PRN PO REPORTED NON- CARDIAC PAIN 4-7; Start 05/17/17 at 12:00 Morphine Sulfate (morphine) 1 mg Q1H PRN IV PAIN NOT RELIEVED BY OTHERS Last administered on 05/18/17 11:51; Admin Dose 1 MG; Start 05/17/17 at 12:00 Al Hydrox/Mg Hydrox/Simethicone (Mag-Al Plus) 30 ml Q4H PRN PO GASTROINTESTINAL UPSET; Start 05/17/17 at 12:00 Ondansetron HCl (Zofran Inj) 4 mg Q4H PRN IV NAUSEA AND/OR VOMITING Last administered on 05/20/17 03:00; Admin Dose 4 MG; Start 05/17/17 at 12:00 Hydralazine HCl (Apresoline) 10 mg Q8 PO Last administered on 05/23/17t 05:41 ; Admin Dose 10 MG; Start 05/19/17 at 14:00 Insulin Glargine (Lantus) 11 unit DAILY@08 SC Last administered on 05/23/17 08:17; Admin Dose 11 UNIT; Start 05/21/17 at 08:00 IV Flush (NS 10 ml) 10 ml PRN PRN IV IV PROTOCOL; Start 05/20/17 at 17:00 LINH FREEMAN MD May 23, 2017 08:58
--- NOTE | 2017-05-23 09:01 | CONS ---
Date/Time of Note Date/Time of Note DATE: 05/23/17 TIME: 08:59 Assessment/Plan Assessment/Plan Additional Assessment/Plan 1.Acute FL-trop>100 s/p ptca/stent x 2 to 100% occluded LCX and x 2 to high grade LAD stenosis - s/p IABP removed - BP stable - much better s/p HD. Overall much better. 2.CHF-likely systolic acute. EF 30-35% by echo yesterday- con't to remove fluid as tolerated. Improved fluid status. 3.Renal failure - HD now. DRt. Doyle follows. 4.DM - on meds, keep euglycemic. 5.Chest pain secondary to number 1. Now improved - med rx now. 6. Anemia - no bleeding - d/c heparin gtt now. 7.Dyslipidemia 8.Hyperkalemia Consultation Date/Type/Reason Admit Date/Time May 16, 2017 at 12:38 Initial Consult Date 05/17/17 Type of Consultation: Pulmonary/critical care Referring Provider: RUPERT CARMONA 24 HR Interval Summary Free Text/Dictation NO acute events - much better overall-will monitor clinically. ROS: No fever, no chills, no nausea, no vomiting, no diarrhea/constipation No recent weight changes No chest pain, no PND, no orthopnea No dizziness, blurred vision No thirst, no heat or cold intolerance Exam/Review of Systems Vital Signs Vitals Vital Signs Date Time Temp Pulse Resp B/P Pulse Ox O2 Delivery O2 Flow Rate FiO2 05/23/17 08:00 98.0 74 20 125/77 96 Nasal Cannula 2.0 Intake and Output 05/22/17 05/22/17 05/23/17 15:00 23:00 07:00 Intake Total 880 ml 390 ml 60 ml Output Total 1335 ml 65 ml 80 ml Balance -455 ml 325 ml -20 ml Exam General: WN/WD/NAD, AOx 3 HEENT: Unicetric/atraumatic/EOMI (follows commands) NECK: JVD elevated, no thyromegaly Lymph: no lymphadenopathy HEART: regular with no S3, II/ systolic murmur at apex LUNGS: Coarse sounds ABD: soft, NT, ND, +BS : Intact Neuro: non focal SKIN: chronic changes EXT: trace edema Results Result Diagram: 05/23/1743405/23/17434 Results 24 hrs Laboratory Tests Test 05/22/17 11:48 05/22/17 16:49 05/22/17 21:35 05/23/17 04:35 Bedside Glucose 163 106 84 White Blood Count 10.2 Red Blood Count 3.32 L Hemoglobin 9.5 L Hematocrit 29.1 L Mean Corpuscular Volume 87.7 Mean Corpuscular Hemoglobin 28.6 L Mean Corpuscular Hemoglobin Concent 32.6 Red Cell Distribution Width 15.1 H Platelet Count 202 Mean Platelet Volume 11.6 H Neutrophils % 74.6 Lymphocytes % 14.2 L Monocytes % 8.4 Eosinophils % 1.9 Basophils % 0.2 Nucleated Red Blood Cells % 0.0 Neutrophils # 7.7 H Lymphocytes # 1.5 Monocytes # 0.9 Eosinophils # 0.2 Basophils # 0.0 Nucleated Red Blood Cells # 0.0 Sodium Level 134 L Potassium Level 3.4 L Chloride Level 100 Carbon Dioxide Level 28 Anion Gap 9 Blood Urea Nitrogen 42 H Creatinine 3.65 H Glucose Level 76 Calcium Level 7.9 L Test 05/23/17 08:02 Bedside Glucose 93 Medications Medications Current Medications Ondansetron HCl (Zofran Inj) 4 mg Q6H PRN IV NAUSEA AND/OR VOMITING Last administered on 05/16/17 17:24; Admin Dose 4 MG; Start 05/16/17 at 15:00 Acetaminophen (Tylenol Tab) 650 mg Q6H PRN PO PAIN LEVEL 1-3 OR FEVER Last administered on 05/19/17 09:35; Admin Dose 650 MG; Start 05/16/17 at 15:00 Acetaminophen/ Hydrocodone Bitart ([place] (5/325)) 1 tab Q6H PRN PO MODERATE PAIN LEVEL 4-6; Start 05/16/17 at 15:00 Morphine Sulfate (morphine) 2 mg Q4H PRN IV SEVERE PAIN LEVEL 7-10 Last administered on 05/17/17 20:57; Admin Dose 2 MG; Start 05/16/17 at 15:00 Docusate Sodium (Colace) 100 mg Q12H PRN PO CONSTIPATION; Start 05/16/17 at 15 :00 Magnesium Hydroxide (Milk Of Mag) 30 ml DAILY PRN PO CONSTIPATION; Start 05/16 at 15:00 Hydralazine HCl (Apresoline) 10 mg Q6H PRN IV ELEVATED BLOOD PRESSURE; Start 05/16/17 at 15:00 Clonidine (Catapres) 0.1 mg Q6H PRN PO ELEVATED BLOOD PRESSURE; Start at 15:00 Nitroglycerin (Nitroglycerin (Sl Tab) 0.4 Mg) 1 tab Q5M PRN SL ANGINA; Start 05/16/17 at 15:00 Fish Oil (Fish Oil) 1,000 mg DAILY PO Last administered on 05/23/17 08:09; Admin Dose 1,000 MG; Start 05/16/17 at 15:00 Atorvastatin Calcium (Lipitor) 80 mg HS PO Last administered on 05/22/17 21: 26; Admin Dose 80 MG; Start 05/16/17 at 21:00 Diagnostic Test (Pha) (Accu-Chek) 1 ea 02 XX Last administered on 05/20/17 02 :25; Admin Dose 1 EA; Start 05/17/17 at 02:00 Miscellaneous Information 1 ea NOTE XX ; Start 05/16/17 at 15:00 Glucose (Glutose) 15 gm Q15M PRN PO DECREASED GLUCOSE; Start 05/16/17 at 15:00 Glucose (Glutose) 22.5 gm Q15M PRN PO DECREASED GLUCOSE; Start 05/16/17 at 15: 00 Dextrose (D50w Syringe) 25 ml Q15M PRN IV DECREASED GLUCOSE; Start 05/16/17 at 15:00 Dextrose (D50w Syringe) 50 ml Q15M PRN IV DECREASED GLUCOSE; Start 05/16/17 at 15:00 Glucagon (Glucagen) 1 mg Q15M PRN IM DECREASED GLUCOSE; Start 05/16/17 at 15: 00 Glucose (Glutose) 15 gm Q15M PRN BUCCAL DECREASED GLUCOSE; Start 05/16/17 at 15:00 Carvedilol (Coreg) 6.25 mg BID PO Last administered on 05/23/17 08:09; Admin Dose 6.25 MG; Start 05/16/17 at 21:00 Aspirin (Ecotrin) 325 mg DAILY PO Last administered on 05/23/17 08:09; Admin Dose 325 MG; Start 05/18/17 at 09:00 Clopidogrel Bisulfate (plaVIX) 75 mg DAILY PO Last administered on 05/22/17 11:42; Admin Dose 75 MG; Start 05/18/17 at 09:00 Acetaminophen (Tylenol Tab) 650 mg Q4H PRN PO NON-CARDIAC PAIN LEVEL 1-3; Start 05/17/17 at 12:00 Oxycodone/ Acetaminophen (Percocet (5/ 325)) 1 tab Q4H PRN PO REPORTED NON- CARDIAC PAIN 4-7; Start 05/17/17 at 12:00 Morphine Sulfate (morphine) 1 mg Q1H PRN IV PAIN NOT RELIEVED BY OTHERS Last administered on 05/18/17 11:51; Admin Dose 1 MG; Start 05/17/17 at 12:00 Al Hydrox/Mg Hydrox/Simethicone (Mag-Al Plus) 30 ml Q4H PRN PO GASTROINTESTINAL UPSET; Start 05/17/17 at 12:00 Ondansetron HCl (Zofran Inj) 4 mg Q4H PRN IV NAUSEA AND/OR VOMITING Last administered on 05/20/17 03:00; Admin Dose 4 MG; Start 05/17/17 at 12:00 Hydralazine HCl (Apresoline) 10 mg Q8 PO Last administered on 05/23/17 05:41 ; Admin Dose 10 MG; Start 05/19/17 at 14:00 Insulin Glargine (Lantus) 11 unit DAILY@08 SC Last administered on 05/23/17 08:17; Admin Dose 11 UNIT; Start 05/21/17 at 08:00 IV Flush (NS 10 ml) 10 ml PRN PRN IV IV PROTOCOL; Start 05/20/17 at 17:00 VERITO TODD MD May 23, 2017 09:01
--- NOTE | 2017-05-23 11:00 | CONS ---
Date/Time of Note Date/Time of Note DATE: 05/23/17 TIME: 10:58 Assessment/Plan Assessment/Plan Additional Assessment/Plan Assessment and recommendations; 1. Patient admitted with acute [place] status post 4 vessel angioplasty with stenting. 2. Renal failure, now requiring hemodialysis. 3. Anemia, diabetes and hypertension. 4. Possibly some element of aspiration pneumonia, with marked radiological improvement. Patient off antibiotics. 5. Interval resolution of hypotension. Continue current supportive care. Patient can be transferred to telemetry unit. Consultation Date/Type/Reason Admit Date/Time May 16, 2017 at 12:38 Initial Consult Date 05/17/17 Type of Consultation: Pulmonary/critical care Referring Provider: RUPERT CARMONA 24 HR Interval Summary Free Text/Dictation Patient's condition is stable. Remains awake and alert. Denies any shortness of breath. Any chest pain. General exam; middle-aged woman, awake alert, currently in no distress. Exam/Review of Systems Vital Signs Vitals Vital Signs Date Time Temp Pulse Resp B/P Pulse Ox O2 Delivery O2 Flow Rate FiO2 05/23/17 10:00 72 25 104/67 Nasal Cannula 2.0 05/23/17 09:00 100 05/23/17 08:00 98.0 Intake and Output 05/22/17 05/22/17 05/23/17 15:00 23:00 07:00 Intake Total 880 ml 390 ml 60 ml Output Total 1335 ml 65 ml 80 ml Balance -455 ml 325 ml -20 ml Exam HEENT exam; supple neck, no JVD. No lymphadenopathy. Midline trachea. No thyromegaly. Patient has fair dentition. Pupils are midsize and reactive to light. Chest exam; clear to auscultation. S1-S2 audible, no murmurs. Regular rhythm. Abdomen exam; soft, nondistended. Nontender. No organomegaly. Bowel sounds audible. Extremity exam; no peripheral edema. Pulses 1+ bilaterally. 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 Results Result Diagram: 05/23/17 0435 05/23/17 0435 Results 24 hrs Laboratory Tests Test 05/22/17 11:48 05/22/17 16:49 05/22/17 21:35 05/23/17 04:35 Bedside Glucose 163 106 84 White Blood Count 10.2 Red Blood Count 3.32 L Hemoglobin 9.5 L Hematocrit 29.1 L Mean Corpuscular Volume 87.7 Mean Corpuscular Hemoglobin 28.6 L Mean Corpuscular Hemoglobin Concent 32.6 Red Cell Distribution Width 15.1 H Platelet Count 202 Mean Platelet Volume 11.6 H Neutrophils % 74.6 Lymphocytes % 14.2 L Monocytes % 8.4 Eosinophils % 1.9 Basophils % 0.2 Nucleated Red Blood Cells % 0.0 Neutrophils # 7.7 H Lymphocytes # 1.5 Monocytes # 0.9 Eosinophils # 0.2 Basophils # 0.0 Nucleated Red Blood Cells # 0.0 Sodium Level 134 L Potassium Level 3.4 L Chloride Level 100 Carbon Dioxide Level 28 Anion Gap 9 Blood Urea Nitrogen 42 H Creatinine 3.65 H Glucose Level 76 Calcium Level 7.9 L Test 05/23/17 08:02 05/23/17 10:11 Bedside Glucose 93 Lab Scanned Report REFERENCE LAB Medications Medications Current Medications Ondansetron HCl (Zofran Inj) 4 mg Q6H PRN IV NAUSEA AND/OR VOMITING Last administered on 05/16/17 17:24; Admin Dose 4 MG; Start 05/16/17 at 15:00 Acetaminophen (Tylenol Tab) 650 mg Q6H PRN PO PAIN LEVEL 1-3 OR FEVER Last administered on 05/19/17 09:35; Admin Dose 650 MG; Start 05/16/17 at 15:00 Acetaminophen/ Hydrocodone Bitart ([place] (5/325)) 1 tab Q6H PRN PO MODERATE PAIN LEVEL 4-6; Start 05/16/17 at 15:00 Morphine Sulfate (morphine) 2 mg Q4H PRN IV SEVERE PAIN LEVEL 7-10 Last administered on 05/17/17 20:57; Admin Dose 2 MG; Start 05/16/17 at 15:00 Docusate Sodium (Colace) 100 mg Q12H PRN PO CONSTIPATION; Start 05/16/17 at 15 :00 Magnesium Hydroxide (Milk Of Mag) 30 ml DAILY PRN PO CONSTIPATION; Start 05/16 at 15:00 Hydralazine HCl (Apresoline) 10 mg Q6H PRN IV ELEVATED BLOOD PRESSURE; Start 05/16/17 at 15:00 Clonidine (Catapres) 0.1 mg Q6H PRN PO ELEVATED BLOOD PRESSURE; Start at 15:00 Nitroglycerin (Nitroglycerin (Sl Tab) 0.4 Mg) 1 tab Q5M PRN SL ANGINA; Start 05/16/17 at 15:00 Fish Oil (Fish Oil) 1,000 mg DAILY PO Last administered on 05/23/17 08:09; Admin Dose 1,000 MG; Start 05/16/17 at 15:00 Atorvastatin Calcium (Lipitor) 80 mg HS PO Last administered on 05/22/17 21: 26; Admin Dose 80 MG; Start 05/16/17 at 21:00 Diagnostic Test (Pha) (Accu-Chek) 1 ea 02 XX Last administered on 05/20/17 02 :25; Admin Dose 1 EA; Start 05/17/17 at 02:00 Miscellaneous Information 1 ea NOTE XX ; Start 05/16/17 at 15:00 Glucose (Glutose) 15 gm Q15M PRN PO DECREASED GLUCOSE; Start 05/16/17 at 15:00 Glucose (Glutose) 22.5 gm Q15M PRN PO DECREASED GLUCOSE; Start 05/16/17 at 15: 00 Dextrose (D50w Syringe) 25 ml Q15M PRN IV DECREASED GLUCOSE; Start 05/16/17 at 15:00 Dextrose (D50w Syringe) 50 ml Q15M PRN IV DECREASED GLUCOSE; Start 05/16/17 at 15:00 Glucagon (Glucagen) 1 mg Q15M PRN IM DECREASED GLUCOSE; Start 05/16/17 at 15: 00 Glucose (Glutose) 15 gm Q15M PRN BUCCAL DECREASED GLUCOSE; Start 05/16/17 at 15:00 Carvedilol (Coreg) 6.25 mg BID PO Last administered on 05/23/17 08:09; Admin Dose 6.25 MG; Start 05/16/17 at 21:00 Aspirin (Ecotrin) 325 mg DAILY PO Last administered on 05/23/17 08:09; Admin Dose 325 MG; Start 05/18/17 at 09:00 Clopidogrel Bisulfate (plaVIX) 75 mg DAILY PO Last administered on 05/22/17 11:42; Admin Dose 75 MG; Start 05/18/17 at 09:00 Acetaminophen (Tylenol Tab) 650 mg Q4H PRN PO NON-CARDIAC PAIN LEVEL 1-3; Start 05/17/17 at 12:00 Oxycodone/ Acetaminophen (Percocet (5/ 325)) 1 tab Q4H PRN PO REPORTED NON- CARDIAC PAIN 4-7; Start 05/17/17 at 12:00 Morphine Sulfate (morphine) 1 mg Q1H PRN IV PAIN NOT RELIEVED BY OTHERS Last administered on 05/18/17 11:51; Admin Dose 1 MG; Start 05/17/17 at 12:00 Al Hydrox/Mg Hydrox/Simethicone (Mag-Al Plus) 30 ml Q4H PRN PO GASTROINTESTINAL UPSET; Start 05/17/17 at 12:00 Ondansetron HCl (Zofran Inj) 4 mg Q4H PRN IV NAUSEA AND/OR VOMITING Last administered on 05/20/17 03:00; Admin Dose 4 MG; Start 05/17/17 at 12:00 Hydralazine HCl (Apresoline) 10 mg Q8 PO Last administered on 05/23/17 05:41 ; Admin Dose 10 MG; Start 05/19/17 at 14:00 Insulin Glargine (Lantus) 11 unit DAILY@08 SC Last administered on 05/23/17 08:17; Admin Dose 11 UNIT; Start 05/21/17 at 08:00 IV Flush (NS 10 ml) 10 ml PRN PRN IV IV PROTOCOL; Start 05/20/17 at 17:00 CHANDRIKA ZHANG May 23, 2017 10:59
[2017-05-23] MEDS: ATORVASTATIN 80 MG TAB PO SCH (21:49)
[2017-05-24] VITALS (10 sets, daily range): BP systolic 103–129; BP diastolic 57–81; PULSE 68–81; RESP 16–18
[2017-05-24] MEDS: ACCU-CHEK XX SCH (02:00)
[2017-05-24] MEDS: BUMETANIDE 1 MG INJ IV SCH ×2 (05:51→17:09)
[2017-05-24] MEDS: INSULIN ASPART [NOVOLOG] 3 ML PEN SC SCH ×7 (07:30→21:00)
[2017-05-24] MEDS: ASPIRIN (EC) 325 MG TAB PO SCH (08:40)
[2017-05-24] MEDS: FISH OIL 1,000 MG CAP PO SCH (08:40)
[2017-05-24] MEDS: CLOPIDOGREL 75 MG TAB PO SCH (08:41)
[2017-05-24] MEDS: INSULIN GLARGINE [LANtus] 3 ML PEN SC SCH (08:49)
[2017-05-24 09:49] LABS: BASOPHILS % 0.1 % (0.0-2.0); EOSINOPHILS # 0.2 10^3/ul (0.0-0.5); EOSINOPHILS % 1.8 % (0.0-7.0); HEMATOCRIT 30.6 % (37.0-47.0); HEMOGLOBIN 9.6 g/dl (12.0-16.0); LYMPHOCYTES # 1.3 10^3/ul (0.8-2.9); LYMPHOCYTES % 13.3 % (15.0-51.0); MEAN CORPUSCULAR HEMOGLOBIN 27.4 pg (29.0-33.0); MEAN CORPUSCULAR HGB CONC 31.4 g/dl (32.0-37.0); MEAN CORPUSCULAR VOLUME 87.4 fl (82.0-101.0); MEAN PLATELET VOLUME 11.4 fl (7.4-10.4); MONOCYTE # 0.8 10^3/ul (0.3-0.9); MONOCYTES % 7.9 % (0.0-11.0); NEUTROPHIL # 7.4 10^3/ul (1.6-7.5); NEUTROPHILS % 76.3 % (39.0-77.0); PLATELET COUNT 240 10^3/UL (140-415); RED CELL DISTRIBUTION WIDTH 14.6 % (11.5-14.5); WHITE BLOOD COUNT 9.7 10^3/ul (4.8-10.8)
[2017-05-24 10:15] LABS: CALCIUM 7.2 mg/dl (8.4-10.2); CREATININE 3.22 mg/dl (0.44-1.00); POTASSIUM 3.5 mmol/L (3.5-5.1)
--- NOTE | 2017-05-24 10:45 | PN ---
Date/Time of Note Date/Time of Note DATE: 05/24/17 TIME: 10:45 Assessment/Plan VTE Prophylaxis VTE Prophylaxis Intervention: SCD's Lines/Catheters IV Catheter Type (from Nrs): bi cath Central line still needed: Yes (For short term Hemodialysis access ) Urinary Cath still in place: No Assessment/Plan Assessment/Plan ASSESSMENT: 1. Acute NSTEMI s/p ptca/stent x 2 to 100% occluded LCX and x 2 to high grade LAD stenosis +contrast nephropathy with Angiogram with CT contrast chest and hemodynamic instability.Pt was s/p balloon pump 2. Acute kidney injury due to ATN, started on HD during this admission, now off HD x 2 days 3. CHF-likely systolic acute. EF 30-35% 4. diabetes mellitus 5 hypertension. Plan : Nephrology following, started on HD during this admission for JOSE ALBERTO on CKD, off HD x 2 days now, Cr trending down BP stable Pt is on IV bumex 1 mg BID for diuresis Bicitra 30ml PO BID for metabolic acidosis SCD for DVT prophylaxis Appreciate Cardiology and nephrology help Subjective 24 Hr Interval Summary Free Text/Dictation Cr slowly improving, pt is on IV bumex, doing well, BP stable,afebrile Exam/Review of Systems Vital Signs Vitals Vital Signs Date Time Temp Pulse Resp B/P Pulse Ox O2 Delivery O2 Flow Rate FiO2 05/24/17 09:45 Nasal Cannula 2.0 05/24/17 08:02 98.0 65 18 111/57 100 Intake and Output 05/23/17 05/23/17 05/24/17 15:00 23:00 07:00 Intake Total 360 ml 200 ml Output Total 100 ml 100 ml Balance 260 ml -100 ml 200 ml Exam Gen: awake and alert 'Neck: supple Respiratory: decreased breath sounds b/l Cardiovascular: regular rate and rhythm Gastrointestinal: bowel sounds (+), soft Extremities: edema (+) Access: Left bi Results Result Diagram: 05/24/1782005/24/17820 Results 24 hrs Laboratory Tests Test 05/23/17 12:06 05/23/17 17:29 05/23/17 20:41 05/24/17 02:24 Bedside Glucose 138 88 180 88 Test 05/24/17 08:14 05/24/17 08:21 Bedside Glucose 84 White Blood Count 9.7 Red Blood Count 3.50 L Hemoglobin 9.6 L Hematocrit 30.6 L Mean Corpuscular Volume 87.4 Mean Corpuscular Hemoglobin 27.4 L Mean Corpuscular Hemoglobin Concent 31.4 L Red Cell Distribution Width 14.6 H Platelet Count 240 Mean Platelet Volume 11.4 H Neutrophils % 76.3 Lymphocytes % 13.3 L Monocytes % 7.9 Eosinophils % 1.8 Basophils % 0.1 Nucleated Red Blood Cells % 0.0 Neutrophils # 7.4 Lymphocytes # 1.3 Monocytes # 0.8 Eosinophils # 0.2 Basophils # 0.0 Nucleated Red Blood Cells # 0.0 Sodium Level 134 L Potassium Level 3.5 Chloride Level 105 Carbon Dioxide Level 20 L Anion Gap 13 Blood Urea Nitrogen 49 H Creatinine 3.22 H Glucose Level 59 #L Calcium Level 7.2 L Medications Medications Current Medications Ondansetron HCl (Zofran Inj) 4 mg Q6H PRN IV NAUSEA AND/OR VOMITING Last administered on 05/16/17 17:24; Admin Dose 4 MG; Start 05/16/17 at 15:00 Acetaminophen (Tylenol Tab) 650 mg Q6H PRN PO PAIN LEVEL 1-3 OR FEVER Last administered on 05/19/17 09:35; Admin Dose 650 MG; Start 05/16/17 at 15:00 Acetaminophen/ Hydrocodone Bitart ([place] (5/325)) 1 tab Q6H PRN PO MODERATE PAIN LEVEL 4-6; Start 05/16/17 at 15:00 Morphine Sulfate (morphine) 2 mg Q4H PRN IV SEVERE PAIN LEVEL 7-10 Last administered on 05/17/17 20:57; Admin Dose 2 MG; Start 05/16/17 at 15:00 Docusate Sodium (Colace) 100 mg Q12H PRN PO CONSTIPATION; Start 05/16/17 at 15 :00 Magnesium Hydroxide (Milk Of Mag) 30 ml DAILY PRN PO CONSTIPATION; Start 05/16 at 15:00 Hydralazine HCl (Apresoline) 10 mg Q6H PRN IV ELEVATED BLOOD PRESSURE; Start 05/16/17 at 15:00 Clonidine (Catapres) 0.1 mg Q6H PRN PO ELEVATED BLOOD PRESSURE; Start at 15:00 Nitroglycerin (Nitroglycerin (Sl Tab) 0.4 Mg) 1 tab Q5M PRN SL ANGINA; Start 05/16/17 at 15:00 Fish Oil (Fish Oil) 1,000 mg DAILY PO Last administered on 05/24/17 08:40; Admin Dose 1,000 MG; Start 05/16/17 at 15:00 Atorvastatin Calcium (Lipitor) 80 mg HS PO Last administered on 05/23/17 21: 49; Admin Dose 80 MG; Start 05/16/17 at 21:00 Diagnostic Test (Pha) (Accu-Chek) 1 ea 02 XX Last administered on 05/24/17 02 :00; Admin Dose 1 EA; Start 05/17/17 at 02:00 Miscellaneous Information 1 ea NOTE XX ; Start 05/16/17 at 15:00 Glucose (Glutose) 15 gm Q15M PRN PO DECREASED GLUCOSE; Start 05/16/17 at 15:00 Glucose (Glutose) 22.5 gm Q15M PRN PO DECREASED GLUCOSE; Start 05/16/17 at 15: 00 Dextrose (D50w Syringe) 25 ml Q15M PRN IV DECREASED GLUCOSE; Start 05/16/17 at 15:00 Dextrose (D50w Syringe) 50 ml Q15M PRN IV DECREASED GLUCOSE; Start 05/16/17 at 15:00 Glucagon (Glucagen) 1 mg Q15M PRN IM DECREASED GLUCOSE; Start 05/16/17 at 15: 00 Glucose (Glutose) 15 gm Q15M PRN BUCCAL DECREASED GLUCOSE; Start 05/16/17 at 15:00 Carvedilol (Coreg) 6.25 mg BID PO Last administered on 05/24/17 08:41; Admin Dose 6.25 MG; Start 05/16/17 at 21:00 Aspirin (Ecotrin) 325 mg DAILY PO Last administered on 05/24/17 08:40; Admin Dose 325 MG; Start 05/18/17 at 09:00 Clopidogrel Bisulfate (plaVIX) 75 mg DAILY PO Last administered on 05/24/17 08:41; Admin Dose 75 MG; Start 05/18/17 at 09:00 Acetaminophen (Tylenol Tab) 650 mg Q4H PRN PO NON-CARDIAC PAIN LEVEL 1-3; Start 05/17/17 at 12:00 Oxycodone/ Acetaminophen (Percocet (5/ 325)) 1 tab Q4H PRN PO REPORTED NON- CARDIAC PAIN 4-7; Start 05/17/17 at 12:00 Morphine Sulfate (morphine) 1 mg Q1H PRN IV PAIN NOT RELIEVED BY OTHERS Last administered on 05/18/17 11:51; Admin Dose 1 MG; Start 05/17/17 at 12:00 Al Hydrox/Mg Hydrox/Simethicone (Mag-Al Plus) 30 ml Q4H PRN PO GASTROINTESTINAL UPSET; Start 05/17/17 at 12:00 Ondansetron HCl (Zofran Inj) 4 mg Q4H PRN IV NAUSEA AND/OR VOMITING Last administered on 05/20/17 03:00; Admin Dose 4 MG; Start 05/17/17 at 12:00 Hydralazine HCl (Apresoline) 10 mg Q8 PO Last administered on 05/24/17 05:52 ; Admin Dose 10 MG; Start 05/19/17 at 14:00 Insulin Glargine (Lantus) 11 unit DAILY@08 SC Last administered on 05/24/17 08:49; Admin Dose 11 UNIT; Start 05/21/17 at 08:00 IV Flush (NS 10 ml) 10 ml PRN PRN IV IV PROTOCOL; Start 05/20/17 at 17:00 MOON RENTERIA MD May 24, 2017 10:45
--- NOTE | 2017-05-24 12:34 | CONS ---
Date/Time of Note Date/Time of Note DATE: 05/24/17 TIME: 12:32 Assessment/Plan Assessment/Plan Additional Assessment/Plan Assessment recommendations; 1. Patient admitted with acute [place] status post coronary intervention with stenting of 4 vessels. 2. Interval resolution of pulmonary edema. 3. Acute renal failure, now requiring hemodialysis. 4. Interval resolution of hypotension. 5. History of diabetes and hypertension. Continue current treatment. Patient appearing markedly improved overall. Consultation Date/Type/Reason Admit Date/Time May 16, 2017 at 12:38 Initial Consult Date 05/17/17 Type of Consultation: Pulmonary/critical care Referring Provider: RUPERT CARMONA 24 HR Interval Summary Free Text/Dictation Patient condition is stable. Has been transferred out of ICU. Denies any chest pain, shortness of breath. Patient appearing markedly improved. General exam; middle-aged female, awake alert, currently in no distress. Exam/Review of Systems Vital Signs Vitals Vital Signs Date Time Temp Pulse Resp B/P Pulse Ox O2 Delivery O2 Flow Rate FiO2 05/24/17 12:00 79 05/24/17 11:41 98.4 18 109/81 95 05/24/17 09:45 Nasal Cannula 2.0 Intake and Output 05/23/17 05/23/17 05/24/17 15:00 23:00 07:00 Intake Total 360 ml 200 ml Output Total 100 ml 100 ml Balance 260 ml -100 ml 200 ml Exam HEENT exam; supple neck, no JVD. No lymphadenopathy. Midline trachea. No thyromegaly. Has fair dentition. Chest exam; clear to auscultation. S1-S2 audible, no murmurs. Regular rhythm. Abdomen exam; soft, nontender. No organomegaly. Bowel sounds audible. Extremity exam; no peripheral edema. 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 Results Result Diagram: 05/24/1782005/24/17820 Results 24 hrs Laboratory Tests Test 05/23/17 17:29 05/23/17 20:41 05/24/17 02:24 05/24/17 08:14 Bedside Glucose 88 180 88 84 Test 05/24/17 08:21 05/24/17 12:11 White Blood Count 9.7 Red Blood Count 3.50 L Hemoglobin 9.6 L Hematocrit 30.6 L Mean Corpuscular Volume 87.4 Mean Corpuscular Hemoglobin 27.4 L Mean Corpuscular Hemoglobin Concent 31.4 L Red Cell Distribution Width 14.6 H Platelet Count 240 Mean Platelet Volume 11.4 H Neutrophils % 76.3 Lymphocytes % 13.3 L Monocytes % 7.9 Eosinophils % 1.8 Basophils % 0.1 Nucleated Red Blood Cells % 0.0 Neutrophils # 7.4 Lymphocytes # 1.3 Monocytes # 0.8 Eosinophils # 0.2 Basophils # 0.0 Nucleated Red Blood Cells # 0.0 Sodium Level 134 L Potassium Level 3.5 Chloride Level 105 Carbon Dioxide Level 20 L Anion Gap 13 Blood Urea Nitrogen 49 H Creatinine 3.22 H Glucose Level 59 #L Calcium Level 7.2 L Bedside Glucose 218 Medications Medications Current Medications Ondansetron HCl (Zofran Inj) 4 mg Q6H PRN IV NAUSEA AND/OR VOMITING Last administered on 05/16/17 17:24; Admin Dose 4 MG; Start 05/16/17 at 15:00 Acetaminophen (Tylenol Tab) 650 mg Q6H PRN PO PAIN LEVEL 1-3 OR FEVER Last administered on 05/19/17 09:35; Admin Dose 650 MG; Start 05/16/17 at 15:00 Acetaminophen/ Hydrocodone Bitart ([place] (5/325)) 1 tab Q6H PRN PO MODERATE PAIN LEVEL 4-6; Start 05/16/17 at 15:00 Morphine Sulfate (morphine) 2 mg Q4H PRN IV SEVERE PAIN LEVEL 7-10 Last administered on 05/17/17 20:57; Admin Dose 2 MG; Start 05/16/17 at 15:00 Docusate Sodium (Colace) 100 mg Q12H PRN PO CONSTIPATION; Start 05/16/17 at 15 :00 Magnesium Hydroxide (Milk Of Mag) 30 ml DAILY PRN PO CONSTIPATION; Start 05/16 at 15:00 Hydralazine HCl (Apresoline) 10 mg Q6H PRN IV ELEVATED BLOOD PRESSURE; Start 05/16/17 at 15:00 Clonidine (Catapres) 0.1 mg Q6H PRN PO ELEVATED BLOOD PRESSURE; Start at 15:00 Nitroglycerin (Nitroglycerin (Sl Tab) 0.4 Mg) 1 tab Q5M PRN SL ANGINA; Start 05/16/17 at 15:00 Fish Oil (Fish Oil) 1,000 mg DAILY PO Last administered on 05/24/17 08:40; Admin Dose 1,000 MG; Start 05/16/17 at 15:00 Atorvastatin Calcium (Lipitor) 80 mg HS PO Last administered on 05/23/17 21: 49; Admin Dose 80 MG; Start 05/16/17 at 21:00 Diagnostic Test (Pha) (Accu-Chek) 1 ea 02 XX Last administered on 05/24/17 02 :00; Admin Dose 1 EA; Start 05/17/17 at 02:00 Miscellaneous Information 1 ea NOTE XX ; Start 05/16/17 at 15:00 Glucose (Glutose) 15 gm Q15M PRN PO DECREASED GLUCOSE; Start 05/16/17 at 15:00 Glucose (Glutose) 22.5 gm Q15M PRN PO DECREASED GLUCOSE; Start 05/16/17 at 15: 00 Dextrose (D50w Syringe) 25 ml Q15M PRN IV DECREASED GLUCOSE; Start 05/16/17 at 15:00 Dextrose (D50w Syringe) 50 ml Q15M PRN IV DECREASED GLUCOSE; Start 05/16/17 at 15:00 Glucagon (Glucagen) 1 mg Q15M PRN IM DECREASED GLUCOSE; Start 05/16/17 at 15: 00 Glucose (Glutose) 15 gm Q15M PRN BUCCAL DECREASED GLUCOSE; Start 05/16/17 at 15:00 Carvedilol (Coreg) 6.25 mg BID PO Last administered on 05/24/17 08:41; Admin Dose 6.25 MG; Start 05/16/17 at 21:00 Aspirin (Ecotrin) 325 mg DAILY PO Last administered on 05/24/17 08:40; Admin Dose 325 MG; Start 05/18/17 at 09:00 Clopidogrel Bisulfate (plaVIX) 75 mg DAILY PO Last administered on 05/24/17 08:41; Admin Dose 75 MG; Start 05/18/17 at 09:00 Acetaminophen (Tylenol Tab) 650 mg Q4H PRN PO NON-CARDIAC PAIN LEVEL 1-3; Start 05/17/17 at 12:00 Oxycodone/ Acetaminophen (Percocet (5/ 325)) 1 tab Q4H PRN PO REPORTED NON- CARDIAC PAIN 4-7; Start 05/17/17 at 12:00 Morphine Sulfate (morphine) 1 mg Q1H PRN IV PAIN NOT RELIEVED BY OTHERS Last administered on 05/18/17 11:51; Admin Dose 1 MG; Start 05/17/17 at 12:00 Al Hydrox/Mg Hydrox/Simethicone (Mag-Al Plus) 30 ml Q4H PRN PO GASTROINTESTINAL UPSET; Start 05/17/17 at 12:00 Ondansetron HCl (Zofran Inj) 4 mg Q4H PRN IV NAUSEA AND/OR VOMITING Last administered on 05/20/17 03:00; Admin Dose 4 MG; Start 05/17/17 at 12:00 Hydralazine HCl (Apresoline) 10 mg Q8 PO Last administered on 05/24/17 05:52 ; Admin Dose 10 MG; Start 05/19/17 at 14:00 Insulin Glargine (Lantus) 11 unit DAILY@08 SC Last administered on 05/24/17 08:49; Admin Dose 11 UNIT; Start 05/21/17 at 08:00 IV Flush (NS 10 ml) 10 ml PRN PRN IV IV PROTOCOL; Start 05/20/17 at 17:00 CHANDRIKA ZHANG May 24, 2017 12:34
--- NOTE | 2017-05-24 14:59 | CONS ---
Date/Time of Note Date/Time of Note DATE: 05/24/17 TIME: 14:55 Assessment/Plan Assessment/Plan Chief Complaint/Hosp Course A/P 1. Acute kidney injury likely due to combination of acute myocardial infarction trop>100 s/p ptca/stent x 2 to 100% occluded LCX and x 2 to high grade LAD stenosis +contrast nephropathy with Angiogram with CT contrast chest and hemodynamic instability.Pt was s/p balloon pump 2. Oliguric ATN 3. CHF-likely systolic acute. EF 30-35% 4. diabetes mellitus 5 hypertension. 6 Metabolic acidosis due to renal failure 7 Likely diabetic nephropathy on admission Cr was 1.14 8 Leukocytosis 9 Anemia Plan - UOP improved - Inspite of no 2 hd x 2 days, Cr trending down 3.22 and UOP improved, will hold off HD - c/w Bumex 1 mg bid - Add Bictra - Strict I an O - Will assess daily for HD needs - Strict I and O - c/w ASA/Plavix/Coreg/statin per cards - c/w hold AMANDA due to renal failure - monitor uop closely - Hold Nephrotoxic agents - Labs am Problems: Consultation Date/Type/Reason Admit Date/Time May 16, 2017 at 12:38 Initial Consult Date 05/17/17 Type of Consultation: Renal Referring Provider: RUPERT CARMONA 24 HR Interval Summary Free Text/Dictation Pt said that she is urinating lot more urinated 3 times today but not recorded Yesterday was recorded 100 ml, 100 ml , last one recorded at 1600 +minimal sob Exam/Review of Systems Vital Signs Vitals Vital Signs Date Time Temp Pulse Resp B/P Pulse Ox O2 Delivery O2 Flow Rate FiO2 05/24/17 12:00 79 05/24/17 11:41 98.4 18 109/81 95 05/24/17 09:45 Nasal Cannula 2.0 Intake and Output 05/23/17 05/23/17 05/24/17 14:59 22:59 06:59 Intake Total 360 ml 200 ml Output Total 100 ml 100 ml Balance 260 ml -100 ml 200 ml Exam Gen: awake and alert 'Neck: supple Respiratory: decreased breath sounds b/l Cardiovascular: regular rate and rhythm Gastrointestinal: bowel sounds (+), soft Extremities: edema (+) Access: Left bi Results Result Diagram: 10/18/17 0821 10/18/17 0821 Results 24 hrs Laboratory Tests Test 05/23/17 17:29 05/23/17 20:41 05/24/17 02:24 05/24/17 08:14 Bedside Glucose 88 180 88 84 Test 05/24/17 08:21 05/24/17 12:11 White Blood Count 9.7 Red Blood Count 3.50 L Hemoglobin 9.6 L Hematocrit 30.6 L Mean Corpuscular Volume 87.4 Mean Corpuscular Hemoglobin 27.4 L Mean Corpuscular Hemoglobin Concent 31.4 L Red Cell Distribution Width 14.6 H Platelet Count 240 Mean Platelet Volume 11.4 H Neutrophils % 76.3 Lymphocytes % 13.3 L Monocytes % 7.9 Eosinophils % 1.8 Basophils % 0.1 Nucleated Red Blood Cells % 0.0 Neutrophils # 7.4 Lymphocytes # 1.3 Monocytes # 0.8 Eosinophils # 0.2 Basophils # 0.0 Nucleated Red Blood Cells # 0.0 Sodium Level 134 L Potassium Level 3.5 Chloride Level 105 Carbon Dioxide Level 20 L Anion Gap 13 Blood Urea Nitrogen 49 H Creatinine 3.22 H Glucose Level 59 #L Calcium Level 7.2 L Bedside Glucose 218 Medications Medications Current Medications Ondansetron HCl (Zofran Inj) 4 mg Q6H PRN IV NAUSEA AND/OR VOMITING Last administered on 05/16/17 17:24; Admin Dose 4 MG; Start 05/16/17 at 15:00 Acetaminophen (Tylenol Tab) 650 mg Q6H PRN PO PAIN LEVEL 1-3 OR FEVER Last administered on 05/19/17 09:35; Admin Dose 650 MG; Start 05/16/17 at 15:00 Acetaminophen/ Hydrocodone Bitart ([place] (5/325)) 1 tab Q6H PRN PO MODERATE PAIN LEVEL 4-6; Start 05/16/17 at 15:00 Morphine Sulfate (morphine) 2 mg Q4H PRN IV SEVERE PAIN LEVEL 7-10 Last administered on 05/17/17 20:57; Admin Dose 2 MG; Start 05/16/17 at 15:00 Docusate Sodium (Colace) 100 mg Q12H PRN PO CONSTIPATION; Start 05/16/17 at 15 :00 Magnesium Hydroxide (Milk Of Mag) 30 ml DAILY PRN PO CONSTIPATION; Start 05/16 at 15:00 Hydralazine HCl (Apresoline) 10 mg Q6H PRN IV ELEVATED BLOOD PRESSURE; Start 05/16/17 at 15:00 Clonidine (Catapres) 0.1 mg Q6H PRN PO ELEVATED BLOOD PRESSURE; Start at 15:00 Nitroglycerin (Nitroglycerin (Sl Tab) 0.4 Mg) 1 tab Q5M PRN SL ANGINA; Start 05/16/17 at 15:00 Fish Oil (Fish Oil) 1,000 mg DAILY PO Last administered on 05/24/17 08:40; Admin Dose 1,000 MG; Start 05/16/17 at 15:00 Atorvastatin Calcium (Lipitor) 80 mg HS PO Last administered on 05/23/17 21: 49; Admin Dose 80 MG; Start 05/16/17 at 21:00 Diagnostic Test (Pha) (Accu-Chek) 1 ea 02 XX Last administered on 05/24/17 02 :00; Admin Dose 1 EA; Start 05/17/17 at 02:00 Miscellaneous Information 1 ea NOTE XX ; Start 05/16/17 at 15:00 Glucose (Glutose) 15 gm Q15M PRN PO DECREASED GLUCOSE; Start 05/16/17 at 15:00 Glucose (Glutose) 22.5 gm Q15M PRN PO DECREASED GLUCOSE; Start 05/16/17 at 15: 00 Dextrose (D50w Syringe) 25 ml Q15M PRN IV DECREASED GLUCOSE; Start 05/16/17 at 15:00 Dextrose (D50w Syringe) 50 ml Q15M PRN IV DECREASED GLUCOSE; Start 05/16/17 at 15:00 Glucagon (Glucagen) 1 mg Q15M PRN IM DECREASED GLUCOSE; Start 05/16/17 at 15: 00 Glucose (Glutose) 15 gm Q15M PRN BUCCAL DECREASED GLUCOSE; Start 05/16/17 at 15:00 Carvedilol (Coreg) 6.25 mg BID PO Last administered on 05/24/17 08:41; Admin Dose 6.25 MG; Start 05/16/17 at 21:00 Aspirin (Ecotrin) 325 mg DAILY PO Last administered on 05/24/17 08:40; Admin Dose 325 MG; Start 05/18/17 at 09:00 Clopidogrel Bisulfate (plaVIX) 75 mg DAILY PO Last administered on 05/24/17 08:41; Admin Dose 75 MG; Start 05/18/17 at 09:00 Acetaminophen (Tylenol Tab) 650 mg Q4H PRN PO NON-CARDIAC PAIN LEVEL 1-3; Start 05/17/17 at 12:00 Oxycodone/ Acetaminophen (Percocet (5/ 325)) 1 tab Q4H PRN PO REPORTED NON- CARDIAC PAIN 4-7; Start 05/17/17 at 12:00 Morphine Sulfate (morphine) 1 mg Q1H PRN IV PAIN NOT RELIEVED BY OTHERS Last administered on 05/18/17 11:51; Admin Dose 1 MG; Start 05/17/17 at 12:00 Al Hydrox/Mg Hydrox/Simethicone (Mag-Al Plus) 30 ml Q4H PRN PO GASTROINTESTINAL UPSET; Start 05/17/17 at 12:00 Ondansetron HCl (Zofran Inj) 4 mg Q4H PRN IV NAUSEA AND/OR VOMITING Last administered on 05/20/17 03:00; Admin Dose 4 MG; Start 05/17/17 at 12:00 Hydralazine HCl (Apresoline) 10 mg Q8 PO Last administered on 05/24/17 13:53 ; Admin Dose 10 MG; Start 05/19/17 at 14:00 Insulin Glargine (Lantus) 11 unit DAILY@08 SC Last administered on 05/24/17 08:49; Admin Dose 11 UNIT; Start 05/21/17 at 08:00 IV Flush (NS 10 ml) 10 ml PRN PRN IV IV PROTOCOL; Start 05/20/17 at 17:00 TONI MEIER MD May 24, 2017 14:59
--- NOTE | 2017-05-24 17:03 | CONS ---
Date/Time of Note Date/Time of Note DATE: 05/24/17 TIME: 16:57 Assessment/Plan Assessment/Plan Chief Complaint/Hosp Course IMP: 1.Acute IN-trop>100 now POD#1 s/p ptca/stent x 2 to 100% occluded LCX and x 2 to high grade LAD stenosis and placement of IABP 2.CHF-likely systolic acute. EF 30-35% by echo yesterday 3.Renal failure 4.DM 5.Chest pain secondary to number 1. Now improved 6. Anemia 7.Dyslipidemia 8.Hyperkalemia Recc: -Tele -serial ecg's -Continue asa 325 and plavix 75 mg daily -Follow volume status closely on bumex with HD for volume removal as necessary only -statin therapy -Continue abx's and f/u cx data -Continue low dose hydralazine aftrerload reduction in lieu of ACEI at this time given renal failure and BB as tolerated Problems: Consultation Date/Type/Reason Admit Date/Time May 16, 2017 at 12:38 Initial Consult Date 05/17/17 Type of Consultation: cardiology Reason for Consultation acute [place] Referring Provider: RUPERT CARMONA Exam/Review of Systems Vital Signs Vitals Vital Signs Date Time Temp Pulse Resp B/P Pulse Ox O2 Delivery O2 Flow Rate FiO2 05/24/17 16:07 98.0 69 18 103/64 99 05/24/17 09:45 Nasal Cannula 2.0 Intake and Output 05/23/17 05/23/17 05/24/17 15:00 23:00 07:00 Intake Total 360 ml 200 ml Output Total 100 ml 100 ml Balance 260 ml -100 ml 200 ml Exam Review of Systems: CONSTITUTIONAL: No fevers, chills. PULMONARY: No sob CARDIOVASCULAR: No chest pain/palpitations GASTROINTESTINAL: No nausea/vomiting. GENITOURINARY: No hematuria/dysuria. MUSCULOSKELETAL: No myagias/arthalgias. PSYCHIATRIC: The patient denies depression. NEUROLOGIC: No weakness Constitutional: alert, oriented Psych: no complaints Head: normocephalic ENMT: mucosa pink and moist Neck: jvd (9 cm water), supple Respiratory: diminished breath sounds Cardiovascular: regular rate and rhythm Gastrointestinal: non-tender, soft Musculoskeletal: muscle tone (normal) Extremities: edema (bilateral) Neurological: other (No focal deficits) Results Result Diagram: 05/24/1782005/24/17820 Results 24 hrs Laboratory Tests Test 05/23/17 17:29 05/23/17 20:41 05/24/17 02:24 05/24/17 08:14 Bedside Glucose 88 180 88 84 Test 05/24/17 08:21 05/24/17 12:11 White Blood Count 9.7 Red Blood Count 3.50 L Hemoglobin 9.6 L Hematocrit 30.6 L Mean Corpuscular Volume 87.4 Mean Corpuscular Hemoglobin 27.4 L Mean Corpuscular Hemoglobin Concent 31.4 L Red Cell Distribution Width 14.6 H Platelet Count 240 Mean Platelet Volume 11.4 H Neutrophils % 76.3 Lymphocytes % 13.3 L Monocytes % 7.9 Eosinophils % 1.8 Basophils % 0.1 Nucleated Red Blood Cells % 0.0 Neutrophils # 7.4 Lymphocytes # 1.3 Monocytes # 0.8 Eosinophils # 0.2 Basophils # 0.0 Nucleated Red Blood Cells # 0.0 Sodium Level 134 L Potassium Level 3.5 Chloride Level 105 Carbon Dioxide Level 20 L Anion Gap 13 Blood Urea Nitrogen 49 H Creatinine 3.22 H Glucose Level 59 #L Calcium Level 7.2 L Bedside Glucose 218 Medications Medications Current Medications Ondansetron HCl (Zofran Inj) 4 mg Q6H PRN IV NAUSEA AND/OR VOMITING Last administered on 05/16/17 17:24; Admin Dose 4 MG; Start 05/16/17 at 15:00 Acetaminophen (Tylenol Tab) 650 mg Q6H PRN PO PAIN LEVEL 1-3 OR FEVER Last administered on 05/19/17 09:35; Admin Dose 650 MG; Start 05/16/17 at 15:00 Acetaminophen/ Hydrocodone Bitart ([place] (5/325)) 1 tab Q6H PRN PO MODERATE PAIN LEVEL 4-6; Start 05/16/17 at 15:00 Morphine Sulfate (morphine) 2 mg Q4H PRN IV SEVERE PAIN LEVEL 7-10 Last administered on 05/17/17 20:57; Admin Dose 2 MG; Start 05/16/17 at 15:00 Docusate Sodium (Colace) 100 mg Q12H PRN PO CONSTIPATION; Start 05/16/17 at 15 :00 Magnesium Hydroxide (Milk Of Mag) 30 ml DAILY PRN PO CONSTIPATION; Start 05/16 at 15:00 Hydralazine HCl (Apresoline) 10 mg Q6H PRN IV ELEVATED BLOOD PRESSURE; Start 05/16/17 at 15:00 Clonidine (Catapres) 0.1 mg Q6H PRN PO ELEVATED BLOOD PRESSURE; Start at 15:00 Nitroglycerin (Nitroglycerin (Sl Tab) 0.4 Mg) 1 tab Q5M PRN SL ANGINA; Start 05/16/17 at 15:00 Fish Oil (Fish Oil) 1,000 mg DAILY PO Last administered on 05/24/17 08:40; Admin Dose 1,000 MG; Start 05/16/17 at 15:00 Atorvastatin Calcium (Lipitor) 80 mg HS PO Last administered on 05/23/17 21: 49; Admin Dose 80 MG; Start 05/16/17 at 21:00 Diagnostic Test (Pha) (Accu-Chek) 1 ea 02 XX Last administered on 05/24/17 02 :00; Admin Dose 1 EA; Start 05/17/17 at 02:00 Miscellaneous Information 1 ea NOTE XX ; Start 05/16/17 at 15:00 Glucose (Glutose) 15 gm Q15M PRN PO DECREASED GLUCOSE; Start 05/16/17 at 15:00 Glucose (Glutose) 22.5 gm Q15M PRN PO DECREASED GLUCOSE; Start 05/16/17 at 15: 00 Dextrose (D50w Syringe) 25 ml Q15M PRN IV DECREASED GLUCOSE; Start 05/16/17 at 15:00 Dextrose (D50w Syringe) 50 ml Q15M PRN IV DECREASED GLUCOSE; Start 05/16/17 at 15:00 Glucagon (Glucagen) 1 mg Q15M PRN IM DECREASED GLUCOSE; Start 05/16/17 at 15: 00 Glucose (Glutose) 15 gm Q15M PRN BUCCAL DECREASED GLUCOSE; Start 05/16/17 at 15:00 Carvedilol (Coreg) 6.25 mg BID PO Last administered on 05/24/17 08:41; Admin Dose 6.25 MG; Start 05/16/17 at 21:00 Aspirin (Ecotrin) 325 mg DAILY PO Last administered on 05/24/17 08:40; Admin Dose 325 MG; Start 05/18/17 at 09:00 Clopidogrel Bisulfate (plaVIX) 75 mg DAILY PO Last administered on 05/24/17 08:41; Admin Dose 75 MG; Start 05/18/17 at 09:00 Acetaminophen (Tylenol Tab) 650 mg Q4H PRN PO NON-CARDIAC PAIN LEVEL 1-3; Start 05/17/17 at 12:00 Oxycodone/ Acetaminophen (Percocet (5/ 325)) 1 tab Q4H PRN PO REPORTED NON- CARDIAC PAIN 4-7; Start 05/17/17 at 12:00 Morphine Sulfate (morphine) 1 mg Q1H PRN IV PAIN NOT RELIEVED BY OTHERS Last administered on 05/18/17 11:51; Admin Dose 1 MG; Start 05/17/17 at 12:00 Al Hydrox/Mg Hydrox/Simethicone (Mag-Al Plus) 30 ml Q4H PRN PO GASTROINTESTINAL UPSET; Start 05/17/17 at 12:00 Ondansetron HCl (Zofran Inj) 4 mg Q4H PRN IV NAUSEA AND/OR VOMITING Last administered on 05/20/17 03:00; Admin Dose 4 MG; Start 05/17/17 at 12:00 Hydralazine HCl (Apresoline) 10 mg Q8 PO Last administered on 05/24/17 13:53 ; Admin Dose 10 MG; Start 05/19/17 at 14:00 Insulin Glargine (Lantus) 11 unit DAILY@08 SC Last administered on 05/24/17 08:49; Admin Dose 11 UNIT; Start 05/21/17 at 08:00 IV Flush (NS 10 ml) 10 ml PRN PRN IV IV PROTOCOL; Start 05/20/17 at 17:00 Citric Acid/ Sodium Citrate (Bicitra) 30 ml BID PO ; Start 05/24/17 at 15:00 RANDEE GAMBLE May 24, 2017 17:03
[2017-05-24] MEDS: CITRIC ACID/NA CITRATE 30 ML CUP PO SCH ×2 (17:08→21:41)
[2017-05-24] MEDS: ATORVASTATIN 80 MG TAB PO SCH (21:42)
[2017-05-25] VITALS (9 sets, daily range): BP systolic 96–117; BP diastolic 50–67; PULSE 68–77; RESP 17–20
[2017-05-25] MEDS: ACCU-CHEK XX SCH (02:00)
[2017-05-25] MEDS: BUMETANIDE 1 MG INJ IV SCH ×2 (06:14→17:09)
[2017-05-25] MEDS: INSULIN ASPART [NOVOLOG] 3 ML PEN SC SCH ×8 (07:30→20:52)
[2017-05-25] MEDS: CLOPIDOGREL 75 MG TAB PO SCH (08:07)
[2017-05-25] MEDS: ASPIRIN (EC) 325 MG TAB PO SCH (08:08)
[2017-05-25] MEDS: FISH OIL 1,000 MG CAP PO SCH (08:08)
[2017-05-25] MEDS: INSULIN GLARGINE [LANtus] 3 ML PEN SC SCH (08:12)
[2017-05-25] MEDS: CITRIC ACID/NA CITRATE 30 ML CUP PO SCH (08:21)
[2017-05-25 09:04] LABS: BASOPHILS % 0.3 % (0.0-2.0); EOSINOPHILS # 0.3 10^3/ul (0.0-0.5); EOSINOPHILS % 2.7 % (0.0-7.0); HEMATOCRIT 33.8 % (37.0-47.0); HEMOGLOBIN 11.2 g/dl (12.0-16.0); LYMPHOCYTES # 1.5 10^3/ul (0.8-2.9); LYMPHOCYTES % 15.4 % (15.0-51.0); MEAN CORPUSCULAR HEMOGLOBIN 28.7 pg (29.0-33.0); MEAN CORPUSCULAR HGB CONC 33.1 g/dl (32.0-37.0); MEAN CORPUSCULAR VOLUME 86.7 fl (82.0-101.0); MONOCYTE # 0.9 10^3/ul (0.3-0.9); MONOCYTES % 8.8 % (0.0-11.0); NEUTROPHIL # 7.2 10^3/ul (1.6-7.5); NEUTROPHILS % 72.2 % (39.0-77.0); PLATELET COUNT 261 10^3/UL (140-415)
[2017-05-25 09:12] LABS: ALBUMIN 2.9 g/dl (3.3-4.9); ALBUMIN/GLOBULIN RATIO 0.8; BILIRUBIN,INDIRECT 0.4 mg/dl (0-1.1); BILIRUBIN,TOTAL 0.4 mg/dl (0.2-1.3); CALCIUM 8.1 mg/dl (8.4-10.2); CREATININE 3.1 mg/dl (0.44-1.00); POTASSIUM 3.6 mmol/L (3.5-5.1); TOTAL PROTEIN 6.5 g/dl (6.1-8.1)
[2017-05-25 09:13] LABS: INR 1.04; PROTIME 13.6 Sec (12.2-14.2); PT RATIO 1.1
[2017-05-25 09:14] LABS: PARTIAL THROMBOPLASTIN TIME 31.5 Sec (25.0-35.0)
--- NOTE | 2017-05-25 11:24 | CONS ---
Date/Time of Note Date/Time of Note DATE: 05/25/17 TIME: 11:24 Assessment/Plan Assessment/Plan Chief Complaint/Hosp Course A/P 1. Acute kidney injury likely due to combination of acute myocardial infarction trop>100 s/p ptca/stent x 2 to 100% occluded LCX and x 2 to high grade LAD stenosis +contrast nephropathy with Angiogram with CT contrast chest and hemodynamic instability.Pt was s/p balloon pump 2. Oliguric ATN 3. CHF-likely systolic acute. EF 30-35% 4. diabetes mellitus 5 hypertension. 6 Metabolic acidosis due to renal failure 7 Likely diabetic nephropathy on admission Cr was 1.14 8 Leukocytosis 9 Anemia Plan - UOP improved 500 ml since this am - Inspite of no hd x 3 days, Cr trending down 3.10 with good UOP - Decrease bumex to 1 mg po - If cr continue to trend down , will have to take out rt bi - Strict I an O - Strict I and O - c/w ASA/Plavix/Coreg/statin per cards - c/w hold AMANDA due to renal failure - monitor uop closely - Hold Nephrotoxic agents - Labs am Problems: Consultation Date/Type/Reason Admit Date/Time May 16, 2017 at 12:38 Initial Consult Date 05/17/17 Type of Consultation: Renal Referring Provider: RUPERT CARMONA 24 HR Interval Summary Free Text/Dictation Pt making more urine 500 cc this am Exam/Review of Systems Vital Signs Vitals Vital Signs Date Time Temp Pulse Resp B/P Pulse Ox O2 Delivery O2 Flow Rate FiO2 05/25/17 08:14 98.0 71 18 109/63 99 05/25/17 03:39 2.0 05/24/17 09:45 Nasal Cannula Intake and Output 05/24/17 05/24/17 05/25/17 14:59 22:59 06:59 Intake Total 400 ml 300 ml Output Total 500 ml 250 ml Balance -100 ml 50 ml Exam Gen: awake and alert 'Neck: supple Respiratory: clear to auscultation Cardiovascular: regular rate and rhythm Gastrointestinal: bowel sounds (+), soft Extremities: edema (+) Access: Left bi Results Result Diagram: 05/25/17 0812 05/25/17 0812 Results 24 hrs Laboratory Tests Test 05/24/17 12:11 05/24/17 17:11 05/24/17 21:40 05/25/17 08:04 Bedside Glucose 218 139 96 105 Test 05/25/17 08:12 White Blood Count 10.0 Red Blood Count 3.90 L Hemoglobin 11.2 L Hematocrit 33.8 L Mean Corpuscular Volume 86.7 Mean Corpuscular Hemoglobin 28.7 L Mean Corpuscular Hemoglobin Concent 33.1 Red Cell Distribution Width 14.0 Platelet Count 261 Mean Platelet Volume 11.0 H Neutrophils % 72.2 Lymphocytes % 15.4 Monocytes % 8.8 Eosinophils % 2.7 Basophils % 0.3 Nucleated Red Blood Cells % 0.0 Neutrophils # 7.2 Lymphocytes # 1.5 Monocytes # 0.9 Eosinophils # 0.3 Basophils # 0.0 Nucleated Red Blood Cells # 0.0 Prothrombin Time 13.6 Prothrombin Time Ratio 1.1 INR International Normalized Ratio 1.04 Activated Partial Thromboplast Time 31.5 Sodium Level 130 L Potassium Level 3.6 Chloride Level 97 Carbon Dioxide Level 24 Anion Gap 13 Blood Urea Nitrogen 58 H Creatinine 3.10 H Glucose Level 93 Calcium Level 8.1 L Magnesium Level 1.7 Total Bilirubin 0.4 Direct Bilirubin 0.00 Indirect Bilirubin 0.4 Aspartate Amino Transf (AST/SGOT) 43 Alanine Aminotransferase (ALT/SGPT) 35 Alkaline Phosphatase 124 H Total Protein 6.5 Albumin 2.9 L Globulin 3.60 H Albumin/Globulin Ratio 0.80 Medications Medications Current Medications Ondansetron HCl (Zofran Inj) 4 mg Q6H PRN IV NAUSEA AND/OR VOMITING Last administered on 05/16/17 17:24; Admin Dose 4 MG; Start 05/16/17 at 15:00 Acetaminophen (Tylenol Tab) 650 mg Q6H PRN PO PAIN LEVEL 1-3 OR FEVER Last administered on 05/19/17 09:35; Admin Dose 650 MG; Start 05/16/17 at 15:00 Acetaminophen/ Hydrocodone Bitart ([place] (5/325)) 1 tab Q6H PRN PO MODERATE PAIN LEVEL 4-6; Start 05/16/17 at 15:00 Morphine Sulfate (morphine) 2 mg Q4H PRN IV SEVERE PAIN LEVEL 7-10 Last administered on 05/17/17 20:57; Admin Dose 2 MG; Start 05/16/17 at 15:00 Docusate Sodium (Colace) 100 mg Q12H PRN PO CONSTIPATION; Start 05/16/17 at 15 :00 Magnesium Hydroxide (Milk Of Mag) 30 ml DAILY PRN PO CONSTIPATION; Start 05/16 at 15:00 Hydralazine HCl (Apresoline) 10 mg Q6H PRN IV ELEVATED BLOOD PRESSURE; Start 05/16/17 at 15:00 Clonidine (Catapres) 0.1 mg Q6H PRN PO ELEVATED BLOOD PRESSURE; Start at 15:00 Nitroglycerin (Nitroglycerin (Sl Tab) 0.4 Mg) 1 tab Q5M PRN SL ANGINA; Start 05/16/17 at 15:00 Fish Oil (Fish Oil) 1,000 mg DAILY PO Last administered on 05/25/17 08:08; Admin Dose 1,000 MG; Start 05/16/17 at 15:00 Atorvastatin Calcium (Lipitor) 80 mg HS PO Last administered on 05/24/17 21: 42; Admin Dose 80 MG; Start 05/16/17 at 21:00 Diagnostic Test (Pha) (Accu-Chek) 1 ea 02 XX Last administered on 05/24/17 02 :00; Admin Dose 1 EA; Start 05/17/17 at 02:00 Miscellaneous Information 1 ea NOTE XX ; Start 05/16/17 at 15:00 Glucose (Glutose) 15 gm Q15M PRN PO DECREASED GLUCOSE; Start 05/16/17 at 15:00 Glucose (Glutose) 22.5 gm Q15M PRN PO DECREASED GLUCOSE; Start 05/16/17 at 15: 00 Dextrose (D50w Syringe) 25 ml Q15M PRN IV DECREASED GLUCOSE; Start 05/16/17 at 15:00 Dextrose (D50w Syringe) 50 ml Q15M PRN IV DECREASED GLUCOSE; Start 05/16/17 at 15:00 Glucagon (Glucagen) 1 mg Q15M PRN IM DECREASED GLUCOSE; Start 05/16/17 at 15: 00 Glucose (Glutose) 15 gm Q15M PRN BUCCAL DECREASED GLUCOSE; Start 05/16/17 at 15:00 Carvedilol (Coreg) 6.25 mg BID PO Last administered on 05/25/17 08:09; Admin Dose 6.25 MG; Start 05/16/17 at 21:00 Aspirin (Ecotrin) 325 mg DAILY PO Last administered on 05/25/17 08:08; Admin Dose 325 MG; Start 05/18/17 at 09:00 Clopidogrel Bisulfate (plaVIX) 75 mg DAILY PO Last administered on 05/25/17 08:07; Admin Dose 75 MG; Start 05/18/17 at 09:00 Acetaminophen (Tylenol Tab) 650 mg Q4H PRN PO NON-CARDIAC PAIN LEVEL 1-3; Start 05/17/17 at 12:00 Oxycodone/ Acetaminophen (Percocet (5/ 325)) 1 tab Q4H PRN PO REPORTED NON- CARDIAC PAIN 4-7; Start 05/17/17 at 12:00 Morphine Sulfate (morphine) 1 mg Q1H PRN IV PAIN NOT RELIEVED BY OTHERS Last administered on 05/18/17 11:51; Admin Dose 1 MG; Start 05/17/17 at 12:00 Al Hydrox/Mg Hydrox/Simethicone (Mag-Al Plus) 30 ml Q4H PRN PO GASTROINTESTINAL UPSET; Start 05/17/17 at 12:00 Ondansetron HCl (Zofran Inj) 4 mg Q4H PRN IV NAUSEA AND/OR VOMITING Last administered on 05/20/17 03:00; Admin Dose 4 MG; Start 05/17/17 at 12:00 Hydralazine HCl (Apresoline) 10 mg Q8 PO Last administered on 05/24/17 21:42 ; Admin Dose 10 MG; Start 05/19/17 at 14:00 Insulin Glargine (Lantus) 11 unit DAILY@08 SC Last administered on 05/25/17 08:12; Admin Dose 11 UNIT; Start 05/21/17 at 08:00 IV Flush (NS 10 ml) 10 ml PRN PRN IV IV PROTOCOL; Start 05/20/17 at 17:00 TONI MEIER MD May 25, 2017 11:24
--- NOTE | 2017-05-25 17:45 | CONS ---
Date/Time of Note Date/Time of Note DATE: 05/25/17 TIME: 17:42 Assessment/Plan Assessment/Plan Chief Complaint/Hosp Course IMP: 1.Acute [place]-trop>100 now POD#1 s/p ptca/stent x 2 to 100% occluded LCX and x 2 to high grade LAD stenosis and placement of IABP 2.CHF-likely systolic acute. EF 30-35% by echo yesterday 3.Renal failure 4.DM 5.Chest pain secondary to number 1. Now improved 6. Anemia 7.Dyslipidemia 8.Loose stools per patient Recc: -Tele -serial ecg's -Continue asa 325 and plavix 75 mg daily -Follow volume status closely on bumex now daily with HD for volume removal as necessary only -statin therapy -Continue abx's and f/u cx data -Continue low dose hydralazine aftrerload reduction in lieu of ACEI at this time given renal failure and BB as tolerated -w/u loose stools as necessary Problems: Consultation Date/Type/Reason Admit Date/Time May 16, 2017 at 12:38 Initial Consult Date 05/17/17 Type of Consultation: cardiology Reason for Consultation Nstemi Referring Provider: RUPERT CARMONA Exam/Review of Systems Vital Signs Vitals Vital Signs Date Time Temp Pulse Resp B/P Pulse Ox O2 Delivery O2 Flow Rate FiO2 05/25/17 16:08 98.3 75 18 114/67 100 05/25/17 11:38 Nasal Cannula 2.0 Intake and Output 05/24/17 05/24/17 05/25/17 15:00 23:00 07:00 Intake Total 400 ml 300 ml Output Total 500 ml 250 ml Balance -100 ml 50 ml Exam Review of Systems: CONSTITUTIONAL: No fevers, chills. PULMONARY: No sob CARDIOVASCULAR: No chest pain/palpitations GASTROINTESTINAL: No nausea/vomiting. GENITOURINARY: No hematuria/dysuria. MUSCULOSKELETAL: No myagias/arthalgias. PSYCHIATRIC: The patient denies depression. NEUROLOGIC: No weakness Constitutional: alert Psych: no complaints Head: normocephalic ENMT: mucosa pink and moist Neck: jvd (9 cm water), supple Respiratory: clear to auscultation Cardiovascular: regular rate and rhythm Gastrointestinal: non-tender, soft Musculoskeletal: muscle tone (normal) Extremities: pitting pedal edema (trace bilateral) Neurological: other (No focal deficits) Results Result Diagram: 05/25/17 0812 05/25/17 0812 Results 24 hrs Laboratory Tests Test 05/24/17 21:40 05/25/17 08:04 05/25/17 08:12 05/25/17 12:38 Bedside Glucose 96 105 194 White Blood Count 10.0 Red Blood Count 3.90 L Hemoglobin 11.2 L Hematocrit 33.8 L Mean Corpuscular Volume 86.7 Mean Corpuscular Hemoglobin 28.7 L Mean Corpuscular Hemoglobin Concent 33.1 Red Cell Distribution Width 14.0 Platelet Count 261 Mean Platelet Volume 11.0 H Neutrophils % 72.2 Lymphocytes % 15.4 Monocytes % 8.8 Eosinophils % 2.7 Basophils % 0.3 Nucleated Red Blood Cells % 0.0 Neutrophils # 7.2 Lymphocytes # 1.5 Monocytes # 0.9 Eosinophils # 0.3 Basophils # 0.0 Nucleated Red Blood Cells # 0.0 Prothrombin Time 13.6 Prothrombin Time Ratio 1.1 INR International Normalized Ratio 1.04 Activated Partial Thromboplast Time 31.5 Sodium Level 130 L Potassium Level 3.6 Chloride Level 97 Carbon Dioxide Level 24 Anion Gap 13 Blood Urea Nitrogen 58 H Creatinine 3.10 H Glucose Level 93 Calcium Level 8.1 L Magnesium Level 1.7 Total Bilirubin 0.4 Direct Bilirubin 0.00 Indirect Bilirubin 0.4 Aspartate Amino Transf (AST/SGOT) 43 Alanine Aminotransferase (ALT/SGPT) 35 Alkaline Phosphatase 124 H Total Protein 6.5 Albumin 2.9 L Globulin 3.60 H Albumin/Globulin Ratio 0.80 Test 05/25/17 17:08 Bedside Glucose 225 H Medications Medications Current Medications Ondansetron HCl (Zofran Inj) 4 mg Q6H PRN IV NAUSEA AND/OR VOMITING Last administered on 05/16/17 17:24; Admin Dose 4 MG; Start 05/16/17 at 15:00 Acetaminophen (Tylenol Tab) 650 mg Q6H PRN PO PAIN LEVEL 1-3 OR FEVER Last administered on 05/19/17 09:35; Admin Dose 650 MG; Start 05/16/17 at 15:00 Acetaminophen/ Hydrocodone Bitart ([place] (5/325)) 1 tab Q6H PRN PO MODERATE PAIN LEVEL 4-6; Start 05/16/17 at 15:00 Morphine Sulfate (morphine) 2 mg Q4H PRN IV SEVERE PAIN LEVEL 7-10 Last administered on 05/17/17 20:57; Admin Dose 2 MG; Start 05/16/17 at 15:00 Docusate Sodium (Colace) 100 mg Q12H PRN PO CONSTIPATION; Start 05/16/17 at 15 :00 Magnesium Hydroxide (Milk Of Mag) 30 ml DAILY PRN PO CONSTIPATION; Start 05/16 at 15:00 Hydralazine HCl (Apresoline) 10 mg Q6H PRN IV ELEVATED BLOOD PRESSURE; Start 05/16/17 at 15:00 Clonidine (Catapres) 0.1 mg Q6H PRN PO ELEVATED BLOOD PRESSURE; Start at 15:00 Nitroglycerin (Nitroglycerin (Sl Tab) 0.4 Mg) 1 tab Q5M PRN SL ANGINA; Start 05/16/17 at 15:00 Fish Oil (Fish Oil) 1,000 mg DAILY PO Last administered on 05/25/17 08:08; Admin Dose 1,000 MG; Start 05/16/17 at 15:00 Atorvastatin Calcium (Lipitor) 80 mg HS PO Last administered on 05/24/17 21: 42; Admin Dose 80 MG; Start 05/16/17 at 21:00 Diagnostic Test (Pha) (Accu-Chek) 1 ea 02 XX Last administered on 05/24/17 02 :00; Admin Dose 1 EA; Start 05/17/17 at 02:00 Miscellaneous Information 1 ea NOTE XX ; Start 05/16/17 at 15:00 Glucose (Glutose) 15 gm Q15M PRN PO DECREASED GLUCOSE; Start 05/16/17 at 15:00 Glucose (Glutose) 22.5 gm Q15M PRN PO DECREASED GLUCOSE; Start 05/16/17 at 15: 00 Dextrose (D50w Syringe) 25 ml Q15M PRN IV DECREASED GLUCOSE; Start 05/16/17 at 15:00 Dextrose (D50w Syringe) 50 ml Q15M PRN IV DECREASED GLUCOSE; Start 05/16/17 at 15:00 Glucagon (Glucagen) 1 mg Q15M PRN IM DECREASED GLUCOSE; Start 05/16/17 at 15: 00 Glucose (Glutose) 15 gm Q15M PRN BUCCAL DECREASED GLUCOSE; Start 05/16/17 at 15:00 Carvedilol (Coreg) 6.25 mg BID PO Last administered on 05/25/17 08:09; Admin Dose 6.25 MG; Start 05/16/17 at 21:00 Aspirin (Ecotrin) 325 mg DAILY PO Last administered on 05/25/17 08:08; Admin Dose 325 MG; Start 05/18/17 at 09:00 Clopidogrel Bisulfate (plaVIX) 75 mg DAILY PO Last administered on 05/25/17 08:07; Admin Dose 75 MG; Start 05/18/17 at 09:00 Acetaminophen (Tylenol Tab) 650 mg Q4H PRN PO NON-CARDIAC PAIN LEVEL 1-3; Start 05/17/17 at 12:00 Oxycodone/ Acetaminophen (Percocet (5/ 325)) 1 tab Q4H PRN PO REPORTED NON- CARDIAC PAIN 4-7; Start 05/17/17 at 12:00 Morphine Sulfate (morphine) 1 mg Q1H PRN IV PAIN NOT RELIEVED BY OTHERS Last administered on 05/18/17 11:51; Admin Dose 1 MG; Start 05/17/17 at 12:00 Al Hydrox/Mg Hydrox/Simethicone (Mag-Al Plus) 30 ml Q4H PRN PO GASTROINTESTINAL UPSET; Start 05/17/17 at 12:00 Ondansetron HCl (Zofran Inj) 4 mg Q4H PRN IV NAUSEA AND/OR VOMITING Last administered on 05/20/17 03:00; Admin Dose 4 MG; Start 05/17/17 at 12:00 Hydralazine HCl (Apresoline) 10 mg Q8 PO Last administered on 05/24/17 21:42 ; Admin Dose 10 MG; Start 05/19/17 at 14:00 Insulin Glargine (Lantus) 11 unit DAILY@08 SC Last administered on 05/25/17 08:12; Admin Dose 11 UNIT; Start 05/21/17 at 08:00 IV Flush (NS 10 ml) 10 ml PRN PRN IV IV PROTOCOL; Start 05/20/17 at 17:00 Bumetanide (Bumex) 1 mg DAILY PO ; Start 05/26/17 at 09:00 RANDEE GAMBLE May 25, 2017 17:45
--- NOTE | 2017-05-25 17:53 | PN ---
Date/Time of Note Date/Time of Note DATE: 05/25/17 TIME: 17:52 Assessment/Plan VTE Prophylaxis VTE Prophylaxis Intervention: SCD's Lines/Catheters IV Catheter Type (from Nrs): bi cath Central line still needed: Yes (temporary HD ) Urinary Cath still in place: No Assessment/Plan Assessment/Plan 1. Acute NSTEMI s/p ptca/stent x 2 to 100% occluded LCX and x 2 to high grade LAD stenosis +contrast nephropathy with Angiogram with CT contrast chest and hemodynamic instability.Pt was s/p balloon pump 2. Acute kidney injury due to ATN, started on HD during this admission, now off HD x 2 days 3. CHF-likely systolic acute. EF 30-35% 4. diabetes mellitus 5 hypertension. Plan : Nephrology following, started on HD during this admission for JOSE ALBERTO on CKD, off HD now, doing well, still has right groin bi off HD x 2 days now, Cr trending down Pt is on IV bumex 1 mg BID for diuresis Bicitra 30ml PO BID for metabolic acidosis SCD for DVT prophylaxis Appreciate Cardiology and nephrology help downgrade to med/surge floor Subjective 24 Hr Interval Summary Free Text/Dictation making good urine, Bp stable, Saturation normal off oxygen today Exam/Review of Systems Vital Signs Vitals Vital Signs Date Time Temp Pulse Resp B/P Pulse Ox O2 Delivery O2 Flow Rate FiO2 05/25/17 16:08 98.3 75 18 114/67 100 05/25/17 11:38 Nasal Cannula 2.0 Intake and Output 05/24/17 05/24/17 05/25/17 15:00 23:00 07:00 Intake Total 400 ml 300 ml Output Total 500 ml 250 ml Balance -100 ml 50 ml Exam Gen: awake and alert 'Neck: supple Respiratory: decreased breath sounds b/l Cardiovascular: regular rate and rhythm Gastrointestinal: bowel sounds (+), soft Extremities: edema (+) Access: Left bi Results Result Diagram: 05/25/17 0812 05/25/17 0812 Results 24 hrs Laboratory Tests Test 05/24/17 21:40 05/25/17 08:04 05/25/17 08:12 05/25/17 12:38 Bedside Glucose 96 105 194 White Blood Count 10.0 Red Blood Count 3.90 L Hemoglobin 11.2 L Hematocrit 33.8 L Mean Corpuscular Volume 86.7 Mean Corpuscular Hemoglobin 28.7 L Mean Corpuscular Hemoglobin Concent 33.1 Red Cell Distribution Width 14.0 Platelet Count 261 Mean Platelet Volume 11.0 H Neutrophils % 72.2 Lymphocytes % 15.4 Monocytes % 8.8 Eosinophils % 2.7 Basophils % 0.3 Nucleated Red Blood Cells % 0.0 Neutrophils # 7.2 Lymphocytes # 1.5 Monocytes # 0.9 Eosinophils # 0.3 Basophils # 0.0 Nucleated Red Blood Cells # 0.0 Prothrombin Time 13.6 Prothrombin Time Ratio 1.1 INR International Normalized Ratio 1.04 Activated Partial Thromboplast Time 31.5 Sodium Level 130 L Potassium Level 3.6 Chloride Level 97 Carbon Dioxide Level 24 Anion Gap 13 Blood Urea Nitrogen 58 H Creatinine 3.10 H Glucose Level 93 Calcium Level 8.1 L Magnesium Level 1.7 Total Bilirubin 0.4 Direct Bilirubin 0.00 Indirect Bilirubin 0.4 Aspartate Amino Transf (AST/SGOT) 43 Alanine Aminotransferase (ALT/SGPT) 35 Alkaline Phosphatase 124 H Total Protein 6.5 Albumin 2.9 L Globulin 3.60 H Albumin/Globulin Ratio 0.80 Test 05/25/17 17:08 Bedside Glucose 225 H Medications Medications Current Medications Ondansetron HCl (Zofran Inj) 4 mg Q6H PRN IV NAUSEA AND/OR VOMITING Last administered on 05/16/17 17:24; Admin Dose 4 MG; Start 05/16/17 at 15:00 Acetaminophen (Tylenol Tab) 650 mg Q6H PRN PO PAIN LEVEL 1-3 OR FEVER Last administered on 05/19/17 09:35; Admin Dose 650 MG; Start 05/16/17 at 15:00 Acetaminophen/ Hydrocodone Bitart ([place] (5/325)) 1 tab Q6H PRN PO MODERATE PAIN LEVEL 4-6; Start 05/16/17 at 15:00 Morphine Sulfate (morphine) 2 mg Q4H PRN IV SEVERE PAIN LEVEL 7-10 Last administered on 05/17/17 20:57; Admin Dose 2 MG; Start 05/16/17 at 15:00 Docusate Sodium (Colace) 100 mg Q12H PRN PO CONSTIPATION; Start 05/16/17 at 15 :00 Magnesium Hydroxide (Milk Of Mag) 30 ml DAILY PRN PO CONSTIPATION; Start 05/16 at 15:00 Hydralazine HCl (Apresoline) 10 mg Q6H PRN IV ELEVATED BLOOD PRESSURE; Start 05/16/17 at 15:00 Clonidine (Catapres) 0.1 mg Q6H PRN PO ELEVATED BLOOD PRESSURE; Start at 15:00 Nitroglycerin (Nitroglycerin (Sl Tab) 0.4 Mg) 1 tab Q5M PRN SL ANGINA; Start 05/16/17 at 15:00 Fish Oil (Fish Oil) 1,000 mg DAILY PO Last administered on 05/25/17 08:08; Admin Dose 1,000 MG; Start 05/16/17 at 15:00 Atorvastatin Calcium (Lipitor) 80 mg HS PO Last administered on 05/24/17 21: 42; Admin Dose 80 MG; Start 05/16/17 at 21:00 Diagnostic Test (Pha) (Accu-Chek) 1 ea 02 XX Last administered on 05/24/17 02 :00; Admin Dose 1 EA; Start 05/17/17 at 02:00 Miscellaneous Information 1 ea NOTE XX ; Start 05/16/17 at 15:00 Glucose (Glutose) 15 gm Q15M PRN PO DECREASED GLUCOSE; Start 05/16/17 at 15:00 Glucose (Glutose) 22.5 gm Q15M PRN PO DECREASED GLUCOSE; Start 05/16/17 at 15: 00 Dextrose (D50w Syringe) 25 ml Q15M PRN IV DECREASED GLUCOSE; Start 05/16/17 at 15:00 Dextrose (D50w Syringe) 50 ml Q15M PRN IV DECREASED GLUCOSE; Start 05/16/17 at 15:00 Glucagon (Glucagen) 1 mg Q15M PRN IM DECREASED GLUCOSE; Start 05/16/17 at 15: 00 Glucose (Glutose) 15 gm Q15M PRN BUCCAL DECREASED GLUCOSE; Start 05/16/17 at 15:00 Carvedilol (Coreg) 6.25 mg BID PO Last administered on 05/25/17 08:09; Admin Dose 6.25 MG; Start 05/16/17 at 21:00 Aspirin (Ecotrin) 325 mg DAILY PO Last administered on 05/25/17 08:08; Admin Dose 325 MG; Start 05/18/17 at 09:00 Clopidogrel Bisulfate (plaVIX) 75 mg DAILY PO Last administered on 05/25/17 08:07; Admin Dose 75 MG; Start 05/18/17 at 09:00 Acetaminophen (Tylenol Tab) 650 mg Q4H PRN PO NON-CARDIAC PAIN LEVEL 1-3; Start 05/17/17 at 12:00 Oxycodone/ Acetaminophen (Percocet (5/ 325)) 1 tab Q4H PRN PO REPORTED NON- CARDIAC PAIN 4-7; Start 05/17/17 at 12:00 Morphine Sulfate (morphine) 1 mg Q1H PRN IV PAIN NOT RELIEVED BY OTHERS Last administered on 05/18/17 11:51; Admin Dose 1 MG; Start 05/17/17 at 12:00 Al Hydrox/Mg Hydrox/Simethicone (Mag-Al Plus) 30 ml Q4H PRN PO GASTROINTESTINAL UPSET; Start 05/17/17 at 12:00 Ondansetron HCl (Zofran Inj) 4 mg Q4H PRN IV NAUSEA AND/OR VOMITING Last administered on 05/20/17 03:00; Admin Dose 4 MG; Start 05/17/17 at 12:00 Hydralazine HCl (Apresoline) 10 mg Q8 PO Last administered on 05/24/17 21:42 ; Admin Dose 10 MG; Start 05/19/17 at 14:00 Insulin Glargine (Lantus) 11 unit DAILY@08 SC Last administered on 05/25/17 08:12; Admin Dose 11 UNIT; Start 05/21/17 at 08:00 IV Flush (NS 10 ml) 10 ml PRN PRN IV IV PROTOCOL; Start 05/20/17 at 17:00 Bumetanide (Bumex) 1 mg DAILY PO ; Start 05/26/17 at 09:00 MOON RENTERIA MD May 25, 2017 17:53
[2017-05-25] MEDS: ATORVASTATIN 80 MG TAB PO SCH (20:48)
[2017-05-26] VITALS (9 sets, daily range): BP systolic 98–128; BP diastolic 51–70; PULSE 75–86; RESP 18–20
[2017-05-26] MEDS: ACCU-CHEK XX SCH (02:18)
[2017-05-26] MEDS: INSULIN ASPART [NOVOLOG] 3 ML PEN SC SCH ×7 (07:30→20:36)
[2017-05-26 07:39] LABS: BASOPHILS % 0.2 % (0.0-2.0); EOSINOPHILS # 0.3 10^3/ul (0.0-0.5); EOSINOPHILS % 2.9 % (0.0-7.0); HEMATOCRIT 30.4 % (37.0-47.0); HEMOGLOBIN 10.1 g/dl (12.0-16.0); LYMPHOCYTES # 1.6 10^3/ul (0.8-2.9); LYMPHOCYTES % 15.9 % (15.0-51.0); MEAN CORPUSCULAR HEMOGLOBIN 28.9 pg (29.0-33.0); MEAN CORPUSCULAR HGB CONC 33.2 g/dl (32.0-37.0); MEAN CORPUSCULAR VOLUME 86.9 fl (82.0-101.0); MONOCYTES % 10.3 % (0.0-11.0); NEUTROPHIL # 6.8 10^3/ul (1.6-7.5); NEUTROPHILS % 69.8 % (39.0-77.0); PLATELET COUNT 279 10^3/UL (140-415); RED CELL DISTRIBUTION WIDTH 13.9 % (11.5-14.5); WHITE BLOOD COUNT 9.8 10^3/ul (4.8-10.8)
[2017-05-26 07:54] LABS: ALBUMIN 2.6 g/dl (3.3-4.9); ALBUMIN/GLOBULIN RATIO 0.81; BILIRUBIN,INDIRECT 0.3 mg/dl (0-1.1); BILIRUBIN,TOTAL 0.3 mg/dl (0.2-1.3); CALCIUM 7.8 mg/dl (8.4-10.2); CREATININE 2.83 mg/dl (0.44-1.00); POTASSIUM 3.5 mmol/L (3.5-5.1); TOTAL PROTEIN 5.8 g/dl (6.1-8.1)
[2017-05-26 08:10] LABS: INR 1.07; PARTIAL THROMBOPLASTIN TIME 31.5 Sec (25.0-35.0); PROTIME 13.9 Sec (12.2-14.2); PT RATIO 1.1
[2017-05-26] MEDS: INSULIN GLARGINE [LANtus] 3 ML PEN SC SCH (08:23)
[2017-05-26] MEDS: ASPIRIN (EC) 325 MG TAB PO SCH (08:24)
[2017-05-26] MEDS: FISH OIL 1,000 MG CAP PO SCH (08:24)
[2017-05-26] MEDS: CLOPIDOGREL 75 MG TAB PO SCH (08:25)
[2017-05-26] MEDS ORDERED: BUMETANIDE 1 MG INJ IV SCH (09:00)
[2017-05-26] MEDS ORDERED: BUMETANIDE 1 MG TAB PO SCH (09:00)
--- NOTE | 2017-05-26 15:04 | CONS ---
Date/Time of Note Date/Time of Note DATE: 05/26/17 TIME: 15:01 Assessment/Plan Assessment/Plan Chief Complaint/Hosp Course IMP: 1.Acute [place]-trop>100 now Post-op s/p ptca/stent x 2 to 100% occluded LCX and x 2 to high grade LAD stenosis and placement of IABP 2.CHF-likely systolic acute. EF 30-35% by echo yesterday 3.Renal failure-slowly improving 4.DM 5.Chest pain secondary to number 1. Now improved 6. Anemia 7.Dyslipidemia 8.Loose stools per patient Recc: -Tele -serial ecg's -Continue asa 325 and plavix 75 mg daily -Follow volume status closely now off of bumex/HD and follow renal function closely -statin therapy -Continue abx's and f/u cx data -Continue low dose hydralazine aftrerload reduction in lieu of ACEI at this time given renal failure and BB as tolerated -w/u loose stools as necessary Problems: Consultation Date/Type/Reason Admit Date/Time May 16, 2017 at 12:38 Initial Consult Date 05/17/17 Type of Consultation: cardiology Reason for Consultation Nstemi Referring Provider: RUPERT CARMONA Exam/Review of Systems Vital Signs Vitals Vital Signs Date Time Temp Pulse Resp B/P Pulse Ox O2 Delivery O2 Flow Rate FiO2 05/26/17 12:00 86 05/26/17 11:45 98.2 18 110/59 98 05/25/17 19:53 Nasal Cannula 2.0 Intake and Output 05/25/17 05/25/17 05/26/17 15:00 23:00 07:00 Intake Total 800 ml Output Total 250 ml Balance 550 ml Exam Review of Systems: CONSTITUTIONAL: No fevers, chills. PULMONARY: No sob CARDIOVASCULAR: No chest pain/palpitations GASTROINTESTINAL: No nausea/vomiting. GENITOURINARY: No hematuria/dysuria. MUSCULOSKELETAL: No myagias/arthalgias. PSYCHIATRIC: The patient denies depression. NEUROLOGIC: No weakness Constitutional: alert, oriented Psych: no complaints Head: normocephalic ENMT: mucosa pink and moist Neck: jvd (9 cm water), supple Respiratory: clear to auscultation Cardiovascular: regular rate and rhythm Gastrointestinal: non-tender, soft Musculoskeletal: muscle tone (normal) Extremities: pitting pedal edema (trace/B) Neurological: other (No focal deficits) Results Result Diagram: 05/26/17 0617 05/26/17 0640 Results 24 hrs Laboratory Tests Test 05/25/17 17:08 05/25/17 20:46 05/26/17 02:11 05/26/17 06:17 Bedside Glucose 225 H 159 106 White Blood Count 9.8 Red Blood Count 3.50 L Hemoglobin 10.1 L Hematocrit 30.4 L Mean Corpuscular Volume 86.9 Mean Corpuscular Hemoglobin 28.9 L Mean Corpuscular Hemoglobin Concent 33.2 Red Cell Distribution Width 13.9 Platelet Count 279 Mean Platelet Volume 11.0 H Neutrophils % 69.8 Lymphocytes % 15.9 Monocytes % 10.3 Eosinophils % 2.9 Basophils % 0.2 Nucleated Red Blood Cells % 0.0 Neutrophils # 6.8 Lymphocytes # 1.6 Monocytes # 1.0 H Eosinophils # 0.3 Basophils # 0.0 Nucleated Red Blood Cells # 0.0 Prothrombin Time 13.9 Prothrombin Time Ratio 1.1 INR International Normalized Ratio 1.07 Activated Partial Thromboplast Time 31.5 Test 05/26/17 06:40 05/26/17 08:17 05/26/17 11:47 Sodium Level 131 L Potassium Level 3.5 Chloride Level 97 Carbon Dioxide Level 23 Anion Gap 15 Blood Urea Nitrogen 60 H Creatinine 2.83 H Glucose Level 88 Calcium Level 7.8 L Total Bilirubin 0.3 Direct Bilirubin 0.00 Indirect Bilirubin 0.3 Aspartate Amino Transf (AST/SGOT) 34 Alanine Aminotransferase (ALT/SGPT) 38 Alkaline Phosphatase 109 Total Protein 5.8 L Albumin 2.6 L Globulin 3.20 Albumin/Globulin Ratio 0.81 Bedside Glucose 114 189 Medications Medications Current Medications Ondansetron HCl (Zofran Inj) 4 mg Q6H PRN IV NAUSEA AND/OR VOMITING Last administered on 05/16/17 17:24; Admin Dose 4 MG; Start 05/16/17 at 15:00 Acetaminophen (Tylenol Tab) 650 mg Q6H PRN PO PAIN LEVEL 1-3 OR FEVER Last administered on 05/19/17 09:35; Admin Dose 650 MG; Start 05/16/17 at 15:00 Acetaminophen/ Hydrocodone Bitart ([place] (5/325)) 1 tab Q6H PRN PO MODERATE PAIN LEVEL 4-6; Start 05/16/17 at 15:00 Morphine Sulfate (morphine) 2 mg Q4H PRN IV SEVERE PAIN LEVEL 7-10 Last administered on 05/17/17 20:57; Admin Dose 2 MG; Start 05/16/17 at 15:00 Docusate Sodium (Colace) 100 mg Q12H PRN PO CONSTIPATION; Start 05/16/17 at 15 :00 Magnesium Hydroxide (Milk Of Mag) 30 ml DAILY PRN PO CONSTIPATION; Start 05/16 at 15:00 Hydralazine HCl (Apresoline) 10 mg Q6H PRN IV ELEVATED BLOOD PRESSURE; Start 05/16/17 at 15:00 Clonidine (Catapres) 0.1 mg Q6H PRN PO ELEVATED BLOOD PRESSURE; Start at 15:00 Nitroglycerin (Nitroglycerin (Sl Tab) 0.4 Mg) 1 tab Q5M PRN SL ANGINA; Start 05/16/17 at 15:00 Fish Oil (Fish Oil) 1,000 mg DAILY PO Last administered on 05/26/17 08:24; Admin Dose 1,000 MG; Start 05/16/17 at 15:00 Atorvastatin Calcium (Lipitor) 80 mg HS PO Last administered on 05/25/17 20: 48; Admin Dose 80 MG; Start 05/16/17 at 21:00 Diagnostic Test (Pha) (Accu-Chek) 1 ea 02 XX Last administered on 05/26/17 02 :18; Admin Dose 1 EA; Start 05/17/17 at 02:00 Miscellaneous Information 1 ea NOTE XX ; Start 05/16/17 at 15:00 Glucose (Glutose) 15 gm Q15M PRN PO DECREASED GLUCOSE; Start 05/16/17 at 15:00 Glucose (Glutose) 22.5 gm Q15M PRN PO DECREASED GLUCOSE; Start 05/16/17 at 15: 00 Dextrose (D50w Syringe) 25 ml Q15M PRN IV DECREASED GLUCOSE; Start 05/16/17 at 15:00 Dextrose (D50w Syringe) 50 ml Q15M PRN IV DECREASED GLUCOSE; Start 05/16/17 at 15:00 Glucagon (Glucagen) 1 mg Q15M PRN IM DECREASED GLUCOSE; Start 05/16/17 at 15: 00 Glucose (Glutose) 15 gm Q15M PRN BUCCAL DECREASED GLUCOSE; Start 05/16/17 at 15:00 Carvedilol (Coreg) 6.25 mg BID PO Last administered on 05/26/17 08:25; Admin Dose 6.25 MG; Start 05/16/17 at 21:00 Aspirin (Ecotrin) 325 mg DAILY PO Last administered on 05/26/17 08:24; Admin Dose 325 MG; Start 05/18/17 at 09:00 Clopidogrel Bisulfate (plaVIX) 75 mg DAILY PO Last administered on 05/26/17 08:25; Admin Dose 75 MG; Start 05/18/17 at 09:00 Acetaminophen (Tylenol Tab) 650 mg Q4H PRN PO NON-CARDIAC PAIN LEVEL 1-3; Start 05/17/17 at 12:00 Oxycodone/ Acetaminophen (Percocet (5/ 325)) 1 tab Q4H PRN PO REPORTED NON- CARDIAC PAIN 4-7; Start 05/17/17 at 12:00 Morphine Sulfate (morphine) 1 mg Q1H PRN IV PAIN NOT RELIEVED BY OTHERS Last administered on 05/18/17 11:51; Admin Dose 1 MG; Start 05/17/17 at 12:00 Al Hydrox/Mg Hydrox/Simethicone (Mag-Al Plus) 30 ml Q4H PRN PO GASTROINTESTINAL UPSET; Start 05/17/17 at 12:00 Ondansetron HCl (Zofran Inj) 4 mg Q4H PRN IV NAUSEA AND/OR VOMITING Last administered on 05/20/17 03:00; Admin Dose 4 MG; Start 05/17/17 at 12:00 Hydralazine HCl (Apresoline) 10 mg Q8 PO Last administered on 05/26/17 06:04 ; Admin Dose 10 MG; Start 05/19/17 at 14:00 Insulin Glargine (Lantus) 11 unit DAILY@08 SC Last administered on 05/26/17 08:23; Admin Dose 11 UNIT; Start 05/21/17 at 08:00 IV Flush (NS 10 ml) 10 ml PRN PRN IV IV PROTOCOL; Start 05/20/17 at 17:00 RANDEE GAMBLE May 26, 2017 15:04
--- NOTE | 2017-05-26 16:10 | CONS ---
Date/Time of Note Date/Time of Note DATE: 05/26/17 TIME: 16:06 Assessment/Plan Assessment/Plan Chief Complaint/Hosp Course A/P 1. Acute kidney injury on CKD likely due to combination of acute myocardial infarction trop>100 s/p ptca/stent x 2 to 100% occluded LCX and x 2 to high grade LAD stenosis +contrast nephropathy with Angiogram with CT contrast chest and hemodynamic instability.Pt was s/p balloon pump. Now improved Cr 2.83 from 4.62, non oliguric, last HD was on 05/22 2. Oliguric ATN improved 3. CHF-likely systolic acute. EF 30-35% 4. diabetes mellitus 5 hypertension. 6 Metabolic acidosis due to renal failure improved 7 Likely diabetic nephropathy on admission Cr was 1.14 8 Leukocytosis 9 Anemia Plan - UOP improved 700+200 - Inspite of no hd x 4 days, Cr trending down 2.83 with good UOP - Hold Bumex( pt is self diuresing) - D/C Sam cath - Strict I an O - c/w ASA/Plavix/Coreg/statin per cards - c/w hold AMANDA due to renal failure - monitor uop closely - Hold Nephrotoxic agents - Labs am Problems: Consultation Date/Type/Reason Admit Date/Time May 16, 2017 at 12:38 Initial Consult Date 05/17/17 Type of Consultation: Renal Referring Provider: RUPERT CARMONA 24 HR Interval Summary Free Text/Dictation Pt having diarrhoea , C diff sent UOP 700 yesterday and 200 ml since am No chest pain/sob Exam/Review of Systems Vital Signs Vitals Vital Signs Date Time Temp Pulse Resp B/P Pulse Ox O2 Delivery O2 Flow Rate FiO2 05/26/17 12:00 86 05/26/17 11:45 98.2 18 110/59 98 05/25/17 19:53 Nasal Cannula 2.0 Intake and Output 05/25/17 05/25/17 05/26/17 15:00 23:00 07:00 Intake Total 800 ml Output Total 250 ml Balance 550 ml Exam Exam Gen: awake and alert 'Neck: supple Respiratory: clear to auscultation Cardiovascular: regular rate and rhythm Gastrointestinal: bowel sounds (+), soft Extremities: edema (+) Access: Left femoral sam Results Result Diagram: 10/20/17 0617 10/20/17 0640 Results 24 hrs Laboratory Tests Test 05/25/17 17:08 05/25/17 20:46 05/26/17 02:11 05/26/17 06:17 Bedside Glucose 225 H 159 106 White Blood Count 9.8 Red Blood Count 3.50 L Hemoglobin 10.1 L Hematocrit 30.4 L Mean Corpuscular Volume 86.9 Mean Corpuscular Hemoglobin 28.9 L Mean Corpuscular Hemoglobin Concent 33.2 Red Cell Distribution Width 13.9 Platelet Count 279 Mean Platelet Volume 11.0 H Neutrophils % 69.8 Lymphocytes % 15.9 Monocytes % 10.3 Eosinophils % 2.9 Basophils % 0.2 Nucleated Red Blood Cells % 0.0 Neutrophils # 6.8 Lymphocytes # 1.6 Monocytes # 1.0 H Eosinophils # 0.3 Basophils # 0.0 Nucleated Red Blood Cells # 0.0 Prothrombin Time 13.9 Prothrombin Time Ratio 1.1 INR International Normalized Ratio 1.07 Activated Partial Thromboplast Time 31.5 Test 05/26/17 06:40 05/26/17 08:17 05/26/17 11:47 Sodium Level 131 L Potassium Level 3.5 Chloride Level 97 Carbon Dioxide Level 23 Anion Gap 15 Blood Urea Nitrogen 60 H Creatinine 2.83 H Glucose Level 88 Calcium Level 7.8 L Total Bilirubin 0.3 Direct Bilirubin 0.00 Indirect Bilirubin 0.3 Aspartate Amino Transf (AST/SGOT) 34 Alanine Aminotransferase (ALT/SGPT) 38 Alkaline Phosphatase 109 Total Protein 5.8 L Albumin 2.6 L Globulin 3.20 Albumin/Globulin Ratio 0.81 Bedside Glucose 114 189 Medications Medications Current Medications Ondansetron HCl (Zofran Inj) 4 mg Q6H PRN IV NAUSEA AND/OR VOMITING Last administered on 05/16/17 17:24; Admin Dose 4 MG; Start 05/16/17 at 15:00 Acetaminophen (Tylenol Tab) 650 mg Q6H PRN PO PAIN LEVEL 1-3 OR FEVER Last administered on 05/19/17 09:35; Admin Dose 650 MG; Start 05/16/17 at 15:00 Acetaminophen/ Hydrocodone Bitart ([place] (5/325)) 1 tab Q6H PRN PO MODERATE PAIN LEVEL 4-6; Start 05/16/17 at 15:00 Morphine Sulfate (morphine) 2 mg Q4H PRN IV SEVERE PAIN LEVEL 7-10 Last administered on 05/17/17 20:57; Admin Dose 2 MG; Start 05/16/17 at 15:00 Docusate Sodium (Colace) 100 mg Q12H PRN PO CONSTIPATION; Start 05/16/17 at 15 :00 Magnesium Hydroxide (Milk Of Mag) 30 ml DAILY PRN PO CONSTIPATION; Start 05/16 at 15:00 Hydralazine HCl (Apresoline) 10 mg Q6H PRN IV ELEVATED BLOOD PRESSURE; Start 05/16/17 at 15:00 Clonidine (Catapres) 0.1 mg Q6H PRN PO ELEVATED BLOOD PRESSURE; Start at 15:00 Nitroglycerin (Nitroglycerin (Sl Tab) 0.4 Mg) 1 tab Q5M PRN SL ANGINA; Start 05/16/17 at 15:00 Fish Oil (Fish Oil) 1,000 mg DAILY PO Last administered on 05/26/17 08:24; Admin Dose 1,000 MG; Start 05/16/17 at 15:00 Atorvastatin Calcium (Lipitor) 80 mg HS PO Last administered on 05/25/17 20: 48; Admin Dose 80 MG; Start 05/16/17 at 21:00 Diagnostic Test (Pha) (Accu-Chek) 1 ea 02 XX Last administered on 05/26/17 02 :18; Admin Dose 1 EA; Start 05/17/17 at 02:00 Miscellaneous Information 1 ea NOTE XX ; Start 05/16/17 at 15:00 Glucose (Glutose) 15 gm Q15M PRN PO DECREASED GLUCOSE; Start 05/16/17 at 15:00 Glucose (Glutose) 22.5 gm Q15M PRN PO DECREASED GLUCOSE; Start 05/16/17 at 15: 00 Dextrose (D50w Syringe) 25 ml Q15M PRN IV DECREASED GLUCOSE; Start 05/16/17 at 15:00 Dextrose (D50w Syringe) 50 ml Q15M PRN IV DECREASED GLUCOSE; Start 05/16/17 at 15:00 Glucagon (Glucagen) 1 mg Q15M PRN IM DECREASED GLUCOSE; Start 05/16/17 at 15: 00 Glucose (Glutose) 15 gm Q15M PRN BUCCAL DECREASED GLUCOSE; Start 05/16/17 at 15:00 Carvedilol (Coreg) 6.25 mg BID PO Last administered on 05/26/17 08:25; Admin Dose 6.25 MG; Start 05/16/17 at 21:00 Aspirin (Ecotrin) 325 mg DAILY PO Last administered on 05/26/17 08:24; Admin Dose 325 MG; Start 05/18/17 at 09:00 Clopidogrel Bisulfate (plaVIX) 75 mg DAILY PO Last administered on 05/26/17 08:25; Admin Dose 75 MG; Start 05/18/17 at 09:00 Acetaminophen (Tylenol Tab) 650 mg Q4H PRN PO NON-CARDIAC PAIN LEVEL 1-3; Start 05/17/17 at 12:00 Oxycodone/ Acetaminophen (Percocet (5/ 325)) 1 tab Q4H PRN PO REPORTED NON- CARDIAC PAIN 4-7; Start 05/17/17 at 12:00 Morphine Sulfate (morphine) 1 mg Q1H PRN IV PAIN NOT RELIEVED BY OTHERS Last administered on 05/18/17 11:51; Admin Dose 1 MG; Start 05/17/17 at 12:00 Al Hydrox/Mg Hydrox/Simethicone (Mag-Al Plus) 30 ml Q4H PRN PO GASTROINTESTINAL UPSET; Start 05/17/17 at 12:00 Ondansetron HCl (Zofran Inj) 4 mg Q4H PRN IV NAUSEA AND/OR VOMITING Last administered on 05/20/17 03:00; Admin Dose 4 MG; Start 05/17/17 at 12:00 Hydralazine HCl (Apresoline) 10 mg Q8 PO Last administered on 05/26/17 15:28 ; Admin Dose 10 MG; Start 05/19/17 at 14:00 Insulin Glargine (Lantus) 11 unit DAILY@08 SC Last administered on 05/26/17 08:23; Admin Dose 11 UNIT; Start 05/21/17 at 08:00 IV Flush (NS 10 ml) 10 ml PRN PRN IV IV PROTOCOL; Start 05/20/17 at 17:00 TONI MEIER MD May 26, 2017 16:10
--- NOTE | 2017-05-26 18:32 | PN ---
Date/Time of Note Date/Time of Note DATE: 05/26/17 TIME: 18:29 Assessment/Plan VTE Prophylaxis VTE Prophylaxis Intervention: SCD's Lines/Catheters IV [facility] Type [facility] MARGARET CATH Urinary Cath still in place: No Assessment/Plan Assessment/Plan 1. Acute NSTEMI s/p ptca/stent x 2 to 100% occluded LCX and x 2 to high grade LAD stenosis +contrast nephropathy with Angiogram with CT contrast chest and hemodynamic instability.Pt was s/p balloon pump 2. Acute kidney injury due to ATN, started on HD during this admission, now off HD x 2 days 3. CHF-likely systolic acute. EF 30-35% 4. diabetes mellitus 5 hypertension. Plan : Nephrology following, started on HD during this admission for JOSE ALBERTO on CKD, off HD now, doing well, still has right groin margaret , nephrolgoy to decide about removal of HD catheter off HD x 2 days now, Cr trending down Bumex has been stopped d/veronica bicitra SCD for DVT prophylaxis Appreciate Cardiology and nephrology help downgrade to med/surge floor Subjective 24 Hr Interval Summary Free Text/Dictation doign better, Off oxygen, BP stable,a febrile Exam/Review of Systems Vital Signs Vitals Vital Signs Date Time Temp Pulse Resp B/P Pulse Ox O2 Delivery O2 Flow Rate FiO2 05/26/17 18:10 2.0 05/26/17 16:18 98.0 77 18 116/54 100 05/25/17 19:53 Nasal Cannula Intake and Output 05/25/17 05/25/17 05/26/17 15:00 23:00 07:00 Intake Total 800 ml Output Total 250 ml Balance 550 ml Exam Gen: awake and alert 'Neck: supple Respiratory: decreased breath sounds b/l Cardiovascular: regular rate and rhythm Gastrointestinal: bowel sounds (+), soft Extremities: edema (+) Access: Left margaret Results Result Diagram: 05/26/17 0617 05/26/17 0640 Results 24 hrs Laboratory Tests Test 05/25/17 20:46 05/26/17 02:11 05/26/17 06:17 05/26/17 06:40 Bedside Glucose 159 106 White Blood Count 9.8 Red Blood Count 3.50 L Hemoglobin 10.1 L Hematocrit 30.4 L Mean Corpuscular Volume 86.9 Mean Corpuscular Hemoglobin 28.9 L Mean Corpuscular Hemoglobin Concent 33.2 Red Cell Distribution Width 13.9 Platelet Count 279 Mean Platelet Volume 11.0 H Neutrophils % 69.8 Lymphocytes % 15.9 Monocytes % 10.3 Eosinophils % 2.9 Basophils % 0.2 Nucleated Red Blood Cells % 0.0 Neutrophils # 6.8 Lymphocytes # 1.6 Monocytes # 1.0 H Eosinophils # 0.3 Basophils # 0.0 Nucleated Red Blood Cells # 0.0 Prothrombin Time 13.9 Prothrombin Time Ratio 1.1 INR International Normalized Ratio 1.07 Activated Partial Thromboplast Time 31.5 Sodium Level 131 L Potassium Level 3.5 Chloride Level 97 Carbon Dioxide Level 23 Anion Gap 15 Blood Urea Nitrogen 60 H Creatinine 2.83 H Glucose Level 88 Calcium Level 7.8 L Total Bilirubin 0.3 Direct Bilirubin 0.00 Indirect Bilirubin 0.3 Aspartate Amino Transf (AST/SGOT) 34 Alanine Aminotransferase (ALT/SGPT) 38 Alkaline Phosphatase 109 Total Protein 5.8 L Albumin 2.6 L Globulin 3.20 Albumin/Globulin Ratio 0.81 Test 05/26/17 08:17 05/26/17 11:47 05/26/17 17:25 Bedside Glucose 114 189 192 Medications Medications Current Medications Ondansetron HCl (Zofran Inj) 4 mg Q6H PRN IV NAUSEA AND/OR VOMITING Last administered on 05/16/17 17:24; Admin Dose 4 MG; Start 05/16/17 at 15:00 Acetaminophen (Tylenol Tab) 650 mg Q6H PRN PO PAIN LEVEL 1-3 OR FEVER Last administered on 05/19/17 09:35; Admin Dose 650 MG; Start 05/16/17 at 15:00 Acetaminophen/ Hydrocodone Bitart ([place] (5/325)) 1 tab Q6H PRN PO MODERATE PAIN LEVEL 4-6; Start 05/16/17 at 15:00 Morphine Sulfate (morphine) 2 mg Q4H PRN IV SEVERE PAIN LEVEL 7-10 Last administered on 05/17/17 20:57; Admin Dose 2 MG; Start 05/16/17 at 15:00 Docusate Sodium (Colace) 100 mg Q12H PRN PO CONSTIPATION; Start 05/16/17 at 15 :00 Magnesium Hydroxide (Milk Of Mag) 30 ml DAILY PRN PO CONSTIPATION; Start 05/16 at 15:00 Hydralazine HCl (Apresoline) 10 mg Q6H PRN IV ELEVATED BLOOD PRESSURE; Start 05/16/17 at 15:00 Clonidine (Catapres) 0.1 mg Q6H PRN PO ELEVATED BLOOD PRESSURE; Start at 15:00 Nitroglycerin (Nitroglycerin (Sl Tab) 0.4 Mg) 1 tab Q5M PRN SL ANGINA; Start 05/16/17 at 15:00 Fish Oil (Fish Oil) 1,000 mg DAILY PO Last administered on 05/26/17 08:24; Admin Dose 1,000 MG; Start 05/16/17 at 15:00 Atorvastatin Calcium (Lipitor) 80 mg HS PO Last administered on 05/25/17 20: 48; Admin Dose 80 MG; Start 05/16/17 at 21:00 Diagnostic Test (Pha) (Accu-Chek) 1 ea 02 XX Last administered on 05/26/17 02 :18; Admin Dose 1 EA; Start 05/17/17 at 02:00 Miscellaneous Information 1 ea NOTE XX ; Start 05/16/17 at 15:00 Glucose (Glutose) 15 gm Q15M PRN PO DECREASED GLUCOSE; Start 05/16/17 at 15:00 Glucose (Glutose) 22.5 gm Q15M PRN PO DECREASED GLUCOSE; Start 05/16/17 at 15: 00 Dextrose (D50w Syringe) 25 ml Q15M PRN IV DECREASED GLUCOSE; Start 05/16/17 at 15:00 Dextrose (D50w Syringe) 50 ml Q15M PRN IV DECREASED GLUCOSE; Start 05/16/17 at 15:00 Glucagon (Glucagen) 1 mg Q15M PRN IM DECREASED GLUCOSE; Start 05/16/17 at 15: 00 Glucose (Glutose) 15 gm Q15M PRN BUCCAL DECREASED GLUCOSE; Start 05/16/17 at 15:00 Carvedilol (Coreg) 6.25 mg BID PO Last administered on 05/26/17 08:25; Admin Dose 6.25 MG; Start 05/16/17 at 21:00 Aspirin (Ecotrin) 325 mg DAILY PO Last administered on 05/26/17 08:24; Admin Dose 325 MG; Start 05/18/17 at 09:00 Clopidogrel Bisulfate (plaVIX) 75 mg DAILY PO Last administered on 05/26/17 08:25; Admin Dose 75 MG; Start 05/18/17 at 09:00 Acetaminophen (Tylenol Tab) 650 mg Q4H PRN PO NON-CARDIAC PAIN LEVEL 1-3; Start 05/17/17 at 12:00 Oxycodone/ Acetaminophen (Percocet (5/ 325)) 1 tab Q4H PRN PO REPORTED NON- CARDIAC PAIN 4-7; Start 05/17/17 at 12:00 Morphine Sulfate (morphine) 1 mg Q1H PRN IV PAIN NOT RELIEVED BY OTHERS Last administered on 05/18/17 11:51; Admin Dose 1 MG; Start 05/17/17 at 12:00 Al Hydrox/Mg Hydrox/Simethicone (Mag-Al Plus) 30 ml Q4H PRN PO GASTROINTESTINAL UPSET; Start 05/17/17 at 12:00 Ondansetron HCl (Zofran Inj) 4 mg Q4H PRN IV NAUSEA AND/OR VOMITING Last administered on 05/20/17 03:00; Admin Dose 4 MG; Start 05/17/17 at 12:00 Hydralazine HCl (Apresoline) 10 mg Q8 PO Last administered on 05/26/17 15:28 ; Admin Dose 10 MG; Start 05/19/17 at 14:00 Insulin Glargine (Lantus) 11 unit DAILY@08 SC Last administered on 05/26/17 08:23; Admin Dose 11 UNIT; Start 05/21/17 at 08:00 IV Flush (NS 10 ml) 10 ml PRN PRN IV IV PROTOCOL; Start 05/20/17 at 17:00 MOON RENTERIA MD May 26, 2017 18:32
[2017-05-26] MEDS: ATORVASTATIN 80 MG TAB PO SCH (20:31)
[2017-05-27 00:30] VITALS: BP 106/53; PULSE 74; RESP 18
[2017-05-27] MEDS: ACCU-CHEK XX SCH (02:06)
[2017-05-27 04:24] VITALS: BP 98/57; RESP 18
[2017-05-27 05:17] VITALS: BP 102/56; PULSE 82; RESP 18
[2017-05-27 07:25] LABS: BASOPHILS % 0.3 % (0.0-2.0); EOSINOPHILS # 0.4 10^3/ul (0.0-0.5); EOSINOPHILS % 3.6 % (0.0-7.0); HEMOGLOBIN 10.1 g/dl (12.0-16.0); LYMPHOCYTES # 1.9 10^3/ul (0.8-2.9); LYMPHOCYTES % 18.6 % (15.0-51.0); MEAN CORPUSCULAR HEMOGLOBIN 28.1 pg (29.0-33.0); MEAN CORPUSCULAR HGB CONC 32.6 g/dl (32.0-37.0); MEAN CORPUSCULAR VOLUME 86.4 fl (82.0-101.0); MEAN PLATELET VOLUME 10.7 fl (7.4-10.4); NEUTROPHIL # 6.9 10^3/ul (1.6-7.5); NEUTROPHILS % 66.5 % (39.0-77.0); PLATELET COUNT 295 10^3/UL (140-415); RED BLOOD COUNT 3.59 10^6/ul (4.20-5.40); RED CELL DISTRIBUTION WIDTH 13.6 % (11.5-14.5); WHITE BLOOD COUNT 10.4 10^3/ul (4.8-10.8)
[2017-05-27 07:35] VITALS: BP 123/70; RESP 17
[2017-05-27 07:55] LABS: INR 1.05; PARTIAL THROMBOPLASTIN TIME 29.1 Sec (25.0-35.0); PROTIME 13.7 Sec (12.2-14.2); PT RATIO 1.1
[2017-05-27] MEDS: INSULIN ASPART [NOVOLOG] 3 ML PEN SC SCH ×7 (08:01→20:39)
[2017-05-27] MEDS: INSULIN GLARGINE [LANtus] 3 ML PEN SC SCH (08:03)
[2017-05-27 08:08] LABS: CALCIUM 8.3 mg/dl (8.4-10.2); CREATININE 2.42 mg/dl (0.44-1.00)
[2017-05-27] MEDS: FISH OIL 1,000 MG CAP PO SCH (08:43)
[2017-05-27] MEDS: ASPIRIN (EC) 325 MG TAB PO SCH (08:43)
[2017-05-27] MEDS: CLOPIDOGREL 75 MG TAB PO SCH (08:43)
--- NOTE | 2017-05-27 12:34 | PN ---
Date/Time of Note Date/Time of Note DATE: 05/27/17 TIME: 12:30 Assessment/Plan VTE Prophylaxis VTE Prophylaxis Intervention: SCD's Lines/Catheters [facility] left femoral bi cath Urinary Cath still in place: No Assessment/Plan Assessment/Plan 57 yo F with DM2, HTN, CHF admitted with NSTEMI, sp PCI. Hospitalization c/b JOSE ALBERTO 2/2 ATN from contrast requiring HD. Plan : Nephrology and cardiology following ok for discharge home when ok'd by nephrology. pt still diuresing. Subjective 24 Hr Interval Summary Free Text/Dictation chatting with family Exam/Review of Systems Vital Signs Vitals Vital Signs Date Time Temp Pulse Resp B/P Pulse Ox O2 Delivery O2 Flow Rate FiO2 05/27/17 07:35 98.1 89 17 123/70 98 05/27/17 06:52 Nasal Cannula 2.0 Intake and Output 05/26/17 05/26/17 05/27/17 15:00 23:00 07:00 Intake Total 450 ml 700 ml 350 ml Output Total 700 ml 400 ml 700 ml Balance -250 ml 300 ml -350 ml Exam nad, sitting up in chair resp nonlabored abd nondistended no edema no rashes Results Result Diagram: 05/27/17 0639 05/27/17 0639 Results 24 hrs Laboratory Tests Test 05/26/17 17:25 05/26/17 20:33 05/27/17 02:02 05/27/17 06:39 Bedside Glucose 192 143 137 White Blood Count 10.4 Red Blood Count 3.59 L Hemoglobin 10.1 L Hematocrit 31.0 L Mean Corpuscular Volume 86.4 Mean Corpuscular Hemoglobin 28.1 L Mean Corpuscular Hemoglobin Concent 32.6 Red Cell Distribution Width 13.6 Platelet Count 295 Mean Platelet Volume 10.7 H Neutrophils % 66.5 Lymphocytes % 18.6 Monocytes % 10.0 Eosinophils % 3.6 Basophils % 0.3 Nucleated Red Blood Cells % 0.0 Neutrophils # 6.9 Lymphocytes # 1.9 Monocytes # 1.0 H Eosinophils # 0.4 Basophils # 0.0 Nucleated Red Blood Cells # 0.0 Prothrombin Time 13.7 Prothrombin Time Ratio 1.1 INR International Normalized Ratio 1.05 Activated Partial Thromboplast Time 29.1 Sodium Level 130 L Potassium Level 4.0 Chloride Level 99 Carbon Dioxide Level 24 Anion Gap 11 Blood Urea Nitrogen 64 H Creatinine 2.42 H Glucose Level 133 # Calcium Level 8.3 L Test 05/27/17 07:56 05/27/17 11:37 Bedside Glucose 141 209 Medications Medications Current Medications Ondansetron HCl (Zofran Inj) 4 mg Q6H PRN IV NAUSEA AND/OR VOMITING Last administered on 05/16/17 17:24; Admin Dose 4 MG; Start 05/16/17 at 15:00 Acetaminophen (Tylenol Tab) 650 mg Q6H PRN PO PAIN LEVEL 1-3 OR FEVER Last administered on 05/19/17 09:35; Admin Dose 650 MG; Start 05/16/17 at 15:00 Acetaminophen/ Hydrocodone Bitart ([place] (5/325)) 1 tab Q6H PRN PO MODERATE PAIN LEVEL 4-6 Last administered on 05/27/17 08:54; Admin Dose 1 TAB; Start 05/16/17 at 15:00 Morphine Sulfate (morphine) 2 mg Q4H PRN IV SEVERE PAIN LEVEL 7-10 Last administered on 05/17/17 20:57; Admin Dose 2 MG; Start 05/16/17 at 15:00 Docusate Sodium (Colace) 100 mg Q12H PRN PO CONSTIPATION; Start 05/16/17 at 15 :00 Magnesium Hydroxide (Milk Of Mag) 30 ml DAILY PRN PO CONSTIPATION; Start 05/16 at 15:00 Hydralazine HCl (Apresoline) 10 mg Q6H PRN IV ELEVATED BLOOD PRESSURE; Start 05/16/17 at 15:00 Clonidine (Catapres) 0.1 mg Q6H PRN PO ELEVATED BLOOD PRESSURE; Start at 15:00 Nitroglycerin (Nitroglycerin (Sl Tab) 0.4 Mg) 1 tab Q5M PRN SL ANGINA; Start 05/16/17 at 15:00 Fish Oil (Fish Oil) 1,000 mg DAILY PO Last administered on 05/27/17 08:43; Admin Dose 1,000 MG; Start 05/16/17 at 15:00 Atorvastatin Calcium (Lipitor) 80 mg HS PO Last administered on 05/26/17 20: 31; Admin Dose 80 MG; Start 05/16/17 at 21:00 Diagnostic Test (Pha) (Accu-Chek) 1 ea 02 XX Last administered on 05/27/17 02 :06; Admin Dose 1 EA; Start 05/17/17 at 02:00 Miscellaneous Information 1 ea NOTE XX ; Start 05/16/17 at 15:00 Glucose (Glutose) 15 gm Q15M PRN PO DECREASED GLUCOSE; Start 05/16/17 at 15:00 Glucose (Glutose) 22.5 gm Q15M PRN PO DECREASED GLUCOSE; Start 05/16/17 at 15: 00 Dextrose (D50w Syringe) 25 ml Q15M PRN IV DECREASED GLUCOSE; Start 05/16/17 at 15:00 Dextrose (D50w Syringe) 50 ml Q15M PRN IV DECREASED GLUCOSE; Start 05/16/17 at 15:00 Glucagon (Glucagen) 1 mg Q15M PRN IM DECREASED GLUCOSE; Start 05/16/17 at 15: 00 Glucose (Glutose) 15 gm Q15M PRN BUCCAL DECREASED GLUCOSE; Start 05/16/17 at 15:00 Carvedilol (Coreg) 6.25 mg BID PO Last administered on 05/27/17 08:44; Admin Dose 6.25 MG; Start 05/16/17 at 21:00 Aspirin (Ecotrin) 325 mg DAILY PO Last administered on 05/27/17 08:43; Admin Dose 325 MG; Start 05/18/17 at 09:00 Clopidogrel Bisulfate (plaVIX) 75 mg DAILY PO Last administered on 05/27/17 08:43; Admin Dose 75 MG; Start 05/18/17 at 09:00 Acetaminophen (Tylenol Tab) 650 mg Q4H PRN PO NON-CARDIAC PAIN LEVEL 1-3; Start 05/17/17 at 12:00 Oxycodone/ Acetaminophen (Percocet (5/ 325)) 1 tab Q4H PRN PO REPORTED NON- CARDIAC PAIN 4-7; Start 05/17/17 at 12:00 Morphine Sulfate (morphine) 1 mg Q1H PRN IV PAIN NOT RELIEVED BY OTHERS Last administered on 05/18/17 11:51; Admin Dose 1 MG; Start 05/17/17 at 12:00 Al Hydrox/Mg Hydrox/Simethicone (Mag-Al Plus) 30 ml Q4H PRN PO GASTROINTESTINAL UPSET; Start 05/17/17 at 12:00 Ondansetron HCl (Zofran Inj) 4 mg Q4H PRN IV NAUSEA AND/OR VOMITING Last administered on 05/20/17 03:00; Admin Dose 4 MG; Start 05/17/17 at 12:00 Hydralazine HCl (Apresoline) 10 mg Q8 PO Last administered on 05/26/17 23:19 ; Admin Dose 10 MG; Start 05/19/17 at 14:00 Insulin Glargine (Lantus) 11 unit DAILY@08 SC Last administered on 05/27/17 08:03; Admin Dose 11 UNIT; Start 05/21/17 at 08:00 IV Flush (NS 10 ml) 10 ml PRN PRN IV IV PROTOCOL; Start 05/20/17 at 17:00 LINH FREEMAN MD May 27, 2017 12:34
[2017-05-27 14:02] VITALS: BP 103/60; RESP 17
--- NOTE | 2017-05-27 14:33 | CONS ---
Date/Time of Note Date/Time of Note DATE: 05/27/17 TIME: 14:31 Assessment/Plan Assessment/Plan Chief Complaint/Hosp Course 1. Acute kidney injury on CKD, multifactorial. 2. Anemia 3. CHF-likely systolic acute. EF 30-35% 4. diabetes mellitus type II uncontrolled 5 hypertension, controlled. 6 Metabolic acidosis due to renal failure improved 7 SIRS 8. Obesity Problems: Additional Assessment/Plan 1. continue HD 2. Optimization Kidney function 3. better DM control 4. fluid restriction 5. keep Sam cath until further notice Consultation Date/Type/Reason Admit Date/Time May 16, 2017 at 12:38 Initial Consult Date 05/17/17 Type of Consultation: Renal Reason for Consultation Dr Doyle Referring Provider: RUPERT CARMONA Exam/Review of Systems Vital Signs Vitals Vital Signs Date Time Temp Pulse Resp B/P Pulse Ox O2 Delivery O2 Flow Rate FiO2 05/27/17 14:02 97.5 74 17 103/60 98 05/27/17 06:52 Nasal Cannula 2.0 Intake and Output 05/26/17 05/26/17 05/27/17 15:00 23:00 07:00 Intake Total 450 ml 700 ml 350 ml Output Total 700 ml 400 ml 700 ml Balance -250 ml 300 ml -350 ml Exam Constitutional: alert, oriented Neck: supple Respiratory: clear to auscultation Genitourinary - Female: nl external genitalia Results Result Diagram: 05/27/17 0639 05/27/17 0639 Results 24 hrs Laboratory Tests Test 05/26/17 17:25 05/26/17 20:33 05/27/17 02:02 05/27/17 06:39 Bedside Glucose 192 143 137 White Blood Count 10.4 Red Blood Count 3.59 L Hemoglobin 10.1 L Hematocrit 31.0 L Mean Corpuscular Volume 86.4 Mean Corpuscular Hemoglobin 28.1 L Mean Corpuscular Hemoglobin Concent 32.6 Red Cell Distribution Width 13.6 Platelet Count 295 Mean Platelet Volume 10.7 H Neutrophils % 66.5 Lymphocytes % 18.6 Monocytes % 10.0 Eosinophils % 3.6 Basophils % 0.3 Nucleated Red Blood Cells % 0.0 Neutrophils # 6.9 Lymphocytes # 1.9 Monocytes # 1.0 H Eosinophils # 0.4 Basophils # 0.0 Nucleated Red Blood Cells # 0.0 Prothrombin Time 13.7 Prothrombin Time Ratio 1.1 INR International Normalized Ratio 1.05 Activated Partial Thromboplast Time 29.1 Sodium Level 130 L Potassium Level 4.0 Chloride Level 99 Carbon Dioxide Level 24 Anion Gap 11 Blood Urea Nitrogen 64 H Creatinine 2.42 H Glucose Level 133 # Calcium Level 8.3 L Test 05/27/17 07:56 05/27/17 11:37 Bedside Glucose 141 209 Medications Medications Current Medications Acetaminophen (Tylenol Tab) 650 mg Q6H PRN PO PAIN LEVEL 1-3 OR FEVER Last administered on 05/19/17 09:35; Admin Dose 650 MG; Start 05/16/17 at 15:00 Acetaminophen/ Hydrocodone Bitart ([place] (5/325)) 1 tab Q6H PRN PO MODERATE PAIN LEVEL 4-6 Last administered on 05/27/17 08:54; Admin Dose 1 TAB; Start 05/16/17 at 15:00 Docusate Sodium (Colace) 100 mg Q12H PRN PO CONSTIPATION; Start 05/16/17 at 15 :00 Magnesium Hydroxide (Milk Of Mag) 30 ml DAILY PRN PO CONSTIPATION; Start 05/16 at 15:00 Hydralazine HCl (Apresoline) 10 mg Q6H PRN IV ELEVATED BLOOD PRESSURE; Start 05/16/17 at 15:00 Nitroglycerin (Nitroglycerin (Sl Tab) 0.4 Mg) 1 tab Q5M PRN SL ANGINA; Start 05/16/17 at 15:00 Fish Oil (Fish Oil) 1,000 mg DAILY PO Last administered on 05/27/17 08:43; Admin Dose 1,000 MG; Start 05/16/17 at 15:00 Atorvastatin Calcium (Lipitor) 80 mg HS PO Last administered on 05/26/17 20: 31; Admin Dose 80 MG; Start 05/16/17 at 21:00 Diagnostic Test (Pha) (Accu-Chek) 1 ea 02 XX Last administered on 05/27/17 02 :06; Admin Dose 1 EA; Start 05/17/17 at 02:00 Miscellaneous Information 1 ea NOTE XX ; Start 05/16/17 at 15:00 Glucose (Glutose) 15 gm Q15M PRN PO DECREASED GLUCOSE; Start 05/16/17 at 15:00 Glucose (Glutose) 22.5 gm Q15M PRN PO DECREASED GLUCOSE; Start 05/16/17 at 15: 00 Dextrose (D50w Syringe) 25 ml Q15M PRN IV DECREASED GLUCOSE; Start 05/16/17 at 15:00 Dextrose (D50w Syringe) 50 ml Q15M PRN IV DECREASED GLUCOSE; Start 05/16/17 at 15:00 Glucagon (Glucagen) 1 mg Q15M PRN IM DECREASED GLUCOSE; Start 05/16/17 at 15: 00 Glucose (Glutose) 15 gm Q15M PRN BUCCAL DECREASED GLUCOSE; Start 05/16/17 at 15:00 Carvedilol (Coreg) 6.25 mg BID PO Last administered on 05/27/17 08:44; Admin Dose 6.25 MG; Start 05/16/17 at 21:00 Aspirin (Ecotrin) 325 mg DAILY PO Last administered on 05/27/17 08:43; Admin Dose 325 MG; Start 05/18/17 at 09:00 Clopidogrel Bisulfate (plaVIX) 75 mg DAILY PO Last administered on 05/27/17 08:43; Admin Dose 75 MG; Start 05/18/17 at 09:00 Acetaminophen (Tylenol Tab) 650 mg Q4H PRN PO NON-CARDIAC PAIN LEVEL 1-3; Start 05/17/17 at 12:00 Morphine Sulfate (morphine) 1 mg Q1H PRN IV PAIN NOT RELIEVED BY OTHERS Last administered on 05/18/17 11:51; Admin Dose 1 MG; Start 05/17/17 at 12:00 Ondansetron HCl (Zofran Inj) 4 mg Q4H PRN IV NAUSEA AND/OR VOMITING Last administered on 05/20/17 03:00; Admin Dose 4 MG; Start 05/17/17 at 12:00 Hydralazine HCl (Apresoline) 10 mg Q8 PO Last administered on 05/26/17 23:19 ; Admin Dose 10 MG; Start 05/19/17 at 14:00 Insulin Glargine (Lantus) 11 unit DAILY@08 SC Last administered on 05/27/17 08:03; Admin Dose 11 UNIT; Start 05/21/17 at 08:00 IV Flush (NS 10 ml) 10 ml PRN PRN IV IV PROTOCOL; Start 05/20/17 at 17:00 STEPHANIE SCHMITT May 27, 2017 14:33
--- NOTE | 2017-05-27 17:21 | CONS ---
Date/Time of Note Date/Time of Note DATE: 05/27/17 TIME: 17:18 Assessment/Plan Assessment/Plan Chief Complaint/Hosp Course IMP: 1.Acute IN-trop>100 now Post-op s/p ptca/stent x 2 to 100% occluded LCX and x 2 to high grade LAD stenosis and placement of IABP 2.CHF-likely systolic acute. EF 30-35% by echo yesterday 3.Renal failure-slowly improving 4.DM 5.Chest pain secondary to number 1. Now improved 6. Anemia 7.Dyslipidemia 8.Loose stools per patient Recc: -Tele -serial ecg's -Continue asa 325 and plavix 75 mg daily -Follow volume status closely now off of bumex/HD and follow renal function closely -statin therapy -Continue abx's and f/u cx data -Continue low dose hydralazine aftrerload reduction in lieu of ACEI at this time given renal failure and BB as tolerated -w/u loose stools as necessary Problems: Consultation Date/Type/Reason Admit Date/Time May 16, 2017 at 12:38 Initial Consult Date 05/17/17 Type of Consultation: cardiology Reason for Consultation nstemi Referring Provider: RUPERT CARMONA Exam/Review of Systems Vital Signs Vitals Vital Signs Date Time Temp Pulse Resp B/P Pulse Ox O2 Delivery O2 Flow Rate FiO2 05/27/17 14:02 97.5 74 17 103/60 98 05/27/17 06:52 Nasal Cannula 2.0 Intake and Output 05/26/17 05/26/17 05/27/17 15:00 23:00 07:00 Intake Total 450 ml 700 ml 350 ml Output Total 700 ml 400 ml 700 ml Balance -250 ml 300 ml -350 ml Exam Review of Systems: CONSTITUTIONAL: No fevers, chills. PULMONARY: No sob CARDIOVASCULAR: No chest pain/palpitations GASTROINTESTINAL: No nausea/vomiting. GENITOURINARY: No hematuria/dysuria. MUSCULOSKELETAL: No myagias/arthalgias. PSYCHIATRIC: The patient denies depression. NEUROLOGIC: No weakness Constitutional: alert, oriented Psych: no complaints Head: normocephalic ENMT: mucosa pink and moist Neck: jvd (9 cm water), supple Respiratory: diminished breath sounds (at bases/B) Cardiovascular: regular rate and rhythm Gastrointestinal: non-tender, soft Musculoskeletal: muscle tone (normal) Extremities: edema (none) Neurological: other (No focal deficits) Results Result Diagram: 05/27/17 0639 05/27/17 0639 Results 24 hrs Laboratory Tests Test 05/26/17 17:25 05/26/17 20:33 05/27/17 02:02 05/27/17 06:39 Bedside Glucose 192 143 137 White Blood Count 10.4 Red Blood Count 3.59 L Hemoglobin 10.1 L Hematocrit 31.0 L Mean Corpuscular Volume 86.4 Mean Corpuscular Hemoglobin 28.1 L Mean Corpuscular Hemoglobin Concent 32.6 Red Cell Distribution Width 13.6 Platelet Count 295 Mean Platelet Volume 10.7 H Neutrophils % 66.5 Lymphocytes % 18.6 Monocytes % 10.0 Eosinophils % 3.6 Basophils % 0.3 Nucleated Red Blood Cells % 0.0 Neutrophils # 6.9 Lymphocytes # 1.9 Monocytes # 1.0 H Eosinophils # 0.4 Basophils # 0.0 Nucleated Red Blood Cells # 0.0 Prothrombin Time 13.7 Prothrombin Time Ratio 1.1 INR International Normalized Ratio 1.05 Activated Partial Thromboplast Time 29.1 Sodium Level 130 L Potassium Level 4.0 Chloride Level 99 Carbon Dioxide Level 24 Anion Gap 11 Blood Urea Nitrogen 64 H Creatinine 2.42 H Glucose Level 133 # Calcium Level 8.3 L Test 05/27/17 07:56 05/27/17 11:37 Bedside Glucose 141 209 Medications Medications Current Medications Acetaminophen (Tylenol Tab) 650 mg Q6H PRN PO PAIN LEVEL 1-3 OR FEVER Last administered on 05/19/17 09:35; Admin Dose 650 MG; Start 05/16/17 at 15:00 Acetaminophen/ Hydrocodone Bitart ([place] (5/325)) 1 tab Q6H PRN PO MODERATE PAIN LEVEL 4-6 Last administered on 05/27/17 08:54; Admin Dose 1 TAB; Start 05/16/17 at 15:00 Docusate Sodium (Colace) 100 mg Q12H PRN PO CONSTIPATION; Start 05/16/17 at 15 :00 Magnesium Hydroxide (Milk Of Mag) 30 ml DAILY PRN PO CONSTIPATION; Start 05/16 at 15:00 Hydralazine HCl (Apresoline) 10 mg Q6H PRN IV ELEVATED BLOOD PRESSURE; Start 05/16/17 at 15:00 Nitroglycerin (Nitroglycerin (Sl Tab) 0.4 Mg) 1 tab Q5M PRN SL ANGINA; Start 05/16/17 at 15:00 Fish Oil (Fish Oil) 1,000 mg DAILY PO Last administered on 05/27/17 08:43; Admin Dose 1,000 MG; Start 05/16/17 at 15:00 Atorvastatin Calcium (Lipitor) 80 mg HS PO Last administered on 05/26/17 20: 31; Admin Dose 80 MG; Start 05/16/17 at 21:00 Diagnostic Test (Pha) (Accu-Chek) 1 ea 02 XX Last administered on 05/27/17 02 :06; Admin Dose 1 EA; Start 05/17/17 at 02:00 Miscellaneous Information 1 ea NOTE XX ; Start 05/16/17 at 15:00 Glucose (Glutose) 15 gm Q15M PRN PO DECREASED GLUCOSE; Start 05/16/17 at 15:00 Glucose (Glutose) 22.5 gm Q15M PRN PO DECREASED GLUCOSE; Start 05/16/17 at 15: 00 Dextrose (D50w Syringe) 25 ml Q15M PRN IV DECREASED GLUCOSE; Start 05/16/17 at 15:00 Dextrose (D50w Syringe) 50 ml Q15M PRN IV DECREASED GLUCOSE; Start 05/16/17 at 15:00 Glucagon (Glucagen) 1 mg Q15M PRN IM DECREASED GLUCOSE; Start 05/16/17 at 15: 00 Glucose (Glutose) 15 gm Q15M PRN BUCCAL DECREASED GLUCOSE; Start 05/16/17 at 15:00 Carvedilol (Coreg) 6.25 mg BID PO Last administered on 05/27/17 08:44; Admin Dose 6.25 MG; Start 05/16/17 at 21:00 Aspirin (Ecotrin) 325 mg DAILY PO Last administered on 05/27/17 08:43; Admin Dose 325 MG; Start 05/18/17 at 09:00 Clopidogrel Bisulfate (plaVIX) 75 mg DAILY PO Last administered on 05/27/17 08:43; Admin Dose 75 MG; Start 05/18/17 at 09:00 Acetaminophen (Tylenol Tab) 650 mg Q4H PRN PO NON-CARDIAC PAIN LEVEL 1-3; Start 05/17/17 at 12:00 Morphine Sulfate (morphine) 1 mg Q1H PRN IV PAIN NOT RELIEVED BY OTHERS Last administered on 05/18/17 11:51; Admin Dose 1 MG; Start 05/17/17 at 12:00 Ondansetron HCl (Zofran Inj) 4 mg Q4H PRN IV NAUSEA AND/OR VOMITING Last administered on 05/20/17 03:00; Admin Dose 4 MG; Start 05/17/17 at 12:00 Hydralazine HCl (Apresoline) 10 mg Q8 PO Last administered on 05/26/17 23:19 ; Admin Dose 10 MG; Start 05/19/17 at 14:00 IV Flush (NS 10 ml) 10 ml PRN PRN IV IV PROTOCOL; Start 05/20/17 at 17:00 Insulin Glargine (Lantus) 5 unit QHS SC ; Start 05/27/17 at 21:00 RANDEE GAMBLE May 27, 2017 17:21
[2017-05-27 20:27] VITALS: BP 119/63; RESP 18
[2017-05-27] MEDS: ATORVASTATIN 80 MG TAB PO SCH (20:38)
[2017-05-27] MEDS ORDERED: INSULIN GLARGINE [LANtus] 3 ML PEN SC SCH (21:00)
[2017-05-28] MEDS: ACCU-CHEK XX SCH (02:04)
[2017-05-28 02:11] VITALS: BP 110/56; RESP 18
[2017-05-28 05:57] LABS: CALCIUM 8.1 mg/dl (8.4-10.2); CREATININE 2.25 mg/dl (0.44-1.00); POTASSIUM 4.2 mmol/L (3.5-5.1)
[2017-05-28] MEDS ORDERED: FUROSEMIDE 20 MG INJ IV SCH (06:00)
[2017-05-28 07:59] VITALS: BP 120/60; RESP 16
[2017-05-28] MEDS: INSULIN ASPART [NOVOLOG] 3 ML PEN SC SCH ×7 (08:23→21:00)
[2017-05-28] MEDS: FISH OIL 1,000 MG CAP PO SCH (08:42)
[2017-05-28] MEDS: CLOPIDOGREL 75 MG TAB PO SCH (08:42)
[2017-05-28] MEDS: ASPIRIN (EC) 325 MG TAB PO SCH (08:42)
--- NOTE | 2017-05-28 11:06 | CONS ---
Date/Time of Note Date/Time of Note DATE: 05/28/17 TIME: 11:05 Assessment/Plan Assessment/Plan Chief Complaint/Hosp Course 1. Acute kidney injury on CKD, multifactorial. 2. Anemia 3. CHF-likely systolic acute. EF 30-35% 4. diabetes mellitus type II uncontrolled 5 hypertension, controlled. 6 Hyponatremia 7 SIRS 8. Obesity Problems: Additional Assessment/Plan 1. Diuretics to decrease hyponatremia 2. fluid restrictions to 1500 3. continue Lasix 4. Keep Sam cath Consultation Date/Type/Reason Admit Date/Time May 16, 2017 at 12:38 Initial Consult Date 05/17/17 Type of Consultation: nephrology Reason for Consultation dr Doyle Referring Provider: RUPERT CARMONA Exam/Review of Systems Vital Signs Vitals Vital Signs Date Time Temp Pulse Resp B/P Pulse Ox O2 Delivery O2 Flow Rate FiO2 05/28/17 07:59 98.1 70 16 120/60 97 05/28/17 06:35 2.0 05/27/17 06:52 Nasal Cannula Intake and Output 05/27/17 05/27/17 05/28/17 14:59 22:59 06:59 Intake Total 580 ml 450 ml Balance 580 ml 450 ml Exam Constitutional: alert, oriented Respiratory: clear to auscultation Cardiovascular: regular rate and rhythm Extremities: edema Results Result Diagram: 05/27/17 0639 05/28/17 0446 Results 24 hrs Laboratory Tests Test 05/27/17 11:37 05/27/17 17:14 05/27/17 20:36 05/28/17 02:00 Bedside Glucose 209 190 184 156 Test 05/28/17 04:46 05/28/17 08:10 Sodium Level 128 L Potassium Level 4.2 Chloride Level 98 Carbon Dioxide Level 25 Anion Gap 9 Blood Urea Nitrogen 64 H Creatinine 2.25 H Glucose Level 124 Calcium Level 8.1 L Bedside Glucose 141 Medications Medications Current Medications Acetaminophen (Tylenol Tab) 650 mg Q6H PRN PO PAIN LEVEL 1-3 OR FEVER Last administered on 05/19/17 09:35; Admin Dose 650 MG; Start 05/16/17 at 15:00 Acetaminophen/ Hydrocodone Bitart ([place] (5/325)) 1 tab Q6H PRN PO MODERATE PAIN LEVEL 4-6 Last administered on 05/27/17 08:54; Admin Dose 1 TAB; Start 05/16/17 at 15:00 Docusate Sodium (Colace) 100 mg Q12H PRN PO CONSTIPATION; Start 05/16/17 at 15 :00 Magnesium Hydroxide (Milk Of Mag) 30 ml DAILY PRN PO CONSTIPATION; Start 05/16 at 15:00 Hydralazine HCl (Apresoline) 10 mg Q6H PRN IV ELEVATED BLOOD PRESSURE; Start 05/16/17 at 15:00 Nitroglycerin (Nitroglycerin (Sl Tab) 0.4 Mg) 1 tab Q5M PRN SL ANGINA; Start 05/16/17 at 15:00 Fish Oil (Fish Oil) 1,000 mg DAILY PO Last administered on 05/28/17 08:42; Admin Dose 1,000 MG; Start 05/16/17 at 15:00 Atorvastatin Calcium (Lipitor) 80 mg HS PO Last administered on 05/27/17 20: 38; Admin Dose 80 MG; Start 05/16/17 at 21:00 Diagnostic Test (Pha) (Accu-Chek) 1 ea 02 XX Last administered on 05/28/17 02 :04; Admin Dose 1 EA; Start 05/17/17 at 02:00 Miscellaneous Information 1 ea NOTE XX ; Start 05/16/17 at 15:00 Glucose (Glutose) 15 gm Q15M PRN PO DECREASED GLUCOSE; Start 05/16/17 at 15:00 Glucose (Glutose) 22.5 gm Q15M PRN PO DECREASED GLUCOSE; Start 05/16/17 at 15: 00 Dextrose (D50w Syringe) 25 ml Q15M PRN IV DECREASED GLUCOSE; Start 05/16/17 at 15:00 Dextrose (D50w Syringe) 50 ml Q15M PRN IV DECREASED GLUCOSE; Start 05/16/17 at 15:00 Glucagon (Glucagen) 1 mg Q15M PRN IM DECREASED GLUCOSE; Start 05/16/17 at 15: 00 Glucose (Glutose) 15 gm Q15M PRN BUCCAL DECREASED GLUCOSE; Start 05/16/17 at 15:00 Carvedilol (Coreg) 6.25 mg BID PO Last administered on 05/28/17 08:42; Admin Dose 6.25 MG; Start 05/16/17 at 21:00 Aspirin (Ecotrin) 325 mg DAILY PO Last administered on 05/28/17 08:42; Admin Dose 325 MG; Start 05/18/17 at 09:00 Clopidogrel Bisulfate (plaVIX) 75 mg DAILY PO Last administered on 05/28/17 08:42; Admin Dose 75 MG; Start 05/18/17 at 09:00 Acetaminophen (Tylenol Tab) 650 mg Q4H PRN PO NON-CARDIAC PAIN LEVEL 1-3; Start 05/17/17 at 12:00 Morphine Sulfate (morphine) 1 mg Q1H PRN IV PAIN NOT RELIEVED BY OTHERS Last administered on 05/18/17 11:51; Admin Dose 1 MG; Start 05/17/17 at 12:00 Ondansetron HCl (Zofran Inj) 4 mg Q4H PRN IV NAUSEA AND/OR VOMITING Last administered on 05/20/17 03:00; Admin Dose 4 MG; Start 05/17/17 at 12:00 Hydralazine HCl (Apresoline) 10 mg Q8 PO Last administered on 05/28/17 05:13 ; Admin Dose 10 MG; Start 05/19/17 at 14:00 IV Flush (NS 10 ml) 10 ml PRN PRN IV IV PROTOCOL; Start 05/20/17 at 17:00 Insulin Glargine (Lantus) 5 unit QHS SC Last administered on 05/27/17 20:41; Admin Dose 5 UNIT; Start 05/27/17 at 21:00 STEPHANIE SCHMITT May 28, 2017 11:06
[2017-05-28 11:55] VITALS: BP 98/66; PULSE 69
[2017-05-28] MEDS: FUROSEMIDE 20 MG TAB PO SCH (11:58)
[2017-05-28] MEDS: POTASSIUM CHLORIDE 20 MEQ POWDER FOR ORAL SOLN PO SCH (12:00)
[2017-05-28 13:52] VITALS: BP 100/68; PULSE 64
[2017-05-28 14:30] VITALS: BP 109/69; RESP 17
--- NOTE | 2017-05-28 15:05 | PN ---
Date/Time of Note Date/Time of Note DATE: 05/28/17 TIME: 15:04 Assessment/Plan VTE Prophylaxis VTE Prophylaxis Intervention: SCD's Lines/Catheters IV Catheter Type (from Nrsg): Sam Cath Urinary Cath still in place: No Assessment/Plan Assessment/Plan 57 yo F with DM2, HTN, CHF admitted with NSTEMI, sp PCI. Hospitalization c/b [facility] 2/2 ATN from contrast requiring HD. Plan: Nephrology and cardiology following ok for discharge home when ok'd by nephrology. pt still diuresing. Subjective 24 Hr Interval Summary Free Text/Dictation sitting up in chair, eating lunch Exam/Review of Systems Vital Signs Vitals Vital Signs Date Time Temp Pulse Resp B/P Pulse Ox O2 Delivery O2 Flow Rate FiO2 05/28/17 14:30 98.1 74 17 109/69 98 05/28/17 06:35 2.0 05/27/17 06:52 Nasal Cannula Intake and Output 05/27/17 05/27/17 05/28/17 15:00 23:00 07:00 Intake Total 930 ml 100 ml Balance 930 ml 100 ml Exam nad resp nonlabored no gross abd distension no rashes on exposed skin moves exts freely Results Result Diagram: 05/27/17 0639 05/28/17 0446 Results 24 hrs Laboratory Tests Test 05/27/17 17:14 05/27/17 20:36 05/28/17 02:00 05/28/17 04:46 Bedside Glucose 190 184 156 Sodium Level 128 L Potassium Level 4.2 Chloride Level 98 Carbon Dioxide Level 25 Anion Gap 9 Blood Urea Nitrogen 64 H Creatinine 2.25 H Glucose Level 124 Calcium Level 8.1 L Test 05/28/17 08:10 05/28/17 11:56 Bedside Glucose 141 133 Medications Medications Current Medications Acetaminophen (Tylenol Tab) 650 mg Q6H PRN PO PAIN LEVEL 1-3 OR FEVER Last administered on 05/19/17 09:35; Admin Dose 650 MG; Start 05/16/17 at 15:00 Acetaminophen/ Hydrocodone Bitart ([place] (5/325)) 1 tab Q6H PRN PO MODERATE PAIN LEVEL 4-6 Last administered on 05/27/17 08:54; Admin Dose 1 TAB; Start 05/16/17 at 15:00 Docusate Sodium (Colace) 100 mg Q12H PRN PO CONSTIPATION; Start 05/16/17 at 15 :00 Magnesium Hydroxide (Milk Of Mag) 30 ml DAILY PRN PO CONSTIPATION; Start 05/16 at 15:00 Hydralazine HCl (Apresoline) 10 mg Q6H PRN IV ELEVATED BLOOD PRESSURE; Start 05/16/17 at 15:00 Nitroglycerin (Nitroglycerin (Sl Tab) 0.4 Mg) 1 tab Q5M PRN SL ANGINA; Start 05/16/17 at 15:00 Fish Oil (Fish Oil) 1,000 mg DAILY PO Last administered on 05/28/17 08:42; Admin Dose 1,000 MG; Start 05/16/17 at 15:00 Atorvastatin Calcium (Lipitor) 80 mg HS PO Last administered on 05/27/17 20: 38; Admin Dose 80 MG; Start 05/16/17 at 21:00 Diagnostic Test (Pha) (Accu-Chek) 1 ea 02 XX Last administered on 05/28/17 02 :04; Admin Dose 1 EA; Start 05/17/17 at 02:00 Miscellaneous Information 1 ea NOTE XX ; Start 05/16/17 at 15:00 Glucose (Glutose) 15 gm Q15M PRN PO DECREASED GLUCOSE; Start 05/16/17 at 15:00 Glucose (Glutose) 22.5 gm Q15M PRN PO DECREASED GLUCOSE; Start 05/16/17 at 15: 00 Dextrose (D50w Syringe) 25 ml Q15M PRN IV DECREASED GLUCOSE; Start 05/16/17 at 15:00 Dextrose (D50w Syringe) 50 ml Q15M PRN IV DECREASED GLUCOSE; Start 05/16/17 at 15:00 Glucagon (Glucagen) 1 mg Q15M PRN IM DECREASED GLUCOSE; Start 05/16/17 at 15: 00 Glucose (Glutose) 15 gm Q15M PRN BUCCAL DECREASED GLUCOSE; Start 05/16/17 at 15:00 Carvedilol (Coreg) 6.25 mg BID PO Last administered on 05/28/17 08:42; Admin Dose 6.25 MG; Start 05/16/17 at 21:00 Aspirin (Ecotrin) 325 mg DAILY PO Last administered on 05/28/17 08:42; Admin Dose 325 MG; Start 05/18/17 at 09:00 Clopidogrel Bisulfate (plaVIX) 75 mg DAILY PO Last administered on 05/28/17 08:42; Admin Dose 75 MG; Start 05/18/17 at 09:00 Acetaminophen (Tylenol Tab) 650 mg Q4H PRN PO NON-CARDIAC PAIN LEVEL 1-3; Start 05/17/17 at 12:00 Morphine Sulfate (morphine) 1 mg Q1H PRN IV PAIN NOT RELIEVED BY OTHERS Last administered on 05/18/17 11:51; Admin Dose 1 MG; Start 05/17/17 at 12:00 Ondansetron HCl (Zofran Inj) 4 mg Q4H PRN IV NAUSEA AND/OR VOMITING Last administered on 05/20/17 03:00; Admin Dose 4 MG; Start 05/17/17 at 12:00 Hydralazine HCl (Apresoline) 10 mg Q8 PO Last administered on 05/28/17 05:13 ; Admin Dose 10 MG; Start 05/19/17 at 14:00 IV Flush (NS 10 ml) 10 ml PRN PRN IV IV PROTOCOL; Start 05/20/17 at 17:00 Insulin Glargine (Lantus) 12 unit QHS SC ; Start 05/28/17 at 21:00 Furosemide (Lasix) 20 mg DAILY PO Last administered on 05/28/17 11:58; Admin Dose 20 MG; Start 05/28/17 at 11:30 Potassium Chloride (Potassium Chloride Pwd/Soln) 20 meq DAILY PO Last administered on 05/28/17 12:00; Admin Dose 20 MEQ; Start 05/28/17 at 11:30 LINH FREEMAN MD May 28, 2017 15:05
--- NOTE | 2017-05-28 15:20 | CONS ---
Date/Time of Note Date/Time of Note DATE: 05/28/17 TIME: 15:17 Assessment/Plan Assessment/Plan Chief Complaint/Hosp Course IMP: 1.Acute RI-trop>100 now Post-op s/p ptca/stent x 2 to 100% occluded LCX and x 2 to high grade LAD stenosis and placement of IABP 2.CHF-likely systolic acute. EF 30-35% by echo yesterday 3.Renal failure-slowly improving 4.DM 5.Chest pain secondary to number 1. Now improved 6. Anemia 7.Dyslipidemia 8.Loose stools per patient 9. HYponatremia-worsening Recc: -Tele -serial ecg's -Continue asa 325 and plavix 75 mg daily -Follow volume status closely now off of bumex/HD and follow renal function closely which is slowly improving with nephrology following -statin therapy -Continue abx's and f/u cx data -Continue low dose hydralazine aftrerload reduction in lieu of ACEI at this time given renal failure and BB as tolerated Problems: Consultation Date/Type/Reason Admit Date/Time May 16, 2017 at 12:38 Initial Consult Date 05/17/17 Type of Consultation: cardiology Reason for Consultation Nstemi Referring Provider: RUPERT CARMONA Exam/Review of Systems Vital Signs Vitals Vital Signs Date Time Temp Pulse Resp B/P Pulse Ox O2 Delivery O2 Flow Rate FiO2 05/28/17 14:30 98.1 74 17 109/69 98 05/28/17 06:35 2.0 05/27/17 06:52 Nasal Cannula Intake and Output 05/27/17 05/27/17 05/28/17 15:00 23:00 07:00 Intake Total 930 ml 100 ml Balance 930 ml 100 ml Exam Review of Systems: CONSTITUTIONAL: No fevers, chills. PULMONARY: No sob CARDIOVASCULAR: No chest pain/palpitations GASTROINTESTINAL: No nausea/vomiting. GENITOURINARY: No hematuria/dysuria. MUSCULOSKELETAL: No myagias/arthalgias. PSYCHIATRIC: The patient denies depression. NEUROLOGIC: No weakness Constitutional: alert, oriented Psych: no complaints ENMT: mucosa pink and moist Neck: jvd (9 cm water), supple Respiratory: diminished breath sounds (at bases/B) Cardiovascular: regular rate and rhythm Gastrointestinal: non-tender, soft Musculoskeletal: muscle tone (normal) Extremities: pitting pedal edema (bilateral LE) Neurological: other (No fopcal deficits) Results Result Diagram: 05/27/17 0639 05/28/17 0446 Results 24 hrs Laboratory Tests Test 05/27/17 17:14 05/27/17 20:36 05/28/17 02:00 05/28/17 04:46 Bedside Glucose 190 184 156 Sodium Level 128 L Potassium Level 4.2 Chloride Level 98 Carbon Dioxide Level 25 Anion Gap 9 Blood Urea Nitrogen 64 H Creatinine 2.25 H Glucose Level 124 Calcium Level 8.1 L Test 05/28/17 08:10 05/28/17 11:56 Bedside Glucose 141 133 Medications Medications Current Medications Acetaminophen (Tylenol Tab) 650 mg Q6H PRN PO PAIN LEVEL 1-3 OR FEVER Last administered on 05/19/17 09:35; Admin Dose 650 MG; Start 05/16/17 at 15:00 Acetaminophen/ Hydrocodone Bitart ([place] (5/325)) 1 tab Q6H PRN PO MODERATE PAIN LEVEL 4-6 Last administered on 05/27/17 08:54; Admin Dose 1 TAB; Start 05/16/17 at 15:00 Docusate Sodium (Colace) 100 mg Q12H PRN PO CONSTIPATION; Start 05/16/17 at 15 :00 Magnesium Hydroxide (Milk Of Mag) 30 ml DAILY PRN PO CONSTIPATION; Start 05/16 at 15:00 Hydralazine HCl (Apresoline) 10 mg Q6H PRN IV ELEVATED BLOOD PRESSURE; Start 05/16/17 at 15:00 Nitroglycerin (Nitroglycerin (Sl Tab) 0.4 Mg) 1 tab Q5M PRN SL ANGINA; Start 05/16/17 at 15:00 Fish Oil (Fish Oil) 1,000 mg DAILY PO Last administered on 05/28/17 08:42; Admin Dose 1,000 MG; Start 05/16/17 at 15:00 Atorvastatin Calcium (Lipitor) 80 mg HS PO Last administered on 05/27/17 20: 38; Admin Dose 80 MG; Start 05/16/17 at 21:00 Diagnostic Test (Pha) (Accu-Chek) 1 ea 02 XX Last administered on 05/28/17 02 :04; Admin Dose 1 EA; Start 05/17/17 at 02:00 Miscellaneous Information 1 ea NOTE XX ; Start 05/16/17 at 15:00 Glucose (Glutose) 15 gm Q15M PRN PO DECREASED GLUCOSE; Start 05/16/17 at 15:00 Glucose (Glutose) 22.5 gm Q15M PRN PO DECREASED GLUCOSE; Start 05/16/17 at 15: 00 Dextrose (D50w Syringe) 25 ml Q15M PRN IV DECREASED GLUCOSE; Start 05/16/17 at 15:00 Dextrose (D50w Syringe) 50 ml Q15M PRN IV DECREASED GLUCOSE; Start 05/16/17 at 15:00 Glucagon (Glucagen) 1 mg Q15M PRN IM DECREASED GLUCOSE; Start 05/16/17 at 15: 00 Glucose (Glutose) 15 gm Q15M PRN BUCCAL DECREASED GLUCOSE; Start 05/16/17 at 15:00 Carvedilol (Coreg) 6.25 mg BID PO Last administered on 05/28/17 08:42; Admin Dose 6.25 MG; Start 05/16/17 at 21:00 Aspirin (Ecotrin) 325 mg DAILY PO Last administered on 05/28/17 08:42; Admin Dose 325 MG; Start 05/18/17 at 09:00 Clopidogrel Bisulfate (plaVIX) 75 mg DAILY PO Last administered on 05/28/17 08:42; Admin Dose 75 MG; Start 05/18/17 at 09:00 Acetaminophen (Tylenol Tab) 650 mg Q4H PRN PO NON-CARDIAC PAIN LEVEL 1-3; Start 05/17/17 at 12:00 Morphine Sulfate (morphine) 1 mg Q1H PRN IV PAIN NOT RELIEVED BY OTHERS Last administered on 05/18/17 11:51; Admin Dose 1 MG; Start 05/17/17 at 12:00 Ondansetron HCl (Zofran Inj) 4 mg Q4H PRN IV NAUSEA AND/OR VOMITING Last administered on 05/20/17 03:00; Admin Dose 4 MG; Start 05/17/17 at 12:00 Hydralazine HCl (Apresoline) 10 mg Q8 PO Last administered on 05/28/17 05:13 ; Admin Dose 10 MG; Start 05/19/17 at 14:00 IV Flush (NS 10 ml) 10 ml PRN PRN IV IV PROTOCOL; Start 05/20/17 at 17:00 Insulin Glargine (Lantus) 12 unit QHS SC ; Start 05/28/17 at 21:00 Furosemide (Lasix) 20 mg DAILY PO Last administered on 05/28/17 11:58; Admin Dose 20 MG; Start 05/28/17 at 11:30 Potassium Chloride (Potassium Chloride Pwd/Soln) 20 meq DAILY PO Last administered on 05/28/17 12:00; Admin Dose 20 MEQ; Start 05/28/17 at 11:30 RANDEE GAMBLE May 28, 2017 15:20
[2017-05-28 20:38] VITALS: BP 114/65; RESP 16
[2017-05-28] MEDS: ATORVASTATIN 80 MG TAB PO SCH (21:10)
[2017-05-28] MEDS: INSULIN GLARGINE [LANtus] 3 ML PEN SC SCH (21:12)
[2017-05-29] MEDS: ACCU-CHEK XX SCH (02:00)
[2017-05-29 02:40] VITALS: BP 111/71; RESP 16
[2017-05-29 06:00] LABS: ALBUMIN/GLOBULIN RATIO 0.83; BILIRUBIN,INDIRECT 0.4 mg/dl (0-1.1); BILIRUBIN,TOTAL 0.4 mg/dl (0.2-1.3); CALCIUM 8.2 mg/dl (8.4-10.2); CREATININE 1.96 mg/dl (0.44-1.00); POTASSIUM 4.5 mmol/L (3.5-5.1); TOTAL PROTEIN 6.6 g/dl (6.1-8.1)
--- NOTE | 2017-05-29 07:22 | RADRPT ---
PROCEDURE: XR Chest. CLINICAL INDICATION: Cough. TECHNIQUE: Two views. Frontal and lateral. COMPARISON: 05/21/2017. FINDINGS: The left arm PICC line tip is in the upper superior vena cava. The lungs demonstrate atelectasis at the bases, worse than seen previously. The lungs are otherwise clear. The heart is enlarged. There are small bilateral pleural effusions. There is no pneumothorax. IMPRESSION: 1. Left arm PICC line. 2. Atelectasis at the lung bases, worse than seen previously. 3. Cardiomegaly. 4. Small bilateral pleural effusions. RPTAT: QQ .Hilario Jacome MD, MD Date Time Electronically viewed and signed by .Hilario Jacome MD, on 05/29/2017 07:21 .R/
[2017-05-29] MEDS: INSULIN ASPART [NOVOLOG] 3 ML PEN SC SCH ×7 (07:30→20:17)
[2017-05-29 08:00] VITALS: BP 104/74; RESP 18
[2017-05-29] MEDS: FUROSEMIDE 20 MG TAB PO SCH (09:22)
[2017-05-29] MEDS: CLOPIDOGREL 75 MG TAB PO SCH (09:22)
[2017-05-29] MEDS: FISH OIL 1,000 MG CAP PO SCH (09:22)
[2017-05-29] MEDS: ASPIRIN (EC) 325 MG TAB PO SCH (09:22)
[2017-05-29] MEDS: POTASSIUM CHLORIDE 20 MEQ POWDER FOR ORAL SOLN PO SCH (09:22)
[2017-05-29 14:00] VITALS: BP 113/56; RESP 18
--- NOTE | 2017-05-29 15:38 | PN ---
Date/Time of Note Date/Time of Note DATE: 05/29/17 TIME: 15:33 Assessment/Plan VTE Prophylaxis VTE Prophylaxis Intervention: SCD's Lines/Catheters IV Catheter Type (from Nrs): PICC Line Central line still needed: Yes Urinary Cath still in place: No Assessment/Plan Chief Complaint/Hosp Course ASSESSMENT AND PLAN: 57-year-old female coming in with vomiting symptoms, right shoulder pain and chest pain, with signs of non-ST elevation myocardial infarction. 1. Chest pain and shoulder pain- secondary to non-ST elevation myocardial infarction. Status post stent to LAD 2 as well as circumflex 2. Off intra- aortic balloon pump over 24 hours ago and off pressors since last night. -Follow-up cardiology consult recommendations, continue current meds Coreg, Lipitor, aspirin, plavix, and hydralazine PO -Awaiting physical therapy consult as well 2. Res distress: Initial chest x-ray showed: New bilateral ground-glass parenchymal densities right greater than left. Overall there is less pulmonary edema now. CTA chest was negative for dissection or PE on admission. Overall improved. -Follow-up pulmonary rec's 3. Diabetes - A1c = 8.2 -fingersticks stable - continue sliding scale insulin. 4. History of high cholesterol -noted lipid panel. She is on high-dose statin. 5. Gastrointestinal prophylaxis with H2 aury. 6. renal insufficiency - s/p bumex drip earlier this admission, started on dialysis earlier this admission, now off, creatinine function slowly trending down -Monitor urine output, for now keep Sam catheter in, follow-up renal recommendations. Problems: Subjective 24 Hr Interval Summary Free Text/Dictation No acute events overnight, tolerating diet. Exam/Review of Systems Vital Signs Vitals Vital Signs Date Time Temp Pulse Resp B/P Pulse Ox O2 Delivery O2 Flow Rate FiO2 05/29/17 08:00 97.9 75 18 104/74 95 05/28/17 06:35 2.0 05/27/17 06:52 Nasal Cannula Intake and Output 05/28/17 05/28/17 05/29/17 15:00 23:00 07:00 Intake Total 890 ml 520 ml Output Total 700 ml Balance 890 ml -180 ml Exam nad resp nonlabored no gross abd distension no rashes on exposed skin moves exts freely Results Result Diagram: 05/27/17 0639 05/29/17 0515 Results 24 hrs Laboratory Tests Test 05/28/17 17:19 05/28/17 21:08 05/29/17 05:15 05/29/17 08:09 Bedside Glucose 118 120 113 Sodium Level 131 L Potassium Level 4.5 Chloride Level 99 Carbon Dioxide Level 24 Anion Gap 13 Blood Urea Nitrogen 58 H Creatinine 1.96 H Glucose Level 104 Calcium Level 8.2 L Total Bilirubin 0.4 Direct Bilirubin 0.00 Indirect Bilirubin 0.4 Aspartate Amino Transf (AST/SGOT) 34 Alanine Aminotransferase (ALT/SGPT) 40 Alkaline Phosphatase 106 Total Protein 6.6 Albumin 3.0 L Globulin 3.60 H Albumin/Globulin Ratio 0.83 Test 05/29/17 09:21 05/29/17 12:17 Bedside Glucose 186 237 H Medications Medications Current Medications Acetaminophen (Tylenol Tab) 650 mg Q6H PRN PO PAIN LEVEL 1-3 OR FEVER Last administered on 05/19/17 09:35; Admin Dose 650 MG; Start 05/16/17 at 15:00 Acetaminophen/ Hydrocodone Bitart ([place] (5/325)) 1 tab Q6H PRN PO MODERATE PAIN LEVEL 4-6 Last administered on 05/27/17 08:54; Admin Dose 1 TAB; Start 05/16/17 at 15:00 Docusate Sodium (Colace) 100 mg Q12H PRN PO CONSTIPATION; Start 05/16/17 at 15 :00 Magnesium Hydroxide (Milk Of Mag) 30 ml DAILY PRN PO CONSTIPATION; Start 05/16 at 15:00 Hydralazine HCl (Apresoline) 10 mg Q6H PRN IV ELEVATED BLOOD PRESSURE; Start 05/16/17 at 15:00 Nitroglycerin (Nitroglycerin (Sl Tab) 0.4 Mg) 1 tab Q5M PRN SL ANGINA; Start 05/16/17 at 15:00 Fish Oil (Fish Oil) 1,000 mg DAILY PO Last administered on 05/29/17 09:22; Admin Dose 1,000 MG; Start 05/16/17 at 15:00 Atorvastatin Calcium (Lipitor) 80 mg HS PO Last administered on 05/28/17 21: 10; Admin Dose 80 MG; Start 05/16/17 at 21:00 Diagnostic Test (Pha) (Accu-Chek) 1 ea 02 XX Last administered on 05/28/17 02 :04; Admin Dose 1 EA; Start 05/17/17 at 02:00 Miscellaneous Information 1 ea NOTE XX ; Start 05/16/17 at 15:00 Glucose (Glutose) 15 gm Q15M PRN PO DECREASED GLUCOSE; Start 05/16/17 at 15:00 Glucose (Glutose) 22.5 gm Q15M PRN PO DECREASED GLUCOSE; Start 05/16/17 at 15: 00 Dextrose (D50w Syringe) 25 ml Q15M PRN IV DECREASED GLUCOSE; Start 05/16/17 at 15:00 Dextrose (D50w Syringe) 50 ml Q15M PRN IV DECREASED GLUCOSE; Start 05/16/17 at 15:00 Glucagon (Glucagen) 1 mg Q15M PRN IM DECREASED GLUCOSE; Start 05/16/17 at 15: 00 Glucose (Glutose) 15 gm Q15M PRN BUCCAL DECREASED GLUCOSE; Start 05/16/17 at 15:00 Carvedilol (Coreg) 6.25 mg BID PO Last administered on 05/29/17 09:26; Admin Dose 6.25 MG; Start 05/16/17 at 21:00 Aspirin (Ecotrin) 325 mg DAILY PO Last administered on 05/29/17 09:22; Admin Dose 325 MG; Start 05/18/17 at 09:00 Clopidogrel Bisulfate (plaVIX) 75 mg DAILY PO Last administered on 05/29/17 09:22; Admin Dose 75 MG; Start 05/18/17 at 09:00 Acetaminophen (Tylenol Tab) 650 mg Q4H PRN PO NON-CARDIAC PAIN LEVEL 1-3; Start 05/17/17 at 12:00 Morphine Sulfate (morphine) 1 mg Q1H PRN IV PAIN NOT RELIEVED BY OTHERS Last administered on 05/18/17 11:51; Admin Dose 1 MG; Start 05/17/17 at 12:00 Ondansetron HCl (Zofran Inj) 4 mg Q4H PRN IV NAUSEA AND/OR VOMITING Last administered on 05/20/17 03:00; Admin Dose 4 MG; Start 05/17/17 at 12:00 Hydralazine HCl (Apresoline) 10 mg Q8 PO Last administered on 05/29/17 14:40 ; Admin Dose 10 MG; Start 05/19/17 at 14:00 IV Flush (NS 10 ml) 10 ml PRN PRN IV IV PROTOCOL; Start 05/20/17 at 17:00 Insulin Glargine (Lantus) 12 unit QHS SC Last administered on 05/28/17 21:12 ; Admin Dose 12 UNIT; Start 05/28/17 at 21:00 Furosemide (Lasix) 20 mg DAILY PO Last administered on 05/29/17 09:22; Admin Dose 20 MG; Start 05/28/17 at 11:30 Potassium Chloride (Potassium Chloride Pwd/Soln) 20 meq DAILY PO Last administered on 05/29/17 09:22; Admin Dose 20 MEQ; Start 05/28/17 at 11:30 CHINEDU GABRIEL May 29, 2017 15:38
--- NOTE | 2017-05-29 16:32 | CONS ---
Date/Time of Note Date/Time of Note DATE: 05/29/17 TIME: 16:30 Assessment/Plan Assessment/Plan Chief Complaint/Hosp Course A/P 1. Acute kidney injury on CKD likely due to combination of acute myocardial infarction trop>100 s/p ptca/stent x 2 to 100% occluded LCX and x 2 to high grade LAD stenosis +contrast nephropathy with Angiogram with CT contrast chest and hemodynamic instability.Pt was s/p balloon pump. Now improved Cr 2.83>1.96 from 4.62, non oliguric, last HD was on 05/22 .Now with pedel edema 2. Oliguric ATN improved 3. CHF-likely systolic acute. EF 30-35% 4. diabetes mellitus 5 hypertension. 6 Metabolic acidosis due to renal failure improved 7 Likely diabetic nephropathy on admission Cr was 1.14 8 Leukocytosis 9 Anemia Plan - UOP improving - c/w Lasix - Monior UOP for 24 hrs today if outpaut > 1L will dc bi in am - Strict I an O strictly inforced - c/w ASA/Plavix/Coreg/statin per cards - c/w hold AMANDA due to renal failure - monitor uop closely - Hold Nephrotoxic agents - Labs am Problems: Consultation Date/Type/Reason Admit Date/Time May 16, 2017 at 12:38 Initial Consult Date 05/17/17 Type of Consultation: Renal Referring Provider: RUPERT CARMONA 24 HR Interval Summary Free Text/Dictation Overall feeling better 2+edema in BLE UOP documented 700 ml in last 24 but probaly urnating more Exam/Review of Systems Vital Signs Vitals Vital Signs Date Time Temp Pulse Resp B/P Pulse Ox O2 Delivery O2 Flow Rate FiO2 05/29/17 08:00 97.9 75 18 104/74 95 05/28/17 06:35 2.0 05/27/17 06:52 Nasal Cannula Intake and Output 05/28/17 05/28/17 05/29/17 15:00 23:00 07:00 Intake Total 890 ml 520 ml Output Total 700 ml Balance 890 ml -180 ml Exam Gen: awake and alert 'Neck: supple Respiratory: clear to auscultation Cardiovascular: regular rate and rhythm Gastrointestinal: bowel sounds (+), soft Extremities: edema (+) Access: Left femoral bi Results Result Diagram: 05/27/17 0639 05/29/17 0515 Results 24 hrs Laboratory Tests Test 05/28/17 17:19 05/28/17 21:08 05/29/17 05:15 05/29/17 08:09 Bedside Glucose 118 120 113 Sodium Level 131 L Potassium Level 4.5 Chloride Level 99 Carbon Dioxide Level 24 Anion Gap 13 Blood Urea Nitrogen 58 H Creatinine 1.96 H Glucose Level 104 Calcium Level 8.2 L Total Bilirubin 0.4 Direct Bilirubin 0.00 Indirect Bilirubin 0.4 Aspartate Amino Transf (AST/SGOT) 34 Alanine Aminotransferase (ALT/SGPT) 40 Alkaline Phosphatase 106 Total Protein 6.6 Albumin 3.0 L Globulin 3.60 H Albumin/Globulin Ratio 0.83 Test 05/29/17 09:21 05/29/17 12:17 Bedside Glucose 186 237 H Medications Medications Current Medications Acetaminophen (Tylenol Tab) 650 mg Q6H PRN PO PAIN LEVEL 1-3 OR FEVER Last administered on 05/19/17 09:35; Admin Dose 650 MG; Start 05/16/17 at 15:00 Acetaminophen/ Hydrocodone Bitart ([place] (5/325)) 1 tab Q6H PRN PO MODERATE PAIN LEVEL 4-6 Last administered on 05/27/17 08:54; Admin Dose 1 TAB; Start 05/16/17 at 15:00 Docusate Sodium (Colace) 100 mg Q12H PRN PO CONSTIPATION; Start 05/16/17 at 15 :00 Magnesium Hydroxide (Milk Of Mag) 30 ml DAILY PRN PO CONSTIPATION; Start 05/16 at 15:00 Hydralazine HCl (Apresoline) 10 mg Q6H PRN IV ELEVATED BLOOD PRESSURE; Start 05/16/17 at 15:00 Nitroglycerin (Nitroglycerin (Sl Tab) 0.4 Mg) 1 tab Q5M PRN SL ANGINA; Start 05/16/17 at 15:00 Fish Oil (Fish Oil) 1,000 mg DAILY PO Last administered on 05/29/17 09:22; Admin Dose 1,000 MG; Start 05/16/17 at 15:00 Atorvastatin Calcium (Lipitor) 80 mg HS PO Last administered on 05/28/17 21: 10; Admin Dose 80 MG; Start 05/16/17 at 21:00 Diagnostic Test (Pha) (Accu-Chek) 1 ea 02 XX Last administered on 05/28/17 02 :04; Admin Dose 1 EA; Start 05/17/17 at 02:00 Miscellaneous Information 1 ea NOTE XX ; Start 05/16/17 at 15:00 Glucose (Glutose) 15 gm Q15M PRN PO DECREASED GLUCOSE; Start 05/16/17 at 15:00 Glucose (Glutose) 22.5 gm Q15M PRN PO DECREASED GLUCOSE; Start 05/16/17 at 15: 00 Dextrose (D50w Syringe) 25 ml Q15M PRN IV DECREASED GLUCOSE; Start 05/16/17 at 15:00 Dextrose (D50w Syringe) 50 ml Q15M PRN IV DECREASED GLUCOSE; Start 05/16/17 at 15:00 Glucagon (Glucagen) 1 mg Q15M PRN IM DECREASED GLUCOSE; Start 05/16/17 at 15: 00 Glucose (Glutose) 15 gm Q15M PRN BUCCAL DECREASED GLUCOSE; Start 05/16/17 at 15:00 Carvedilol (Coreg) 6.25 mg BID PO Last administered on 05/29/17 09:26; Admin Dose 6.25 MG; Start 05/16/17 at 21:00 Aspirin (Ecotrin) 325 mg DAILY PO Last administered on 05/29/17 09:22; Admin Dose 325 MG; Start 05/18/17 at 09:00 Clopidogrel Bisulfate (plaVIX) 75 mg DAILY PO Last administered on 05/29/17 09:22; Admin Dose 75 MG; Start 05/18/17 at 09:00 Acetaminophen (Tylenol Tab) 650 mg Q4H PRN PO NON-CARDIAC PAIN LEVEL 1-3; Start 05/17/17 at 12:00 Morphine Sulfate (morphine) 1 mg Q1H PRN IV PAIN NOT RELIEVED BY OTHERS Last administered on 05/18/17 11:51; Admin Dose 1 MG; Start 05/17/17 at 12:00 Ondansetron HCl (Zofran Inj) 4 mg Q4H PRN IV NAUSEA AND/OR VOMITING Last administered on 05/20/17 03:00; Admin Dose 4 MG; Start 05/17/17 at 12:00 Hydralazine HCl (Apresoline) 10 mg Q8 PO Last administered on 05/29/17 14:40 ; Admin Dose 10 MG; Start 05/19/17 at 14:00 IV Flush (NS 10 ml) 10 ml PRN PRN IV IV PROTOCOL; Start 05/20/17 at 17:00 Insulin Glargine (Lantus) 12 unit QHS SC Last administered on 05/28/17 21:12 ; Admin Dose 12 UNIT; Start 05/28/17 at 21:00 Furosemide (Lasix) 20 mg DAILY PO Last administered on 05/29/17 09:22; Admin Dose 20 MG; Start 05/28/17 at 11:30 Potassium Chloride (Potassium Chloride Pwd/Soln) 20 meq DAILY PO Last administered on 05/29/17 09:22; Admin Dose 20 MEQ; Start 05/28/17 at 11:30 TONI MEIER MD May 29, 2017 16:32
--- NOTE | 2017-05-29 19:04 | CONS ---
Date/Time of Note Date/Time of Note DATE: 05/29/17 TIME: 19:01 Assessment/Plan Assessment/Plan Chief Complaint/Hosp Course IMP: 1.Acute [place]-trop>100 now Post-op s/p ptca/stent x 2 to 100% occluded LCX and x 2 to high grade LAD stenosis and placement of IABP 2.CHF-likely systolic acute. EF 30-35% by echo yesterday 3.Renal failure-slowly improving 4.DM 5.Chest pain secondary to number 1. Now improved 6. Anemia 7.Dyslipidemia 8.Loose stools per patient 9. HYponatremia-slowly improving Recc: -Tele -serial ecg's -Continue asa 325 and plavix 75 mg daily -Follow volume status closely now off of HD and follow renal function closely which is slowly improving with nephrology following on daily po lasix -statin therapy -Continue abx's and f/u cx data -Continue low dose hydralazine aftrerload reduction in lieu of ACEI at this time given renal failure and BB as tolerated Problems: Consultation Date/Type/Reason Admit Date/Time May 16, 2017 at 12:38 Initial Consult Date 05/17/17 Type of Consultation: cardiology Reason for Consultation Nstemi Referring Provider: RUPERT CARMONA Exam/Review of Systems Vital Signs Vitals Vital Signs Date Time Temp Pulse Resp B/P Pulse Ox O2 Delivery O2 Flow Rate FiO2 05/29/17 08:00 97.9 75 18 104/74 95 05/28/17 06:35 2.0 05/27/17 06:52 Nasal Cannula Intake and Output 05/28/17 05/28/17 05/29/17 15:00 23:00 07:00 Intake Total 890 ml 520 ml Output Total 700 ml Balance 890 ml -180 ml Exam Review of Systems: CONSTITUTIONAL: No fevers, chills. PULMONARY: No sob CARDIOVASCULAR: No chest pain/palpitations GASTROINTESTINAL: No nausea/vomiting. GENITOURINARY: No hematuria/dysuria. MUSCULOSKELETAL: No myagias/arthalgias. PSYCHIATRIC: The patient denies depression. NEUROLOGIC: No weakness Constitutional: alert, oriented Psych: no complaints Head: normocephalic ENMT: mucosa pink and moist Neck: jvd (9 cm water), supple Respiratory: diminished breath sounds (at bases/B) Cardiovascular: regular rate and rhythm Gastrointestinal: soft Musculoskeletal: muscle tone (normal) Extremities: pitting pedal edema (Bilateral) Neurological: other (No focal deficits) Results Result Diagram: 05/27/17 0639 05/29/17 0515 Results 24 hrs Laboratory Tests Test 05/28/17 21:08 05/29/17 05:15 05/29/17 08:09 05/29/17 09:21 Bedside Glucose 120 113 186 Sodium Level 131 L Potassium Level 4.5 Chloride Level 99 Carbon Dioxide Level 24 Anion Gap 13 Blood Urea Nitrogen 58 H Creatinine 1.96 H Glucose Level 104 Calcium Level 8.2 L Total Bilirubin 0.4 Direct Bilirubin 0.00 Indirect Bilirubin 0.4 Aspartate Amino Transf (AST/SGOT) 34 Alanine Aminotransferase (ALT/SGPT) 40 Alkaline Phosphatase 106 Total Protein 6.6 Albumin 3.0 L Globulin 3.60 H Albumin/Globulin Ratio 0.83 Test 05/29/17 12:17 05/29/17 17:33 Bedside Glucose 237 H 121 Medications Medications Current Medications Acetaminophen (Tylenol Tab) 650 mg Q6H PRN PO PAIN LEVEL 1-3 OR FEVER Last administered on 05/19/17 09:35; Admin Dose 650 MG; Start 05/16/17 at 15:00 Acetaminophen/ Hydrocodone Bitart ([place] (5/325)) 1 tab Q6H PRN PO MODERATE PAIN LEVEL 4-6 Last administered on 05/27/17 08:54; Admin Dose 1 TAB; Start 05/16/17 at 15:00 Docusate Sodium (Colace) 100 mg Q12H PRN PO CONSTIPATION; Start 05/16/17 at 15 :00 Magnesium Hydroxide (Milk Of Mag) 30 ml DAILY PRN PO CONSTIPATION; Start 05/16 at 15:00 Hydralazine HCl (Apresoline) 10 mg Q6H PRN IV ELEVATED BLOOD PRESSURE; Start 05/16/17 at 15:00 Nitroglycerin (Nitroglycerin (Sl Tab) 0.4 Mg) 1 tab Q5M PRN SL ANGINA; Start 05/16/17 at 15:00 Fish Oil (Fish Oil) 1,000 mg DAILY PO Last administered on 05/29/17 09:22; Admin Dose 1,000 MG; Start 05/16/17 at 15:00 Atorvastatin Calcium (Lipitor) 80 mg HS PO Last administered on 05/28/17 21: 10; Admin Dose 80 MG; Start 05/16/17 at 21:00 Diagnostic Test (Pha) (Accu-Chek) 1 ea 02 XX Last administered on 05/28/17 02 :04; Admin Dose 1 EA; Start 05/17/17 at 02:00 Miscellaneous Information 1 ea NOTE XX ; Start 05/16/17 at 15:00 Glucose (Glutose) 15 gm Q15M PRN PO DECREASED GLUCOSE; Start 05/16/17 at 15:00 Glucose (Glutose) 22.5 gm Q15M PRN PO DECREASED GLUCOSE; Start 05/16/17 at 15: 00 Dextrose (D50w Syringe) 25 ml Q15M PRN IV DECREASED GLUCOSE; Start 05/16/17 at 15:00 Dextrose (D50w Syringe) 50 ml Q15M PRN IV DECREASED GLUCOSE; Start 05/16/17 at 15:00 Glucagon (Glucagen) 1 mg Q15M PRN IM DECREASED GLUCOSE; Start 05/16/17 at 15: 00 Glucose (Glutose) 15 gm Q15M PRN BUCCAL DECREASED GLUCOSE; Start 05/16/17 at 15:00 Carvedilol (Coreg) 6.25 mg BID PO Last administered on 05/29/17 09:26; Admin Dose 6.25 MG; Start 05/16/17 at 21:00 Aspirin (Ecotrin) 325 mg DAILY PO Last administered on 05/29/17 09:22; Admin Dose 325 MG; Start 05/18/17 at 09:00 Clopidogrel Bisulfate (plaVIX) 75 mg DAILY PO Last administered on 05/29/17 09:22; Admin Dose 75 MG; Start 05/18/17 at 09:00 Acetaminophen (Tylenol Tab) 650 mg Q4H PRN PO NON-CARDIAC PAIN LEVEL 1-3; Start 05/17/17 at 12:00 Morphine Sulfate (morphine) 1 mg Q1H PRN IV PAIN NOT RELIEVED BY OTHERS Last administered on 05/18/17 11:51; Admin Dose 1 MG; Start 05/17/17 at 12:00 Ondansetron HCl (Zofran Inj) 4 mg Q4H PRN IV NAUSEA AND/OR VOMITING Last administered on 05/20/17 03:00; Admin Dose 4 MG; Start 05/17/17 at 12:00 Hydralazine HCl (Apresoline) 10 mg Q8 PO Last administered on 05/29/17 14:40 ; Admin Dose 10 MG; Start 05/19/17 at 14:00 IV Flush (NS 10 ml) 10 ml PRN PRN IV IV PROTOCOL; Start 05/20/17 at 17:00 Insulin Glargine (Lantus) 12 unit QHS SC Last administered on 05/28/17 21:12 ; Admin Dose 12 UNIT; Start 05/28/17 at 21:00 Furosemide (Lasix) 20 mg DAILY PO Last administered on 05/29/17 09:22; Admin Dose 20 MG; Start 05/28/17 at 11:30 Potassium Chloride (Potassium Chloride Pwd/Soln) 20 meq DAILY PO Last administered on 05/29/17 09:22; Admin Dose 20 MEQ; Start 05/28/17 at 11:30 RANDEE GAMBLE May 29, 2017 19:04
[2017-05-29 20:10] VITALS: BP 120/72; RESP 18
[2017-05-29] MEDS: ATORVASTATIN 80 MG TAB PO SCH (20:14)
[2017-05-29] MEDS: INSULIN GLARGINE [LANtus] 3 ML PEN SC SCH (20:16)
[2017-05-29 21:57] VITALS: BP 127/67; PULSE 92
[2017-05-30 02:02] VITALS: BP 123/59; RESP 18
[2017-05-30] MEDS: ACCU-CHEK XX SCH (02:16)
[2017-05-30 05:52] VITALS: BP 114/67; PULSE 86
[2017-05-30] MEDS: INSULIN ASPART [NOVOLOG] 3 ML PEN SC SCH ×7 (07:30→20:43)
[2017-05-30 07:48] VITALS: BP 114/77; RESP 16
[2017-05-30] MEDS: POTASSIUM CHLORIDE 20 MEQ POWDER FOR ORAL SOLN PO SCH (08:56)
[2017-05-30] MEDS: CLOPIDOGREL 75 MG TAB PO SCH (08:56)
[2017-05-30] MEDS: FISH OIL 1,000 MG CAP PO SCH (08:57)
[2017-05-30] MEDS: ASPIRIN (EC) 325 MG TAB PO SCH (08:57)
[2017-05-30] MEDS: FUROSEMIDE 20 MG TAB PO SCH (08:58)
--- NOTE | 2017-05-30 10:08 | CONS ---
Date/Time of Note Date/Time of Note DATE: 05/30/17 TIME: 10:07 Assessment/Plan Assessment/Plan Additional Assessment/Plan 1.Acute [place]-trop>100 now Post-op s/p ptca/stent x 2 to 100% occluded LCX and x 2 to high grade LAD stenosis and placement of IABP - much better overall. 2.CHF-likely systolic acute. EF 30-35% by echo yesterday - con't to gently diurese 3.Renal failure-slowly improving - better now. 4.DM 5.Chest pain secondary to number 1. Now improved 6. Anemia 7.Dyslipidemia 8.Loose stools per patient 9. HYponatremia-slowly improving Consultation Date/Type/Reason Admit Date/Time May 16, 2017 at 12:38 Initial Consult Date 05/17/17 Type of Consultation: cardiology Referring Provider: RUPERT CARMONA 24 HR Interval Summary Free Text/Dictation Much beter overall - no CP now - con't Med RX ROS: No fever, no chills, no nausea, no vomiting, no diarrhea/constipation No recent weight changes No chest pain, no PND, no orthopnea No dizziness, blurred vision No thirst, no heat or cold intolerance Exam/Review of Systems Vital Signs Vitals Vital Signs Date Time Temp Pulse Resp B/P Pulse Ox O2 Delivery O2 Flow Rate FiO2 05/30/17 07:48 98.7 97 16 114/77 96 05/28/17 06:35 2.0 05/27/17 06:52 Nasal Cannula Intake and Output 05/29/17 05/29/17 05/30/17 15:00 23:00 07:00 Intake Total 400 ml Output Total 925 ml Balance -525 ml Exam General: WN/WD/NAD, AOx 3 HEENT: Unicetric/atraumatic/EOMI (follow commands) NECK: JVD elevated, no thyromegaly Lymph: no lymphadenopathy HEART: regular with no S3, II/ systolic murmur at apex, PMI L LUNGS: Coarse sounds ABD: soft, NT, ND, +BS : Intact Neuro: non focal SKIN: chronic changes EXT: trace edema Results Result Diagram: 05/27/17 0639 05/29/17 0515 Results 24 hrs Laboratory Tests Test 05/29/17 12:17 05/29/17 17:33 05/29/17 20:13 05/30/17 02:14 Bedside Glucose 237 H 121 161 130 Test 05/30/17 08:31 Bedside Glucose 128 Medications Medications Current Medications Acetaminophen (Tylenol Tab) 650 mg Q6H PRN PO PAIN LEVEL 1-3 OR FEVER Last administered on 05/19/17 09:35; Admin Dose 650 MG; Start 05/16/17 at 15:00 Acetaminophen/ Hydrocodone Bitart ([place] (5/325)) 1 tab Q6H PRN PO MODERATE PAIN LEVEL 4-6 Last administered on 05/27/17 08:54; Admin Dose 1 TAB; Start 05/16/17 at 15:00 Docusate Sodium (Colace) 100 mg Q12H PRN PO CONSTIPATION; Start 05/16/17 at 15 :00 Magnesium Hydroxide (Milk Of Mag) 30 ml DAILY PRN PO CONSTIPATION; Start 05/16 at 15:00 Hydralazine HCl (Apresoline) 10 mg Q6H PRN IV ELEVATED BLOOD PRESSURE; Start 05/16/17 at 15:00 Nitroglycerin (Nitroglycerin (Sl Tab) 0.4 Mg) 1 tab Q5M PRN SL ANGINA; Start 05/16/17 at 15:00 Fish Oil (Fish Oil) 1,000 mg DAILY PO Last administered on 05/30/17 08:57; Admin Dose 1,000 MG; Start 05/16/17 at 15:00 Atorvastatin Calcium (Lipitor) 80 mg HS PO Last administered on 05/29/17 20: 14; Admin Dose 80 MG; Start 05/16/17 at 21:00 Diagnostic Test (Pha) (Accu-Chek) 1 ea 02 XX Last administered on 05/30/17 02 :16; Admin Dose 1 EA; Start 05/17/17 at 02:00 Miscellaneous Information 1 ea NOTE XX ; Start 05/16/17 at 15:00 Glucose (Glutose) 15 gm Q15M PRN PO DECREASED GLUCOSE; Start 05/16/17 at 15:00 Glucose (Glutose) 22.5 gm Q15M PRN PO DECREASED GLUCOSE; Start 05/16/17 at 15: 00 Dextrose (D50w Syringe) 25 ml Q15M PRN IV DECREASED GLUCOSE; Start 05/16/17 at 15:00 Dextrose (D50w Syringe) 50 ml Q15M PRN IV DECREASED GLUCOSE; Start 05/16/17 at 15:00 Glucagon (Glucagen) 1 mg Q15M PRN IM DECREASED GLUCOSE; Start 05/16/17 at 15: 00 Glucose (Glutose) 15 gm Q15M PRN BUCCAL DECREASED GLUCOSE; Start 05/16/17 at 15:00 Carvedilol (Coreg) 6.25 mg BID PO Last administered on 05/30/17 08:58; Admin Dose 6.25 MG; Start 05/16/17 at 21:00 Aspirin (Ecotrin) 325 mg DAILY PO Last administered on 05/30/17 08:57; Admin Dose 325 MG; Start 05/18/17 at 09:00 Clopidogrel Bisulfate (plaVIX) 75 mg DAILY PO Last administered on 05/30/17 08:56; Admin Dose 75 MG; Start 05/18/17 at 09:00 Acetaminophen (Tylenol Tab) 650 mg Q4H PRN PO NON-CARDIAC PAIN LEVEL 1-3; Start 05/17/17 at 12:00 Morphine Sulfate (morphine) 1 mg Q1H PRN IV PAIN NOT RELIEVED BY OTHERS Last administered on 05/18/17 11:51; Admin Dose 1 MG; Start 05/17/17 at 12:00 Ondansetron HCl (Zofran Inj) 4 mg Q4H PRN IV NAUSEA AND/OR VOMITING Last administered on 05/20/17 03:00; Admin Dose 4 MG; Start 05/17/17 at 12:00 Hydralazine HCl (Apresoline) 10 mg Q8 PO Last administered on 05/30/17 05:51 ; Admin Dose 10 MG; Start 05/19/17 at 14:00 IV Flush (NS 10 ml) 10 ml PRN PRN IV IV PROTOCOL; Start 05/20/17 at 17:00 Insulin Glargine (Lantus) 12 unit QHS SC Last administered on 05/29/17 20:16 ; Admin Dose 12 UNIT; Start 05/28/17 at 21:00 Furosemide (Lasix) 20 mg DAILY PO Last administered on 05/30/17 08:58; Admin Dose 20 MG; Start 05/28/17 at 11:30 Potassium Chloride (Potassium Chloride Pwd/Soln) 20 meq DAILY PO Last administered on 05/30/17 08:56; Admin Dose 20 MEQ; Start 05/28/17 at 11:30 VERITO TODD MD May 30, 2017 10:08
[2017-05-30 12:25] LABS: CALCIUM 8.2 mg/dl (8.4-10.2); CREATININE 1.81 mg/dl (0.44-1.00); POTASSIUM 5.2 mmol/L (3.5-5.1)
[2017-05-30 13:15] VITALS: BP 99/70; PULSE 84
[2017-05-30 14:00] VITALS: BP 108/64; RESP 16
--- NOTE | 2017-05-30 15:20 | PDOCDIS ---
Discharge Instructions CONDITION Patient Condition: Stable HOME CARE INSTRUCTIONS: Special Diet: CARDIAC DIET ACTIVITY: Activity Restrictions: Slowly Increase Activity FOLLOW UP/APPOINTMENTS Follow-up Plan Please take your medications as prescribed, see your doctor in the clinic in the next 1 week. CHINEDU GABRIEL May 30, 2017 15:20
[2017-05-30] MEDS ORDERED: GLIM4TAB PO (15:24)
[2017-05-30] MEDS ORDERED: CARV6.2579 PO (15:24)
[2017-05-30] MEDS ORDERED: ATOR80TA75 PO (15:24)
[2017-05-30] MEDS ORDERED: HYDR-3670 PO (15:24)
[2017-05-30] MEDS ORDERED: CLOP75TA28 PO (15:24)
[2017-05-30] MEDS ORDERED: LAS20 PO (15:24)
[2017-05-30] MEDS ORDERED: ASPI325T32 PO (15:24)
[2017-05-30] MEDS ORDERED: OMEG1CAP55 PO (15:24)
[2017-05-30] MEDS ORDERED: NA POLYST SULFON 15 GM/60 ML BTL PO ONE (15:30)
--- NOTE | 2017-05-30 17:20 | DS ---
DATE OF ADMISSION: 05/16/2017 DATE OF DISCHARGE: 05/30/2017 HISTORY OF PRESENT ILLNESS: The patient is a 57-year-old female originally admitted on 05/16/2017, being discharged home on 05/30/2017. The patient came in with shoulder pain and chest pain and vomiting symptoms. She was diagnosed with non-ST elevation LA. She had a cardiac catheterization done and she had a stent placed twice to the LAD as well as the circumflex x2. She had intraaortic balloon pump as well that was placed for about 24 hours and needed pressor support as well. The patient was seen by Cardiology team as well as Renal team and Pulmonary team as well. The patient eventually was able to be transferred out of ICU. She was found with an A1c of 8.2 and she was started on sliding insulin to help control her sugars. She also had some respiratory distress as well as followed with Pulmonary team regarding that. Again, she was placed on high dose aspirin and Plavix regarding her non-ST elevation LA. Over the course of her hospital stay, she worked with Physical Therapy. Her chest pain symptoms and abdominal pain symptoms slowly improved. She was able to ambulate with assistance with Physical Therapy. Tolerate a p.o. diet. She did require dialysis as well briefly during her hospital stay because of elevated creatinine levels, but eventually she was able to have good urine out and per Renal team she had her catheter removed and was medically managed for now and requires no more dialysis at this time. The patient will be discharged home today in improved condition. She will be sent with the following medications. DISCHARGE MEDICATIONS: 1. Aspirin 325 mg daily. 2. Atorvastatin 80 mg at bedtime. 3. Coreg 6.25 mg b.i.d. 4. Plavix 75 mg daily. 5. Lasix 20 mg p.o. daily. 6. Hydralazine 10 mg q.8 hours. 7. Fish oil 1000 mg daily. 8. Calcium carbonate 500 mg b.i.d. 9. Glimepiride 4 mg b.i.d. FOLLOWUP: She will need to followup with Renal team and Cardiology team in the clinic in the next 1-2 weeks. FINAL DIAGNOSES: 1. Chest and shoulder pain secondary to non-ST elevation myocardial infarction, status post angiogram with stent to left anterior descending x2 as well as circumflex x2. 2. Respiratory distress, now improved. 3. Type 2 diabetes. A1c of 8.2, improved. 4. High cholesterol. 5. Renal insufficiency, required Bumex drip and dialysis earlier this admission, now off of this presently. TIME SPENT ON DISCHARGE: 55 minutes. Dictated By: Elias Modi MD /[email or web address] /Document#: [id number]
--- NOTE | 2017-05-30 19:15 | CONS ---
Date/Time of Note Date/Time of Note DATE: 05/30/17 TIME: 19:13 Assessment/Plan Assessment/Plan Chief Complaint/Hosp Course A/P 1. Acute kidney injury on CKD likely due to combination of acute myocardial infarction trop>100 s/p ptca/stent x 2 to 100% occluded LCX and x 2 to high grade LAD stenosis +contrast nephropathy with Angiogram with CT contrast chest and hemodynamic instability.Pt was s/p balloon pump. Now improved Cr 2.83>1.96 >1.8 from 4.62, non oliguric, last HD was on 05/22 .Now with pedel edema 2. Oliguric ATN improved 3. CHF-likely systolic acute. EF 30-35% 4. diabetes mellitus 5 hypertension. 6 Metabolic acidosis due to renal failure improved 7 Likely diabetic nephropathy on admission Cr was 1.14 8 Leukocytosis 9 Anemia Plan - UOP improving - c/w Lasix - dc bi - c/w ASA/Plavix/Coreg/statin per cards - c/w hold AMANDA due to renal failure - Pt stable to dc from renal prespective, f/u outpatient with me in 2 weeks Problems: Consultation Date/Type/Reason Admit Date/Time May 16, 2017 at 12:38 Initial Consult Date 05/17/17 Type of Consultation: Renal Referring Provider: RUPERT CARMONA 24 HR Interval Summary Free Text/Dictation Pt feeling much better Overall improved UOP >1500 ml Exam/Review of Systems Vital Signs Vitals Vital Signs Date Time Temp Pulse Resp B/P Pulse Ox O2 Delivery O2 Flow Rate FiO2 05/30/17 14:00 98.3 86 16 108/64 95 05/28/17 06:35 2.0 05/27/17 06:52 Nasal Cannula Intake and Output 05/29/17 05/29/17 05/30/17 15:00 23:00 07:00 Intake Total 400 ml Output Total 925 ml Balance -525 ml Exam Gen: awake and alert 'Neck: supple Respiratory: clear to auscultation Cardiovascular: regular rate and rhythm Gastrointestinal: bowel sounds (+), soft Extremities: edema (+) Access: Left femoral bi Results Result Diagram: 05/27/17 0639 05/30/17 1123 Results 24 hrs Laboratory Tests Test 05/29/17 20:13 05/30/17 02:14 05/30/17 08:31 05/30/17 11:23 Bedside Glucose 161 130 128 Sodium Level 133 L Potassium Level 5.2 H Chloride Level 103 Carbon Dioxide Level 23 Anion Gap 12 Blood Urea Nitrogen 61 H Creatinine 1.81 H Glucose Level 211 # Calcium Level 8.2 L Test 05/30/17 12:09 05/30/17 17:34 Bedside Glucose 225 H 102 Medications Medications Current Medications Acetaminophen (Tylenol Tab) 650 mg Q6H PRN PO PAIN LEVEL 1-3 OR FEVER Last administered on 05/19/17 09:35; Admin Dose 650 MG; Start 05/16/17 at 15:00 Acetaminophen/ Hydrocodone Bitart ([place] (5/325)) 1 tab Q6H PRN PO MODERATE PAIN LEVEL 4-6 Last administered on 05/27/17 08:54; Admin Dose 1 TAB; Start 05/16/17 at 15:00 Docusate Sodium (Colace) 100 mg Q12H PRN PO CONSTIPATION; Start 05/16/17 at 15 :00 Magnesium Hydroxide (Milk Of Mag) 30 ml DAILY PRN PO CONSTIPATION; Start 05/16 at 15:00 Hydralazine HCl (Apresoline) 10 mg Q6H PRN IV ELEVATED BLOOD PRESSURE; Start 05/16/17 at 15:00 Nitroglycerin (Nitroglycerin (Sl Tab) 0.4 Mg) 1 tab Q5M PRN SL ANGINA; Start 05/16/17 at 15:00 Fish Oil (Fish Oil) 1,000 mg DAILY PO Last administered on 05/30/17 08:57; Admin Dose 1,000 MG; Start 05/16/17 at 15:00 Atorvastatin Calcium (Lipitor) 80 mg HS PO Last administered on 05/29/17 20: 14; Admin Dose 80 MG; Start 05/16/17 at 21:00 Diagnostic Test (Pha) (Accu-Chek) 1 ea 02 XX Last administered on 05/30/17 02 :16; Admin Dose 1 EA; Start 05/17/17 at 02:00 Miscellaneous Information 1 ea NOTE XX ; Start 05/16/17 at 15:00 Glucose (Glutose) 15 gm Q15M PRN PO DECREASED GLUCOSE; Start 05/16/17 at 15:00 Glucose (Glutose) 22.5 gm Q15M PRN PO DECREASED GLUCOSE; Start 05/16/17 at 15: 00 Dextrose (D50w Syringe) 25 ml Q15M PRN IV DECREASED GLUCOSE; Start 05/16/17 at 15:00 Dextrose (D50w Syringe) 50 ml Q15M PRN IV DECREASED GLUCOSE; Start 05/16/17 at 15:00 Glucagon (Glucagen) 1 mg Q15M PRN IM DECREASED GLUCOSE; Start 05/16/17 at 15: 00 Glucose (Glutose) 15 gm Q15M PRN BUCCAL DECREASED GLUCOSE; Start 05/16/17 at 15:00 Carvedilol (Coreg) 6.25 mg BID PO Last administered on 05/30/17 08:58; Admin Dose 6.25 MG; Start 05/16/17 at 21:00 Aspirin (Ecotrin) 325 mg DAILY PO Last administered on 05/30/17 08:57; Admin Dose 325 MG; Start 05/18/17 at 09:00 Clopidogrel Bisulfate (plaVIX) 75 mg DAILY PO Last administered on 05/30/17 08:56; Admin Dose 75 MG; Start 05/18/17 at 09:00 Acetaminophen (Tylenol Tab) 650 mg Q4H PRN PO NON-CARDIAC PAIN LEVEL 1-3; Start 05/17/17 at 12:00 Morphine Sulfate (morphine) 1 mg Q1H PRN IV PAIN NOT RELIEVED BY OTHERS Last administered on 05/18/17 11:51; Admin Dose 1 MG; Start 05/17/17 at 12:00 Ondansetron HCl (Zofran Inj) 4 mg Q4H PRN IV NAUSEA AND/OR VOMITING Last administered on 05/20/17 03:00; Admin Dose 4 MG; Start 05/17/17 at 12:00 Hydralazine HCl (Apresoline) 10 mg Q8 PO Last administered on 05/30/17 05:51 ; Admin Dose 10 MG; Start 05/19/17 at 14:00 IV Flush (NS 10 ml) 10 ml PRN PRN IV IV PROTOCOL; Start 05/20/17 at 17:00 Insulin Glargine (Lantus) 12 unit QHS SC Last administered on 05/29/17 20:16 ; Admin Dose 12 UNIT; Start 05/28/17 at 21:00 Furosemide (Lasix) 20 mg DAILY PO Last administered on 05/30/17 08:58; Admin Dose 20 MG; Start 05/28/17 at 11:30 Potassium Chloride (Potassium Chloride Pwd/Soln) 20 meq DAILY PO Last administered on 05/30/17 08:56; Admin Dose 20 MEQ; Start 05/28/17 at 11:30 TONI MEIER MD May 30, 2017 19:15
[2017-05-30 20:05] VITALS: BP 112/71; RESP 18
[2017-05-30] MEDS: ATORVASTATIN 80 MG TAB PO SCH (20:41)
[2017-05-30] MEDS: INSULIN GLARGINE [LANtus] 3 ML PEN SC SCH (21:00)
== END 2017-05-30 22:26 | disposition home health service (06) | DRG 270 ==
LOC: E/R 06:01 → ICU 12:38 → MS4 05-23 18:24 → PP2 05-27 06:00
PROVIDERS: ADMIT Internal Medicine; ATTEND Internal Medicine
PROC: 5A09357 Assistance with Respiratory Ventilation, Less than 24 Consecutive Hours, Continuous Positive Airway Pressure (ICD-10-PCS; 2017-05-16)
PROC: 027137Z Dilation of Coronary Artery, Two Arteries with Four or More Drug-eluting Intraluminal Devices, Percutaneous Approach (ICD-10-PCS; principal; 2017-05-17 09:00)
PROC: 5A02210 Assistance with Cardiac Output using Balloon Pump, Continuous (ICD-10-PCS; 2017-05-17 09:00)
PROC: 4A023N7 Measurement of Cardiac Sampling and Pressure, Left Heart, Percutaneous Approach (ICD-10-PCS; 2017-05-17 09:00)
PROC: B211YZZ Fluoroscopy of Multiple Coronary Arteries using Other Contrast (ICD-10-PCS; 2017-05-17 09:00)
PROC: 06HY33Z Insertion of Infusion Device into Lower Vein, Percutaneous Approach (ICD-10-PCS; 2017-05-20)
PROC: 02HV33Z Insertion of Infusion Device into Superior Vena Cava, Percutaneous Approach (ICD-10-PCS; 2017-05-20)
PROC: 30233N1 Transfusion of Nonautologous Red Blood Cells into Peripheral Vein, Percutaneous Approach (ICD-10-PCS; 2017-05-20)
PROC: 5A1D70Z Performance of Urinary Filtration, Intermittent, Less than 6 Hours Per Day (ICD-10-PCS; 2017-05-21)
DX: I21.4 Non-ST elevation (NSTEMI) myocardial infarction (principal); N17.0 Acute kidney failure with tubular necrosis; J96.00 Acute respiratory failure, unspecified whether with hypoxia or hypercapnia; R57.0 Cardiogenic shock; I13.0 Hypertensive heart and chronic kidney disease with heart failure and stage 1 through stage 4 chronic kidney disease, or unspecified chronic kidney disease; I50.21 Acute systolic (congestive) heart failure; E87.2 Acidosis; E87.1 Hypo-osmolality and hyponatremia; E11.65 Type 2 diabetes mellitus with hyperglycemia; D64.9 Anemia, unspecified; E78.5 Hyperlipidemia, unspecified; I25.10 Atherosclerotic heart disease of native coronary artery without angina pectoris; E87.5 Hyperkalemia; N14.1 Nephropathy induced by other drugs, medicaments and biological substances; T50.8X5A Adverse effect of diagnostic agents, initial encounter; Y92.238 Other place in hospital as the place of occurrence of the external cause; E11.22 Type 2 diabetes mellitus with diabetic chronic kidney disease; N18.9 Chronic kidney disease, unspecified; E11.21 Type 2 diabetes mellitus with diabetic nephropathy; Z79.84 Long term (current) use of oral hypoglycemic drugs
CPT/HCPCS: 36415; 36430; 36569; 36600; 71010; 71020; 71275; 76937; 80048; 80053; 80061; 80307; 81001; 81003; 82270; 82550; 82553; 82570; 82803; 82962; 83036; 83735; 83880; 84100; 84155; 84300; 84439; 84443; 84484; 85025; 85610; 85730; 86635; 86703; 86704; 86706; 86850; 86900; 86901; 86920; 87075; 87081; 87086; 87340; 90935; 93005; 93306; 93458; 94660; 96372; 96374; 96375; 96376; 97110; 97116; 97161; 97166; 97530; 97535; J1940; C1725; C1726; C1874; C1887; C9460; C9600; C9601; J1170; J1265; J1644; J1815; J1885; J1956; J2060; J2250; J2270; J2405; J3010; J7030; J7040; P9016; Q9967